=== PATIENT | female | born 1990 | race Caucasian/White ===

== ENCOUNTER → 2018-01-18 01:43 | Outpatient (CLI) | payer BC, SELFPAY ==
[2018-01-18 09:05] LABS: Glucose 1 Hour 201 mg/dL
[2018-01-18 11:15] LABS: Glucose 3 Hour 132 mg/dL
== END ==
PROVIDERS: PCP Nurse Practitioner Family; Visit Provider Obstetrics & Gynecology
DX: O24.429 Gestational diabetes mellitus in childbirth, unspecified control (principal)
CPT/HCPCS: 36410; 82951

== ENCOUNTER 2018-06-10 01:46 | Outpatient (CLI) | payer BC, SELFPAY ==
[2018-06-10 08:55] LABS: TSH (W/Ref FT4) 2.27 uIU/mL (0.358-3.74)
== END 2018-06-10 02:06 ==
PROVIDERS: PCP Nurse Practitioner Family; Referring Provider Advanced Practice Midwife; Visit Provider Nurse Practitioner Family
DX: Z86.32 Personal history of gestational diabetes (principal); Z39.2 Encounter for routine postpartum follow-up
CPT/HCPCS: 36410; 82951; 84443

== ENCOUNTER 2018-09-29 02:46 | Observation (INO) | payer BC, SELFPAY ==
[2018-09-29] VITALS (12 sets, daily range): BP systolic 97–126; BP diastolic 56–85; PULSE 58–119; RESP 11–20; TEMP 36.4–36.9; O2SAT 95–99
--- NOTE | 2018-09-29 02:58 | DI.CT_ITS ---
SYMPTOMS/DIAGNOSIS: RIGHT LOWER QUADRANT PAIN, ? APPENDICITIS CT OF THE ABDOMEN AND PELVIS: Images were performed from the lung bases through the ischial tuberosities after IV and without oral contrast. The appendix is dilated to 1.2 cm. The appendix projects inferiorly and posteriorly in the pelvis. There is no evidence of abscess. There is a small amount of fluid. There is no evidence of free air. The heart size is normal. The lung bases are clear. The liver, gallbladder, spleen, pancreas and adrenals are unremarkable. There is a small left renal cyst. No stones or hydronephrosis is seen. There is no small bowel dilatation. The uterus is retroverted. The ovaries are unremarkable. The aorta is normal in diameter. IMPRESSION: Findings consistent with acute appendicitis. No evidence of abscess or perforation.
--- NOTE | 2018-09-29 03:00 | W.ED.GENAD ---
Discharge Plan Disposition Patient Disposition[facility] Condition: Stable Discharge Details Chief Complaint: Abd Prob Clinical Impression: Acute appendicitis Primary Care Provider: Alexa Hairston ED Provider: Alberto Lerma Home Meds and New Rx's Prescriptions: No Action loratadine [Claritin] 10 MG tablet 10 mg PO DAILY PRNRF: 0 epinephrine [EpiPen 2-Martin] 0.3 MG/0.3 ML auto-injector 0.3 mg IM ONCE RF: 0 albuterol sulfate 8.5 GM HFA aerosol inhaler 2 puff Inhalation PRN PRNRF: 0 magnesium 250 MG tablet 250 mg PO DAILY RF: 0 Unisom (doxylamine) 25 MG tablet 12.5 mg PO DAILY RF: 0 Vitamin 1 EACH tablet 1 tbs PO DAILY RF: 0 sertraline 50 mg Tablet 50 mg PO DAILY RF: 0 Medical Decision Making This is a pleasant 27-year-old female who presents today for evaluation of right lower quadrant pain for the last 2-3 days. It is sharp in nature, it is in the right lower quadrant and radiates to the left. Last meal was at 8 PM. She denies any vomiting or diarrhea, vaginal complaints or urinary complaints. Signs and symptoms are notably concerning for appendicitis. We will treat with IV Tylenol, Toradol, rehydrate, evaluate for laboratory abnormality and get a CT scan to rule out appe. 4:[address] scan results show evidence of an acute appendicitis. Surgery will be contacted for surgical management. 4:26 AM I spoken with Dr. Dove, she agrees with the need for surgical management. She recommends Cipro and Flagyl due to the patient's amoxicillin allergy. We will start this. Patient will be admitted, bridging orders will be placed by myself at Dr. Dove's request. I have extensively reviewed the treatment plan with the patient. I have addressed all patient concerns at this time. I have also discussed the plan with the admitting physician and they agree with the current assessment and plan and have agreed to assume responsibility for the patient. All parties demonstrate verbal understanding and agreement with our assessment and plan at this time. FINDINGS: ABDOMEN: Liver: Normal. No mass. Gallbladder and bile ducts: Normal. No calcified stones. No ductal dilation. Pancreas: Normal. No ductal dilation. Spleen: Normal. No splenomegaly. Adrenals: Normal. No mass. Kidneys and ureters: Small probable cyst in the left kidney. No hydronephrosis. Stomach and bowel: Normal. No obstruction. No mucosal thickening. Appendix: Dilated, inflamed appendix measuring up to 1.2 cm in diameter. The appendix is retrocecal and extends into the lower right hemipelvis. No evidence of perforation. PELVIS: Bladder: Unremarkable as visualized. Reproductive: Unremarkable as visualized. ABDOMEN and PELVIS: Intraperitoneal space: Trace fluid in the pelvis. No abscess or free air. Bones/joints: No acute fracture. No dislocation. Soft tissues: Unremarkable. Vasculature: Normal. No abdominal aortic aneurysm. Lymph nodes: Normal. No enlarged lymph nodes. IMPRESSION: Acute appendicitis. Dictated and Authenticated by: Raymundo Jacobo MD. Ordering:CHELSY Dominguez MD [facility] General Date/Time Provider Initiated Documentation: 09/29/18 02:52. HPI Narrative: This is a 27-year-old female with a past medical history of asthma, duodenal ulcer, Chiari malformation, who presents today for evaluation of right lower quadrant pain. Patient states that for the last 2-3 days she has had the pain, it initially started as a sharp right lower quadrant pain with associated chills, is gradually worsened and continued. She denies any focal aggravating or relieving factors. Last time she ate was at 8 PM. She denies any vomiting or diarrhea. She denies any dysuria, hematuria, vaginal discharge or history of STD. She denies any significant previous abdominal surgeries. She has no other complaints at this time. Related Data Home Medications Medication Instructions Recorded Confirmed albuterol sulfate 2 puff INHALATION PRN PRN 05/07/13 09/29/18 loratadine [Claritin] 10 mg PO DAILY PRN 09/13/15 09/29/18 epinephrine [EpiPen 2-Martin] 0.3 mg IM ONCE 04/14/16 09/29/18 doxylamine succinate [Unisom] 12.5 mg PO DAILY 02/03/18 09/29/18 magnesium 250 mg PO DAILY 02/03/18 09/29/18 vit no.[id number] 1 tbs PO DAILY 02/03/18 09/29/18 [ Vitamin Tablet] sertraline 50 mg PO DAILY 09/29/18 09/29/18 Allergies Allergy/AdvReac Type Severity Reaction Status Date / Time amoxicillin trihydrate Allergy Mild Skin Rash Unverified 09/29/18 02:55 [From Augmentin] potassium clavulanate Allergy Mild Skin Rash Unverified 09/29/18 02:55 [From Augmentin] General Stated Complaint: Abd Prob RELL: 3 Review of Systems Review of Systems All systems reviewed & are unremarkable except as noted in HPI and below PFSH Medical History Acute duodenal ulcer with hemorrhage Asthma History of Chiari malformation Migraine Recurrent urinary tract infection Surgical History Excision, Pilonidal Cyst (04/25/16) Fracture, Closed Treatment neck surgery Family History Mother No problems noted. Father Hypertensive disorder, systemic arterial Hyperlipidemia Social History Smoking/Tobacco Use Status: Never Alcohol Intake: never Drug use: Never Do you feel safe in your relationship?: Yes Exam Narrative Exam Narrative: 1.Const: Well-nourished, Well-developed, appearing stated age 2.Eyes: PERRL, no conjunctival injection, and symmetrical lids. 3.ENT: Atraumatic external nose and ears. Moist MM. Neck: Symmetric, trachea midline, No thyromegaly. 4.CVS: +S1/S2, No murmurs or gallops. Peripheral pulses 2+ and equal in all extremities. Brisk capillary refill in all extremities. 5.RESP: Unlabored respiratory effort. Clear to auscultation bilaterally. No wheezes rales or rhonchi 6.GI: Soft, Nondistended, No hepatosplenomegaly. No guarding or rebound. Positive Rovsing sign, positive pain at McBurney's point, 7.MSK: Normocephalic/Atraumatic, Extremities w/o deformity or ttp No cyanosis or clubbing, Normal movement of all extremities 8.Skin: Warm, Dry. No rashes or lesions. 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 Sensation grossly intact, no focal neurologic deficits. 10.Psych: (AAO) x3. Appropriate mood and affect Course Vital Signs Temperature 36.8 C 09/29/18 02:51 Pulse 119 H 09/29/18 02:51 Respiratory Rate 20 09/29/18 02:51 Blood Pressure 123/85 09/29/18 02:51 Pulse Oximetry 95 09/29/18 02:51 Temperature 36.8 C 09/29/18 02:51 Temperature Source Temporal Artery Scan 09/29/18 02:51 Pulse 119 H 09/29/18 02:51 Respiratory Rate 20 09/29/18 02:51 Respiratory Effort Non-Labored 09/29/18 02:51 Blood Pressure 123/85 09/29/18 02:51 Blood Pressure Position Sitting 09/29/18 02:51 Pulse Oximetry 95 09/29/18 02:51 Oxygen Delivery Method Room Air 09/29/18 02:51 Oxygen Flow Rate 0 09/29/18 02:51
--- NOTE | 2018-09-29 03:04 | ED.GENADUL_ITS ---
Discharge Plan Disposition Patient Disposition: [facility] INPATIENT Condition: Stable Discharge Details Chief Complaint: Abd Prob Clinical Impression: Acute appendicitis Primary Care Provider: Alexa Hairston ED Provider: Alberto Lerma Home Meds and New Rx's Prescriptions: No Action loratadine [Claritin] 10 MG tablet 10 mg PO DAILY PRNRF: 0 epinephrine [EpiPen 2-Martin] 0.3 MG/0.3 ML auto-injector 0.3 mg IM ONCE RF: 0 albuterol sulfate 8.5 GM HFA aerosol inhaler 2 puff Inhalation PRN PRNRF: 0 magnesium 250 MG tablet 250 mg PO DAILY RF: 0 Unisom (doxylamine) 25 MG tablet 12.5 mg PO DAILY RF: 0 Vitamin 1 EACH tablet 1 tbs PO DAILY RF: 0 sertraline 50 mg Tablet 50 mg PO DAILY RF: 0 Medical Decision Making This is a pleasant 27-year-old female who presents today for evaluation of right lower quadrant pain for the last 2-3 days. It is sharp in nature, it is in the right lower quadrant and radiates to the left. Last meal was at 8 PM. She denies any vomiting or diarrhea, vaginal complaints or urinary complaints. Signs and symptoms are notably concerning for appendicitis. We will treat with IV Tylenol, Toradol, rehydrate, evaluate for laboratory abnormality and get a CT scan to rule out appe. 4:[address] scan results show evidence of an acute appendicitis. Surgery will be contacted for surgical management. 4:26 AM I spoken with Dr. Dove, she agrees with the need for surgical management. She recommends Cipro and Flagyl due to the patient's amoxicillin allergy. We will start this. Patient will be admitted, bridging orders will be placed by myself at Dr. Dove's request. I have extensively reviewed the treatment plan with the patient. I have addressed all patient concerns at this time. I have also discussed the plan with the admitting physician and they agree with the current assessment and plan and have agreed to assume responsibility for the patient. All parties demonstrate verbal understanding and agreement with our assessment and plan at this time. FINDINGS: ABDOMEN: Liver: Normal. No mass. Gallbladder and bile ducts: Normal. No calcified stones. No ductal dilation. Pancreas: Normal. No ductal dilation. Spleen: Normal. No splenomegaly. Adrenals: Normal. No mass. Kidneys and ureters: Small probable cyst in the left kidney. No hydronephrosis. Stomach and bowel: Normal. No obstruction. No mucosal thickening. Appendix: Dilated, inflamed appendix measuring up to 1.2 cm in diameter. The appendix is retrocecal and extends into the lower right hemipelvis. No evidence of perforation. PELVIS: Bladder: Unremarkable as visualized. Reproductive: Unremarkable as visualized. ABDOMEN and PELVIS: Intraperitoneal space: Trace fluid in the pelvis. No abscess or free air. Bones/joints: No acute fracture. No dislocation. Soft tissues: Unremarkable. Vasculature: Normal. No abdominal aortic aneurysm. Lymph nodes: Normal. No enlarged lymph nodes. IMPRESSION: Acute appendicitis. Dictated and Authenticated by: Raymundo Jacobo MD. Ordering:CHELSY Dominguez MD [facility] General Date/Time Provider Initiated Documentation: 09/29/18 02:52 . HPI Narrative: This is a 27-year-old female with a past medical history of asthma, duodenal ulcer, Chiari malformation, who presents today for evaluation of right lower quadrant pain. Patient states that for the last 2-3 days she has had the pain, it initially started as a sharp right lower quadrant pain with associated chills, is gradually worsened and continued. She denies any focal aggravating or relieving factors. Last time she ate was at 8 PM. She denies any vomiting or diarrhea. She denies any dysuria, hematuria, vaginal discharge or history of STD. She denies any significant previous abdominal surgeries. She has no other complaints at this time. Related Data Home Medications Medication Instructions Recorded Confirmed albuterol sulfate 2 puff INHALATION PRN PRN 05/07/13 09/29/18 loratadine [Claritin] 10 mg PO DAILY PRN 09/13/15 09/29/18 epinephrine [EpiPen 2-Martin] 0.3 mg IM ONCE 04/14/16 09/29/18 doxylamine succinate [Unisom] 12.5 mg PO DAILY 02/03/18 09/29/18 magnesium 250 mg PO DAILY 02/03/18 09/29/18 vit no.[id number] 1 tbs PO DAILY 02/03/18 09/29/18 [ Vitamin Tablet] sertraline 50 mg PO DAILY 09/29/18 09/29/18 Allergies Allergy/AdvReac Type Severity Reaction Status Date / Time amoxicillin trihydrate Allergy Mild Skin Rash Unverified 09/29/18 02:55 [From Augmentin] potassium clavulanate Allergy Mild Skin Rash Unverified 09/29/18 02:55 [From Augmentin] General Stated Complaint: Abd Prob RELL: 3 Review of Systems Review of Systems All systems reviewed & are unremarkable except as noted in HPI and below PFSH Medical History Acute duodenal ulcer with hemorrhage Asthma History of Chiari malformation Migraine Recurrent urinary tract infection Surgical History Excision, Pilonidal Cyst (04/25/16) Fracture, Closed Treatment neck surgery Family History Mother No problems noted. Father Hypertensive disorder, systemic arterial Hyperlipidemia Social History Smoking/Tobacco Use Status: Never Alcohol Intake: never Drug use: Never Do you feel safe in your relationship?: Yes Exam Narrative Exam Narrative: 1.Const: Well-nourished, Well-developed, appearing stated age 2.Eyes: PERRL, no conjunctival injection, and symmetrical lids. 3.ENT: Atraumatic external nose and ears. Moist MM. Neck: Symmetric, trachea midline, No thyromegaly. 4.CVS: +S1/S2, No murmurs or gallops. Peripheral pulses 2+ and equal in all e xtremities. Brisk capillary refill in all extremities. 5.RESP: Unlabored respiratory effort. Clear to auscultation bilaterally. No wheezes rales or rhonchi 6.GI: Soft, Nondistended, No hepatosplenomegaly. No guarding or rebound. Positive Rovsing sign, positive pain at McBurney's point, 7.MSK: Normocephalic/Atraumatic, Extremities w/o deformity or ttp No cyanosis or clubbing, Normal movement of all extremities 8.Skin: Warm, Dry. No rashes or lesions. 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 Sensation grossly intact, no focal neurologic deficits. 10.Psych: (AAO) x3. Appropriate mood and affect Course Vital Signs Temperature 36.8 C 09/29/18 02:51 Pulse 119 H 09/29/18 02:51 Respiratory Rate 20 09/29/18 02:51 Blood Pressure 123/85 09/29/18 02:51 Pulse Oximetry 95 09/29/18 02:51 Temperature 36.8 C 09/29/18 02:51 Temperature Source Temporal Artery Scan 09/29/18 02:51 Pulse 119 H 09/29/18 02:51 Respiratory Rate 20 09/29/18 02:51 Respiratory Effort Non-Labored 09/29/18 02:51 Blood Pressure 123/85 09/29/18 02:51 Blood Pressure Position Sitting 09/29/18 02:51 Pulse Oximetry 95 09/29/18 02:51 Oxygen Delivery Method Room Air 09/29/18 02:51 Oxygen Flow Rate 0 09/29/18 02:51
[2018-09-29 03:08] LABS: Bilirubin Negative (Negative); Blood Negative (Negative); Clarity Clear; Glucose Negative (Negative); Ketones Negative (Negative); Leukocyte Esterase Negative (Negative); Nitrite Negative (Negative); Urobilinogen 0.2 EU/dL (Up TO 0.2)
[2018-09-29 03:24] LABS: Abs Immature Grans 0.03 k/cumm (0.0-0.09); Absolute Basophil Count 0.03 k/cumm (0.0-0.2); Absolute Neutrophil Count 10.58 k/cumm (1.2-6.7); Basophils % 0.2; Eosinophils % 2.7; HGB 13.3 g/dL (12.0-15.5); Immature Grans % 0.2; Lymphocytes % 11.6; Mean Corp. HGB Concentration 34.1 g/dL (32.0-36.0); Mean Corpuscular Hemoglobin 29.3 pg (27.0-33.0); Mean Corpuscular Volume 85.9 fL (80-95); Mean Platelet Volume 9.1 fL (8.0-11.0); Monocytes % 7.4; Neutrophils % 77.9; Platelet Count 334 x1000/uL (130-400); RBC 4.54 m/cumm (4.00-5.20); RBC Distribution Width 12.1 % (11.7-14.6); White Blood Cell Count 13.58 k/cumm (4.4-10.8)
[2018-09-29 03:25] LABS: Absolute Eosinophil Count 0.37 k/cumm (0.0-0.7); Absolute Lymphocyte Count 1.58 k/cumm (1.2-3.4)
[2018-09-29] MEDS: ACETAMINOPHEN 1,000 MG/100 ML BTL 400 MG IVPB (03:34)
[2018-09-29] MEDS: Ketorolac 15 MG/ML VIAL IVP (03:35)
[2018-09-29] MEDS: Normal Saline 1,000 ML 1000 ML IV (03:35)
[2018-09-29 03:40] LABS: ALT 26 U/L (12-78); AST 17 U/L (15-37); Alkaline Phosphatase 122 U/L (46-116); Anion Gap 11.7 mmol/L (3-11); BUN 15 mg/dL (7-18); Bilirubin, Total 0.2 mg/dL (0.2-1.0); CO2 26.3 mmol/L (21.0-32.0); Calcium 9.5 mg/dL (8.5-10.1); Chloride 101 mmol/L (98-107); Glucose 105 mg/dL (70-100); Sodium 139 mmol/L (136-145); Total Protein 8.3 g/dL (6.4-8.2)
[2018-09-29] MEDS: Omnipaque 350 MG/ML 100 ML BTL IJ (03:46)
--- NOTE | 2018-09-29 04:21 | DI.VRAD_ITS ---
Addendum created by Raymundo Jacobo MD on 09/29/2018 4:35:08 AM EDT This report contains findings that may be critical to patient care. Receipt of this report was confirmed by AAYUSH Gates at 4:34 AM EDT on 09/29/2018. Initial report created on 09/29/2018 4:21:22 AM EDT EXAM: CT Abdomen and Pelvis With Contrast EXAM DATE/TIME: 09/29/2018 3:02 AM CLINICAL HISTORY: 27 years old, female; Abdominal pain; Generalized TECHNIQUE: Imaging protocol: Axial computed tomography images of the abdomen and pelvis with intravenous contrast. Coronal and sagittal reformatted images were created and reviewed. Radiation optimization: All CT scans at this facility use at least one of these dose optimization techniques: automated exposure control; mA and/or kV adjustment per patient size (includes targeted exams where dose is matched to clinical indication); or iterative reconstruction. Contrast material: OMNIPAQUE 350; Contrast volume: 100 ml; Contrast route: IV; COMPARISON: No relevant prior studies available. FINDINGS: ABDOMEN: Liver: Normal. No mass. Gallbladder and bile ducts: Normal. No calcified stones. No ductal dilation. Pancreas: Normal. No ductal dilation. Spleen: Normal. No splenomegaly. Adrenals: Normal. No mass. Kidneys and ureters: Small probable cyst in the left kidney. No hydronephrosis. Stomach and bowel: Normal. No obstruction. No mucosal thickening. Appendix: Dilated, inflamed appendix measuring up to 1.2 cm in diameter. The appendix is retrocecal and extends into the lower right hemipelvis. No evidence of perforation. PELVIS: Bladder: Unremarkable as visualized. Reproductive: Unremarkable as visualized. ABDOMEN and PELVIS: Intraperitoneal space: Trace fluid in the pelvis. No abscess or free air. Bones/joints: No acute fracture. No dislocation. Soft tissues: Unremarkable. Vasculature: Normal. No abdominal aortic aneurysm. Lymph nodes: Normal. No enlarged lymph nodes. IMPRESSION: Acute appendicitis. Dictated and Authenticated by: Raymundo Jacobo MD. Ordering:CHELSY Dominguez MD
[2018-09-29] MEDS: CIPROFLOXACIN 400 MG/200 ML BAG 200 MG IVPB (04:37)
--- NOTE | 2018-09-29 05:36 | NUR.NOTE ---
Young female patient brought to the Med/Surg unit from the Emergency room with History of inflamed appendicitis, confirmed by CT abdomen. She AxOx3. Head to toe assessment was done. Pt NPO for surgery this day. Made comfortable in bed and oriented to the room.
[2018-09-29] MEDS: metroNIDAZOLE 500 MG/100 ML BAG 100 MG IVPB (05:47)
[2018-09-29] MEDS: Normal Saline Flush 10 ML SYR IVP ×2 (05:47→16:27)
--- NOTE | 2018-09-29 07:38 | W.PM.HP.N ---
Date of service: 09/29/18 Time of Service: 07:39 Assessment and Plan (1) Acute appendicitis: Current visit: Yes Status: Acute 27 y/o female who presents with findings consistent with acute appendicitis. Recommended proceeding with a laparoscopic appendectomy this am. Operative procedure including risks, benefits, and alternatives reviewed with patient and her mother. These include but are not limited to risks with general anesthesia, bleeding, infection, scarring, conversion to open, drain placement, injury to adjacent structures and organs, baeza placement, and possible additional procedures. Advised patient to discuss with technical solutions consultant re: breast feeding and anesthesia/pain meds. All questions answered. Patient wishes to proceed. See orders. History of Present Illness Chief Complaint: Abdominal pain Narrative: 27 y/o female seen with her mother at the bedside. 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 She was admitted through the ED this am with a 2-3 day history of RLQ pain which has waxed and waned but became more persistent last night. (+) nausea and chills, but no emesis or fevers. No dysuria, hematuria, diarrhea, or constipation noted. WBC ~13k. CT abd/pelvis films and VRADS report reviewed. (+) retrocecal appendicitis without evidence of abscess on CT. Last ate ~ 8 pm last night. Had a sip of water ~ 1 am this morning. She is 6 months and is . Review of Systems Review of Systems All systems reviewed & are unremarkable except as noted in HPI and below Constitutional Reports chills and Denies fever(s) Cardiovascular Denies chest pain, Denies rapid heart rate and Denies dyspnea Respiratory Denies cough and Denies dyspnea Gastrointestinal Reports abdominal pain, Denies constipation, Denies diarrhea, Reports nausea and Denies vomiting [facility] Medical History Acute duodenal ulcer with hemorrhage Asthma History of Chiari malformation Migraine Recurrent urinary tract infection Surgical History Excision, Pilonidal Cyst (04/25/16) Fracture, Closed Treatment neck surgery Family History Mother No problems noted. Father Hypertensive disorder, systemic arterial Hyperlipidemia Social History Smoking/Tobacco Use Status: Never Alcohol Intake: current Drug use: Never Do you feel safe in your relationship?: Yes Meds Home Medications Medication Instructions Recorded Confirmed Type albuterol sulfate 2 puff INHALATION PRN PRN 05/07/13 09/29/18 History loratadine [Claritin] 10 mg PO DAILY PRN 09/13/15 09/29/18 History epinephrine [EpiPen 2-Martin] 0.3 mg IM ONCE 04/14/16 09/29/18 History doxylamine succinate [Unisom] 12.5 mg PO DAILY 02/03/18 09/29/18 History magnesium 250 mg PO DAILY 02/03/18 09/29/18 History vit no.[id number] 1 tbs PO DAILY 02/03/18 09/29/18 History [ Vitamin Tablet] sertraline 50 mg PO DAILY 09/29/18 09/29/18 History Allergies Allergy/AdvReac Type Severity Reaction Status Date / Time amoxicillin trihydrate Allergy Mild Skin Rash Unverified 09/29/18 02:55 [From Augmentin] potassium clavulanate Allergy Mild Skin Rash Unverified 09/29/18 02:55 [From Augmentin] Exam Const General: comfortable, no acute distress and well developed Nutritional Appearance: well nourished Orientation: alert and oriented x3 HENMT Head: normocephalic and atraumatic Eyes Sclera: sclerae normal Neck Neck: no lymphadenopathy, trachea midline, supple and no JVD Resp Effort & Inspection: normal respiratory effort and able to speak in complete sentences Cardio Jugular venous pressure: no JVD Rate: regular rate Rhythm: regular rhythm GI Inspection: non-distended Palpation: soft, not firm, guarding in the RLQ, not rigid and tender in the RLQ Skin General skin exam: no rashes or lesions noted and no jaundice Neuro General: alert and oriented x3 Speech: speech normal Results Imaging Abdomen CT scan report/results: report reviewed and image reviewed CT scan - pelvis: report reviewed and image reviewed Imaging Studies: Patient Name: EBONI FLYNN #: [id number]: ER Ordering Provider: : REG ER Primary Care Provider: Aleax Hairston Date of Exam: 09/29/18Sex: F : 1990Age: 27 Exam(s) Addendum created by Raymundo Jacobo MD on 09/29/2018 4:35:08 AM EDT This report contains findings that may be critical to patient care. Receipt of this report was confirmed by AAYUSH Gates at 4:34 AM EDT on 09/29/2018. Initial report created on 09/29/2018 4:21:22 AM EDT EXAM: CT Abdomen and Pelvis With Contrast EXAM DATE/TIME: 09/29/2018 3:02 AM CLINICAL HISTORY: 27 years old, female; Abdominal pain; Generalized TECHNIQUE: Imaging protocol: Axial computed tomography images of the abdomen and pelvis with intravenous contrast. Coronal and sagittal reformatted images were created and reviewed. Radiation optimization: All CT scans at this facility use at least one of these dose optimization techniques: automated exposure control; mA and/or kV adjustment per patient size (includes targeted exams where dose is matched to clinical indication); or iterative reconstruction. Contrast material: OMNIPAQUE 350; Contrast volume: 100 ml; Contrast route: IV; COMPARISON: No relevant prior studies available. FINDINGS: ABDOMEN: Liver: Normal. No mass. Gallbladder and bile ducts: Normal. No calcified stones. No ductal dilation. Pancreas: Normal. No ductal dilation. Spleen: Normal. No splenomegaly. Adrenals: Normal. No mass. Kidneys and ureters: Small probable cyst in the left kidney. No hydronephrosis. Stomach and bowel: Normal. No obstruction. No mucosal thickening. Appendix: Dilated, inflamed appendix measuring up to 1.2 cm in diameter. The appendix is retrocecal and extends into the lower right hemipelvis. No evidence of perforation. PELVIS: Bladder: Unremarkable as visualized. Reproductive: Unremarkable as visualized. ABDOMEN and PELVIS: Intraperitoneal space: Trace fluid in the pelvis. No abscess or free air. Bones/joints: No acute fracture. No dislocation. Soft tissues: Unremarkable. Vasculature: Normal. No abdominal aortic aneurysm. Lymph nodes: Normal. No enlarged lymph nodes. IMPRESSION: Acute appendicitis. Dictated and Authenticated by: Raymundo Jacobo MD. Ordering:CHELSY Dominguez MD Ordered By: CC: Dictated By: Reports vrad 09/29/18 0302 09/29/18 0435 Transcribed By: Airam Perales This is privileged, confidential information intended only for the provider named. Any use or distribution by any person other than this provider is strictly prohibited. If you receive this report in error, please notify us immediately at [phone] and return the original report to us at the address above. Thank-you. Labs : 09/29/18 03:10 09/29/18 03:10 Laboratory Results - last 24 hr 09/29/18 09/29/18 09/29/18 03:02 03:10 03:10 WBC 13.58 H RBC 4.54 Hgb 13.3 Hct 39.0 MCV 85.9 MCH 29.3 MCHC 34.1 RDW 12.1 Plt Count 334 MPV 9.1 Immature Gran % 0.2 Neutrophils % 77.9 Lymphocytes % 11.6 Monocytes % 7.4 Eosinophils % 2.7 Basophils % 0.2 Absolute Neutrophils 10.58 H Absolute Lymphocytes 1.58 Absolute Monocytes 1.00 H Absolute Eosinophils 0.37 Absolute Basophils 0.03 Sodium 139 Potassium 4.0 Chloride 101 Carbon Dioxide 26.3 Anion Gap 11.7 H BUN 15 Creatinine 0.80 Estimated GFR/1.73 m2 >= 60.00 Glucose 105 H Calcium 9.5 Total Bilirubin 0.2 AST 17 ALT 26 Alkaline Phosphatase 122 H Total Protein 8.3 H Albumin 4.0 Urine Color Yellow Urine Clarity Clear Urine pH 7.0 Ur Specific [place] 1.020 Urine Protein Negative Urine Ketones Negative Urine Blood Negative Urine Nitrite Negative Urine Bilirubin Negative Urine Urobilinogen 0.2 Ur Leukocyte Esterase Negative Urine Glucose Negative Patient ABO/Rh Antibody Screen 09/29/18 03:10 WBC RBC Hgb Hct MCV MCH MCHC RDW Plt Count MPV Immature Gran % Neutrophils % Lymphocytes % Monocytes % Eosinophils % Basophils % Absolute Neutrophils Absolute Lymphocytes Absolute Monocytes Absolute Eosinophils Absolute Basophils Sodium Potassium Chloride Carbon Dioxide Anion Gap BUN Creatinine Estimated GFR/1.73 m2 Glucose Calcium Total Bilirubin AST ALT Alkaline Phosphatase Total Protein Albumin Urine Color Urine Clarity Urine pH Ur Specific [place] Urine Protein Urine Ketones Urine Blood Urine Nitrite Urine Bilirubin Urine Urobilinogen Ur Leukocyte Esterase Urine Glucose Patient ABO/Rh O Positive Antibody Screen Negative Last Vital Signs Temp 36.8 C 09/29/18 05:16 Pulse 119 H 09/29/18 05:16 Resp 20 09/29/18 05:16 BP 123/85 09/29/18 05:16 Pulse Ox 95 09/29/18 05:16
--- NOTE | 2018-09-29 07:46 | HPE_ITS ---
Date of service: 09/29/18 Time of Service: 07:39 Assessment and Plan (1) Acute appendicitis: Current visit: Yes Status: Acute 27 y/o female who presents with findings consistent with acute appendicitis. Recommended proceeding with a laparoscopic appendectomy this am. Operative procedure including risks, benefits, and alternatives reviewed with patient and her mother. These include but are not limited to risks with general anesthesia, bleeding, infection, scarring, conversion to open, drain placement, injury to adjacent structures and organs, baeza placement, and possible additional procedures. Advised patient to discuss with crop consultant re: breast feeding and anesthesia/pain meds. All questions answered. Patient wishes to proceed. See orders. History of Present Illness Chief Complaint: Abdominal pain Narrative: 27 y/o female seen with her mother at the bedside. 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 She was admitted through the ED this am with a 2-3 day history of RLQ pain which has waxed and waned but became more persistent last night. (+) nausea and chills, but no emesis or fevers. No dysuria, hematuria, diarrhea, or constipation noted. WBC ~13k. CT abd/pelvis films and VRADS report reviewed. (+) retrocecal appendicitis without evidence of abscess on CT. Last ate ~ 8 pm last night. Had a sip of water ~ 1 am this morning. She is 6 months and is . Review of Systems Review of Systems All systems reviewed & are unremarkable except as noted in HPI and below Constitutional Reports chills and Denies fever(s) Cardiovascular Denies chest pain, Denies rapid heart rate and Denies dyspnea Respiratory Denies cough and Denies dyspnea Gastrointestinal Reports abdominal pain, Denies constipation, Denies diarrhea, Reports nausea and Denies vomiting [facility] Medical History Acute duodenal ulcer with hemorrhage Asthma History of Chiari malformation Migraine Recurrent urinary tract infection Surgical History Excision, Pilonidal Cyst (04/25/16) Fracture, Closed Treatment neck surgery Family History Mother No problems noted. Father Hypertensive disorder, systemic arterial Hyperlipidemia Social History Smoking/Tobacco Use Status: Never Alcohol Intake: current Drug use: Never Do you feel safe in your relationship?: Yes Meds Home Medications Medication Instructions Recorded Confirmed Type albuterol sulfate 2 puff INHALATION PRN PRN 05/07/13 09/29/18 History loratadine [Claritin] 10 mg PO DAILY PRN 09/13/15 09/29/18 History epinephrine [EpiPen 2-Martin] 0.3 mg IM ONCE 04/14/16 09/29/18 History doxylamine succinate [Unisom] 12.5 mg PO DAILY 02/03/18 09/29/18 History magnesium 250 mg PO DAILY 02/03/18 09/29/18 History vit no.[id number] 1 tbs PO DAILY 02/03/18 09/29/18 History [ Vitamin Tablet] sertraline 50 mg PO DAILY 09/29/18 09/29/18 History Allergies Allergy/AdvReac Type Severity Reaction Status Date / Time amoxicillin trihydrate Allergy Mild Skin Rash Unverified 09/29/18 02:55 [From Augmentin] potassium clavulanate Allergy Mild Skin Rash Unverified 09/29/18 02:55 [From Augmentin] Exam Const General: comfortable, no acute distress and well developed Nutritional Appearance: well nourished Orientation: alert and oriented x3 HENMT Head: normocephalic and atraumatic Eyes Sclera: sclerae normal Neck Neck: no lymphadenopathy, trachea midline, supple and no JVD Resp Effort & Inspection: normal respiratory effort and able to speak in complete sentences Cardio Jugular venous pressure: no JVD Rate: regular rate Rhythm: regular rhythm GI Inspection: non-distended Palpation: soft, not firm, guarding in the RLQ, not rigid and tender in the RLQ Skin General skin exam: no rashes or lesions noted and no jaundice Neuro General: alert and oriented x3 Speech: speech normal Results Imaging Abdomen CT scan report/results: report reviewed and image reviewed CT scan - pelvis: report reviewed and image reviewed Imaging Studies: Patient Name: EBONI FLYNN #: [id number]: ER Ordering Provider: : REG ER Primary Care Provider: Alexa Hairston Date of Exam: 09/29/18Sex: F : 1990Age: 27 Exam(s) Addendum created by Raymundo Jacobo MD on 09/29/2018 4:35:08 AM EDT This report contains findings that may be critical to patient care. Receipt of this report was confirmed by AAYUSH Gates at 4:34 AM EDT on 09/29/2018. Initial report created on 09/29/2018 4:21:22 AM EDT EXAM: CT Abdomen and Pelvis With Contrast EXAM DATE/TIME: 09/29/2018 3:02 AM CLINICAL HISTORY: 27 years old, female; Abdominal pain; Generalized TECHNIQUE: Imaging protocol: Axial computed tomography images of the abdomen and pelvis with intravenous contrast. Coronal and sagittal reformatted images were created and reviewed. Radiation optimization: All CT scans at this facility use at least one of these dose optimization techniques: automated exposure control; mA and/or kV adjustment per patient size (includes targeted exams where dose is matched to clinical indication); or iterative reconstruction. Contrast material: OMNIPAQUE 350; Contrast volume: 100 ml; Contrast route: IV; COMPARISON: No relevant prior studies available. FINDINGS: ABDOMEN: Liver: Normal. No mass. Gallbladder and bile ducts: Normal. No calcified stones. No ductal dilation. Pancreas: Normal. No ductal dilation. Spleen: Normal. No splenomegaly. Adrenals: Normal. No mass. Kidneys and ureters: Small probable cyst in the left kidney. No hydronephrosis. Stomach and bowel: Normal. No obstruction. No mucosal thickening. Appendix: Dilated, inflamed appendix measuring up to 1.2 cm in diameter. The appendix is retrocecal and extends into the lower right hemipelvis. No evidence of perforation. PELVIS: Bladder: Unremarkable as visualized. Reproductive: Unremarkable as visualized. ABDOMEN and PELVIS: Intraperitoneal space: Trace fluid in the pelvis. No abscess or free air. Bones/joints: No acute fracture. No dislocation. Soft tissues: Unremarkable. Vasculature: Normal. No abdominal aortic aneurysm. Lymph nodes: Normal. No enlarged lymph nodes. IMPRESSION: Acute appendicitis. Dictated and Authenticated by: Raymundo Jacobo MD. Ordering:CHELSY Dominguez MD Ordered By: CC: Dictated By: Reports vrad 09/29/18 0302 09/29/18 0435 Transcribed By: Airam Perales This is privileged, confidential information intended only for the provider named. Any use or distribution by any person other than this provider is strictly prohibited. If you receive this report in error, please notify us immediately at [phone] and return the original report to us at the address above. Thank-you. Labs : 09/29/18 03:10 09/29/18 03:10 Laboratory Results - last 24 hr 09/29/18 09/29/18 09/29/18 03:02 03:10 03:10 WBC 13.58 H RBC 4.54 Hgb 13.3 Hct 39.0 MCV 85.9 MCH 29.3 MCHC 34.1 RDW 12.1 Plt Count 334 MPV 9.1 Immature Gran % 0.2 Neutrophils % 77.9 Lymphocytes % 11.6 Monocytes % 7.4 Eosinophils % 2.7 Basophils % 0.2 Absolute Neutrophils 10.58 H Absolute Lymphocytes 1.58 Absolute Monocytes 1.00 H Absolute Eosinophils 0.37 Absolute Basophils 0.03 Sodium 139 Potassium 4.0 Chloride 101 Carbon Dioxide 26.3 Anion Gap 11.7 H BUN 15 Creatinine 0.80 Estimated GFR/1.73 m2 >= 60.00 Glucose 105 H Calcium 9.5 Total Bilirubin 0.2 AST 17 ALT 26 Alkaline Phosphatase 122 H Total Protein 8.3 H Albumin 4.0 Urine Color Yellow Urine Clarity Clear Urine pH 7.0 Ur Specific [place] 1.020 Urine Protein Negative Urine Ketones Negative Urine Blood Negative Urine Nitrite Negative Urine Bilirubin Negative Urine Urobilinogen 0.2 Ur Leukocyte Esterase Negative Urine Glucose Negative Patient ABO/Rh Antibody Screen 09/29/18 03:10 WBC RBC Hgb Hct MCV MCH MCHC RDW Plt Count MPV Immature Gran % Neutrophils % Lymphocytes % Monocytes % Eosinophils % Basophils % Absolute Neutrophils Absolute Lymphocytes Absolute Monocytes Absolute Eosinophils Absolute Basophils Sodium Potassium Chloride Carbon Dioxide Anion Gap BUN Creatinine Estimated GFR/1.73 m2 Glucose Calcium Total Bilirubin AST ALT Alkaline Phosphatase Total Protein Albumin Urine Color Urine Clarity Urine pH Ur Specific [place] Urine Protein Urine Ketones Urine Blood Urine Nitrite Urine Bilirubin Urine Urobilinogen Ur Leukocyte Esterase Urine Glucose Patient ABO/Rh O Positive Antibody Screen Negative Last Vital Signs Temp 36.8 C 09/29/18 05:16 Pulse 119 H 09/29/18 05:16 Resp 20 09/29/18 05:16 BP 123/85 09/29/18 05:16 Pulse Ox 95 09/29/18 05:16
[2018-09-29] MEDS: Lactated Ringers 1,000 ML 100 ML IV ×2 (08:32→11:25)
--- NOTE | 2018-09-29 09:14 | APP_PTH ---
PATIENT: Rita Tavares LOC: U#:[id number] AGE/SX: 27/F ROOM: 216 RE09/29/[address]: Sharon Dove : 1990 BED: A DIS: 09/29/2018 SPEC #: [id number] RECD: 09/30/18 12:40 STATUS: AMANDA REQ #: [id number] HARSHIL: 09/29/18 09:[address]: Sharon Dove DEPT: Surgical Specimen RECD BY: Kajal Macias ENTERED: 09/30/18 12:42 SP TYPE: Appendix OTHR DR: Alexa Hairston Tissues: 1 - APPENDIX NOT INCIDENTAL Procedures: GROSS AND MICRO LEVEL 3 Comments: [id number]
[2018-09-29] MEDS: Bupivacaine 0.25% Pres-Free 30 ML VIAL (09:20)
[2018-09-29] MEDS: fentaNYL 100 MCG/2 ML VIAL IVP (09:52)
[2018-09-29] MEDS: HYDROmorphone 2 MG/ML VIAL IVP (10:02)
--- NOTE | 2018-09-29 10:06 | W.PM.OP ---
Date of service: 09/29/18 Time of Service: 10:06 Operative Note DATE OF PROCEDURE: 09/29/18 PRE-OP DIAGNOSIS: Acute appendicitis POST-OP DIAGNOSIS: same PROCEDURE: Laparoscopic appendectomy SURGEON: Sharon Dvoe MARKETING RESEARCHER: Walter Banerjee ANESTHESIA: GETA ESTIMATED BLOOD LOSS: 5 PATHOLOGY: other (Appendix) COMPLICATIONS: None Patient was transported to: PACU Patient's condition: stable Indications: 27 y/o female admitted through the ED this am with findings consistent with acute appendicitis on history/exam/imaging. Patient presents at this time for a laparoscopic appendectomy. Operative procedure including risks, benefits, and alternatives discussed with patient and informed consent obtained prior to surgery. Findings: Acutely inflamed and thickened appendix without gross perforation or abscess. Procedure Description: Patient was brought to the operating room and placed on the table in the supine position. Patient was intubated and placed under general anesthesia. SCDs in place on both lower extremities. Weathers catheter placed. Left arm tucked at the side. Patient had received a dose of Cipro and Flagyl in the ED for perioperative antibiotic coverage. Abdomen prepped and draped in the usual sterile fashion with chloraprep. Time out performed per protocol. Initial incision made just below the umbilicus with a 2-3 cm transverse incision which was carried down to the fascia. Fascia was elevated and incised. Peritoneal cavity was bluntly entered in the midline and swept with a finger. No adhesions noted. Stay sutures of 0-vicryl placed on either side of the fascial opening. Maryam port inserted and abdomen insufflated with CO2 to a pressure of 15 mm Hg. Patient placed in Trendelenberg with the right side elevated. Remaining ports placed under direct vision after injection with 0.25% Marcaine including a 5 mm port in the suprapubic midline and a second 5 mm port in the LLQ. There was good visualization in the pelvis. The appendix was readily identified. It was noted to be acutely inflamed and thickened but no gross perforation or abscess seen. Terminal ileum and cecum were unremarkable. The base of the appendix was isolated and divided with the 45 mm medium-thick stapler cartridge on the endo KAROLYN. A 45 mm vascular reload was utilized to divide the mesoappendix. The appendix was retrieved via the infraumbilical port site with the endocatch bag. Peritoneal cavity was irrigated with saline and suctioned until the effluent was clear. Cecum, terminal ileum, and visualized small bowel loops intact and viable with no signs of injury. Liver, gallbladder, right ovary/fallopian tube, and uterus were grossly unremarkable on inspection. Abdomen was decompressed. Fascia at the infraumbilical site closed by tying together the stay sutures in a pursestring fashion. Additional 0.25% Marcaine injected at this site for postop analgesia. Skin incisions closed with subcuticular 4-0 monocryl. Skin adhesive applied. Weathers catheter removed. Patient was extubated, awakened from anesthesia, and transferred to recovery in satisfactory condition. Patient tolerated surgery well.
[2018-09-29] MEDS: Acetaminophen 325 MG TAB 650 MG PO ×2 (11:01→16:54)
[2018-09-29] MEDS: Ibuprofen 600 MG TAB PO (11:48)
[2018-09-29] MEDS: HYDROmorphone 2 MG/ML VIAL 0.5 MG IVP (16:26)
--- NOTE | 2018-09-29 17:58 | DSE_ITS ---
Date of service: 09/29/18 Time of Service: 17:54 DS: Diagnosis Discharge Diagnosis (1) Acute appendicitis: Status: Acute Discharge Plan Disposition Patient Disposition: HOME Condition: Stable Discharge Details Chief Complaint: Abd Prob Reason For Visit: ACUTE APPENDICITIS Admit Date/Time: 09/29/18 04:29 Admit Provider: Sharon Dove Attending Provider: Sharon Dove Primary Care Provider: Alexa Hairston ED Provider: Alberto Lerma Hospital Course Hospital Course: 27 y/o female admitted through the ED this am with findings consistent with acute appendicitis. She underwent an uneventful laparoscopic appendectomy this am. Postoperatively she progressed well and is tolerating a regular diet without problems. She has minimal nausea. She notes that she has Zofran at home. Her pain is controlled with po acetaminophen/ibuprofen. Patient does have a history of ulcers. She was advised to take an OTC H2 roberto or PPI while on ibuprofen. She notes that she tolerated acetaminophen/ibuprophen post- without problems. Home Meds and New Rx's Prescriptions: New acetaminophen [Tylenol] 325 mg Tablet 650 mg PO Q6H PRN PRNQty: 0 RF: 0 ibuprofen [IBU] 600 mg Tablet 600 mg PO Q8H PRN PRNQty: 0 RF: 0 Continued loratadine [Claritin] 10 MG tablet 10 mg PO DAILY PRNRF: 0 epinephrine [EpiPen 2-Martin] 0.3 MG/0.3 ML auto-injector 0.3 mg IM ONCE RF: 0 albuterol sulfate 8.5 GM HFA aerosol inhaler 2 puff Inhalation PRN PRNRF: 0 magnesium 250 MG tablet 250 mg PO DAILY RF: 0 Unisom (doxylamine) 25 MG tablet 12.5 mg PO DAILY RF: 0 Vitamin 1 EACH tablet 1 tbs PO DAILY RF: 0 sertraline 50 mg Tablet 50 mg PO DAILY RF: 0 Discharge Instructions Instructions: Laparoscopic Appendectomy (DC) Additional Instructions: May shower 09/30/18. No lifting > 20# x 2 weeks. Referrals: Jade Poole MD [ [facility]] - (Laparoscopic appendectomy post- op follow-up in 2 weeks.) Activity:: No lifting > 20 # x 2 weeks Equipment/Supplies:: No Equipment Needed Diet:: As Tolerated Discharge Orders Discharge Orders: Discharge Order (Routine); Ordered 09/29/18 Ordered By: Sharon Dove Exam Const General: cooperative, no acute distress and well developed Nutritional Appearance: well nourished Orientation: alert and oriented x3 HENMT Head: normocephalic and atraumatic Eyes Sclera: sclerae normal Resp Effort & Inspection: normal respiratory effort and able to speak in complete sentences Cardio Jugular venous pressure: no JVD GI Inspection: non-distended and other (incisions - dry, skin adhesive intact) Palpation: soft, not firm, not rigid and nontender Skin General skin exam: no rashes or lesions noted and no jaundice DS: Data Vitals/I&O Vitals and I&O: Vital Signs Temperature 36.9 C 09/29/18 16:10 Temperature Source Tympanic 09/29/18 16:10 Pulse 72 09/29/18 16:10 Pulse Rhythm Regular 09/29/18 08:15 Respiratory Rate 16 09/29/18 16:10 Respiratory Effort 09/29/18 08:15 Respiratory Depth Normal 09/29/18 08:15 Respiratory Pattern Normal 09/29/18 08:15 Blood Pressure 105/68 09/29/18 16:10 Blood Pressure Position Sitting 09/29/18 02:51 Pulse Oximetry 97 09/29/18 16:10 Respiratory End-tidal CO2 37 09/29/18 10:02 Oxygen Delivery Method Room Air 09/29/18 16:10 Oxygen Flow Rate 0 09/29/18 16:10 Pain Level 2 09/29/18 16:54 Intake & Output 09/28/18 09/29/18 09/29/18 23:59 11:59 23:59 Intake Total 2690 / 3430 740 / 3430 Output Total 1095 / 2545 1450 / 2545 Balance 1595 / 885 -710 / 885 Weight 75.7 kg Intake: IV 2400 / 2420 20 / 2420 Oral 290 / 1010 720 / 1010 Output: Urine 1075 / 2525 1450 / 2525 Emesis Other: Urine Color Pale Yellow Yellow Urine Appearance Clear Clear Urine Odor Normal Normal Emesis Description None Voiding Methods Toilet Toilet Labs on day of discharge: Labs from last 24 hours 09/29/18 09/29/18 09/29/18 03:10 03:10 03:10 WBC 13.58 H RBC 4.54 Hgb 13.3 Hct 39.0 MCV 85.9 MCH 29.3 MCHC 34.1 RDW 12.1 Plt Count 334 MPV 9.1 Immature Gran % 0.2 Neutrophils % 77.9 Lymphocytes % 11.6 Monocytes % 7.4 Eosinophils % 2.7 Basophils % 0.2 Absolute Neutrophils 10.58 H Absolute Lymphocytes 1.58 Absolute Monocytes 1.00 H Absolute Eosinophils 0.37 Absolute Basophils 0.03 Sodium 139 Potassium 4.0 Chloride 101 Carbon Dioxide 26.3 Anion Gap 11.7 H BUN 15 Creatinine 0.80 Estimated GFR/1.73 m2 >= 60.00 Glucose 105 H Calcium 9.5 Total Bilirubin 0.2 AST 17 ALT 26 Alkaline Phosphatase 122 H Total Protein 8.3 H Albumin 4.0 Urine Color Urine Clarity Urine pH Ur Specific [place] Urine Protein Urine Ketones Urine Blood Urine Nitrite Urine Bilirubin Urine Urobilinogen Ur Leukocyte Esterase Urine Glucose Patient ABO/Rh O Positive Antibody Screen Negative 09/29/18 03:02 WBC RBC Hgb Hct MCV MCH MCHC RDW Plt Count MPV Immature Gran % Neutrophils % Lymphocytes % Monocytes % Eosinophils % Basophils % Absolute Neutrophils Absolute Lymphocytes Absolute Monocytes Absolute Eosinophils Absolute Basophils Sodium Potassium Chloride Carbon Dioxide Anion Gap BUN Creatinine Estimated GFR/1.73 m2 Glucose Calcium Total Bilirubin AST ALT Alkaline Phosphatase Total Protein Albumin Urine Color Yellow Urine Clarity Clear Urine pH 7.0 Ur Specific [place] 1.020 Urine Protein Negative Urine Ketones Negative Urine Blood Negative Urine Nitrite Negative Urine Bilirubin Negative Urine Urobilinogen 0.2 Ur Leukocyte Esterase Negative Urine Glucose Negative Patient ABO/Rh Antibody Screen [facility] Medical History Acute duodenal ulcer with hemorrhage Asthma History of Chiari malformation Migraine Recurrent urinary tract infection Surgical History Excision, Pilonidal Cyst (04/25/16) Fracture, Closed Treatment neck surgery Family History Mother No problems noted. Father Hypertensive disorder, systemic arterial Hyperlipidemia Social History Smoking/Tobacco Use Status: Never Alcohol Intake: current Drug use: Never Do you feel safe in your relationship?: Yes
== END 2018-09-29 18:30 | disposition home or self-care (01) ==
LOC: ER 04:34 → MS 05:06
PROVIDERS: Admitting Provider Surgery; Emergency Provider Student in an Organized Health Care Education/Training Program; PCP Nurse Practitioner Family; Visit Provider Surgery
PROC: 0DTJ4ZZ Resection of Appendix, Percutaneous Endoscopic Approach (ICD-10-PCS; CPT 44970; principal; 2018-09-29 08:30)
DX: K35.890 Other acute appendicitis without perforation or gangrene (principal)
CPT/HCPCS: 44970; 80053; 81025; 86850; 86900; 86901; 96361; 96365; 96375; 99222; 99285; NC; 74177; 81003; 85025; 88304; 99284; G0378; J0131; J0744; J1100; J1885; J2405; J3010; J3490

== ENCOUNTER 2019-01-24 10:16 | Outpatient (REF) | payer BC, SELFPAY ==
--- NOTE | 2019-01-24 09:35 | PAPFT_PTH ---
PATIENT: Rita Tavares LOC: [facility] U#:[id number] AGE/SX: 28/F ROOM: RE01/24/[address]: DIANA Fuller : 1990 BED: DIS: 01/24/2019 SPEC #: [id number] RECD: 01/24/19 12:59 STATUS: AMANDA RENicki #: [id number] HARSHIL: 01/24/19 09:[address]: Laura Null DEPT: [facility] Cytology RECD BY: Kajal Macias ENTERED: 01/24/19 12:59 SP TYPE: PAPFT OTHR DR: Alexa Hairston Tissues: 1 - CX/ENDOCX FOR PAP SMEARS Procedures: PAP THIN PREP/[facility] Screening HPV DNA PROBE Comments: [id number]
[2019-01-27 14:51] LABS: Chlamydia Result Negative; GC Result Negative
== END 2019-01-24 10:36 ==
LOC: LBN 10:16
PROVIDERS: PCP Nurse Practitioner Family; Visit Provider Nurse Practitioner Family
DX: Z11.3 Encounter for screening for infections with a predominantly sexual mode of transmission (principal); Z12.4 Encounter for screening for malignant neoplasm of cervix; Z11.51 Encounter for screening for human papillomavirus (HPV)
CPT/HCPCS: 87491; 87591; 88142; 87624

== ENCOUNTER 2019-11-17 07:44 | Outpatient (CLI) | payer BC, SELFPAY ==
[2019-11-17 10:04] LABS: Hemoglobin A1C 5.5 % (3.8-5.6)
[2019-11-17 11:09] LABS: Vitamin D 25 Total 38.2 ng/ml (30-100)
[2019-11-17 16:51] LABS: Progesterone 2.5 ng/mL (See Table)
[2019-11-18 11:08] LABS: Measles IgG Antibody Positive (See Note); Varicella IgG Antibody Positive (See Note)
== END 2019-11-17 08:04 ==
PROVIDERS: PCP Nurse Practitioner Family; Visit Provider Obstetrics & Gynecology Reproductive Endocrinology
DX: E28.2 Polycystic ovarian syndrome (principal); Z31.69 Encounter for other general counseling and advice on procreation
CPT/HCPCS: 36415; 82306; 86787; 83036; 84144; 86765

== ENCOUNTER 2019-11-21 04:08 | Outpatient (CLI) | payer BC, SELFPAY ==
[2019-11-21 13:35] LABS: HCG Quant, Pregnancy < 1 mIU/mL (1-3)
[2019-11-24 12:02] LABS: Rubella IgG Ab (UVM) Positive (See Note)
== END 2019-11-21 04:28 ==
PROVIDERS: PCP Nurse Practitioner Family; Visit Provider Obstetrics & Gynecology Reproductive Endocrinology
DX: Z32.00 Encounter for pregnancy test, result unknown (principal); Z31.69 Encounter for other general counseling and advice on procreation
CPT/HCPCS: 36415; 84702; 86762; 86765

== ENCOUNTER 2019-12-10 03:56 | Outpatient (CLI) | payer BC, SELFPAY ==
[2019-12-10 17:41] LABS: Progesterone 9.1 ng/mL (See Table)
== END 2019-12-10 04:16 ==
PROVIDERS: PCP Nurse Practitioner Family; Visit Provider Obstetrics & Gynecology Reproductive Endocrinology
DX: N97.9 Female infertility, unspecified (principal)
CPT/HCPCS: 36415; 84144

== ENCOUNTER 2019-12-25 02:42 | Outpatient (CLI) | payer BC, SELFPAY ==
[2019-12-25 07:50] LABS: HCG Quant, Pregnancy < 1 mIU/mL (1-3)
== END 2019-12-25 03:02 ==
PROVIDERS: PCP Nurse Practitioner Family; Visit Provider Obstetrics & Gynecology Reproductive Endocrinology
DX: Z32.00 Encounter for pregnancy test, result unknown (principal)
CPT/HCPCS: 36415; 84702

== ENCOUNTER 2020-01-30 01:34 | Outpatient (CLI) | payer BC, SELFPAY ==
[2020-01-30 17:05] LABS: HCG Quant, Pregnancy < 1 mIU/mL (1-3)
[2020-01-30 21:38] LABS: Estradiol 101 pg/mL (See Note); Progesterone 0.6 ng/mL (See Table)
== END 2020-01-30 01:54 ==
PROVIDERS: PCP Nurse Practitioner Family; Visit Provider Obstetrics & Gynecology Reproductive Endocrinology
DX: N91.2 Amenorrhea, unspecified (principal)
CPT/HCPCS: 36415; 82670; 84144; 84702

== ENCOUNTER 2020-02-19 02:58 | Outpatient (CLI) | payer BC, SELFPAY ==
[2020-02-19 18:07] LABS: Progesterone 0.6 ng/mL (See Table)
== END 2020-02-19 03:18 ==
PROVIDERS: PCP Nurse Practitioner Family; Visit Provider Obstetrics & Gynecology Reproductive Endocrinology
DX: Z31.41 Encounter for fertility testing (principal)
CPT/HCPCS: 36415; 84144

== ENCOUNTER 2020-03-10 05:26 | Outpatient (CLI) | payer BC, SELFPAY ==
[2020-03-10 17:31] LABS: Progesterone 17.6 ng/mL (See Table)
== END 2020-03-10 05:46 ==
PROVIDERS: PCP Nurse Practitioner Family; Visit Provider Obstetrics & Gynecology Reproductive Endocrinology
DX: Z31.41 Encounter for fertility testing (principal)
CPT/HCPCS: 36415; 84144

== ENCOUNTER 2020-03-22 02:08 | Outpatient (CLI) | payer BC, SELFPAY ==
[2020-03-22 17:19] LABS: HCG Quant, Pregnancy < 1 mIU/mL (1-3)
== END 2020-03-22 02:28 ==
PROVIDERS: PCP Nurse Practitioner Family; Visit Provider Obstetrics & Gynecology Reproductive Endocrinology
DX: Z32.00 Encounter for pregnancy test, result unknown (principal)
CPT/HCPCS: 36415; 84702

== ENCOUNTER 2020-04-22 02:20 | Outpatient (CLI) | payer BC, SELFPAY ==
[2020-04-22 12:55] LABS: HCG Quant, Pregnancy < 1 mIU/mL (1-3)
== END 2020-04-22 02:40 ==
PROVIDERS: PCP Nurse Practitioner Family; Visit Provider Obstetrics & Gynecology Reproductive Endocrinology
DX: N97.9 Female infertility, unspecified (principal)
CPT/HCPCS: 36415; 84702

== ENCOUNTER 2020-05-20 05:08 | Outpatient (CLI) | payer BC, SELFPAY ==
[2020-05-20 12:09] LABS: HCG Quant, Pregnancy < 1 mIU/mL (1-3)
== END 2020-05-20 05:28 ==
PROVIDERS: PCP Nurse Practitioner Family; Visit Provider Obstetrics & Gynecology Reproductive Endocrinology
DX: Z32.00 Encounter for pregnancy test, result unknown (principal)
CPT/HCPCS: 36415; 84702

== ENCOUNTER 2020-05-28 10:32 | Outpatient (REF) | payer BC, SELFPAY ==
[2020-05-31 17:21] LABS: COVID-19 RT-PCR Result NEGATIVE (Negative)
== END 2020-05-28 10:52 ==
LOC: LBO 10:32
PROVIDERS: PCP Nurse Practitioner Family; Visit Provider Nurse Practitioner Family
DX: Z11.59 Encounter for screening for other viral diseases (principal)
CPT/HCPCS: U0003

== ENCOUNTER 2020-06-03 08:39 | Outpatient (CLI) | payer BC, SELFPAY ==
[2020-06-04 12:23] LABS: COVID-19 RT-PCR UVMMC Result Negative (Negative)
== END 2020-06-03 08:59 ==
PROVIDERS: PCP Nurse Practitioner Family; Visit Provider Nurse Practitioner Family
DX: Z20.828 Contact with and (suspected) exposure to other viral communicable diseases (principal)
CPT/HCPCS: U0003

== ENCOUNTER 2020-06-24 03:05 | Outpatient (CLI) | payer BC, SELFPAY ==
[2020-06-24 12:27] LABS: HCG Quant, Pregnancy < 1 mIU/mL (1-3)
== END 2020-06-24 03:25 ==
PROVIDERS: PCP Nurse Practitioner Family; Visit Provider Obstetrics & Gynecology Reproductive Endocrinology
DX: Z32.00 Encounter for pregnancy test, result unknown (principal)
CPT/HCPCS: 36415; 84702

== ENCOUNTER 2020-07-20 02:41 | Outpatient (CLI) | payer BC, SELFPAY ==
[2020-07-20 10:10] LABS: HCG Quant, Pregnancy 165 mIU/mL (1-3)
== END 2020-07-20 02:42 | disposition home or self-care (01) ==
LOC: LBO 02:41
PROVIDERS: PCP Nurse Practitioner Family; Visit Provider Obstetrics & Gynecology Reproductive Endocrinology
DX: Z32.00 Encounter for pregnancy test, result unknown (principal)
CPT/HCPCS: 36415; 84702

== ENCOUNTER 2020-07-22 02:58 | Outpatient (CLI) | payer BC, SELFPAY ==
[2020-07-22 11:47] LABS: HCG Quant, Pregnancy 344 mIU/mL (1-3)
== END 2020-07-22 02:59 | disposition home or self-care (01) ==
LOC: LBO 02:58
PROVIDERS: PCP Nurse Practitioner Family; Visit Provider Obstetrics & Gynecology Reproductive Endocrinology
DX: Z32.01 Encounter for pregnancy test, result positive (principal)
CPT/HCPCS: 36415; 84702

== ENCOUNTER 2020-08-02 01:00 | Emergency (ER) | payer BC, SELFPAY ==
[2020-08-02 01:05] VITALS: BP 102/51; PULSE 81; RESP 18; TEMP 36; O2SAT 98
--- NOTE | 2020-08-02 01:13 | W.ED.GENAD ---
Discharge Plan Disposition Patient Disposition: [facility] Condition: Stable Discharge Details Clinical Impression: Abdominal pain Primary Care Provider: Renea Delcid ED Provider: Kyrie Kay Home Meds and New Rx's Prescriptions: No Action Mirena 20 mcg/24 hours (5 yrs) 52 mg intrauterine device 1 device IY ONCE RF: 0 Mirena 20 mcg/24 hours (5 yrs) 52 mg intrauterine device 1 device IY ONCE RF: 0 epinephrine [EpiPen 2-Martin] 0.3 MG/0.3 ML auto-injector 0.3 mg IM ONCE RF: 0 albuterol sulfate 8.5 GM HFA aerosol inhaler 2 puff Inhalation PRN PRNRF: 0 magnesium 250 MG tablet 250 mg PO DAILY RF: 0 Vitamin 1 EACH tablet 1 tbs PO DAILY RF: 0 acetaminophen [Tylenol] 325 mg Tablet 650 mg PO Q6H PRN PRNQty: 0 RF: 0 Medical Decision Making 29 yo female who states she is approximately 6 weeks after having iui assisted fertilization comes in after she went to bed feeling well and woke up with excruciating left lower abdomen pain that she has never experienced before. She arrives in visible pain and has pain with palpation in all abdominal lora but most in the left lower abdomen. She denies vaginal bleeding. Will consult with obgyn given we have no u/s available at this hour and concern for ectopic vs ovarian torsion. I did a bedside u/s which was limited but I did not see any free fluid in the abdomen at present time Spoke with Dr. rubi from obgyn who advised she needs an u/s and would not take her to the OR without an u/s especially without free fluid in the abdomen. Will try to transfer her to a facility that [place] [facility] [place] unless stemi/trauma, pt would like to try uv at this time so call placed. spoke with the ED at [facility] and they are willing to take her there for an ultrasound and patient is in agreement with this plan. Given degree of pain she is in will go by ambulance for pain medicine as needed Differential Diagnosis Differential Diagnosis: ectopic, ovarian cyst, torsion Lab Data Lab results reviewed: Yes I reviewed the patient's lab results. HPI General Mode of arrival: ambulatory. Date/Time Provider Initiated Documentation: 08/02/20 01:00. Limitations to Documentation: no limitations. Information obtained by: patient. History of Present Illness 29 year old F presents to the emergency department with the chief complaint of abdominal pain, described as moderate and severe, Patient started experiencing this minute(s) (45) and it has been constant. No relieving factors improve symptom(s), No exacerbating factors reported . Patient notes nausea/vomiting. Patient did receive the following treatments prior to arrival, other (tylenol) Related Data Home Medications Medication Instructions Recorded Confirmed albuterol sulfate 2 puff INHALATION PRN PRN 05/07/13 10/18/18 epinephrine [EpiPen 2-Martin] 0.3 mg IM ONCE 04/14/16 08/02/20 Vitamin 1 tbs PO DAILY 02/03/18 10/18/18 magnesium 250 mg PO DAILY 02/03/18 08/02/20 acetaminophen [Tylenol] 650 mg PO Q6H PRN PRN #0 tab 09/29/18 08/02/20 levonorgestrel 20 mcg/24 hours (6 1 device IY ONCE 01/24/19 01/24/19 yrs) 52 mg intrauterine device levonorgestrel 20 mcg/24 hours (6 1 device IY ONCE 01/24/19 08/02/20 yrs) 52 mg intrauterine device Previous Rx's Medication Instructions Recorded acetaminophen [Tylenol] 650 mg PO Q6H PRN PRN #0 tab 09/29/18 Allergies Allergy/AdvReac Type Severity Reaction Status Date / Time amoxicillin trihydrate Allergy Mild Skin Rash Unverified 08/02/20 01:22 [From Augmentin] potassium clavulanate Allergy Mild Skin Rash Unverified 08/02/20 01:22 [From Augmentin] General Stated Complaint: Abd Prob RELL: 3 Review of Systems All systems reviewed & are unremarkable except as noted in HPI and below Constitutional Constitutional: Denies chills and Denies fever(s) Cardiovascular Cardiovascular: Denies chest pain and Denies dyspnea Respiratory Respiratory: Denies dyspnea [facility] Medical History (Updated 08/02/20 @ 01:55 by Kyrie Kay MD) Acute duodenal ulcer with hemorrhage Asthma History of Chiari malformation Migraine Recurrent urinary tract infection Surgical History Excision, Pilonidal Cyst (04/25/16) Fracture, Closed Treatment neck surgery For [place] Chiari malformation as a child Family History Mother No problems noted. Father Hypertensive disorder, systemic arterial Hyperlipidemia Social History Smoking/Tobacco Use Status: Never Smoking risk assessment performed?: Yes Alcohol Intake: current Drug use: Never Do you feel safe in your relationship?: Yes Female Reproductive History Menstrual control method: progestin IUCD (Mirena inserted today by Bernice Null ) Exam Const General: other (in pain) Orientation: alert HENMT Head: normal to inspection Ears: external ears normal General nose exam: external nose normal Mouth: moist mucous membranes Eyes General: appearance normal, both eyes and all related structures Neck Neck: normal visual inspection Resp Effort & Inspection: normal respiratory effort and able to speak in complete sentences Cardio Rate: regular rate GI Palpation: tender Skin General skin exam: no rashes or lesions noted Neuro General: patient alert and patient oriented x3 Extrem General: normal to inspection Psych Mental Status: mental status grossly normal Course Vital Signs Vital signs: Vital Signs Temperature 36 C L 08/02/20 01:05 Pulse 81 08/02/20 01:05 Respiratory Rate 18 08/02/20 01:05 Blood Pressure 102/51 L 08/02/20 01:05 Pulse Oximetry 98 08/02/20 01:05 Temperature 36 C L 08/02/20 01:05 Temperature Source Tympanic 08/02/20 01:05 Pulse 81 08/02/20 01:05 Respiratory Rate 18 08/02/20 01:05 Respiratory Effort Non-Labored 08/02/20 01:05 Blood Pressure 102/51 L 08/02/20 01:05 Blood Pressure Position Sitting 08/02/20 01:05 Pulse Oximetry 98 08/02/20 01:05 Oxygen Delivery Method Room Air 08/02/20 01:05 Oxygen Flow Rate 0 08/02/20 01:05
[2020-08-02 01:23] LABS: Abs Immature Grans 0.06 10^3/uL (0.0-0.06); Absolute Eosinophil Count 0.46 10^3/uL (0.0-0.7); Absolute Neutrophil Count 8.37 10^3/uL (1.2-6.7); Basophils % 0.3; Eosinophils % 3.1; HCT 36.7 % (36.0-46.0); HGB 12.8 g/dL (11.2-15.7); Immature Grans % 0.4; Lymphocytes % 33.6; MCHC 34.9 % (32.0-36.0); MCV 85.9 fL (80-95); MPV 8.9 fL (8.0-11.0); Monocytes % 6.7; Neutrophils % 55.9; Nucleated RBC 0 %; Platelet Count 289 10^3/uL (130-400); RBC 4.27 10^6/uL (3.93-5.22); RDW 11.8 % (11.7-14.6); RDW-SD 36.8 fL; WBC 14.98 10^3/uL (4.4-10.8)
[2020-08-02] MEDS: Metoclopramide 10 MG/2 ML VIAL IVP (01:24)
[2020-08-02] MEDS: Normal Saline 1,000 ML 1000 ML IV (01:25)
--- NOTE | 2020-08-02 01:27 | NUR.NOTE ---
Addendum entered by Jenna Johansen 08/02/20 01:27: Pt reports sudden LLQ abd pain starting 45 mins [facility] [employer].Reports estimated 6 weeks ,I had an IUI at [facility]. Pt reports h 3 pregnancies, 1 miscarriage. Reports no vag discharge/bleed. States pain is sharp and constant. Pt appears uncomfortable, with audible groans with each exhale. Reports no hx of similar pain in past. Original Note: Nursing Note:
[2020-08-02 01:35] LABS: ALT 22 U/L (14-59); AST 16 U/L (15-37); Albumin 3.4 g/dL (3.4-5.0); Alkaline Phosphatase 50 U/L (46-116); Anion Gap 13.4 mmol/L (3-11); BUN 11 mg/dL (7-18); Bilirubin, Total 0.4 mg/dL (0.2-1.0); CO2 21.6 mmol/L (21.0-32.0); CREATININE 0.7 mg/dL (0.55-1.02); Calcium 8.3 mg/dL (8.5-10.1); Chloride 104 mmol/L (98-107); Glucose 168 mg/dL (74-106); Lipase 92 U/L (73-393); Sodium 139 mmol/L (136-145); Total Protein 7.2 g/dL (6.4-8.2)
[2020-08-02] MEDS: HYDROmorphone 2 MG/ML VIAL 1 MG IVP (01:54)
[2020-08-02 01:55] VITALS: BP 110/69; PULSE 91; RESP 15; O2SAT 98
[2020-08-02 01:59] LABS: Bilirubin, Total 0.3 mg/dL (0.2-1.0); Magnesium 2.1 mg/dL (1.8-2.4)
[2020-08-02 02:04] LABS: HCG Quant, Pregnancy 9433 mIU/mL (1-3)
[2020-08-02 02:08] LABS: Absolute Basophil Count 0.04 10^3/uL (0.0-0.2); Absolute Lymphocyte Count 5.03 10^3/uL (1.2-3.4)
[2020-08-02 02:09] LABS: Diff Comment Agrees w/ Instrument
[2020-08-02 02:11] LABS: Bilirubin Negative (Negative); Blood Trace-lysed (Negative); Clarity Clear (Clear); Glucose Negative (Negative); Ketones Negative (Negative); Leukocyte Esterase Negative (Negative); Nitrite Negative (Negative); Specific Gravity >= 1.030 (1.005-1.025); Urobilinogen 0.2 EU/dL (Up TO 0.2); pH 5.5 (5-8)
[2020-08-02 02:14] LABS: Bilirubin, Direct 0.05 mg/dL (0.00-0.20)
[2020-08-02 02:17] VITALS: BP 94/70; PULSE 85; RESP 15; O2SAT 98
[2020-08-02 02:21] LABS: Epithelial Cells Few HPF (Negative); WBC Negative HPF (0-5)
[2020-08-02 02:22] LABS: Bacteria Negative HPF (Negative); C & S Indicated? No; Casts Negative LPF (Negative); Crystals Negative HPF (Negative); Mucus Moderate (Negative)
== END 2020-08-02 02:35 ==
LOC: ER 02:02
PROVIDERS: Emergency Provider Emergency Medicine; PCP Nurse Practitioner Family
DX: O26.891 Other specified pregnancy related conditions, first trimester (principal); Z3A.01 Less than 8 weeks gestation of pregnancy; R10.32 Left lower quadrant pain
CPT/HCPCS: 80053; 83690; 86850; 86900; 86901; 96374; 96375; 99285; 81003; 81015; 82247; 82248; 83735; 84702; 85025; J2765

== ENCOUNTER 2020-09-24 02:40 | Outpatient (CLI) | payer BC, SELFPAY ==
[2020-09-24 12:42] LABS: Abs Immature Grans 0.04 10^3/uL (0.0-0.06); Absolute Basophil Count 0.03 10^3/uL (0.0-0.2); Absolute Eosinophil Count 0.21 10^3/uL (0.0-0.7); Absolute Monocyte Count 0.55 10^3/uL (0.1-0.8); Absolute Neutrophil Count 8.44 10^3/uL (1.2-6.7); Basophils % 0.3; Eosinophils % 1.8; HCT 36.1 % (36.0-46.0); HGB 12.8 g/dL (11.2-15.7); Immature Grans % 0.3; Lymphocytes % 19.2; MCH 30.6 pg (27.0-33.0); MCHC 35.5 % (32.0-36.0); MCV 86.4 fL (80-95); MPV 9.1 fL (8.0-11.0); Monocytes % 4.8; Neutrophils % 73.6; Nucleated RBC 0 %; Platelet Count 274 10^3/uL (130-400); RBC 4.18 10^6/uL (3.93-5.22); RDW 12.2 % (11.7-14.6); RDW-SD 38.5 fL; WBC 11.47 10^3/uL (4.4-10.8)
[2020-09-24 13:14] LABS: Glucose,1 Hr (Glucola) 171 mg/dL (80-140)
[2020-09-26 11:32] LABS: Syphilis Total Ab w/Reflex Nonreactive (Nonreactive)
[2020-09-27 10:02] LABS: Hepatitis B Surface Ag Negative (Negative)
[2020-09-27 10:41] LABS: Hepatitis C Ab w Rflx HCV PCR Negative (Negative)
[2020-09-27 11:05] LABS: HIV-1/2 Ag & Ab Screen Negative (Negative)
[2020-09-27 11:10] LABS: Varicella IgG Antibody Positive (See Note)
[2020-09-27 11:15] LABS: Rubella IgG Ab (UVM) Positive (See Note)
== END 2020-09-24 02:41 | disposition home or self-care (01) ==
LOC: LBO 02:40
PROVIDERS: Advanced Practice Midwife; PCP Nurse Practitioner Family; Visit Provider Nurse Practitioner Family
DX: Z34.91 Encounter for supervision of normal pregnancy, unspecified, first trimester (principal); Z11.59 Encounter for screening for other viral diseases; Z11.4 Encounter for screening for human immunodeficiency virus [HIV]; Z01.84 Encounter for antibody response examination
CPT/HCPCS: 82950; 86787; 86803; 86850; 86900; 86901; 87340; 87389; 84443; 85025; 86762; 86780

== ENCOUNTER 2020-09-24 12:18 | Outpatient (REF) | payer BC, SELFPAY ==
[2020-09-24 13:48] LABS: *AMPHETAMINES SCREEN URINE Negative (Negative); *BARBITURATES SCREEN URINE Negative (Negative); *BENZODIAZEPINES SCREEN URINE Negative (Negative); Cannabinoids THC Negative (Negative); Cocaine Screen,Urine Negative (Negative); METHADONE URINE SCREEN Negative (Negative); OPIATES URINE SCREEN Negative (Negative)
[2020-09-24 13:49] LABS: Tricyclic Antidepressants Negative (Negative)
[2020-09-27 15:19] LABS: Chlamydia Result Negative (Negative); GC Result Negative (Negative)
[2020-09-30 08:39] LABS: Buprenorphine Negative ng/mL (Cutoff: 5.0); Norbuprenorphine Negative ng/mL (Cutoff: 2.5)
== END 2020-09-24 12:19 | disposition home or self-care (01) ==
LOC: LBN 12:18
PROVIDERS: PCP Nurse Practitioner Family; Visit Provider Advanced Practice Midwife
DX: Z34.91 Encounter for supervision of normal pregnancy, unspecified, first trimester (principal); Z11.3 Encounter for screening for infections with a predominantly sexual mode of transmission
CPT/HCPCS: 80307; 87491; 87591; 87086; 87480; 87510; 87660

== ENCOUNTER 2020-10-01 01:47 | Outpatient (CLI) | payer BC, SELFPAY ==
[2020-10-01 09:22] LABS: Glucose 1 Hour 122 mg/dL
[2020-10-01 11:09] LABS: Glucose 3 Hour 92 mg/dL
== END 2020-10-01 01:48 | disposition home or self-care (01) ==
LOC: LBO 01:48
PROVIDERS: PCP Nurse Practitioner Family; Visit Provider Advanced Practice Midwife
DX: O09.291 Supervision of pregnancy with other poor reproductive or obstetric history, first trimester (principal); Z86.32 Personal history of gestational diabetes
CPT/HCPCS: 36415; 82951

== ENCOUNTER 2020-10-22 15:23 | Outpatient (REF) | payer BC, SELFPAY ==
[2020-10-22 12:45] LABS: Bilirubin Negative (Negative); Blood Trace-intact (Negative); Clarity Clear (Clear); Glucose Negative (Negative); Ketones Negative (Negative); Leukocyte Esterase Negative (Negative); Nitrite Negative (Negative); Specific Gravity 1.015 (1.005-1.025); Urobilinogen 0.2 EU/dL (Up TO 0.2)
[2020-10-22 13:05] LABS: Bacteria Few HPF (Negative); C & S Indicated? C&S Done As Ordered; Casts Negative LPF (Negative); Crystals Negative HPF (Negative); Epithelial Cells Few HPF (Negative); Mucus Negative (Negative); RBC 0-2 HPF (0-2)
== END 2020-10-22 15:24 | disposition home or self-care (01) ==
LOC: LBN 15:23
PROVIDERS: PCP Nurse Practitioner Family; Visit Provider Advanced Practice Midwife
DX: O26.899 Other specified pregnancy related conditions, unspecified trimester (principal); R10.2 Pelvic and perineal pain; Z3A.17 17 weeks gestation of pregnancy
CPT/HCPCS: 81003; 81015; 87086

== ENCOUNTER 2020-10-29 02:00 | Outpatient (CLI) | payer BC, SELFPAY ==
[2020-10-29 10:33] LABS: Kit/Specimen SENT
== END 2020-10-29 02:01 | disposition home or self-care (01) ==
LOC: LBO 02:01
PROVIDERS: PCP Nurse Practitioner Family; Visit Provider Advanced Practice Midwife
DX: Z34.92 Encounter for supervision of normal pregnancy, unspecified, second trimester (principal); Z36.89 Encounter for other specified antenatal screening; Z3A.18 18 weeks gestation of pregnancy
CPT/HCPCS: 36415

== ENCOUNTER 2020-12-31 04:10 | Outpatient (CLI) | payer BC, SELFPAY ==
[2020-12-31 07:17] LABS: HCT 33.8 % (36.0-46.0); HGB 11.2 g/dL (11.2-15.7); MCH 29.2 pg (27.0-33.0); MCHC 33.1 % (32.0-36.0); Platelet Count 256 10^3/uL (130-400); RBC 3.84 10^6/uL (3.93-5.22); RDW 11.9 % (11.7-14.6); RDW-SD 38.2 fL; WBC 10.69 10^3/uL (4.4-10.8)
[2020-12-31 08:46] LABS: Glucose 1 Hour 185 mg/dL
[2020-12-31 10:46] LABS: Glucose 3 Hour 91 mg/dL
== END 2020-12-31 04:11 | disposition home or self-care (01) ==
LOC: LBO 04:11
PROVIDERS: PCP Nurse Practitioner Family; Visit Provider Advanced Practice Midwife
DX: Z34.93 Encounter for supervision of normal pregnancy, unspecified, third trimester (principal); Z86.32 Personal history of gestational diabetes; Z3A.27 27 weeks gestation of pregnancy
CPT/HCPCS: 36415; 85027; 82951

== ENCOUNTER 2021-03-04 13:01 | Outpatient (REF) | payer BC, SELFPAY ==
[2021-03-04 12:50] LABS: *AMPHETAMINES SCREEN URINE Negative (Negative); *BARBITURATES SCREEN URINE Negative (Negative); *BENZODIAZEPINES SCREEN URINE Negative (Negative); Cannabinoids THC Negative (Negative); Cocaine Screen,Urine Negative (Negative); METHADONE URINE SCREEN Negative (Negative); OPIATES URINE SCREEN Negative (Negative); Tricyclic Antidepressants Negative (Negative)
[2021-03-09 11:46] LABS: Buprenorphine Negative ng/mL (Cutoff: 5.0)
== END 2021-03-04 13:02 | disposition home or self-care (01) ==
LOC: LBN 13:01
PROVIDERS: PCP Nurse Practitioner Family; Visit Provider Advanced Practice Midwife
DX: Z34.93 Encounter for supervision of normal pregnancy, unspecified, third trimester (principal); Z3A.36 36 weeks gestation of pregnancy
CPT/HCPCS: 80307; 87081

== ENCOUNTER 2021-03-16 07:25 | Inpatient (IN) | payer BC, SELFPAY ==
[2021-03-16] VITALS (13 sets, daily range): BP systolic 102–126; BP diastolic 56–75; PULSE 60–89; RESP 12–20; TEMP 36.5–37.2; O2SAT 99
[2021-03-16 09:15] LABS: Source Nasal/Nares
[2021-03-16 09:17] LABS: HCT 34.6 % (36.0-46.0); HGB 11.2 g/dL (11.2-15.7); MCH 26.1 pg (27.0-33.0); MCHC 32.4 % (32.0-36.0); MCV 80.7 fL (80-95); MPV 9.6 fL (8.0-11.0); Platelet Count 342 10^3/uL (130-400); RBC 4.29 10^6/uL (3.93-5.22); RDW 12.9 % (11.7-14.6); RDW-SD 37.2 fL; WBC 13.04 10^3/uL (4.4-10.8)
[2021-03-16 10:09] LABS: COVID-19 PCR Negative (Negative)
--- NOTE | 2021-03-16 11:14 | W.PM.OBHPL1 ---
Date of service: 03/16/21 Time of Service: 09:14 Assessment and Plan Assessment and plan (1) PROM with onset of labor within 24 hours of rupture: Status: Acute Assessment and plan: A: 30 yo @ 38+2 wks SROM clear confirmed Spont labor onset < 12 hrs after ROM Category 1 tracing Low risk for SD or PPH P: Admit to BC, T&S, CBC, COVID swab Expectant management, intermittent auscultation, PO fluids Anticipate Qualifiers: PROM gestational age: full term Qualified Code(s): O42.02 - Full-term premature rupture of membranes, onset of labor within 24 hours of rupture OB-HPI Labor/Delivery History of Present Illness Reason for Visit: Labor Chief Complaint: Uterine Contractions; Suspected Rupture of Membranes , Associated Signs and Symptoms of Suspected ROM: gush of pink tinged fluids at midnight, trickling ever since, contractions began shortly thereafter. JEFFREY Calculator Estimated Delivery Date Method Current WG Current Estimate 03/28/21 LMP (Certain) 38w 2d Other Estimates 03/28/21 Ultrasound #1 38w 2d History of Present Expected Delivery Route/Plan - CNM FOB/ - Jasson Garcia, 2nd child together BG GBS neg would like to avoid IV and would like ODT Zofran early labor as it worked well for her last delivery Specific Issues/Plan 1. 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 pushed for 3 hours and baby required resuscitation with delivery in 2018, records release signed 3. Hx gestational diabetes last 3a. early 3 hr GTT done 10/01, nml x4 levels 3b. 3 hr at 27w F91, 1hr 185, 2hr 154, 3 hr 91 4. declines harmony, CF or SMA 4A. [place] desired. Result=low prob x3, female fetus 5. exercise induced asthma rare use of inhaler 6. 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 has completed COVID vaccine series, FOB is getting his as well 8. Complex left ovarian cyst - pain recurring 10/14 - US scheduled for followup. Cyst smaller at 3.4 x 3.2, small amount of free fluid. 8a. Follow up US 10/29 smaller size no new mass 9. Hematuria 08/02 in ED and 10/22- kidney US ordered to rule out stone. 9a. 10/29/20 renal US normal bilaterally 9b. 11/12/20 - trace hematuria by U[facility] 10. Headaches - magnesium daily. 11. PCN allergy: screening questions 12/10, low risk for allergy, offered [facility] allergy testing, will consider doing 12. Significant hx PPD after first delivery, treated w/SSRI x1 yr. Consider starting sertraline after 36 wks or 12a. Start 25 mg sertraline @ 36 wks, Rx sent Assessment: History Reviewed & Current Review of Systems All systems reviewed & are unremarkable except as noted in HPI and below Constitutional Constitutional: Reports as per HPI Cardiovascular Cardiovascular: Reports system reviewed and no additional complaints, except as documented Respiratory Respiratory: Reports system reviewed and no additional complaints, except as documented Gastrointestinal Gastrointestinal: Reports as per HPI and Reports nausea Genitourinary Genitourinary: Reports system reviewed and no additional complaints, except as documented and Reports as per HPI Musculoskeletal Musculoskeletal: Reports system reviewed and no additional complaints, except as documented Integumentary/Breasts Skin/Breast: Reports system reviewed and no additional complaints, except as documented Psychiatric Psychiatric: Reports system reviewed and no additional complaints, except as documented [facility] Medical History (Updated 03/16/21 @ 11:20 by Tete Chen) 27 weeks gestation of Acute duodenal ulcer with hemorrhage Asthma History of Chiari malformation Migraine Recurrent urinary tract infection Surgical History (Updated 09/24/20 @ 11:31 by Jenna Pena CNM) Excision, Pilonidal Cyst (04/25/16) Fracture, Closed Treatment neck surgery 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 Father Hypertensive disorder, systemic arterial Hyperlipidemia Social History Smoking/Tobacco Use Status: Never Smoking risk assessment performed?: Yes Alcohol Intake: current Drug use: Never Do you feel safe in your relationship?: Yes Female Reproductive History Menstrual control method: progestin IUCD History History 3 Para 1 Hx # Term Pregnancies 1 Multiple births 0 Hx # Pregnancies 0 Ectopic pregnancies 0 AB induced 0 Hx Number of Living Children 1 AB spontaneous 1 Past Pregnancies Del. Date GA/Weeks # Outcome Route Wgt Sex Labor Lgth Anesthesia Location Prov Complic 03/25/17 7 No Unsuccessful 04/08/18 40 No Successful vaginal 7 lb 2 oz Male 18 hour [facility] other Delivery Date: 03/25/17 SAB no interventions Jenna Pena Delivery Date: 04/08/18 pushed X 3 hours, baby required resuscitation but did well Jenna Pena Meds Allergies and Home Medications Allergies Allergy/AdvReac Type Severity Reaction Status Date / Time amoxicillin trihydrate Allergy Mild Skin Rash Verified 03/11/21 14:48 [From Augmentin] potassium clavulanate Allergy Mild Skin Rash Verified 03/11/21 14:48 [From Augmentin] Home Medications Medication Instructions Recorded Confirmed Type albuterol sulfate 2 puff INHALATION PRN PRN 05/07/13 03/16/21 History epinephrine [EpiPen 2-Martin] 0.3 mg IM ONCE 04/14/16 03/16/21 History Vitamin 1 tbs PO DAILY 02/03/18 03/16/21 History acetaminophen [Tylenol] 650 mg PO Q6H PRN PRN #0 tab 09/29/18 03/16/21 Rx calcium carbonate 200 mg calcium 1,000 mg PO BID tab 12/10/20 03/16/21 History (500 mg) chewable tablet magnesium oxide 500 mg PO DAILY tab 01/21/21 03/16/21 History sertraline 25 mg tablet 25 mg PO DAILY #30 tab 03/04/21 03/16/21 Rx Exam Physical Exam Vital signs: Temp Pulse Resp BP Pulse Ox 98.6 F 82 12 114/72 99 03/16/21 09:51 03/16/21 11:08 03/16/21 08:41 03/16/21 11:08 03/16/21 08:41 Vital Signs Reviewed: Yes Constitutional Constitutional: mild distress Detailed Labor and Delivery Exam Dilation: 5 Effacement (%): 100 station: -2 Position: LOP Cervix position: mid Consistency: soft Amniotic Membrane Status: Ruptured Rupture Method: Spontaneous Amniotic Fluid: Clear Pooling: Positive Nitrazine: Positive Ferning: Present Monitor Mode: External Contraction Frequency(min): every 3-5 minutes Contraction Intensity: Mild/Moderate Fetus A Heart Rate Baseline: 135 Monitor Accelerations: 15 X 15 Monitor Decelerations: None Variability: Moderate (6-25 BPM) Categories: Category I Est. Weight: 7 lb 0.877 oz Est. Weight: 3200 gms Date of Membrane Rupture: 03/16/21 Time of Membrane Rupture: 00:10 HEENT Exam HEENT Exam: Normal Neck Exam Neck Exam: Normal Chest/Brest/Axilla Exam Chest Exam: Normal Breast Exam Breast Exam: Not Done Respiratory Exam Respiratory Exam: Normal Cardiovascular Exam Cardiovascular Exam: Normal Abdominal Exam Abdominal Exam: Normal (Gravid, nontender) Rectal Exam Rectal Exam: Not Done Exam Exam: Normal Extremities Exam Extremities Exam: Normal Back/Spine/Pelvis Exam Back Exam: Normal Pelvis Adequate: Yes (proven to 7'2) Skin Exam Skin Exam: Normal Neurological Exam Neurological Exam: Normal Psychiatric Exam Psychiatric Exam: Normal Results Results Group Beta Strep: Negative Blood Type: O+ Rubella Status: Immune Varicella Immunity: Immune Abnormal Lab Findings: Abnormal Labs 03/16/21 09:04 WBC 13.04 H Hct 34.6 L MCH 26.1 L Risk Assessment Risk for Shoulder Dystocia Historical/Initial OB: NEGATIVE FOR: Pelvic Abnormality, Pre- BMI>30, Previous Shoulder Dystocia or Previous Macrosomia Increased Risk?: No Date/Initial: 09/24/20 Risk for Pre-Eclampsia Daily Dose ASA Indicated: No Date Initiated/Initials: not indicated Yes, if one or more: NEGATIVE FOR: Hx Pre-E/Gest HTN, Chronic HTN, Multiple Gestation, Pre-gestational DM, Renal Disease, Systemic Lupus or APA Syndrome Yes, if 2 or more: NEGATIVE FOR: Nulliparity, Age>= 35 yrs, >10yr btwn pregnancies, BMI>30, ethinicty, Mother/Sister w/ Pre-E or Previous IUGR Risk for Post- Hemorrhage Initial: NEGATIVE FOR: Multiple Gestation, Previous PPH, Known Clotting Deficiency, Grand Multiparity or Anticoagulation At Risk?: No Counseled re: Active Management: Yes Date/Initials: 09/24/20 Risks Reviewed Risks Reviewed Upon Admission: Yes
[2021-03-16] MEDS: Ondansetron O.D.T. 4 MG TABEF SL (15:16)
[2021-03-16] MEDS: Oxytocin 10 UNITS/ML VIAL IM (15:58)
--- NOTE | 2021-03-16 16:23 | W.OBDELIVERY ---
Date of service: 03/16/21 Time of Service: 16:23 OB Labor/ Delivery Information Baby A Delivery Delivery Method: Spontaneaous Presentation: Vertex Vertex Position: Left Occipital Anterior Breech Position: N/A Cord Description-Baby A: 3 Vessels Cord Description Comment: short cord approx 6 inches in length, ecentric insertion Amniotic Fluid: Clear Estimated Blood Loss: 200 ml Delivery Outcome: Liveborn Infant Transferred: Remains with Mother Note: Pt rested in the tub for 3 hours, dozing between q5 minute contractions, then left the tub and rinsed off in the shower, returned to bed and began using nitrous inhalant. Intermittent auscultation FHT's remained reassuring at every check per protocol. While on her right side she felt urges to push, assisted with removal of clothing and turned to left side where head was visible on the perineum, abbreviated 2nd stage huddle completed. of vigorous female infant over intact perineum, right nuchal hand noted, cord was short allowing placement of infant on mother's abdomen only. Cord was clamped and cut by FOB at 2 minutes of age, cord blood collected, Pitocin 10 units given IM. [place] placenta intact with 3VC, vagina vulva and perineum inspected and found to be intact with small superficial left labial lac noted at the location of a buttonhole laceration from previous delivery, not bleeding, not repaired. Apgars 8/9, weight 3145 gms. Providers Nurse Store Associate: Tete Chen Nurse: Rita Kendrick Nurse: Mercedes Dorsey Other: Kassidy Bryant Labor/Delivery Information Number of Babies in Womb: 1 Steroids Given: None Reason Steroids Not Administered: N/A Group Beta Strep: Negative Antibiotics Administered: No Rubella Status: Immune Blood Type: O+ Varicella Immunity: Immune Maternal Complications: None Shoulder Dystocia: No Stages of Labor Onset of Labor Date: 03/16/21 Onset of Labor Time: 04:50 Complete Dilatation Date: 03/16/21 Complete Dilatation Time: 15:50 Labor - Stage 1 Duration: 0 minutes ROM Baby A: 03/16/21 ROM Baby A: 00:10 ROM Total Time- Baby A: [id number] Infant Delivery Date-Baby A: 03/16/21 Delivery Time-Baby A: 15:55 Labor Stage 2 Duration: 5 minutes Placenta Delivery Date-Baby A: 03/16/21 Placenta Delivery Time-Baby A: 16:02 Labor-Stage 3 Duration: 7 minutes Total Length of Labor-Baby A: 11 hours and 5 minutes Placenta Status: Delivered Baby A Gender: Female Gestational Status: Term (39-41.6 wks) Gestational Age in Weeks/Days: 38 Weeks and 2 Days weight: 6 lb 14.937 oz Weight Comment: 3145 gms Score-1 Minute Interval(Baby A) Heart Rate-1 minute: 100 BPM or Greater Respiratory Effort- 1 minute: Spontaneous/Strong Cry Muscle Tone-1 minute: Active Movement Reflex Response-1 minute: Prompt Response Color-1 minute: Pallor or Cyanosis Total Score-1 minute: 8 Score-5 Minute Interval(Baby A) Heart Rate- 5 minute: 100 BPM or Greater Respiratory Effort-5 minute: Spontaneous/Strong Cry Muscle Tone-5 minute: Active Movement Reflex Response-5 minute: Prompt Response Color-5 minute: Bluish Hands or Feet Total Score- 5 minute: 9
[2021-03-16] MEDS: Acetaminophen 325 MG TAB 650 MG PO ×2 (16:48→21:51)
[2021-03-16] MEDS: Ibuprofen 600 MG TAB PO ×2 (16:48→21:51)
[2021-03-16] MEDS: Hamamelis Leaf/Glycerin 100 EACH BOX PR (16:49)
[2021-03-16] MEDS: Sertraline 25 MG TAB PO (21:02)
[2021-03-17 04:00] VITALS: BP 103/60; PULSE 60; RESP 18
[2021-03-17] MEDS: Acetaminophen 325 MG TAB 650 MG PO ×4 (04:25→19:03)
[2021-03-17] MEDS: Ibuprofen 600 MG TAB PO ×4 (04:29→19:04)
[2021-03-17 07:20] VITALS: BP 102/66; PULSE 66; RESP 16; TEMP 36.6; O2SAT 98
[2021-03-17] MEDS: Docusate Sodium 100 MG CAP PO ×2 (09:00→19:03)
[2021-03-17 15:30] VITALS: BP 107/66; PULSE 70; RESP 18; TEMP 36.7; O2SAT 98
--- NOTE | 2021-03-17 16:06 | OBPPV_ITS ---
Date of service: 03/17/21 Time of Service: 10:07 Assessment and Plan Assessment and plan (1) Term delivered: Status: Acute Assessment and plan: A: Nml PPD#1 Feeling well, satisfied with experience P: Pt plans discharge to home possibly this afternoon Declined blood draw for routine CBC this morning Desires Mirena insertion at 6 wks PP support as needed F/up at 2 & 6 wks scheduled Subjective Subjective Patient comments: No complaints, Pain well controlled, Tolerating diet and Flatus present baby status: Doing well, Nursing well, Rooming in and Strong Bonding Observed [place] feeding status: Exclusively breast feeding Exam Physical Exam Vital signs: Temp Pulse Resp BP Pulse Ox 97.9 F 66 16 102/66 98 03/17/21 07:20 03/17/21 07:20 03/17/21 07:20 03/17/21 07:20 03/17/21 07:20 Vital Signs Reviewed: Yes Constitutional Constitutional: no acute distress HEENT Exam HEENT Exam: Normal Neck Exam Neck Exam: Normal Breast Exam Bilateral: Breast Exam: Normal and Soft Nipple Exam: Normal and Uninjured Respiratory Exam Respiratory Exam: Normal Cardiovascular Exam Cardiovascular Exam: Normal Abdominal Exam Abdomen: Other (soft, nontender) Fundal Exam Fundus: Below Umbilicus and Firm Rectal Exam Rectal Exam: Not Done Exam Perineum: Intact Extremities Exam Extremity Exam: Normal Skin Exam Skin Exam: Normal Neurological Exam Neurological Exam: Normal Psychiatric Exam Psychiatric Exam: Normal Results Hemoglobin/Hematocrit: Hgb Cancelled 03/17/21 06:35 Hct Cancelled 03/17/21 06:35 Abnormal Lab Findings: Abnormal Labs 03/16/21 09:04 WBC 13.04 H Hct 34.6 L MCH 26.1 L
[2021-03-17] MEDS: Sertraline 25 MG TAB PO (20:56)
[2021-03-17 21:00] VITALS: BP 120/75; PULSE 75; RESP 16; TEMP 36.8
[2021-03-18] MEDS: Acetaminophen 325 MG TAB 650 MG PO ×2 (01:10→07:28)
[2021-03-18] MEDS: Ibuprofen 600 MG TAB PO ×2 (01:11→07:27)
[2021-03-18] MEDS: Docusate Sodium 100 MG CAP PO (07:27)
[2021-03-18 08:37] VITALS: BP 117/75; TEMP 36.6
--- NOTE | 2021-03-18 08:40 | OBPPV_ITS ---
Date of service: 03/18/21 Time of Service: 08:40 Assessment and Plan Assessment and plan (1) Term delivered: Status: Acute Assessment and plan: A: Nml PPD#2 Baby has been released for discharge Pt reports strong support at home from family and friends P: Planning Mirena insertion at 6 wks PP going well, using nipple vazquez F/up at 2 & 6 wks have been scheduled Written instructions reviewed and given to pt Discharge to home Subjective Subjective Patient comments: No complaints, Pain well controlled, Tolerating diet and Flatus present [place] baby status: Doing well, Nursing well, Rooming in and Strong Bonding Observed feeding status: Exclusively breast feeding Exam Physical Exam Vital signs: Temp Pulse Resp BP Pulse Ox 98.2 F 75 16 120/75 98 03/17/21 21:00 03/17/21 21:00 03/17/21 21:00 03/17/21 21:00 03/17/21 15:30 Vital Signs Reviewed: Yes Constitutional Constitutional: no acute distress HEENT Exam HEENT Exam: Normal Neck Exam Neck Exam: Normal Breast Exam Bilateral: Breast Exam: Normal and Soft Respiratory Exam Respiratory Exam: Normal Cardiovascular Exam Cardiovascular Exam: Normal Abdominal Exam Abdomen: Other (soft, nontender) Fundal Exam Fundus: Below Umbilicus and Firm Rectal Exam Rectal Exam: Not Done Exam Perineum: Intact Extremities Exam Extremity Exam: Normal Back/Spine/Pelvis Exam Back Exam: Normal Skin Exam Skin Exam: Normal Neurological Exam Neurological Exam: Normal Psychiatric Exam Psychiatric Exam: Normal Results Abnormal Lab Findings:
--- NOTE | 2021-03-18 08:46 | DSE_ITS ---
Date of service: 03/18/21 Time of Service: 08:46 DS: Diagnosis Discharge Diagnosis (1) Term delivered: Status: Acute Discharge Plan Disposition Patient Disposition: HOME Condition: Good Discharge Details Reason For Visit: Labor Admit Date/Time: 03/16/21 07:25 Admit Provider: Jenna Granda Attending Provider: Jenna Granda Primary Care Provider: Renea Delcid Hospital Course Hospital Course: and normal course Home Meds and New Rx's Prescriptions: No Action magnesium oxide 250 mg magnesium tablet 500 mg PO DAILY RF: 0 calcium carbonate [Tums] 200 mg calcium (500 mg) tablet,chewable 1,000 mg PO BID RF: 0 sertraline 25 mg tablet 25 mg PO DAILY Qty: 30 RF: 2 epinephrine [EpiPen 2-Martin] 0.3 MG/0.3 ML auto-injector 0.3 mg IM ONCE RF: 0 albuterol sulfate 8.5 GM HFA aerosol inhaler 2 puff Inhalation PRN PRNRF: 0 Vitamin 1 EACH tablet 1 tbs PO DAILY RF: 0 acetaminophen [Tylenol] 325 mg Tablet 650 mg PO Q6H PRN PRNQty: 0 RF: 0 Discharge Instructions Additional Instructions: Please keep your 2 & 6 wk appointments with your resource management specialist, plan for an hour long appointment at the 6 week check to allow for an IUD Insertion. Call any time for any questions or concerns. Stand Alone Forms: BC Instructions, NB Blum Instructions, BC Post Vaginal Deliver Activity:: Activity as Tolerated Equipment/Supplies:: No Equipment Needed Diet:: Normal Diet Discharge Orders Discharge Orders: Discharge Order (Routine); Ordered 03/18/21 Ordered By: Tete Chen OB:DS Summary Summary Vaginal Delivery Method: Spontaneaous Episiotomy Description: None Laceration Description: None Laceration Extension: N/A Contraception Discussed Contraception Discussed: Yes Contraceptive Plan: IUD, Infant Gender-Baby A: Female weight: 6 lb 14.937 oz Status at Discharge Functional status at discharge: independent ambulation Overall status at discharge: patient is progressing back to baseline Mental Status: mental status grossly normal Speech and Movement: speech and movement normal and speech clear Mood: congruent mood Affect: normal affect Exam Physical Exam Vital signs: Temp Pulse Resp BP Pulse Ox 98.2 F 75 16 120/75 98 03/17/21 21:00 10/07/21 21:00 03/17/21 21:00 03/17/21 21:00 03/17/21 15:30 Vital Signs Reviewed: Yes Constitutional Constitutional: no acute distress HEENT Exam HEENT Exam: Normal Neck Exam Neck Exam: Normal Breast Exam Bilateral: Breast Exam: Normal and Soft Respiratory Exam Respiratory Exam: Normal Cardiovascular Exam Cardiovascular Exam: Normal Abdominal Exam Abdomen: Other (soft, nontender) Fundal Exam Fundus: Below Umbilicus and Firm Rectal Exam Rectal Exam: Not Done Exam Perineum: Intact Extremities Exam Extremity Exam: Normal Back/Spine/Pelvis Exam Back Exam: Normal Skin Exam Skin Exam: Normal Neurological Exam Neurological Exam: Normal Psychiatric Exam Psychiatric Exam: Normal [facility] Medical History (Updated 03/17/21 @ 16:09 by Tete Chen) 27 weeks gestation of Acute duodenal ulcer with hemorrhage Asthma Contraception Edema during Encounter for screening for other viral diseases Hematuria History of Chiari malformation History of gestational diabetes in prior , currently History of depression, currently in third trimester Left lower quadrant abdominal pain US ordered Migraine Ovarian cyst Pelvic pain affecting PROM with onset of labor within 24 hours of rupture Recurrent urinary tract infection Surgical History (Updated 09/24/20 @ 11:31 by Jenna Pena CNM) Excision, Pilonidal Cyst (04/25/16) Fracture, Closed Treatment neck surgery 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 Father Hypertensive disorder, systemic arterial Hyperlipidemia Social History Smoking/Tobacco Use Status: Never Smoking risk assessment performed?: Yes Alcohol Intake: current Drug use: Never Do you feel safe in your relationship?: Yes Female Reproductive History Menstrual control method: progestin IUCD History History 3 Para 1 Hx # Term Pregnancies 1 Multiple births 0 Hx # Pregnancies 0 Ectopic pregnancies 0 AB induced 0 Hx Number of Living Children 1 AB spontaneous 1 Past Pregnancies Del. Date GA/Weeks # Outcome Route Wgt Sex Labor Lgth Anesthes ia Location Prov Complic 03/25/17 7 No Unsuccessful 04/08/18 40 No Successful vaginal 7 lb 2 oz Male 18 hour [facility] other Delivery Date: 03/25/17 SAB no interventions Jenna Pena Delivery Date: 04/08/18 pushed X 3 hours, baby required resuscitation but did well Jenna Pena DS: Data Vitals/I&O Vitals and I&O: Vital Signs Temperature 98.2 F 03/17/21 21:00 Pulse 75 03/17/21 21:00 Pulse Rhythm Regular 03/17/21 07:20 Respiratory Rate 16 03/17/21 21:00 Blood Pressure 120/75 03/17/21 21:00 Blood Pressure Mean 90 03/17/21 21:00 Pulse Oximetry 98 03/17/21 15:30 Pain Level 3 03/18/21 07:28 Comment 03/16/21 18:35 Intake & Output 03/17/21 03/17/21 03/18/21 11:59 23:59 11:59 Intake Total 1030 / 1030 Output Total 2460 / 2460 Balance -1430 / -1430 Intake: Oral 1030 / 1030 Output: Urine 2460 / 2460 Data Completed and Pending Labs on day of discharge: Labs from last 24 hours 03/17/21 06:35 WBC Cancelled RBC Cancelled Hgb Cancelled Hct Cancelled MCV Cancelled MCH Cancelled MCHC Cancelled RDW Cancelled Plt Count Cancelled MPV Cancelled
== END 2021-03-18 09:30 | disposition short-term general hospital (02) | DRG 806 ==
PROVIDERS: Advanced Practice Midwife; Admitting Provider Advanced Practice Midwife; PCP Nurse Practitioner Family; Visit Provider Advanced Practice Midwife
DX: O42.02 Full-term premature rupture of membranes, onset of labor within 24 hours of rupture (principal); O99.354 Diseases of the nervous system complicating childbirth; Z37.0 Single live birth; Z3A.38 38 weeks gestation of pregnancy; J45.909 Unspecified asthma, uncomplicated; O99.52 Diseases of the respiratory system complicating childbirth; O34.83 Maternal care for other abnormalities of pelvic organs, third trimester; N83.292 Other ovarian cyst, left side; G43.909 Migraine, unspecified, not intractable, without status migrainosus
CPT/HCPCS: 36415; 85027; 86850; 86900; 86901; 87635; J2590

== ENCOUNTER 2021-10-31 09:30 | Outpatient (REF) | payer BC, SELFPAY ==
[2021-11-01 01:02] LABS: COVID-19 RT-PCR UVMMC Result Negative (Negative)
== END 2021-10-31 09:31 | disposition home or self-care (01) ==
LOC: LBO 09:30
PROVIDERS: PCP Nurse Practitioner Family; Visit Provider Obstetrics & Gynecology
DX: Z20.822 Contact with and (suspected) exposure to COVID-19 (principal)
CPT/HCPCS: U0003

== ENCOUNTER 2022-01-20 01:42 | Outpatient (CLI) | payer BC, SELFPAY ==
[2022-01-20] MEDS: Albuterol HFA 18 GM 200 PUFF INH IH (09:24)
[2022-01-20] MEDS: Inhaler, Assist Device 1 EACH MC (09:24)
--- NOTE | 2022-01-20 16:13 | W.PFT ---
Date of service: 01/20/22 Time of Service: 07:59 Pulmonary Function Test Result Requesting Provider Ismael Cummings Indications: Asthma Interpretation Spirometry: There is no airflow limitaiton. There is no significant bronchodilator response. Impression Normal spirometry Clinical Correlation therefore is recommended.
== END 2022-01-20 01:43 | disposition home or self-care (01) ==
LOC: RT 01:42
PROVIDERS: PCP Nurse Practitioner Family; Visit Provider Physician Assistant
DX: J45.20 Mild intermittent asthma, uncomplicated (principal); R06.09 Other forms of dyspnea; R05.8 Other specified cough
CPT/HCPCS: 94060

== ENCOUNTER 2022-02-14 09:02 | Outpatient (REF) | payer BC, SELFPAY ==
[2022-02-14 09:19] LABS: Source Nasal/Nares
[2022-02-14 11:31] LABS: COVID-19 PCR Negative (Negative)
== END 2022-02-14 09:03 | disposition home or self-care (01) ==
LOC: LBO 09:02
PROVIDERS: PCP Nurse Practitioner Family; Visit Provider Nurse Practitioner Family
DX: Z20.822 Contact with and (suspected) exposure to COVID-19 (principal)
CPT/HCPCS: 87635

== ENCOUNTER 2022-03-15 16:48 | Outpatient (REF) | payer BC, SELFPAY ==
[2022-03-15 15:37] LABS: Source Nasal/Nares
[2022-03-15 16:31] LABS: COVID-19 PCR POSITIVE (Negative)
== END 2022-03-15 16:49 | disposition home or self-care (01) ==
LOC: LBN 16:48
PROVIDERS: PCP Nurse Practitioner Family; Visit Provider Obstetrics & Gynecology
DX: Z20.822 Contact with and (suspected) exposure to COVID-19 (principal)
CPT/HCPCS: 87635

== ENCOUNTER 2022-05-02 02:53 | Outpatient (CLI) | payer BC, SELFPAY ==
[2022-05-02 07:55] LABS: TSH (W/Ref FT4) 1.66 uIU/mL (0.36-3.74)
[2022-05-02 08:09] LABS: Hemoglobin A1C 5.6 % (<5.7)
[2022-05-02 09:21] LABS: Vitamin D 25 Total 30.4 ng/mL (30-100)
== END 2022-05-02 02:54 | disposition home or self-care (01) ==
LOC: LBO 02:53
PROVIDERS: PCP Nurse Practitioner Family; Visit Provider Obstetrics & Gynecology Reproductive Endocrinology
DX: Z13.21 Encounter for screening for nutritional disorder (principal); Z31.41 Encounter for fertility testing; Z13.1 Encounter for screening for diabetes mellitus
CPT/HCPCS: 36415; 82306; 83036; 84443

== ENCOUNTER 2022-05-04 09:44 | Emergency (ER) | payer BC, SELFPAY ==
[2022-05-04 09:49] VITALS: BP 124/75; PULSE 93; RESP 22; TEMP 36.7; O2SAT 99
--- NOTE | 2022-05-04 10:00 | DI.RAD_ITS ---
Exam(s) XR PORTABLE CHEST AP EXAM: XR PORTABLE CHEST AP CLINICAL HISTORY: SOB, PUI, Asthma. TECHNIQUE: 2D digital imaging was performed. COMPARISON: No exams were available for comparison FINDINGS: LUNGS: Clear. No pleural abnormality seen. HEART: Normal. MEDIASTINUM: Normal. OTHER FINDINGS: None. IMPRESSION: No acute pulmonary findings. DATA REPOSITORY: RADIATION DOSE DELIVERED: Total DLP
--- NOTE | 2022-05-04 10:08 | W.ED.GENAD ---
Discharge Plan Disposition Patient Disposition: Home Condition: Improving Discharge Details Clinical Impression: Asthma exacerbation Primary Care Provider: Renea Delcid ED Provider: Francisca Grant Home Meds and New Rx's Prescriptions: New (DME) nebulizer and compressor Device See Rx Instructions .Route Qty: 1 0RF Rx Instructions: As directed albuterol sulfate 2.5 mg /3 mL (0.083 %) solution for nebulization 2.5 mg inhalation Q4H PRN (Reason: shortness of breath or wheezing) Qty: 75 0RF Rx Instructions: Use nebulizer every 4-6 hours as needed prednisone 20 mg tablet 60 mg PO DAILY 3 Days Qty: 9 0RF No Action magnesium oxide 250 mg magnesium tablet 500 mg PO DAILY epinephrine [EpiPen 2-Martin] 0.3 MG/0.3 ML auto-injector 0.3 mg IM ONCE albuterol sulfate 8.5 GM HFA aerosol inhaler 2 puff Inhalation PRN PRN Label Comments: Pt states hasn't needed to use it for over a month Vitamin 1 EACH tablet 1 tbs PO DAILY acetaminophen [Tylenol] 325 mg Tablet 650 mg PO Q6H PRN PRNQty: 0 0RF Discharge Instructions Instructions: Asthma (ED) Additional Instructions: Use the nebulizer as directed once every 4-6 hours as needed for wheezing and shortness of breath. Please take prednisone for the next 3 days. Follow up with primary care provider in 3-5 days. Return to ED sooner if any worsening or concerns. Increase oral fluids. Referrals: Renea Delcid [Primary Care Provider] - 5 days Discharge Data Discharge Date/Time-TO BE ENTERED AT DEPARTURE: 05/04/22 11:16 Medical Decision Making 31-year-old female presents to the ER with chief complaint of shortness of breath. Patient does have a history of asthma and reports URI type symptoms for the last couple weeks. She states that she was seen in urgent care on Sunday and was given 3 days of 60 mg of prednisone a day. She reports she woke up this morning with more short of breath. Patient was given a DuoNeb here in the department which improved her symptoms. Lungs are much more clear and she is moving more air after treatment. No wheezing auscultated. Patient states she feels much better. COVID, flu, RSV all negative. Given 3 more days of prednisone for home. I did prescribe a nebulizer and nebulizer solution to see if patient was able to fill that at the pharmacy. If not I did encourage her to follow-up with her primary care regarding the nebulizer machine. This text was generated using [employer] system, please disregard any oddities of phrase or misspellings. Medical Records Medical records reviewed: Yes I reviewed the patient's medical records. Sign Out No HPI General Mode of arrival: ambulatory. Date/Time Provider Initiated Documentation: 05/04/22 09:47. Limitations to Documentation: no limitations. Information obtained by: patient, RN notes reviewed and old records reviewed. HPI Narrative: 31-year-old female presents to the ER with chief complaint of shortness of breath. Patient does have a history of asthma and reports URI type symptoms for the last couple weeks. She states that she was seen in urgent care on Sunday and was given 3 days of 60 mg of prednisone a day. She reports she woke up this morning with more short of breath. And cough. She does use albuterol inhaler at home which she reports is not helping. Past medical history includes asthma, migraine, [place] malformation, GERD Related Data Home Medications Medication Instructions Recorded Confirmed albuterol sulfate 90 mcg/actuation 2 puff inhalation PRN PRN 05/07/13 05/04/22 aerosol inhaler epinephrine 0.3 mg/0.3 mL 0.3 mg IM ONCE 04/14/16 05/04/22 injection, auto-injector (EpiPen 2-Martin) vits no.124-ferrous fum 1 tbs PO DAILY 02/03/18 05/04/22 27 mg iron-folic acid 800 mcg tablet ( Vitamin) acetaminophen 325 mg tablet 650 mg PO Q6H PRN PRN #0 tabs 09/29/18 05/04/22 (Tylenol) magnesium oxide 500 mg PO DAILY 01/21/21 05/04/22 albuterol sulfate 2.5 mg/3 mL 2.5 mg (3 mL) inhalation Q4H PRN 05/04/22 (0.083 %) solution for nebulization shortness of breath or wheezing #75 mL nebulizer and compressor #1 ea 05/04/22 prednisone 20 mg tablet 60 mg PO DAILY 3 days #9 tabs 05/04/22 Previous Rx's Medication Instructions Recorded acetaminophen 325 mg tablet 650 mg PO Q6H PRN PRN #0 tabs 09/29/18 (Tylenol) albuterol sulfate 2.5 mg/3 mL 2.5 mg (3 mL) inhalation Q4H PRN 05/04/22 (0.083 %) solution for nebulization shortness of breath or wheezing #75 mL nebulizer and compressor #1 ea 05/04/22 prednisone 20 mg tablet 60 mg PO DAILY 3 days #9 tabs 05/04/22 Allergies Allergy/AdvReac Type Severity Reaction Status Date / Time amoxicillin trihydrate Allergy Mild Skin Rash Verified 05/04/22 09:55 [From Augmentin] potassium clavulanate Allergy Mild Skin Rash Verified 05/04/22 09:55 [From Augmentin] General Stated Complaint: RespSymp RELL: 3 Review of Systems All systems reviewed & are unremarkable except as noted in HPI and below Cardiovascular Cardiovascular: Denies chest pain and Reports dyspnea Respiratory Respiratory: Reports as per HPI, Reports cough and Reports dyspnea Gastrointestinal Gastrointestinal: Denies abdominal pain, Denies diarrhea, Denies nausea and Denies vomiting PFSH All Active Problems (Updated 05/04/22 @ 11:11 by Francisca Grant NP) Asthma exacerbation (Acute) Hymenal remnant (Acute) Encounter for IUD removal (Acute) Pelvic prolapse (Acute) Grade 1 cystocele Lesion of right nipple (Acute) IUD (intrauterine device) in place (Acute) care and examination (Acute) Amoxicillin-induced allergic rash (Acute) History of angioedema (Acute) due to unknown agent, carries epi pen was seen by translation director that did not identify agent. 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 Father Hypertensive disorder, systemic arterial Hyperlipidemia Social History Smoking/Tobacco Use Status: Never Smoking risk assessment performed?: Yes Alcohol Intake: current Alcohol Intake frequency: a few times a month Alcohol type: beer Drug use: Never Substance use type: does not use Do you feel safe at home: Yes Do you feel safe in your relationship?: Yes Female Reproductive History Menstrual control method: progestin IUCD History History 3 Para 2 Hx # Term Pregnancies 2 Multiple births 0 Hx # Pregnancies 0 Ectopic pregnancies 0 AB induced 0 Hx Number of Living Children 2 AB spontaneous 1 Past Pregnancies Del. Date GA/Weeks # Preg Succ Route Wgt Sex Labor Lgth Anesthesia Location Prov Complic 03/25/17 7 No 04/08/18 40 No vaginal 3231.846 g Male 18 hour [facility] other 03/16/21 38 No vaginal 3143.962 g Female 11 hrs 5 min Va Chen CNM Delivery Date: 03/25/17 Last Updated by: Jenna Pena CNM SAB no interventions Delivery Date: 04/08/18 Last Updated by: Jenna Pena CNM pushed X 3 hours, baby required resuscitation but did well Delivery Date: 03/16/21 Last Updated by: Haven Munoz LPN Short umbilical cord ~6; Maribeth Peterson Exam Narrative Exam Narrative: Constitutional: Alert and oriented x3. Appears stated age. Normal body habitus. Head: Normocephalic, no trauma. Eyes: Pupils PERRL, Red reflex noted, EOM's intact. Eyelids symmetrical without lesions, discharge, or swelling. ENT: Bilateral TM's WNL, External ear normal to inspection, no mastoid TTP, swelling, or erythema, Nasal turbinates WNL, no nasal discharge. Normal dentition, Posterior pharynx WNL, no exudate. Chest: RRR, Normal S1, S2, distal pulses intact. Resp: Lungs clear to auscultation bilaterally, no wheezes, rales, or rhonchi. Musculoskeletal: Normal gait, 5/5 strength to all four extremities. Skin: No suspicious rashes or lesions. Capillary refill less than 2 sec. Course Vital Signs Vital signs: Vital Signs Temperature 36.7 C 05/04/22 09:49 Pulse 93 H 05/04/22 09:49 Respiratory Rate 22 05/04/22 09:49 Blood Pressure 124/75 05/04/22 09:49 Pulse Oximetry 99 05/04/22 09:49 Temperature 36.7 C 05/04/22 09:49 Temperature Source Oral 05/04/22 09:49 Pulse 93 H 05/04/22 09:49 Respiratory Rate 22 05/04/22 09:49 Respiratory Effort 05/04/22 09:56 Respiratory Depth Shallow 05/04/22 09:56 Blood Pressure 124/75 05/04/22 09:49 Blood Pressure Position Sitting 05/04/22 09:49 Pulse Oximetry 99 05/04/22 09:49 Oxygen Delivery Method Room Air 05/04/22 09:49 Oxygen Flow Rate 0 05/04/22 09:49 Pain Level 0 05/04/22 09:49 PAWSS Have you Been Recently Intoxicated or Drunk Within the Last 30 days?: No Have you Ever Experienced Previous Episodes of Alcohol Withdrawal?: No Have you ever Experienced Withdrawal Seizures?: No Have you ever Experienced Delirium Tremens(DT)s?: No Have you ever undergone Alcohol Rehabilitation Treatment (i.e, inpt ot outpatient treatment programs)?: No Have you ever Experienced Blackouts?: No Have you ever Combined Alcohol with other Downers within the last 90 days?: No Have you ever Combined Alcohol with any other Substance of Abuse during the last 90 days?: No Positive Blood Alcohol level on Presentation? [PCS.BAL]: No Evidence of Increased Autonomic Activity (i.e. HR>120, tremor, sweating, agitation, nausea)?: No Result: 0
[2022-05-04 10:23] VITALS: PULSE 86; RESP 1; RESP 22; O2SAT 98
[2022-05-04] MEDS: Albuterol/Ipratropium 3 ML UPD VIAL UPD (10:23)
--- NOTE | 2022-05-04 10:49 | DI.VRAD_ITS ---
PROCEDURE INFORMATION: Exam: XR Chest Exam date and time: 05/04/2022 10:02 AM Age: 31 years old Clinical indication: Cough TECHNIQUE: Imaging protocol: Radiologic exam of the chest. Views: 1 view. COMPARISON: CT ABDOMEN PELVIS W 09/29/2018 3:36 AM FINDINGS: Lungs: Unremarkable. No consolidation. Pleural spaces: Unremarkable. No pleural effusion. No pneumothorax. Heart/Mediastinum: Unremarkable. No cardiomegaly. Bones/joints: Unremarkable. IMPRESSION: No acute findings. Dictated and Authenticated by: Walter Zuleta MD. Ordering:ADILENE Espinosa MD
[2022-05-04 11:01] LABS: COVID-19 PCR Negative (Negative); Influenza A PCR Negative (Negative); Influenza B PCR Negative (Negative); RSV PCR Negative (Negative)
== END 2022-05-04 11:16 | disposition home or self-care (01) ==
PROVIDERS: Emergency Provider Registered Nurse Emergency; PCP Nurse Practitioner Family
DX: R06.02 Shortness of breath (principal); J45.901 Unspecified asthma with (acute) exacerbation
CPT/HCPCS: 81025; 87637; 94640; 99283; 71045; J7620

== ENCOUNTER 2022-08-16 12:57 | Outpatient (CLI) | payer BC, SELFPAY ==
[2022-08-16 13:15] LABS: HCG Quant, Pregnancy 11736 mIU/mL (1-3)
== END 2022-08-16 12:58 | disposition home or self-care (01) ==
LOC: LBO 12:59
PROVIDERS: PCP Nurse Practitioner Family; Visit Provider Obstetrics & Gynecology
DX: N91.0 Primary amenorrhea (principal)
CPT/HCPCS: 36415; 84702

== ENCOUNTER 2022-09-22 01:33 | Outpatient (CLI) | payer BC, SELFPAY ==
[2022-09-22 10:08] LABS: Panorama Kit Sent via Fed Ex
[2022-09-22 10:21] LABS: Abs Immature Grans 0.03 10^3/uL (0.0-0.06); Absolute Basophil Count 0.02 10^3/uL (0.0-0.2); Absolute Eosinophil Count 0.14 10^3/uL (0.0-0.7); Absolute Lymphocyte Count 1.83 10^3/uL (1.2-3.4); Absolute Monocyte Count 0.49 10^3/uL (0.1-0.8); Absolute Neutrophil Count 6.18 10^3/uL (1.2-6.7); Basophils % 0.2; Eosinophils % 1.6; HCT 36.7 % (36.0-46.0); HGB 12.8 g/dL (11.2-15.7); Immature Grans % 0.3; Lymphocytes % 21.1; MCH 29.3 pg (27.0-33.0); MCHC 34.9 % (32.0-36.0); MCV 84 fL (80-95); MPV 9.1 fL (8.0-11.0); Monocytes % 5.6; Neutrophils % 71.2; Platelet Count 268 10^3/uL (130-400); RBC 4.37 10^6/uL (3.93-5.22); RDW-SD 39.8 fL; WBC 8.69 10^3/uL (4.4-10.8)
[2022-09-22 10:48] LABS: TSH (W/Ref FT4) 1.54 uIU/mL (0.36-3.74)
[2022-09-25 11:15] LABS: Hepatitis B Surface Ag Negative (Negative)
[2022-09-25 11:22] LABS: Varicella IgG Antibody Positive (See Note)
[2022-09-25 11:26] LABS: Rubella IgG Ab (UVM) Positive (See Note)
[2022-09-25 11:53] LABS: Hepatitis C Ab w Rflx HCV PCR Negative (Negative)
[2022-09-25 12:07] LABS: HIV-1/2 Ag & Ab Screen Negative (Negative)
[2022-09-26 14:52] LABS: Syphilis IgG w/Reflex Nonreactive (Nonreactive)
== END 2022-09-22 01:34 | disposition home or self-care (01) ==
LOC: LBO 01:33
PROVIDERS: Advanced Practice Midwife; PCP Nurse Practitioner Family; Visit Provider Advanced Practice Midwife
DX: Z34.91 Encounter for supervision of normal pregnancy, unspecified, first trimester (principal); Z3A.11 11 weeks gestation of pregnancy
CPT/HCPCS: 36415; 86787; 86803; 86850; 86900; 86901; 87340; 87389; 84443; 85025; 86762; 86780

== ENCOUNTER 2022-09-22 10:59 | Outpatient (REF) | payer BC, SELFPAY ==
[2022-09-22 12:46] LABS: *AMPHETAMINES SCREEN URINE Negative (Negative); *BARBITURATES SCREEN URINE Negative (Negative); *BENZODIAZEPINES SCREEN URINE Negative (Negative); Cannabinoids THC Negative (Negative); Cocaine Screen,Urine Negative (Negative); METHADONE URINE SCREEN Negative (Negative); OPIATES URINE SCREEN Negative (Negative)
[2022-09-22 12:51] LABS: Tricyclic Antidepressants Negative (Negative)
[2022-09-23 13:53] LABS: Chlamydia Result Negative (Negative); GC Result Negative (Negative)
[2022-09-30 00:54] LABS: Buprenorphine Negative ng/mL (Cutoff: 5.0); Norbuprenorphine Negative ng/mL (Cutoff: 2.5)
== END 2022-09-22 11:00 | disposition home or self-care (01) ==
LOC: LBN 10:59
PROVIDERS: PCP Nurse Practitioner Family; Visit Provider Advanced Practice Midwife
DX: Z34.91 Encounter for supervision of normal pregnancy, unspecified, first trimester (principal); Z11.3 Encounter for screening for infections with a predominantly sexual mode of transmission; Z3A.11 11 weeks gestation of pregnancy
CPT/HCPCS: 80307; 80348; 87491; 87591; 87086

== ENCOUNTER 2023-01-05 01:36 | Outpatient (CLI) | payer BC, SELFPAY ==
[2023-01-05 07:17] LABS: HCT 36.1 % (36.0-46.0); HGB 12.1 g/dL (11.2-15.7); MCH 28.3 pg (27.0-33.0); MCHC 33.5 % (32.0-36.0); MCV 85 fL (80-95); MPV 9.2 fL (8.0-11.0); Platelet Count 303 10^3/uL (130-400); RBC 4.27 10^6/uL (3.93-5.22); RDW 12.3 % (11.7-14.6); RDW-SD 37.5 fL; WBC 10.33 10^3/uL (4.4-10.8)
[2023-01-05 09:02] LABS: Glucose 1 Hour 151 mg/dL
[2023-01-05 10:49] LABS: Glucose 3 Hour 115 mg/dL
== END 2023-01-05 01:37 | disposition home or self-care (01) ==
LOC: LBO 01:37
PROVIDERS: PCP Nurse Practitioner Family; Visit Provider Advanced Practice Midwife
DX: Z34.92 Encounter for supervision of normal pregnancy, unspecified, second trimester (principal); Z3A.25 25 weeks gestation of pregnancy
CPT/HCPCS: 36415; 85027; 82951

== ENCOUNTER 2023-01-23 12:04 | Outpatient (CLI) | payer BC, SELFPAY ==
[2023-01-23 12:17] VITALS: BP 109/62; PULSE 90; TEMP 36.8
[2023-01-23 13:49] LABS: Fetal Fibronectin Negative (Negative)
--- NOTE | 2023-01-23 14:35 | W.OBNST ---
Date of service: 01/23/23 Time of Service: 14:00 NST Evaluation Reason for NST Reasons for Nonstress Test: OTHER, SEE COMMENT Reason for NST Other: R/O labor Gestational Age Gestational Age in Weeks and Days: 28 Weeks and 5Days Test and Monitor Explained Test/Monitor Explained: Test Explained, Monitor Explained and Patient Verbalized Understanding Vital Signs Blood Pressure: 109/62 Pulse: 90 Temperature: 98.2 F Urine Results Urine Protein: Negative Urine Ketones: Negative Urine Glucose: Negative Urine Blood: Negative NST Information Date on Monitor: 01/23/23 Time on Monitor: 12:21 Date off Monitor: 01/23/23 Time off Monitor: 14:00 Total Time on Monitor: 99 NST Interventions: PO Hydration NST Evaluation Patient States Movement: Present FHR Baseline: 130 Variability: Moderate 6-25 bpm Accelerations: 15x15 Decelerations: None NST Results: Reactive Note Ultrasound Done: N/A. NST Note Note: fFN collected and negative Cvx FT/thick, firm, posterior, no presenting part in pelvis Pt discharged with instructions to rest, hydrate, PTL sx reviewed. Keep next scheduled appt, call if PTL sx increase or if she feels concerned NST Reviewed and Verified by: Eliza Chen
[2023-01-23 14:37] VITALS: BP 109/62; PULSE 90; TEMP 36.8
== END 2023-01-23 14:10 | disposition home or self-care (01) ==
LOC: BCD 12:05 → OBS 12:15
PROVIDERS: PCP Nurse Practitioner Family; Visit Provider Advanced Practice Midwife
DX: O60.03 Preterm labor without delivery, third trimester (principal); Z3A.28 28 weeks gestation of pregnancy
CPT/HCPCS: 59025; 82731

== ENCOUNTER 2023-01-29 20:25 | Outpatient (CLI) | payer BC, SELFPAY ==
[2023-01-29 20:42] VITALS: BP 107/55; PULSE 80; RESP 18; TEMP 36.1
[2023-01-29 20:56] LABS: Bilirubin Negative (Negative); Blood Trace-intact (Negative); Clarity Clear (Clear); Glucose Negative (Negative); Ketones 80 mg/dL (Negative); Leukocyte Esterase Trace (Negative); Nitrite Negative (Negative); Specific Gravity 1.025 (1.005-1.025); Urobilinogen 0.2 mg/dL (Up to 0.2)
[2023-01-29 21:12] LABS: Bacteria Moderate HPF (Negative); C & S Indicated? No/Sq. Contamination; Casts Negative LPF (Negative); Crystals Negative HPF (Negative); Epithelial Cells Moderate HPF (Negative); Mucus Negative (Negative); RBC 0-2 HPF (0-2); WBC 0-2 HPF (0-5)
--- NOTE | 2023-01-30 12:40 | W.OBNST ---
Date of service: 01/29/23 Time of Service: 22:00 NST Evaluation Reason for NST Reasons for Nonstress Test: FALSE LABOR Gestational Age Gestational Age in Weeks and Days: 29 Weeks and 5Days Test and Monitor Explained Test/Monitor Explained: Test Explained, Monitor Explained and Patient Verbalized Understanding Vital Signs Blood Pressure: 107/55 Pulse: 80 Temperature: 97.0 F NST Information Date on Monitor: 01/29/23 Date off Monitor: 01/29/23 Contraction Frequency: 10 NST Evaluation Patient States Movement: Present FHR Baseline: 140 Variability: Moderate 6-25 bpm Accelerations: 15x15 Decelerations: None NST Results: Reactive Note Ultrasound Done: N/A. NST Note Note: Rita reports cramping today. She experienced this 01/23 and was evaluated and fibronectin was neg at that time. Cervix was checked 01/23 and was closed. Upon arrival, Rita reports that her cramping was milder. Reactive NST and mild uterine irritability noted. vaginal pathogen screen and GBS taken. Urine dip pos. for ketones. No evidence of labor. Precautions reviewed and increasing her fluid intake was recommended. NST Reviewed and Verified by: Jenna Granda
[2023-01-30 12:42] VITALS: BP 107/55; PULSE 80; TEMP 36.1
== END 2023-01-29 22:00 | disposition home or self-care (01) ==
LOC: BCD 20:30 → OBS 20:39
PROVIDERS: PCP Nurse Practitioner Family; Visit Provider Advanced Practice Midwife
DX: O47.02 False labor before 37 completed weeks of gestation, second trimester (principal); Z3A.29 29 weeks gestation of pregnancy
CPT/HCPCS: 59025; 81003; 81015; 87081; 87480; 87510; 87660

== ENCOUNTER 2023-03-19 13:15 | Outpatient (REF) | payer BC, SELFPAY ==
[2023-03-19 14:07] LABS: *AMPHETAMINES SCREEN URINE Negative (Negative); *BARBITURATES SCREEN URINE Negative (Negative); *BENZODIAZEPINES SCREEN URINE Negative (Negative); Cannabinoids THC Negative (Negative); Cocaine Screen,Urine Negative (Negative); METHADONE URINE SCREEN Negative (Negative); OPIATES URINE SCREEN Negative (Negative); Tricyclic Antidepressants Negative (Negative)
== END 2023-03-19 13:16 | disposition home or self-care (01) ==
LOC: LBN 13:15
PROVIDERS: PCP Nurse Practitioner Family; Visit Provider Advanced Practice Midwife
DX: Z34.90 Encounter for supervision of normal pregnancy, unspecified, unspecified trimester (principal)
CPT/HCPCS: 80307; 87081

== ENCOUNTER 2023-03-22 19:31 | Outpatient (CLI) | payer BC, SELFPAY ==
[2023-03-22 19:58] VITALS: BP 120/68; PULSE 93; TEMP 36.8
[2023-03-22] MEDS: Ondansetron O.D.T. 4 MG TABEF PO (20:19)
--- NOTE | 2023-03-23 08:04 | W.OBNST ---
Date of service: 03/22/23 Time of Service: 21:00 NST Evaluation Reason for NST Reasons for Nonstress Test: OTHER, SEE COMMENT Gestational Age Gestational Age in Weeks and Days: 37 Weeks and 0Days Test and Monitor Explained Test/Monitor Explained: Test Explained, Monitor Explained and Patient Verbalized Understanding Vital Signs Blood Pressure: 120/68 Pulse: 93 Temperature: 98.2 F Urine Results Urine Protein: Negative Urine Ketones: Negative Urine Glucose: Negative Urine Blood: Negative NST Information Date on Monitor: 03/22/23 Time on Monitor: 19:50 Date off Monitor: 03/22/23 Time off Monitor: 20:37 Total Time on Monitor: 47 NST Interventions: PO Hydration Contraction Frequency: occasional NST Evaluation Patient States Movement: Present FHR Baseline: 135 Variability: Moderate 6-25 bpm Accelerations: 15x15 Decelerations: None NST Results: Reactive Note Ultrasound Done: N/A. NST Note Note: cvx 1/60% posterior, vtx -2, intact membranes, no labor dehydration per UA, pt counseled to increase fluid intake Given 4 mg Zofran ODT, offered IVF to assist with rehydration and pt declines NST Reviewed and Verified by: Eliza Chen
[2023-03-23 08:06] VITALS: BP 120/68; PULSE 93; TEMP 36.8
== END 2023-03-22 20:40 | disposition home or self-care (01) ==
LOC: LBN 19:33 → OBS 20:09
PROVIDERS: PCP Nurse Practitioner Family; Visit Provider Nurse Practitioner Family
DX: O47.1 False labor at or after 37 completed weeks of gestation (principal)
CPT/HCPCS: 59025; G0378

== ENCOUNTER 2023-04-06 05:29 | Outpatient (CLI) | payer BC, SELFPAY ==
[2023-04-06 08:30] VITALS: BP 120/71; PULSE 91
[2023-04-06 08:38] VITALS: BP 120/71; PULSE 91
--- NOTE | 2023-04-06 09:56 | W.OBNST ---
Date of service: 04/06/23 Time of Service: 09:30 NST Evaluation Reason for NST Reasons for Nonstress Test: OTHER, SEE COMMENT Reason for NST Other: edema and hx proteinuria Gestational Age Gestational Age in Weeks and Days: 39 Weeks and 1Days Test and Monitor Explained Test/Monitor Explained: Test Explained, Monitor Explained and Patient Verbalized Understanding Vital Signs Blood Pressure: 120/71 Pulse: 91 Urine Results Urine Protein: Negative Urine Ketones: Negative Urine Glucose: Negative Urine Blood: Negative NST Information Date on Monitor: 04/06/23 Time on Monitor: 08:33 Date off Monitor: 04/06/23 Time off Monitor: 08:56 Total Time on Monitor: 23 NST Interventions: PO Hydration Contraction Frequency: x1 NST Evaluation Patient States Movement: Present FHR Baseline: 140 Variability: Moderate 6-25 bpm Accelerations: 15x15 Decelerations: None NST Results: Reactive Note Ultrasound Done: N/A. NST Note Note: patellar and pedal reflexes nml; pedal edema +1 BP nml, urine negative for protein Next OB appt on Sunday (3 days from today) Pt has stopped working, is resting more NST Reviewed and Verified by: Eliza hCen
[2023-04-06 09:58] VITALS: BP 120/71; PULSE 91
== END 2023-04-06 09:01 ==
LOC: BCD 05:31 → OBS 07:44
PROVIDERS: PCP Nurse Practitioner Family; Visit Provider Advanced Practice Midwife
DX: Z3A.39 39 weeks gestation of pregnancy; O12.03 Gestational edema, third trimester
CPT/HCPCS: 59025

== ENCOUNTER 2023-04-15 05:36 | Inpatient (IN) | payer BC, SELFPAY ==
[2023-04-15] VITALS (13 sets, daily range): BP systolic 105–119; BP diastolic 54–61; PULSE 72–82; RESP 16–18; TEMP 36.7–37
--- NOTE | 2023-04-15 06:03 | W.PM.OBHPL1 ---
Date of service: 04/15/23 Time of Service: 06:03 Assessment and Plan Assessment and plan (1) Uterine contractions: Status: Acute Assessment and plan: A: 32 yo @ 40+3 wks Spontaneous onset active labor GBS negative, nml glucose screen @ 28 wks Category 1 tracing on admission Low risk for SD and PPH P: Admit to BC, CBC, T&S, COVID swab Comfort measures as desired by pt She is attended by her and sister Expectant management, anticipate OB-HPI Labor/Delivery History of Present Illness Reason for Visit: Rule out labor Chief Complaint: Uterine Contractions (woke up to contractions at 0315 which became closer and stronger over 90 minutes. No bleeding, no ROM, no nausea or vomiting.). JEFFREY Calculator Estimated Delivery Date Method Current WG Current Estimate 04/12/23 Ultrasound #1 40w 3d Other Estimates 03/11/23 LMP (Uncertain) 45w 0d History of Present Expected Delivery Route/Plan - CNM FOB/ - Luke BB no circ support: FOB and storage battery tester (John, pt's sister) considering epidural/intrathecal GBS neg 01/30, repeat at 36 weeks Requests zofran in labor for nausea. Specific Issues/Plan 1. TSH due to increased nausea, is working w/PCP re: possible thyroid nodule/ US, TSH nml 2. Early glucose deferred due to no GDM with last and nausea 3. cfDNA LR male; CF/SMA and AFP declined 4. Asthma and allergies, followed by pulmonology, has inhaler- hopes to get RSV, flu and vaccine 5. Low lying placenta - Repeat US at 28 weeks-resolved 6. Elevated 1-hr GTT previously with first two pregnancies, 3-hr GTT at 28 wks; 76, 151, 114, 115 7. Tdap given 01/22/23 8. History of Post anxiety treated with sertralin 25 mg, started 03/26/23 Assessment: History Reviewed & Current Review of Systems Narrative: Noncontributory other then HPI PFSH All Active Problems (Updated 04/15/23 @ 06:35 by Eliza Chen) Uterine contractions (Acute) History of depression, currently in third trimester (Acute) Environmental allergies (Acute) (Acute) Asthma (Chronic) Chiari I malformation (Acute) Anxiety (Chronic) Hearing impaired person (Acute) Exercise-induced asthma (Acute) rare use of inhaler Medical History (Updated 04/15/23 @ 06:35 by Eliza Chen) Delayed menses Hx gestational diabetes Pelvic prolapse Grade 1 cystocele Lesion of right nipple Amoxicillin-induced allergic rash Ovarian cyst History of angioedema due to unknown agent, carries epi pen was seen by kiln firer helper that did not identify agent. Asthma Recurrent urinary tract infection History of Chiari malformation Acute duodenal ulcer with hemorrhage Migraine Surgical History History of appendectomy neck surgery For Chiari type 1 malformation as a child Fracture, Closed Treatment Excision, Pilonidal Cyst (04/25/16) Family History (Updated 12/25/22 @ 08:53 by Jenna Granda CNM) Father Hypertensive disorder, systemic arterial Hyperlipidemia Asthma Allergies Mother Heart disease Pacemaker Paternal Grandfather Allergies Asthma Cancer bladder Diabetes Maternal Grandmother Cancer Bladder Heart disease Myocardial infarct Maternal Grandfather Atrial fibrillation CAD (coronary artery disease) Pacemaker Paternal Grandmother Heart disease Myocardial infarct Social History Smoking/Tobacco Use Status: Never Smoking risk assessment performed?: Yes Alcohol Intake: current Alcohol Intake frequency: a few times a month Alcohol type: beer Drug use: Never Substance use type: does not use Current gender identity: female Do you feel safe at home: Yes Do you feel safe in your relationship?: Yes Female Reproductive History Menstrual control method: progestin IUCD History History 4 Para 2 Hx # Term Pregnancies 2 Multiple births 0 Hx # Pregnancies 0 Ectopic pregnancies 0 AB induced 0 Hx Number of Living Children 2 AB spontaneous 1 Past Pregnancies Del. Date GA/Weeks # Preg Succ Route Wgt Sex Labor Lgth Anesthesia Location Prov Complic 03/25/17 7 No 04/08/18 40 No vaginal 7 lb 2 oz Male 18 hour [facility] other 03/16/21 38 No vaginal 6 lb 14.9 oz Female 11 hrs 5 min Va Chen CNM Delivery Date: 03/25/17 Last Updated by: Jenna Pena CNM SAB no interventions Delivery Date: 04/08/18 Last Updated by: Jenna Granda CNM pushed X 3 hours, baby required resuscitation but did well, gestational diabetes Delivery Date: 03/16/21 Last Updated by: Haven Munoz LPN Short umbilical cord ~6; Maribeth Peterson [facility] Allergies and Home Medications Allergies Allergy/AdvReac Type Severity Reaction Status Date / Time amoxicillin trihydrate Allergy Mild Skin Rash Verified 04/09/23 13:30 [From Augmentin] potassium clavulanate Allergy Mild Skin Rash Verified 04/09/23 13:30 [From Augmentin] Home Medications Medication Instructions Recorded Confirmed Type albuterol sulfate 90 mcg/actuation 2 puff inhalation PRN PRN 05/07/13 04/09/23 History aerosol inhaler epinephrine 0.3 mg/0.3 mL 0.3 mg IM ONCE 04/14/16 04/09/23 History injection, auto-injector (EpiPen 2-Martin) vits no.124-ferrous fum 1 tbs PO DAILY 02/03/18 04/09/23 History 27 mg iron-folic acid 800 mcg tablet ( Vitamin) acetaminophen 325 mg tablet 650 mg (2 x 325 mg) PO Q6H PRN PRN 09/29/18 04/09/23 Rx (Tylenol) #0 tabs magnesium oxide 500 mg PO DAILY 01/21/21 04/09/23 History albuterol sulfate 2.5 mg/3 mL 2.5 mg (3 mL) inhalation Q4H PRN 05/04/22 04/09/23 Rx (0.083 %) solution for nebulization shortness of breath or wheezing #75 mL nebulizer and compressor #1 ea 05/04/22 04/09/23 Rx fluticasone propionate 115 2 puff inhalation BID #12 grams 05/17/22 04/09/23 Rx mcg-salmeterol 21 mcg/actuation HFA inhaler (Advair HFA) ondansetron 4 mg disintegrating 4 mg PO Q8H PRN nausea and 09/22/22 04/09/23 Rx tablet vomiting #30 tabs esomeprazole magnesium 20 mg 20 mg PO DAILY 01/22/23 04/09/23 History capsule,delayed release (Nexium) blood builder 1 tab PO DAILY 03/26/23 04/09/23 History sertraline 50 mg tablet 25 mg (1/2 x 50 mg) PO DAILY #45 03/26/23 04/09/23 Rx tabs Exam Physical Exam Vital signs: Temp Pulse Resp BP 98.1 F 73 16 108/55 L 04/15/23 05:23 04/15/23 05:23 04/15/23 05:23 04/15/23 05:23 Vital Signs Reviewed: Yes Constitutional Constitutional: moderate distress, average body habitus and cooperative Detailed Labor and Delivery Exam Dilation: 4 Effacement (%): 90 station: -2 Cervix position: posterior Consistency: soft PEPE Score(Cervical Ripeness Score): 8 Amniotic Membrane Status: Intact Contraction Frequency(min): 3-4 minutes Contraction Duration(sec): 60-70 Fetus A Heart Rate Baseline: 130 Monitor Accelerations: Present Monitor Decelerations: None Variability: Moderate (6-25 BPM) Categories: Category I Est. Weight: 7 lb 11.459 oz Est. Weight: 3500 gms Assessment Note: question of periodic variable x2, nonrecurrent, 10-15 seconds each HEENT Exam HEENT Exam: Normal Neck Exam Neck Exam: Normal Chest/Brest/Axilla Exam Chest Exam: Normal Breast Exam Breast Exam: Not Done Respiratory Exam Respiratory Exam: Normal Cardiovascular Exam Cardiovascular Exam: Normal Abdominal Exam Abdominal Exam: Normal (Gravid, S=D, nontender) Rectal Exam Rectal Exam: Normal Exam Exam: Normal Extremities Exam Extremities Exam: Normal Back/Spine/Pelvis Exam Back Exam: Normal Pelvis Adequate: Yes (proven to 7'2) Skin Exam Skin Exam: Normal Neurological Exam Neurological Exam: Normal Psychiatric Exam Psychiatric Exam: Normal Results Results Group Beta Strep: Negative Blood Type: O+ Rubella Status: Immune Varicella Immunity: Immune Risk Assessment Risk for Shoulder Dystocia Historical/Initial OB: NEGATIVE FOR: Pelvic Abnormality, Pre- BMI>30, Previous Shoulder Dystocia or Previous Macrosomia 40 Weeks: POSTIVE FOR: Maternal Weight Gain >40lb (Nml 3 hr GTT at 28 wks ); NEGATIVE FOR: EFW> 4500 gms or Post Dates Increased Risk?: No Date/Initial: 09/22/22 [facility] Delivery Plan @ 40 wks: , pelvis proven to 7'2 Risk for Pre-Eclampsia Date Initiated/Initials: not indicated Yes, if one or more: NEGATIVE FOR: Hx Pre-E/Gest HTN, Chronic HTN, Multiple Gestation, Pre-gestational DM, Renal Disease, Systemic Lupus or APA Syndrome Yes, if 2 or more: NEGATIVE FOR: Nulliparity, Age>= 35 yrs, >10yr btwn pregnancies, BMI>30, ethinicty, Mother/Sister w/ Pre-E or Previous IUGR Risk for Post- Hemorrhage Initial: NEGATIVE FOR: Multiple Gestation, Previous PPH, Known Clotting Deficiency, Grand Multiparity or Anticoagulation 40 Weeks: NEGATIVE FOR: Anemia, hgb<10, Low platelets (thrombocytopenia), Gestation HTN or Pre-E, Polyhydraminios or EFW>4500gms At Risk?: No Counseled re: Active Management: Yes Date/Initials: 09/22/22KH Risks Reviewed Risks Reviewed Upon Admission: Yes
--- NOTE | 2023-04-15 06:37 | NUR.NOTE ---
Pt Arrived ambulatory from home w/ FOB Jasson and Lu Lopez. Pt reporting contractions since 299 that have gotten stronger. Denies complications. Reports a history of asthma. Reports an EDC of 04/12/23 and expecting a boy. Denies Leaking fluid or vaginal bleeding. Monitors placed, Tete notified.
[2023-04-15 06:40] LABS: Source Nasal/Nares
[2023-04-15 06:41] LABS: HCT 33.5 % (36.0-46.0); HGB 10.7 g/dL (11.2-15.7); MCH 23.9 pg (27.0-33.0); MCHC 31.9 % (32.0-36.0); MPV 8.9 fL (8.0-11.0); Platelet Count 312 10^3/uL (130-400); RBC 4.47 10^6/uL (3.93-5.22); RDW 13.9 % (11.7-14.6); RDW-SD 37.2 fL; WBC 11.53 10^3/uL (4.4-10.8)
[2023-04-15 06:50] LABS: MCV 75 fL (80-95)
[2023-04-15 07:20] LABS: COVID-19 PCR Negative (Negative)
[2023-04-15] MEDS: Ondansetron O.D.T. 4 MG TABEF PO (09:34)
--- NOTE | 2023-04-15 11:13 | W.PM.OBNL1 ---
Date of service: 04/15/23 Time of Service: 11:13 Informed Consent Informed Consent: Regional Anesthesia and Risk,Benefits,Alternatives Discussed Pelvic Exam Dilation: 6 Effacement (%): 100 station: -1 Cervix Position: mid Consistency: soft Assessment and Plan Assessment and plan (1) Uterine contractions: Status: Acute Assessment and plan: A: Active labor in multipara Requesting epidural anesthesia Mild anemia of noted per CBC (hgb 10.7) P: Start IVF, BASIC ACOUSTIC ANALYST paged Begin continuous EFM Anticipate Objective Abnormal lab results 04/15/23 Range/Units 06:32 WBC 11.53 H (4.4-10.8) 10^3/uL Hgb 10.7 L (11.2-15.7) g/dL Hct 33.5 L (36.0-46.0) % MCV 75 L (80-95) fL MCH 23.9 L (27.0-33.0) pg MCHC 31.9 L (32.0-36.0) % Temp Pulse Resp BP 98.1 F 76 16 112/58 L 04/15/23 07:29 04/15/23 08:52 04/15/23 07:29 04/15/23 08:52 Laboratory Results WBC 11.53 10^3/uL (4.4-10.8) H 04/15/23 06:32 RBC 4.47 10^6/uL (3.93-5.22) 04/15/23 06:32 Hgb 10.7 g/dL (11.2-15.7) L 04/15/23 06:32 Hct 33.5 % (36.0-46.0) L 04/15/23 06:32 MCV 75 fL (80-95) L 04/15/23 06:32 MCH 23.9 pg (27.0-33.0) L 04/15/23 06:32 MCHC 31.9 % (32.0-36.0) L 04/15/23 06:32 RDW 13.9 % (11.7-14.6) 04/15/23 06:32 Plt Count 312 10^3/uL (130-400) 04/15/23 06:32 MPV 8.9 fL (8.0-11.0) 04/15/23 06:32 COVID-19 Source Nasal/Nares 04/15/23 06:17 SARS-CoV-2 (PCR) Negative (Negative) 04/15/23 06:17 Patient ABO/Rh O Positive 04/15/23 06:32 Antibody Screen NEGATIVE 04/15/23 06:32 Vital Signs Reviewed: Yes Objective Narrative Objective Narrative: Mild anemia noted per CBC Pt has been coping well, supported by FOB & sister Vital signs stable, FHT per intermittent auscultation reassuring Subjective Interval history since last seen: Increasing strength and frequency of contractions, pt has been in shower, then tub and using nitrous to good effect, now requesting epidural anesthesia.
[2023-04-15] MEDS: Lactated Ringers 500 ML IV (11:49)
--- NOTE | 2023-04-15 12:00 | W.PM.OBNL1 ---
Date of service: 04/15/23 Time of Service: 12:00 Informed Consent Informed Consent: Regional Anesthesia and Risk,Benefits,Alternatives Discussed Assessment and Plan Assessment and plan (1) Uterine contractions: Status: Acute Assessment and plan: While awaiting PORTABLE ROUTER OPERATOR arrival, will order narcotic analgesia at pt request P: Fentanyl 25 mcg IVP q 1 hr prn Continue nitrous use prn Anticipate this afternoon Objective Abnormal lab results 04/15/23 Range/Units 06:32 WBC 11.53 H (4.4-10.8) 10^3/uL Hgb 10.7 L (11.2-15.7) g/dL Hct 33.5 L (36.0-46.0) % MCV 75 L (80-95) fL MCH 23.9 L (27.0-33.0) pg MCHC 31.9 L (32.0-36.0) % Temp Pulse Resp BP 98.1 F 76 16 112/58 L 04/15/23 07:29 04/15/23 08:52 04/15/23 07:29 04/15/23 08:52 Laboratory Results WBC 11.53 10^3/uL (4.4-10.8) H 04/15/23 06:32 RBC 4.47 10^6/uL (3.93-5.22) 04/15/23 06:32 Hgb 10.7 g/dL (11.2-15.7) L 04/15/23 06:32 Hct 33.5 % (36.0-46.0) L 04/15/23 06:32 MCV 75 fL (80-95) L 04/15/23 06:32 MCH 23.9 pg (27.0-33.0) L 04/15/23 06:32 MCHC 31.9 % (32.0-36.0) L 04/15/23 06:32 RDW 13.9 % (11.7-14.6) 04/15/23 06:32 Plt Count 312 10^3/uL (130-400) 04/15/23 06:32 MPV 8.9 fL (8.0-11.0) 04/15/23 06:32 COVID-19 Source Nasal/Nares 04/15/23 06:17 SARS-CoV-2 (PCR) Negative (Negative) 04/15/23 06:17 Patient ABO/Rh O Positive 04/15/23 06:32 Antibody Screen NEGATIVE 04/15/23 06:32 Subjective Interval history since last seen: requesting pain medication while awaiting regional anesthesia Results Hemoglobin/Hematocrit: Hgb 10.7 g/dL (11.2-15.7) L 04/15/23 06:32 Hct 33.5 % (36.0-46.0) L 04/15/23 06:32 Abnormal Lab Findings: Abnormal Labs 04/15/23 06:32 WBC 11.53 H Hgb 10.7 L Hct 33.5 L MCV 75 L MCH 23.9 L MCHC 31.9 L
[2023-04-15] MEDS: fentaNYL 100 MCG/2 ML VIAL 25 MCG IVP (12:05)
[2023-04-15] MEDS: Oxytocin/Normal Saline 30 UNIT/500 ML BAG 95 UNITS IV (12:13)
--- NOTE | 2023-04-15 12:38 | W.OBDELIVERY ---
Date of service: 04/15/23 Time of Service: 12:38 OB Labor/ Delivery Information Baby A Delivery Delivery Method: Spontaneaous Presentation: Cephalic Cephalic Position: Vertex Vertex Position: Left Occipital Anterior Breech Position: N/A Cord Description-Baby A: 3 Vessels and Other (nuchal hand (right)) Amniotic Fluid: Meconium Estimated Blood Loss: 200 QBL Delivery Outcome: Liveborn Transferred: Remains with Mother Note: Pt exited tub to prepare for epidural, requested IV narcotic analgesia while awaiting anesthesia's arrival. Cvx rechecked and was 8/100% vtx 0 station with slightly bulging forebag, Fentanyl 25 mcg was given slow IVP and upon completion of med administration pt spontaneously began pushing strongly, SROM for meconium fluid noted and immediately afterward. Unable to complete 2nd stage huddle due to imminent delivery, pt in left lateral position, over intact perineum, shoulders delivered with ease and nuchal hand was noted. Vigorous male handed to mother, IV pitocin bolus begun, cord ceased pulsating and was clamped then cut by FOB, cord blood collected, [place] placenta delivered intact with 3 VC and trailing membranes which were gently teased out by twisting and slight traction. Perineum and vagina inspected and are without laceration. Strong family bonding observed, Apgars 8/9, weight 3505 gms. Providers Nurse Typewriter Mechanic: Eliza Chen Nurse: Kelly Tilley Nurse: Kassidy Mcelroy Labor/Delivery Information Number of Babies in Womb: 1 Steroids Given: None Reason Steroids Not Administered: N/A Group Beta Strep: Negative Antibiotics Administered: No Rubella Status: Immune Blood Type: O+ Varicella Immunity: Immune Shoulder Dystocia: No Stages of Labor Onset of Labor Date: 04/15/23 Onset of Labor Time: 03:00 Complete Dilatation Date: 04/15/23 Complete Dilatation Time: 12:10 Labor - Stage 1 Duration: 9 hours and 10 minutes Delivery Date-Baby A: 04/15/23 Infant Delivery Time-Baby A: 12:11 Labor Stage 2 Duration: 1 minutes Placenta Delivery Date-Baby A: 04/15/23 Placenta Delivery Time-Baby A: 12:21 Labor-Stage 3 Duration: 10 minutes Total Length of Labor-Baby A: 9 hours and 11 minutes Placenta Status: Delivered Baby A Infant Gender: Male Gestational Status: Term (39-41.6 wks) Gestational Age in Weeks/Days: 40 Weeks and 3 Days weight: 7 lb 11.635 oz Weight Comment: 3505 gms Score-1 Minute Interval(Baby A) Heart Rate-1 minute: 100 BPM or Greater Respiratory Effort- 1 minute: Spontaneous/Strong Cry Muscle Tone-1 minute: Active Movement Reflex Response-1 minute: Prompt Response Color-1 minute: Pallor or Cyanosis Total Score-1 minute: 8 Score-5 Minute Interval(Baby A) Heart Rate- 5 minute: 100 BPM or Greater Respiratory Effort-5 minute: Spontaneous/Strong Cry Muscle Tone-5 minute: Active Movement Reflex Response-5 minute: Prompt Response Color-5 minute: Bluish Hands or Feet Total Score- 5 minute: 9
[2023-04-15] MEDS: Dibucaine 1% 28 GM TUBE TP (12:47)
[2023-04-15] MEDS: Hamamelis Leaf/Glycerin 100 EACH BOX PR (12:47)
[2023-04-15] MEDS: Acetaminophen 325 MG TAB 650 MG PO ×3 (12:47→22:01)
[2023-04-15] MEDS: Ibuprofen 600 MG TAB PO ×2 (12:48→20:14)
[2023-04-16 02:00] VITALS: BP 106/68; PULSE 75; RESP 18; TEMP 36.6
[2023-04-16] MEDS: Acetaminophen 325 MG TAB 650 MG PO ×3 (02:08→11:13)
[2023-04-16] MEDS: Ibuprofen 600 MG TAB PO ×2 (02:09→08:26)
--- NOTE | 2023-04-16 07:47 | W.PM.OBPNV1 ---
Date of service: 04/16/23 Time of Service: 07:47 Assessment and Plan Assessment and plan (1) Term delivered: Status: Acute Assessment and plan: A: PPD#1, nml recovery going well P: Plan for discharge today, Continue PNV's and iron supplement scheduled for vasectomy Written instructions reviewed and given to pt F/up at 2 & 6 wks Subjective Subjective Patient comments: No complaints, Pain well controlled, Tolerating diet and Flatus present Patient's Mood: happy baby status: Doing well, Nursing well, Rooming in and Strong Bonding Observed feeding status: Exclusively breast feeding Exam Physical Exam Vital signs: Temp Pulse Resp BP 97.8 F 75 18 106/68 04/16/23 02:00 04/16/23 02:00 04/16/23 02:00 04/16/23 02:00 Vital Signs Reviewed: Yes Constitutional Constitutional: no acute distress and cooperative HEENT Exam HEENT Exam: Normal Neck Exam Neck Exam: Normal Breast Exam Bilateral: Breast Exam: Normal and Soft Nipple Exam: Normal and Uninjured Respiratory Exam Respiratory Exam: Normal Cardiovascular Exam Cardiovascular Exam: Normal Abdominal Exam Abdomen: Other (soft, nontender) Fundal Exam Fundus: Below Umbilicus and Firm Rectal Exam Rectal Exam: Normal Exam Perineum: Intact and Normal Extremities Exam Extremity Exam: Normal, Full ROM and Warm to Touch Back/Spine/Pelvis Exam Back Exam: Normal Skin Exam Skin Exam: Normal Neurological Exam Neurological Exam: Normal Psychiatric Exam Psychiatric Exam: Normal
--- NOTE | 2023-04-16 07:50 | W.PM.OBDISCH ---
Date of service: 04/16/23 Time of Service: 07:50 DS: Diagnosis Discharge Diagnosis (1) Term delivered: Status: Acute Discharge Plan Disposition Patient Disposition: Home Condition: Good Discharge Details Reason For Visit: Term Labor Admit Date/Time: 04/15/23 05:36 Admit Provider: Eliza Chen Attending Provider: Eliza Chen Primary Care Provider: Renea Delcid Hospital Course Hospital Course: , discharge on PPD#1 Home Meds and New Rx's Prescriptions: No Action magnesium oxide 250 mg magnesium tablet 500 mg PO DAILY fluticasone propion-salmeterol [Advair HFA] 115-21 mcg/actuation HFA aerosol inhaler 2 puff inhalation BID Qty: 12 12RF ondansetron 4 mg tablet,disintegrating 4 mg PO Q8H PRN (Reason: nausea and vomiting) Qty: 30 2RF esomeprazole magnesium [Nexium] 20 mg capsule,delayed release(DR/EC) 20 mg PO DAILY blood builder 1 tab PO DAILY sertraline 50 mg tablet 25 mg PO DAILY Qty: 45 4RF epinephrine [EpiPen 2-Martin] 0.3 MG/0.3 ML auto-injector 0.3 mg IM ONCE albuterol sulfate 8.5 GM HFA aerosol inhaler 2 puff Inhalation PRN PRN Patient Comments: Pt states hasn't needed to use it for over a month Vitamin 1 EACH tablet 1 tbs PO DAILY acetaminophen [Tylenol] 325 mg Tablet 650 mg PO Q6H PRN PRNQty: 0 0RF (DME) nebulizer and compressor Device See Rx Instructions .Route Qty: 1 0RF Rx Instructions: As directed albuterol sulfate 2.5 mg /3 mL (0.083 %) solution for nebulization 2.5 mg inhalation Q4H PRN (Reason: shortness of breath or wheezing) Qty: 75 0RF Rx Instructions: Use nebulizer every 4-6 hours as needed Discharge Instructions Additional Instructions: Please keep 2 & 6 wk appointments with the midwives, and call for any and all concerns. Stand Alone Forms: BC Instructions, BC Post Vaginal Deliver Activity:: Activity as Tolerated Equipment/Supplies:: No Equipment Needed Diet:: Normal Diet OB:DS Summary Summary Vaginal Delivery Method: Spontaneaous Episiotomy Description: None Contraception Discussed Contraception Discussed: Yes Contraceptive Plan: Vasectomy, [place] Gender-Baby A: Male weight: 7 lb 11.635 oz Status at Discharge Functional status at discharge: independent ambulation Overall status at discharge: patient is progressing back to baseline Mental Status: mental status grossly normal Speech and Movement: speech and movement normal and speech clear Mood: congruent mood Affect: normal affect Exam Physical Exam Vital signs: Temp Pulse Resp BP 97.8 F 75 18 106/68 04/16/23 02:00 04/16/23 02:00 04/16/23 02:00 04/16/23 02:00 Constitutional Constitutional: no acute distress and cooperative HEENT Exam HEENT Exam: Normal Neck Exam Neck Exam: Normal Breast Exam Bilateral: Breast Exam: Normal and Soft Respiratory Exam Respiratory Exam: Normal Cardiovascular Exam Cardiovascular Exam: Normal Abdominal Exam Abdomen: Other (soft, nontender) Fundal Exam Fundus: Below Umbilicus and Firm Rectal Exam Rectal Exam: Normal Exam Perineum: Intact and Normal Extremities Exam Extremity Exam: Normal, Full ROM and Warm to Touch Back/Spine/Pelvis Exam Back Exam: Normal Skin Exam Skin Exam: Normal Neurological Exam Neurological Exam: Normal Psychiatric Exam Psychiatric Exam: Normal PFSH All Active Problems (Updated 04/16/23 @ 07:46 by Eliza Chen) Term delivered (Acute) Anemia affecting in third trimester (Acute) Environmental allergies (Acute) Asthma (Chronic) Chiari I malformation (Acute) Anxiety (Chronic) Hearing impaired person (Acute) Exercise-induced asthma (Acute) rare use of inhaler Medical History (Updated 04/16/23 @ 07:46 by Eliza Chen) Uterine contractions History of depression, currently in third trimester Delayed menses Hx gestational diabetes Pelvic prolapse Grade 1 cystocele Lesion of right nipple Amoxicillin-induced allergic rash Ovarian cyst History of angioedema due to unknown agent, carries epi pen was seen by aircraft general repair mechanic that did not identify agent. Asthma Recurrent urinary tract infection History of Chiari malformation Acute duodenal ulcer with hemorrhage Migraine Surgical History History of appendectomy neck surgery For Chiari type 1 malformation as a child Fracture, Closed Treatment Excision, Pilonidal Cyst (04/25/16) Family History (Updated 12/25/22 @ 08:53 by Jenna Mulkern, CNM) Father Hypertensive disorder, systemic arterial Hyperlipidemia Asthma Allergies Mother Heart disease Pacemaker Paternal Grandfather Allergies Asthma Cancer bladder Diabetes Maternal Grandmother Cancer Bladder Heart disease Myocardial infarct Maternal Grandfather Atrial fibrillation CAD (coronary artery disease) Pacemaker Paternal Grandmother Heart disease Myocardial infarct Social History Smoking/Tobacco Use Status: Never Smoking risk assessment performed?: Yes Alcohol Intake: former Drug use: Never Substance use type: does not use Housing: house Current gender identity: female Do you feel safe at home: Yes Do you feel safe in your relationship?: Yes Female Reproductive History Menstrual control method: progestin IUCD History History 4 Para 2 Hx # Term Pregnancies 2 Multiple births 0 Hx # Pregnancies 0 Ectopic pregnancies 0 AB induced 0 Hx Number of Living Children 2 AB spontaneous 1 Past Pregnancies Del. Date GA/Weeks # Preg Succ Route Wgt Sex Labor Lgth Anesthesia Location Prov Complic 03/25/17 7 No 04/08/18 40 No vaginal 7 lb 2 oz Male 18 hour [facility] other 03/16/21 38 No vaginal 6 lb 14.9 oz Female 11 hrs 5 min Va Chen CNM Delivery Date: 03/25/17 Last Updated by: Jenna Pena CNM SAB no interventions Delivery Date: 04/08/18 Last Updated by: Jenna Granda CNM pushed X 3 hours, baby required resuscitation but did well, gestational diabetes Delivery Date: 03/16/21 Last Updated by: Haven Munoz LPN Short umbilical cord ~6; Maribeth Peterson DS: Data Vitals/I&O Vitals and I&O: Vital Signs Temperature 97.8 F 04/16/23 02:00 Temperature Source Oral 04/16/23 02:00 Pulse 75 04/16/23 02:00 Pulse Rhythm Regular 04/15/23 20:30 Respiratory Rate 18 04/16/23 02:00 Blood Pressure 106/68 04/16/23 02:00 Blood Pressure Mean 80 04/16/23 02:00 Pain Level 4 04/16/23 02:08 Intake & Output 04/15/23 04/15/23 04/16/23 11:59 23:59 11:59 Intake Total 550 / 550 500 / 500 Output Total 1605 / 1655 800 / 800 Balance -1055 / -1105 -300 / -300 Weight Intake: IV 500 / 500 Oral 550 / 550 Output: Urine 1605 / 1655 800 / 800 Other: Urine Color [place]
[2023-04-16 07:58] VITALS: BP 114/73; PULSE 76; RESP 18; TEMP 36.5; O2SAT 97
[2023-04-16] MEDS: Sertraline 25 MG TAB PO (08:26)
== END 2023-04-16 13:35 | disposition home or self-care (01) | DRG 807 ==
PROVIDERS: Admitting Provider Advanced Practice Midwife; PCP Nurse Practitioner Family; Visit Provider Advanced Practice Midwife
DX: O99.52 Diseases of the respiratory system complicating childbirth (principal); Z37.0 Single live birth; O99.344 Other mental disorders complicating childbirth; F41.9 Anxiety disorder, unspecified; O34.83 Maternal care for other abnormalities of pelvic organs, third trimester; N83.209 Unspecified ovarian cyst, unspecified side; O99.354 Diseases of the nervous system complicating childbirth; Z3A.40 40 weeks gestation of pregnancy; J45.990 Exercise induced bronchospasm; G43.909 Migraine, unspecified, not intractable, without status migrainosus; Z87.440 Personal history of urinary (tract) infections; N81.10 Cystocele, unspecified; O77.0 Labor and delivery complicated by meconium in amniotic fluid
CPT/HCPCS: 36415; 85027; 86850; 86900; 86901; 87635; J3010

== ENCOUNTER 2023-09-07 14:59 | Outpatient (REF) | payer BC, SELFPAY ==
--- NOTE | 2023-09-07 09:05 | PAPFT_PTH ---
PATIENT: Rita Tavares LOC: [facility]#:[id number] AGE/SX: 32/F ROOM: RE09/07/[address]: Renea Delcid : 1990 BED: DIS: 09/07/2023 SPEC #: [id number] RECD: 09/07/23 17:59 STATUS: AMANDA RENicki #: [id number] HARSHIL: 09/07/23 09:[address]: Renea Delcid DEPT: [facility] Cytology RECD BY: Kajal Macias Tissues: 1 - CX/ENDOCX FOR PAP SMEARS Procedures: PAP THIN PREP/[facility] Screening HPV DNA PROBE Comments: [id number]
[2023-09-07 14:32] LABS: HCT 41.8 % (36.0-46.0); MCHC 33.5 % (32.0-36.0); MCV 87 fL (80-95); MPV 9.2 fL (8.0-11.0); Platelet Count 318 10^3/uL (130-400); RBC 4.83 10^6/uL (3.93-5.22); RDW 12.3 % (11.7-14.6); RDW-SD 38.6 fL; WBC 7.62 10^3/uL (4.4-10.8)
[2023-09-07 15:27] LABS: Anion Gap 11.3 mmol/L (3-11); BUN 24 mg/dL (7-18); CO2 22.7 mmol/L (21.0-32.0); CREATININE 0.9 mg/dL (0.55-1.02); Chloride 106 mmol/L (98-107); Estimated GFR 86.03 (mL/min/1.73m2); Glucose 90 mg/dL (74-106); Potassium 4.7 mmol/L (3.5-5.1); Sodium 140 mmol/L (136-145); TSH (W/Ref FT4) 1.31 uIU/mL (0.36-3.74)
== END 2023-09-07 15:00 | disposition home or self-care (01) ==
LOC: NCHCN 14:59
PROVIDERS: PCP Nurse Practitioner Family; Visit Provider Nurse Practitioner Family
DX: Z00.00 Encounter for general adult medical examination without abnormal findings (principal); F41.8 Other specified anxiety disorders; Z12.4 Encounter for screening for malignant neoplasm of cervix; Z11.51 Encounter for screening for human papillomavirus (HPV)
CPT/HCPCS: 80048; 85027; 88142; 84443; 87624

== ENCOUNTER 2024-05-12 13:35 | Outpatient (REF) | payer BC, SELFPAY | END 2024-05-12 13:36 | disposition home or self-care (01) | LOC: LBN 13:35 | PROVIDERS: PCP Nurse Practitioner Family; Visit Provider Nurse Practitioner Women's Health | DX: R30.0 Dysuria (principal); R39.15 Urgency of urination | CPT/HCPCS: 87086 ==

== ENCOUNTER 2024-06-16 16:33 | Outpatient (CLI) | payer BC, SELFPAY ==
--- NOTE | 2024-06-16 16:30 | DI.RAD_ITS ---
Exam(s) XR CHEST 2V PA LATERAL EXAM: XR CHEST 2V PA LATERAL CLINICAL HISTORY: R05.9 Cough, eval pna. TECHNIQUE: 2D digital imaging was performed. COMPARISON: CR,XR XR PORTABLE CHEST AP from 05/04/2022 FINDINGS: 2 views: Heart size is normal. The mediastinum is not widened. Lungs are clear. No infiltrates nor pleural effusions. IMPRESSION: No acute pulmonary findings. DATA REPOSITORY: RADIATION DOSE DELIVERED:
--- OUTSIDE RECORDS SUMMARY | 2024-06-16 16:40 | XMS_ITS | Encounter Summary ---
Author Organization [facility] Address [address] [place] [address] Care Team Providers Care Returned Goods Inspector Name Role Phone Alexa Hairston PARTS SALES MANAGER Primary Care Provider [phone] Encounter Details Date Type Department Care Team (Late st Contact Info) Description 07/03/2020 Orders Only [facility] - [address] [address] Serge Bradley MD [address] [address] Encounter for fertility testing (Primary Dx); Encounter for artificial insemination Social History Tobacco Use Types Packs/Day Years Used Date Smoking Tobacco: Never Smokeless Tobacco: Never Alcohol Use Standard Drinks/Week Comments Yes 0 (1 standard drink = 0.6 oz pur e alcohol) . not while Interpersonal Safety Answer Date Record ed Physically Hurt Never 01/11/2020 Verbally Threaten Not on file 01/11/2020 Comments No Sex and Gender Information Value Date Recorded Sex Assigned at Not on file Legal Sex Female 18:27 EST Gender Identity Female 11/12/2019 18:49 EDT Sexual Orientation Not on file COVID-19 Exposure Response Date Recorded In the last month, have you been in contact with someone who was confirmed or suspected to have Coronavirus / COVID-19? No / Unsure 07/03/2020 8:58 EST documented as of this encounter Progress Notes * Serge Bradley MD - 07/03/2020 0851 EST Patient seen for USF today. LMP 06/21/20, CD 13 LTZ 5mg x 6 days / USF / HCG / IUI HCG trigger shot arriving today in mail (this afternoon per carrier) Patient may have just ovulated or be in the process of ovulating at the time of her scan. Plan to order P4, LH. Plan pending results but probable IUI tomorrow with trigger this afternoon when the shot arrives. Electronically signed by: Serge Bradley MD, PGY7 Fellow Reproductive Endocrinology & Infertility [facility] 07/03/2020 / 8:52 ----- ADDENDUM: Patient's P4 resulted negative Results for orders placed or performed in visit on 07/03/20 (from the past 24 hour(s)) PROGESTERONE Collection Time: 07/03/20 9:03 Result Value Ref Range Progesterone 0.5 See Table ng/mL OPK at home is negative right now. Patient instructed to have intercourse tonight, use trigger shot as instructed tonight for IUI Sunday AM at 10 AM. Lab notified. Will update team in weekend sign out. Electronically signed by: Serge Bradley MD, PGY7 Fellow Reproductive Endocrinology & Infertility [facility] 07/03/2020 / 12:07 documented in this encounter Miscellaneous Notes * Addendum Note - Serge Bradley MD - 07/03/2020 0851 ESTAddended by: SERGE BRADLEY on: 07/03/2020 12:08 Modules accepted: Orders documented in this encounter Plan of Treatment Not on file documented as of this encounter Results * POCT SPERM WASHING ARTIFICIAL INSEMINATION (07/05/2020 10:30 EST) [facility] Media Lot #, POC [id number]; [id number]; [id number] [facility] POINT OF CARE Expiration, POC 05/31; 08/01; 8/21 [facility] POINT OF CARE Pre-Wash Volume, POC 2.7 >= 2 ml [facility] POINT OF CARE Pre-Wash Count, POC 32 >=20 million/ml [facility] POINT OF CARE Pre-Wash Motility, POC 81 >= 50% [facility] POINT OF CARE Post-Wash, POC 0.5 ml [facility] POINT OF CARE Post-Wash Count, POC 62 million/ml [facility] POINT OF CARE Post-Wash Motility, POC 95 % [facility] POINT OF CARE Total Motile, POC 29.5 >= 6 million [facility] POINT OF CARE Timing Method, POC [facility] POINT OF CARE Semen ENTIRE PENIS / Unknown 07/05/2020 10:30 EST Serge Bradley MD POINT OF CARE TEST ORDERAB LES Final Result Performing Organization Address [facility] Co de Phone Number [facility] POINT OF CARE * LH (07/03/2020 9:03 EST) Luteinizing Hormone 8.4 See Note mIU/mL 07/05/2020 11:04 EST [facility] Comment: NOTE: Female Reference Ranges: Pre-Pubertal: ?<6.0 mIU/mL Menstruating: Follicular Phase(-12 to -4 days: ??1.9 - 12.5 mIU/mL Midcycle(-3 to +2 days): ?8.7 - 76.3 mIU/mL Luteal Phase(+4 to +12 days): ? 0.5 - 16.9 mIU/mL Post Menopausal: 15.9 - 54.0 mIU/mL Blood VENOUS BLOOD / Unknown Venipuncture / Unknown 07/03/2020 9:03 EST 07/03/2020 9:50 EST Serge Bradley MD CHEMISTRY & BLOOD GAS ORDE RABLES Final Result [facility] [address] [place] [address] * PROGESTERONE (07/03/2020 9:03 EST) Progesterone 0.5 See Table ng/mL 07/03/2020 10:57 EST [facility] Comment: Female Reference Ranges: PHYSIOLOGICAL STATUS ?EXPECTED RANGE ? >= 18 Yrs Menstruating: (Non-) Follicular Phase: ? <= 1.4 ng/mL Luteal Phase: ? 3.3 - 25.6 ng/mL Mid-luteal Phase: ? 4.4 - 28.0 ng/mL Postmenopausal: ? <= 0.7 ng/mL : -------- First Trimester: ?11.2 - 90.0 ng/mL Second Trimester: ? 25.6 - 89.4 ng/mL Third Trimester: ?48.4 - 422.5ng/mL For ectopic , consult a pathologist Reference Ranges for female patients <18 years old have not been established. Blood VENOUS BLOOD / Unknown Venipuncture / Unknown 07/03/2020 9:03 EST 07/03/2020 9:50 EST Serge Bradley MD CHEMISTRY & BLOOD GAS ALDO DO Final Result [facility] [address] [place] [address] documented in this encounter Visit Diagnoses Diagnosis Encounter for fertility testing- Primary Fertility testing Encounter for artificial insemination Artificial insemination documented in this encounter Care Teams Returned Goods Inspector Relationship Specialty Start Date End Date Alexa Hairston APRN [address] [place] [address] PCP - General 10/26/16 07/11/20 documented as of this encounter
--- OUTSIDE RECORDS SUMMARY | 2024-06-16 16:40 | XMS_ITS | Encounter Summary ---
Author Organization [facility] Address [address] [place] [address] Care Team Providers Care Telecommunications Sales Representative Name Role Phone Renea Delcid DIANA Primary Care Provider [phone] Encounter Details Date Type Department Care Team (Late st Contact Info) Description 09/22/2022 Lab Requisition [facility] Pathology & Laboratory Medicine - [address] [address] Outr Resulting Lab, Provider Social History Tobacco Use Types Packs/Day Years Used Date Smoking Tobacco: Never Smokeless Tobacco: Never Alcohol Use Standard Drinks/Week Comments Yes 0 (1 standard drink = 0.6 oz pur e alcohol) . not while PHQ-2 Answer Date Recorded PHQ-2 SUBTOTAL 0 08/02/2020 Interpersonal Safety Answer Date Record ed Physically Hurt Never 01/11/2020 Verbally Threaten Not on file 01/11/2020 Comments No Sex and Gender Information Value Date Recorded Sex Assigned at Not on file Legal Sex Female 18:27 EST Gender Identity Female 11/12/2019 18:49 EDT Sexual Orientation Not on file documented as of this encounter Plan of Treatment Not on file documented as of this encounter Procedures Procedure Name Priority Date/Time Associated Diagnosis Comments HEPATITIS C AB W REFLEX TO HCV RNA BY PCR Routine 09/22/2022 10:05 EDT HEPATITIS B SURFACE ANTIGEN Routine 09/22/2022 10:05 EDT documented in this encounter Results * HEPATITIS B SURFACE ANTIGEN (09/22/2022 10:05 EDT) Hep B Surface Ag Negative Negative 09/25/2022 11:11 EDT [facility] Blood VENOUS BLOOD / Unknown 09/22/2022 10:05 EDT 09/22/2022 17:41 EDT us Provider Outr Resulting Lab CHEMISTRY & BLOOD GA S ORDERABLES Final Result [facility] [address] [place] [address] * HEPATITIS C AB W REFLEX TO HCV RNA BY PCR (09/22/2022 10:05 EDT) Hep C Antibody Negative Negative 09/25/2022 11:48 EDT [facility] Blood VENOUS BLOOD / Unknown 09/22/2022 10:05 EDT 09/22/2022 17:41 EDT us Provider Outr Resulting Lab CHEMISTRY & BLOOD GA S ORDERABLES Final Result Performing Organization Address City/[facility]/ZIP Co de Phone Number [facility] [address] [place] [address] documented in this encounter Visit Diagnoses Not on filedocumented in this encounter Care Teams Telecommunications Sales Representative Relationship Specialty Start Date End Date Renea Delcid FNP [address] [id number] PCP - General 07/12/20 documented as of this encounter
--- OUTSIDE RECORDS SUMMARY | 2024-06-16 16:40 | XMS_ITS | Encounter Summary ---
Author Organization [facility] Address [address] [place] [address] Care Team Providers Care Classifier Name Role Phone Alexa Hairston APRN Primary Care Provider [phone] Reason for Referral * FOXER (Routine) - Specialty Report Received Specialty Diagnoses / Procedures [facility] Referred To Contact Diagnoses Infertility, anovulation Procedures US FOLLICULAR (DINESH ONLY) Sofia Kaufman MD Phone: tel: fax: Referral ID Status Reason Start Date Expiration Date V isits Requested Visits Authorized [id number] Specialty Report Received 05/29/2020 1 1 Encounter Details Date Type Department Care Team (Late st Contact Info) Description 05/29/2020 Orders Only [facility] Center Reproductive Medicine [place] [address] Bee Camara MD Infertility, anovulation (Primary Dx) Social History Tobacco Use Types Packs/Day Years [...] on file documented as of this encounter Progress Notes * Bee Camara MD - 05/29/2020 0855 EST Repeat USF CD#14 in 2 days due to thin endometrium. documented in this encounter Plan of Treatment Not on file documented as of this encounter Results * US FOLLICULAR (DINESH ONLY) (05/31/2020 8:37 EST) Anatomical Region Laterality Modality Pelvis Ultrasound 05/31/2020 8:38 EST Narrative 05/31/2020 9:10 EST Indication Cycle day 14 Cycle #2 Ltx 5/USF/hCG/IUI for PCOS multiple prior OPK/TI cycles with Ltz. Uterus ======= Uterus: ?Retroverted Endometrium: ?? Trilaminar endometrium Endometrial thickness, total ?? 4.9 mm Fibroids: ??No fibroids identified Polyps: ?No polyps identified Right Ovary Rt ovary: ??Normal with maturing follicle Rt ovarian cyst(s): ?No cysts identified Rt ovarian follicle(s): ?Follicles identified D1 14.6 mm D2 7.7 mm D3 14.3 mm Mean ?? 12.2 mm Vol ?0.836 cm cubed D1 7.3 mm D2 20.2 mm D3 15.0 mm Mean ?? 14.2 mm Vol ?1.167 cm cubed D1 9.8 mm D2 15.8 mm D3 15.1 mm Mean ?? 13.5 mm Vol ?1.218 cm cubed D1 13.6 mm D2 12.6 mm D3 15.5 mm Mean ?? 13.9 mm Vol ?1.385 cm cubed D1 14.0 mm D2 7.0 mm D3 12.4 mm Mean ?? 11.1 mm Vol ?0.638 cm cubed Left Ovary Lt ovary: ??Early follicular development Lt ovarian cyst(s): ?No cysts identified Lt ovarian follicle(s): ?Follicles identified D1 10.2 mm D2 11.2 mm D3 10.9 mm Mean ?? 10.8 mm Vol ?0.655 cm cubed Cul de Sac Free fluid visualized (mild). Impression USF (Follicular) - 61689 1. Mild free fluid in pelvis. 2. Maturing folliculogenesis on right ovary. 3. Thin, trilaminar endometrium. Follow-up No follicle growth since 2 days ago. Repeat scan in 2 days. Comment ========= N97.0 female infertility, anovulation. Ultrasound findings discussed w/patient. DATE OF SERVICE: 05/31/2020 Procedure Note Sofia Kaufamn MD - 11/18/2020 Indication Cycle day 14 Cycle #2 Ltx 5/USF/hCG/IUI for PCOS multiple prior OPK/TI cycles with Ltz. Uterus ======= Uterus: Retroverted Endometrium: Trilaminar endometrium Endometrial thickness, total 4.9 mm Fibroids: No fibroids identified Polyps: No polyps identified Right Ovary Rt ovary: Normal with maturing follicle Rt ovarian cyst(s): No cysts identified Rt ovarian follicle(s): Follicles identified D1 14.6 mm D2 7.7 mm D3 14.3 mm Mean 12.2 mm Vol 0.836 cm cubed D1 7.3 mm D2 20.2 mm D3 15.0 mm Mean 14.2 mm Vol 1.167 cm cubed D1 9.8 mm D2 15.8 mm D3 15.1 mm Mean 13.5 mm Vol 1.218 cm cubed D1 13.6 mm D2 12.6 mm D3 15.5 mm Mean 13.9 mm Vol 1.385 cm cubed D1 14.0 mm D2 7.0 mm D3 12.4 mm Mean 11.1 mm Vol 0.638 cm cubed Left Ovary Lt ovary: Early follicular development Lt ovarian cyst(s): No cysts identified Lt ovarian follicle(s): Follicles identified D1 10.2 mm D2 11.2 mm D3 10.9 mm Mean 10.8 mm Vol 0.655 cm cubed Cul de Sac Free fluid visualized (mild). Impression USF (Follicular) - [id number] 1. Mild free fluid in pelvis. 2. Maturing folliculogenesis on right ovary. 3. Thin, trilaminar endometrium. Follow-up No follicle growth since 2 days ago. Repeat scan in 2 days. Comment ========= N97.0 female infertility, anovulation. Ultrasound findings discussedw/patient. DATE OF SERVICE: 05/31/2020 us Sofia Kaufman MD IMG US OB ORDERABLES Fatimah l Result documented in this encounter Visit Diagnoses Diagnosis Infertility, anovulation- Primary Female infertility associated with anovulation Infertility, anovulation Female infertility associated with anovulation documented in this encounter Care Teams Classifier Relationship Specialty Start Date End Date Alexa Hairston APRN [address] [place] [address] PCP - General 10/26/16 07/11/20 documented as of this encounter
--- OUTSIDE RECORDS SUMMARY | 2024-06-16 16:40 | XMS_ITS | Encounter Summary ---
Author Organization [facility] Address [address] [place] [address] Care Team Providers Care Melon Packer Name Role Phone Alexa Hairston APRN Primary Care Provider [phone] Encounter Details Date Type Department Care Team (Late st Contact Info) Description 07/03/2020 9:00 EST Phlebotomy Only [facility] ED Center 2 Phlebotomy [address] [place] [address] Hebrew Cantor, Acc Phlebotomy Encounter for fertility testing Social History Tobacco Use Types Packs/Day Years [...] 8:58 EST documented as of this encounter Plan of Treatment Not on file documented as of this encounter Procedures Procedure Name Priority Date/Time Associated Diagnosis Comments PROGESTERONE Routine 07/03/2020 9:03 EST Encounter for fertility testing LH Routine 07/03/2020 9:03 EST Encounter for fertility testing documented in this encounter Results * LH (07/03/2020 9:03 EST) Luteinizing Hormone 8.4 See Note mIU/mL 07/05/2020 11:04 EST [facility] Comment: NOTE: Female Reference [...] & BLOOD GAS ALDO DO Final Result [facility] [address] [place] [address] * PROGESTERONE (07/03/2020 9:03 EST) Progesterone 0.5 See Table ng/mL 07/03/2020 10:57 EST [facility] Comment: Female Reference Ranges: [...] Unknown 07/03/2020 9:03 EST 07/03/2020 9:50 EST us Serge Bradley MD CHEMISTRY & BLOOD GAS ALDO OD Final Result Performing Organization Address City/State/[facility] Co de Phone Number [facility] [address] [place] [address] documented in this encounter Visit Diagnoses Diagnosis Encounter for fertility testing Fertility testing documented in this encounter Care Teams Melon Packer Relationship Specialty Start Date End Date Alexa Hairston APRN [address] [place], [place] [address] PCP - General 10/26/16 07/11/20 documented as of this encounter
--- OUTSIDE RECORDS SUMMARY | 2024-06-16 16:40 | XMS_ITS | Encounter Summary ---
Author Organization [facility] Address [address] [place] [address] Care Team Providers Care Extractor Operator Name Role Phone Alexa Hairston APRN Primary Care Provider [phone] Reason for Referral * CORRESPONDENCE REVIEW CLERK (Routine) - Specialty Report Received Specialty Diagnoses / Procedures Referred By [facility] t Referred To Contact Diagnoses Female infertility associated with anovulation Procedures US FOLLICULAR (DINESH ONLY) Sofia Kaufman MD Phone: tel: fax: Referral ID Status Reason Start Date Expiration Date V isits Requested Visits Authorized [id number] Specialty Report Received 05/31/2020 1 1 Encounter Details Date Type Department Care Team (Late st Contact Info) Description 05/31/2020 Orders Only [facility] Center Reproductive Medicine [place] [address] Bee Camara MD Female infertility associated with anovulation (Primary Dx) Social History Tobacco Use [...] encounter Results * US FOLLICULAR (DINESH ONLY) (06/02/2020 8:37 EST) Anatomical Region Laterality Modality Pelvis Ultrasound 06/02/2020 8:37 EST Narrative 06/02/2020 10:46 EST Indication Cycle day 16 Cycle #2 Ltx 5/USF/hCG/IUI for PCOS multiple prior OPK/TI cycles with Ltz. Uterus ======= Uterus: ?Appears normal Uterus position: ?? Retroverted Endometrium: ?? Trilaminar endometrium Endometrial thickness, total ?? 5.9 mm Right Ovary Rt ovary: ??Normal with maturing follicle Outline: ?? Smooth Rt ovarian cyst(s): ?No cysts identified Rt ovarian follicle(s): ?Follicles identified D1 17.3 mm D2 11.4 mm D3 16.1 mm Mean ?? 14.9 mm Vol ?1.662 cm cubed D1 14.4 mm D2 11.5 mm D3 14.2 mm Mean ?? 13.4 mm Vol ?1.234 cm cubed D1 17.1 mm D2 8.2 mm D3 13.3 mm Mean ?? 12.9 mm Vol ?0.975 cm cubed D1 9.3 mm D2 13.5 mm D3 12.8 mm Mean ?? 11.9 mm Vol ?0.840 cm cubed Left Ovary Lt ovary: ??Early follicular development Outline: ?? Smooth Lt ovarian cyst(s): ?No cysts identified Lt ovarian follicle(s): ?Follicles identified D1 10.8 mm D2 13.8 mm D3 12.7 mm Mean ?? 12.4 mm Vol ?0.992 cm cubed Cul de Sac Appears normal. Free fluid visualized (mild). Impression USF (Follicular) - 45507 1. Mild free fluid in pelvis. 2. Maturing follicule on right ovary; none of the other small follicles have grown since 4 days ago. 3. Trilaminar endometrium, slightly thin but improved over prior. Follow-up Trigger in 3 days on 06/05 with plan for timed intercourse. Comment ========= Z31.83 encounter for assisted reproductive fertility procedure cycle, N97.0 female infertility, anovulation. DATE OF SERVICE: 06/02/2020 Procedure Note Sofia Kaufman MD - 06/02/2020 Indication Cycle day 16 Cycle #2 Ltx 5/USF/hCG/IUI for PCOS multiple prior OPK/TI cycles with Ltz. Uterus ======= Uterus: Appears normal Uterus position: Retroverted Endometrium: Trilaminar endometrium Endometrial thickness, total 5.9 mm Right Ovary Rt ovary: Normal with maturing follicle Outline: Smooth Rt ovarian cyst(s): No cysts identified Rt ovarian follicle(s): Follicles identified D1 17.3 mm D2 11.4 mm D3 16.1 mm Mean 14.9 mm Vol 1.662 cm cubed D1 14.4 mm D2 11.5 mm D3 14.2 mm Mean 13.4 mm Vol 1.234 cm cubed D1 17.1 mm D2 8.2 mm D3 13.3 mm Mean 12.9 mm Vol 0.975 cm cubed D1 9.3 mm D2 13.5 mm D3 12.8 mm Mean 11.9 mm Vol 0.840 cm cubed Left Ovary Lt ovary: Early follicular development Outline: Smooth Lt ovarian cyst(s): No cysts identified Lt ovarian follicle(s): Follicles identified D1 10.8 mm D2 13.8 mm D3 12.7 mm Mean 12.4 mm Vol 0.992 cm cubed Cul de Sac Appears normal. Free fluid visualized (mild). Impression USF (Follicular) - 99703 1. Mild free fluid in pelvis. 2. Maturing follicule on right ovary; none of the other small follicleshave grown since 4 days ago. 3. Trilaminar endometrium, slightly thin but improved over prior. Follow-up Trigger in 3 days on 06/05 with plan for timed intercourse. Comment ========= Z31.83 encounter for assisted reproductive fertility procedure cycle,N97.0 female infertility, anovulation. DATE OF SERVICE: 06/02/2020 Sofia Kaufman MD [facility] OB ORDERABLES Fatimah l Result documented in this encounter Visit Diagnoses Diagnosis Female infertility associated with anovulation- Primary Female infertility associated with anovulation documented in this encounter Care Teams Extractor Operator Relationship Specialty Start Date End Date Alexa Hairston APRN [address] [place] [address] PCP - General 10/26/16 07/11/20 documented as of this encounter
--- OUTSIDE RECORDS SUMMARY | 2024-06-16 16:40 | XMS_ITS | Encounter Summary ---
Author Organization [facility] Address [address] [place] [address] Care Team Providers Care Block Sealer Name Role Phone Renea Delcid DIANA Primary Care Provider [phone] Reason for Visit * Reason Comments Abdominal Pain Pt to ED via [facility] c/ o LLQ abdominal pain, onset at 0000. Pt is approximately 6 weeks gestation. Pt also endorses nausea, no emesis. Pt denies CP, SOB, changes in bladder or bowel habits, vaginal bleeding or discharge. Encounter Details Date Type Department Care Team (Late st Contact Info) Description 08/02/2020 4:02 EST - 08/02/2020 9:51 EST Emergency [facility] Emergency Department - [address] [id number] Brunilda Walton PA-C [address] [facility], [address] 1 [place] [address] Quincy Conrad PA-C [address] [place] [phone] Cyst of ovary, unspecified laterality (Primary Dx); Less than 8 weeks gestation of Discharge Disposition: Home or Self Care Social History Tobacco Use Types Packs/Day Years [...] have Coronavirus / COVID-19? No / Unsure 08/02/2020 4:08 EST documented as of this encounter Last Filed Vital Signs Vital Sign Reading Time Taken Comments Blood Pressure 108/64 08/02/2020 0943 EST Pulse 76 08/02/2020 0943 EST Temperature 36.5 ??C (97.7 ??F) 08/02/2020 0943 EST Respiratory Rate 14 08/02/2020 0943 EST Oxygen Saturation 100% 08/02/2020 0943 EST Inhaled Oxygen Concentration - - Weight 69.4 kg (153 lb) 08/02/2020 0405 EST Height 170.2 cm (5' 7) 08/02/2020 0405 EST Body Mass Index 23.96 08/02/2020 0405 EST documented in this encounter Discharge Instructions * Discharge Instructions* Quincy Conrad PA-C - 08/02/2020 9:15 EST Follow-up with gynecology for your ultrasound on Sunday as planned. We will send you home with a Dilaudid starter pack and Zofran starter pack. You may take 1 to 2 tablets of Dilaudid as needed for severe pain every 6 hours. Zofran is 1 tablet every 4 hours for nausea if needed. Please return for bleeding, increased pain, vomiting. * Attachments The following attachments cannot be sent through Care Everywhere. * Ovarian Cyst: Hemorrhagic (Luxem[place]ish) documented in this encounter Medications at Time of Discharge albuterol 90 mcg/actuation inhaler Inhale 180 mcg as directed every 4 hours. Magnesium 250 mg tablet Take by mouth daily. VIT CALC,IRON,FOLIC ( #2 ORAL) Take by mouth. choriogonadotrop in yuki (OVIDREL) 250 mcg/0.5 mL injection solution Inject 250 mcg into the skin once. Use when directed. 1 Syringe 3 06/24/2020 04/18/2022 diphenhydrAMINE (BENADRYL) 50 mg capsule Take 50 mg by mouth every 4 hours. 04/18/2022 documented as of this encounter Discharge Disposition Disposition Code Departure Means Destination Home or Self Retirement documented in this encounter Consult Notes * Sofia Kaufman MD - 08/02/2020 0600 EST Obstetrics & Gynecology Consult Note Date of Service: 08/02/2020 Chief Complaint: LLQ pain HPI: Rita Tavares is a 29yo female @ 6wga by LMP of 06/21 and IUI on 07/05 who presents withacute onset LLQ at midnight. Reports waking from sleep with significant pain, which has decreased but is still present. Slight waxing and waning of pain but mostly persistent. Had +UPT on 07/19, followed by appropriately rising HCG of 165 on 07/20 to 344 on 07/22. Mild nausea with that did worsen with the increased pain overnight but denies any emesis. Last ate at ~2200 last night. Denies any VB or abnormal vaginal discharge. PMH PSH Past Medical History: Diagnosis Date ??? Asthma ??? Diabetes mellitus ([facility]) gestational Past Surgical History: Procedure Laterality Date ??? APPENDECTOMY 09/2018 laparoscopy, not ruptured ??? NECK SURGERY Social History Family History Social History Tobacco Use ??? Smoking status: Never Smoker ??? Smokeless tobacco: Never Used Substance Use Topics ??? Alcohol use: Yes Comment: . not while No family history on file. 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 Current Outpatient Medications Medication ??? albuterol 90 mcg/actuation inhaler ??? choriogonadotropin yuki (OVIDREL) 250 mcg/0.5 mL injection solution ??? diphenhydrAMINE (BENADRYL) 50 mg capsule ??? Magnesium 250 mg tablet ??? VIT CALC,IRON,FOLIC ( #2 ORAL) Allergies Allergies Allergen Reactions ??? Augmentin [Amoxicillin-Pot Clavulanate] Rash Review of Systems: A ten point review of systems was performed and was negative except for pertinent positives noted in the HPI Objective/Physical Exam: BP 98/63 Temp 36.2 ??C (97.1 ??F) (Oral) Resp 11 Ht 170.2 cm (67) Wt 69.4 kg (153 lb) SpO2 98% BMI 23.96 kg/m?? GEN: NAD, alert, well appearing CV: RRR, normal S1/S2, no murmurs/rubs/gallops PULM: CTAB, no crackles or wheezes, normal efforts ABD: soft, moderately TTP in LLQ, no rebound or guarding PELVIC: normal external female genitalia, normal vaginal mucosa and cervix, no bleeding, physiologic discharge; right adnexa non-TTP, left adnexa mildly TTP with palpable fullness EXT: WWP, no tenderness or edema Labs: HCG 165 on 07/20 --> 344 on 07/2208/02/2020 04:45 Quant Beta HCG, Preg 9,526 (H) Imaging: Early OB US (transabdominal/transvaginal) today 1. Intrauterine gestational sac with yolk sac and possible pole which is too small to measure. Mean sac diameter of 12.6 mm corresponds to 5 weeks, 6 days. Menstrual dating is 6 weeks, 0 days. Follow-up ultrasound and [employer] [employer] consultation is suggested.?? 2. Left ovarian hemorrhagic cyst measuring 4.7 cm. Interval increase in anechoic free fluid adjacent to the left and right adnexa may be related to rupturing of this cyst. 3. Possible corpus luteum on the right. Assessment/Plan: Rita Tavares is a 29yo female @ 6wga by LMP, conceived with IUI, who presents with acute onset LLQ pain in the setting of newly diagnosed IUP and hemorrhagic left ovarian cyst. Suspect acute onset of pain is likely due to rupture of left ovarian cyst leading to peritoneal irritation and significant pain that is gradually dissipating. Patient is hemodynamically stable andis most likely past the worst of the discomfort. - recommend rest, hydration and short course of PO dilaudid for analgesia while natural resolution of the hemorrhagic cyst occurs - PO Zofran for nausea - recommend maintaining US in clinic on 08/[address] Kaufman to assess interval development and progression of pain - discharge home with instructions to call with worsening pain, LH/dizziness, nausea/vomiting or vaginal bleeding Discussed with Dr. Kaufman. Chantal Baires MD 08/02/2020 6:00 PGY-3 Obstetrics and Gynecology Pager# [phone] Attestation: I performed or was present during the adorno or critical portions of the visit and participated in the management of the patient on 08/02/20. I agree with the findings and plan of care as documented in the resident's/fellow's note. I personally reviewed the ultrasound images and discussed expectations for pain control with the patient. Sofia Kaufman MD 08/02/2020 10:40 Sofia Kaufman MD 08/02/2020 10:40 documented in this encounter ED Notes * Renae Hurt RN - 08/02/2020 0930 EST PT given mka leonardo and buck crackers, PO Dilaudid and Zofran and Dilaudid starter packs to take home. IVs removed (including left arm from previous ED). at bedside. * Renae Hurt RN - 08/02/2020 0841 EST Pt ambulatory to bathroom with steady gait; urine sample obtained and dipped. Awaiting OBGYN, at bedside * Renae Hurt RN - 08/02/2020 0815 EST Blood drawn via PIV in right forearm per protocol, lavender tube sent to lab per order. Repeat CBC * Quincy Conrad PA-C - 08/02/2020 0814 EST Called and spoke with [facility] at 8 AM, this patient is likely going to be discharged. She is checking to confirm and will get back to me. Spoke with [employer]. The patient can be discharged. She has ultrasound planned on Sunday. They would like me to send her out with a starter pack of Dilaudid and Zofran. * Renae Hurt RN - 08/02/2020 0734 EST Report received, pt resting quietly, at bedside; states left sided pain is returning. Will repeat labs at 0800; pt aware of plan of care * Joyce Viera RN - 08/02/2020 0701 EST Gave report to ED MIKEY Macdonald. 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 * Joyce Viera RN - 08/02/2020 0627 EST OBGYN Resident at bedside. * Joyce Viera RN - 08/02/2020 0605 EST Pt c/o continued pain; LARA Walton informed. Will provide patient with heating pad and administer 1,000 mg PO Tylenol, per provider. * Joyce Viera RN - 08/02/2020 0555 EST Pt transferred onto gynecology bed, per provider. * Joyce Viera RN - 08/02/2020 0500 EST This RN at bedside to garment worker transvaginal US. * Joyce Viera RN - 08/02/2020 0450 EST US Tech at [facility] for imaging. * Brunilda Walton PA-C - 08/02/2020 0418 EST This patient received an evaluation and medical screening exam for emergent medical conditions at the [facility] on 08/02/2020 This documentation is recorded by Reena Robles acting as Scribe under the direction and presence ofBrunilda Walton PA. Brunilda Walton PA: I personally performed the services recorded by the scribe in my presence. I confirm the scribe's documentation has been reviewed by me to accurately and completely record my work, treatment, procedures, and medical decision making. Dr. Doyle Leach was available for supervision. Chief Complaint Abdominal Pain HPI Rita Tavares is a 29 y.o. female with PMH including polycystic ovarian syndrome, appendicitis s/p appendectomy who presents to the ED via EMS transfer from [facility] for pelvic ultrasound with severe LLQ abdominal pain. The patient reports she was asleep and this pain woke her up out of sleep at midnight. She notes her pain has been constant since the onset of her pain. She endorses some radiation of pain into her left flank and some associated nausea. She states she has been lightheaded with standing up. Of note, the patient is currently 6 weeks via intrauterine insemination. The patient denies vomiting, dysuria, urgency, frequency, hematuria, vaginal bleeding, chest pain, shortnessof breath, or changes in bowel habits. History was provided by: patient and medical records Patient's pertinent PMH, FH, SH were reviewed and updated PRN. ROS A 10 point review of systems has been performed and is otherwise negative except as noted in the HPI. Physical Exam Vital Signs Vitals Reassessment?: Yes Temp: 36.5 ??C (97.7 ??F) Temp src: Oral Pulse: 76 Heart Rate: 74 BPM Resp: 14 SpO2: 100 % BP: 108/64 BP MAP: 74 mm Hg O2 Device: None (Room air) Nursing notes and vital signs were reviewed. Constitutional: Well appearing in no acute distress Eyes: Pupils equal and reactive to light, no scleral icterus Mouth: Moist oral mucosa without apparent lesions Neck: Full ROM, no cervical LAD Heart: RRR. Strong peripheral pulses Lungs: No Respiratory distress Abdomen: Soft, normal bowel sounds, significant LLQ tenderness, no rebound or guarding, no CVA tenderness. Skin: No overt rashes on exposed skin Extremities: Moving spontaneously, warm and well perfused. No unilateral leg swelling. No LE Edema. Neuro: Grossly neurologically intact with normal speech and alertness Psych: No agitation or overt thought disorder Laboratory Results Labs Reviewed COMPLETE BLOOD COUNT AND DIFFERENTIAL - Abnormal Result Value Status WBC 20.63 (*) Final RBC 4.00 Final Hemoglobin 11.8 Final HCT 33.7 (*) Final MCV 84 Final MCH 29.5 Final MCHC 35.0 Final RDW-CV 11.8 Final RDW-SD 36.0 Final PLT 223 Final MPV 9.4 (*) Final Neutrophils 87.0 Final Lymphocytes 8.8 Final Monocytes 3.2 Final Eosinophils 0.1 Final Basophils 0.2 Final Immature Grans 0.7 Final Absolute Neutrophils 17.96 (*) Final Absolute Lymphocytes 1.81 Final Absolute Monocytes 0.65 Final Absolute Eosinophils 0.03 Final Absolute Basophils 0.04 Final Absolute Immature Grans 0.14 (*) Final Type of Differential: Auto Final QUANT BETA HCG, - Abnormal Beta HCG Quant, 9,526 (*) Final HOLD LAVENDER TOP Hold Hold Final HOLD GREEN TOP Hold Hold Final POCT URINE CLINITEK (DIPSTICK) - DOES NOT REFLEX Narrative: The following orders were created for panel order POCT URINE CLINITEK (DIPSTICK) - DOES NOT REFLEX. Procedure Abnormality Status --------- ------ POCT URINE DIPSTICK, CLI...[[id number]] POCT CSN BARCODE URINE D...[[id number]] Please view results for these tests on the individual orders. POCT CSN BARCODE URINE DIPSTICK POCT URINE DIPSTICK, CLINITEK BLOOD BANK HOLD Hold BB Spec will exp at 23:59, 3 days from collect date Final ABO/RH ABO O Final Rh Factor Positive Final Data Interpretation Imaging obtained was reviewed and independently interpreted: OB First Trimester transvaginal ultrasound shows intrauterine gestational sac with yolk sac and possible pole which is too small to measure. Mean sac diameter of 12.6 mm corresponds to 5 weeks,6 days. Menstrual dating is 6 weeks, 0 days. Follow-up ultrasound and [employer] [employer] consultation is suggested. Left ovarian hemorrhagic cyst measuring 4.7 cm. Interval increase in anechoic free fluid adjacent to the left and right adnexa may be related to rupturing of this cyst. Possible corpus luteum on the right. Laboratory results independently reviewed, significant for: WBC 20, H&H normal, Quat Beta HCG 9,526. Procedures Procedures None ED Course/Medical Decision Making A medical screening was performed. The patient is a 29 y.o. female with a history of polycystic ovarian syndrome, appendicitis s/p appendectomy who presents to the ED via EMS transfer from [facility] with acute onset of LLQ abdominal pain at 00:00 this morning. The patient is 6 weeks via intrauterine insemination. Physical exam significant for no CVA tenderness, BS normal, significant LLQ tenderness, no rebound or guarding. Differential diagnosis includes but is not limited to ectopic , torsion, ureteral stone, diverticulitis. (04:28) 0.5mg IV Dilaudid and 4mg IV Zofran were given. (04:40) Spoke with OBGYN about the patient. (05:37) 0.5mg IV Dilaudid was given for further pain management. OB First Trimester ultrasound shows hemorrhagic left ovarian cyst. The patient was signed out to LARA Rodas pending OBGYN recommendations and repeat cbc. While under my care in the Emergency Department, the patient's pain was managed to an adequate level weighing risk vs. benefit of medication. Clinical Impression Final diagnoses: Cyst of ovary, unspecified laterality Less than 8 weeks gestation of Disposition Signed out (see progress Notes) The patient's pain was managed to an adequate level weighing risk vs. benefit of further medications. Any further pain treatment will be at the discretion of the provider following up with the patient based on their clinical assessment. documented in this encounter Plan of Treatment Not on file documented as of this encounter Procedures Procedure Name Priority Date/Time Associated Diagnosis Comments POCT CSN BARCODE URINE DIPSTICK STAT 08/02/2020 8:29 EST POCT URINE CLINITEK (DIPSTICK) - DOES NOT REFLEX STAT 08/02/2020 8:27 EST POCT URINE DIPSTICK, CLINITEK STAT 08/02/2020 8:27 EST COMPLETE BLOOD COUNT AND DIFFERENTIAL STAT 08/02/2020 8:10 EST US OB FIRST TRIMESTER (LESS THAN 14 WEEKS) TA AND TV AND LTD DUPLEX STAT 08/02/2020 5:27 EST QUANT BETA HCG, STAT 08/02/2020 4:45 EST HOLD LAVENDER TOP Routine 08/02/2020 4:1 1 EST HOLD GREEN TOP Routine 08/02/2020 4:11 EST ABO/RH Today 08/02/2020 4:11 EST COMPLETE BLOOD COUNT AND DIFFERENTIAL STAT Add-on 08/02/2020 4:11 EST BLOOD BANK HOLD Routine 08/02/2020 4:11 EST documented in this encounter Results * POCT CSN BARCODE URINE DIPSTICK (08/02/2020 8:29 EST) Hold Hold 08/02/2020 9:32 EST [facility] Urine URINE SPECIMEN COLLECTION, CLEAN CATCH / Unknown Urine Collect / Unknown 08/02/2020 8:29 EST 08/02/2020 8:29 EST us Brunilda Walton PA-C LAB INFO SERVICE AND ORTIZ PPORT & PHONE RESULT Final Result [facility] [address] [place] [address] * (ABNORMAL) POCT URINE DIPSTICK, CLINITEK (08/02/2020 8:27 EST) Color, UA Yellow Yellow 08/02/2020 8:32 [facility] Clarity, UA Clear Clear 08/02/2020 8:32 [facility] Glucose, UA Negative Negative mg/dL 08/02/2020 8:32 [facility] Bilirubin, UA Negative Negative 08/02/2020 8:32 [facility] Ketones, UA 2+(A) Negative mg/dL 08/02/2020 8:32 [facility] Specific [place], Urine 1.025 1.001 - 1.035 08/02/2020 8:32 [facility] Blood, UA Negative Negative 08/02/2020 8:32 [facility] pH, UA 7.0 <=8 08/02/2020 8:32 [facility] Protein, UA Trace(A) Negative mg/dL 08/02/2020 8:32 [facility] Urobilinogen, UA 0.2 0.2 - 1.0 EU/dL 08/02/2020 8:32 [facility] Nitrite, UA Negative Negative 08/02/2020 8:32 [facility] Leuk Esterase Negative Negative 08/02/2020 8:32 [facility] clinical application specialist ID [id number] 08/02/2020 8:32 [facility] HN LAB COMMENT (CLINITEK, UR) Test performed at Emergency Department 08/02/2020 8:32 [facility] Urine URINE SPECIMEN COLLECTION, CLEAN CATCH / Unknown 08/02/2020 8:27 EST 08/02/2020 8:32 EST us Brunilda Walton PA-C POINT OF CARE TEST ORDJulia DO Final Result [facility] [address] [place] [address] * (ABNORMAL) COMPLETE BLOOD COUNT AND DIFFERENTIAL (08/02/2020 8:10 EST) WBC 16.92(H) 4.00 - 12.40 K/cmm 08/02/2020 8:32 [facility] RBC 3.81(L) 3.86 - 5.04 M/cmm 08/02/2020 8:32 [facility] Hemoglobin 11.4(L) 11.6 - 15.2 gm/dL 08/02/2020 8:32 [facility] HCT 32.2(L) 34.9 - 44.4 % 08/02/2020 8:32 [facility] MCV 85 81 - 98 fl 08/02/2020 8:32 [facility] MCH 29.9 26.7 - 33.3 pg 08/02/2020 8:32 [facility] MCHC 35.4 32.1 - 35.9 gm/dL 08/02/2020 8:32 [facility] RDW-CV 11.9 <14.7 % 08/02/2020 8:32 [facility] RDW-SD 36.1 <50.4 fl 08/02/2020 8:32 [facility] PLT 222 141 - 377 K/cmm 08/02/2020 8:32 [facility] MPV 9.4(L) 9.5 - 12.7 fl 08/02/2020 8:32 [facility] % Neutrophils 90.0 % 08/02/2020 8:32 [facility] % Lymphocytes 6.8 % 08/02/2020 8:32 [facility] % Monocytes 2.4 % 08/02/2020 8:32 [facility] % Eosinophils 0.1 % 08/02/2020 8:32 [facility] % Basophils 0.2 % 08/02/2020 8:32 [facility] % Immature Grans 0.5 % 08/02/19 8:32 [facility] Absolute Neutrophils 15.25(H) 2.20 - 8.85 K/cmm 08/02/2020 8:32 [facility] Absolute Lymphocytes 1.15 1.09 - 3.30 K/cmm 08/02/2020 8:32 [facility] Absolute Monocytes 0.40 0.10 - 0.80 K/cmm 08/02/2020 8:32 [facility] Absolute Eosinophils 0.01(L) 0.03 - 0.61 K/cmm 08/02/2020 8:32 [facility] ABS Basophils 0.03 0.01 - 0.11 K/cmm 08/02/2020 8:32 [facility] Absolute Immature Grans 0.08(H) 0.00 - 0.06 K/cmm 08/02/2020 8:32 [facility] Type of Differential: Auto 08/02/2020 8:32 [facility] Blood VENOUS BLOOD / Unknown Venipuncture / Unknown 08/02/2020 8:10 EST 08/02/2020 8:17 EST us Quincy Conrad PA-C PACKAGES & DNA PROBE ORDERABL ES Final Result [facility] [address] [place] [id number] * US OB FIRST TRIMESTER (LESS THAN 14 WEEKS) TV AND LTD DOPPLER (08/02/2020 5:27 EST) Anatomical Region Laterality Modality Pelvis Ultrasound 08/02/2020 8:13 EST Addenda Addendum by Rock Patterson MD on 08/12/2020 9:56 EST Addendum: The use of spectral and color Doppler was performed. Arterial and venous Doppler waveforms and color flow are present in the right ovary. Arterial and venous Doppler waveforms and color flow are present in the ?? left ovary. Impressions 08/02/2020 8:13 EST 1. Intrauterine gestational sac with yolk sac and possible pole. Freedom- rump length measures 2.6 mm, which corresponds to gestational age of 5 weeks, 6 days. Mean sac diameter of 12.6 mm corresponds to gestational age of 5 weeks, 3 days. Menstrual dating is 6 weeks, 0 days. Follow-up ultrasound and [employer] [employer] consultation is suggested. 2. Left ovarian hemorrhagic cyst measuring 4.7 cm (O-RADS 2). No follow-up is warranted. Interval increase of free fluid along both adnexa may be related to hemorrhagic cyst. These findings were discussed with BRUNILDA BERMUDEZ ??by Dr. Johan oMre on 08/02/2020 6:04 AM. Reference: Selvin Albright, et al. Diagnostic criteria for nonviable early in the first trimester. [place] Journal of Medicine 369.15 (2013): 4100-5646. I have personally reviewed the images and the above interpretation and agree with the findings. Narrative 08/02/2020 8:13 EST US OB FIRST TRIMESTER (LESS THAN 14 WEEKS) TV AND LTD DOPPLER ??08/02/2020 4:35 AM SIGNS AND SYMPTOMS/COMMENTS: ??severe llq pain r/o ectopic COMPARISON: Pelvic ultrasound 07/03/2020. TECHNIQUE: Grayscale and color/spectral Doppler ultrasound of the pelvis was performed, first transabdominally, and then transvaginally.. MATERNAL STRUCTURES: Uterus: The anteverted uterus measures 9.5 x 5.2 x 5.4 cm in size. The uterine echotexture is homogeneous. Fluid collections within uterus: A gestational sac is present. Right ovary: The right ovary measures 3.9 x 2.1 x 2.2 cm in size, for an estimated right ovarian volume of 9.4 mL. Arterial and venous Doppler waveforms and color flow are present in the right ovary. Anechoic follicles are present in the right ovary. Left ovary: The left ovary measures 7.0 x 3.8 x 4.7 cm in size, for an estimated left ovarian volume of 66 mL. Arterial and venous Doppler waveforms and color flow are present in the left ovary. There is a cystic lesion within the left ovary measuring 4.7 x 2.7 x 2.9 cm with retractile echogenic material, consistent with hemorrhagic cyst. Other adnexal masses: None Free fluid: There is a small to moderate amount of anechoic free fluid adjacent to the left and right adnexa, ??increased in volume compared to 5 weeks prior. BIOMETRY/MEASUREMENTS: Last menstrual period: 06/21/2020 = 6 weeks, 0 days Prior ultrasound dating: Not available. Freedom-rump length: 2.6 mm = 5 weeks, 6 days Mean sac diameter: 1.26 cm = 5 weeks, 3 days Yolk sac: The yolk sac measures 3 mm in diameter. Fetus: Echogenic focus along the gestational sac may correspond to a pole.. cardiac activity: No definite cardiac activity is identified, however the pole is small in size measuring 2.6 mm crown-rump length. Procedure Note Rock Patterson MD - 08/02/2020 US OB FIRST TRIMESTER (LESS THAN 14 WEEKS) TV AND LTD DOPPLER :35 AM SIGNS AND SYMPTOMS/COMMENTS: severe llq pain r/o ectopic COMPARISON: Pelvic ultrasound 07/03/2020. TECHNIQUE: Grayscale and color/spectral Doppler ultrasound of the pelviswas performed, first transabdominally, and then transvaginally.. MATERNAL STRUCTURES: Uterus: The anteverted uterus measures 9.5 x 5.2 x 5.4 cm in size. Theuterine echotexture is homogeneous. Fluid collections within uterus: A gestational sac is present. Right ovary: The right ovary measures 3.9 x 2.1 x 2.2 cm in size, for anestimated right ovarian volume of 9.4 mL. Arterial and venous Dopplerwaveforms and color flow are present in the right ovary. Anechoicfollicles are present in the right ovary. Left ovary: The left ovary measures 7.0 x 3.8 x 4.7 cm in size, for anestimated left ovarian volume of 66 mL. Arterial and venous Dopplerwaveforms and color flow are present in the left ovary. There is a cysticlesion within the left ovary measuring 4.7 x 2.7 x 2.9 cm with retractileechogenic material, consistent with hemorrhagic cyst. Other adnexal masses: None Free fluid: There is a small to moderate amount of anechoic free fluidadjacent to the left and right adnexa, increased in volume compared to 5weeks prior. BIOMETRY/MEASUREMENTS: Last menstrual period: 06/21/2020 = 6 weeks, 0 days Prior ultrasound dating: Not available. Freedom-rump length: 2.6 mm = 5 weeks, 6 days Mean sac diameter: 1.26 cm = 5 weeks, 3 days Yolk sac: The yolk sac measures 3 mm in diameter. Fetus: Echogenic focus along the gestational sac may correspond to a fetalpole.. cardiac activity: No definite cardiac activity is identified,however the pole is small in size measuring 2.6 mm crown-rumplength. IMPRESSION 1. Intrauterine gestational sac with yolk sac and possible pole.Freedom-rump length measures 2.6 mm, which corresponds to gestational age of5 weeks, 6 days. Mean sac diameter of 12.6 mm corresponds to gestationalage of 5 weeks, 3 days. Menstrual dating is 6 weeks, 0 days. Follow-upultrasound and CONE CLEANER consultation is suggested. 2. Left ovarian hemorrhagic cyst measuring 4.7 cm (O-RADS 2). No follow-upis warranted. Interval increase of free fluid along both adnexa may berelated to hemorrhagic cyst. These findings were discussed with BRUNILDA BERMUDEZ by Dr. Diop on 08/02/2020 6:04 AM. Reference: Selvin Albright, et al. Diagnostic criteria for nonviablepregnancy early in the first trimester. [place] Journal of Rreoigyt325.15 (2013): 7476-3617. I have personally reviewed the images and the above interpretation andagree with the findings. Brunilda Walton PA-C IMG US OB ORDERABLES Ed ited Result - Final * (ABNORMAL) QUANT BETA HCG, (08/02/2020 4:45 EST) Pathologist [facility] Beta HCG Quant, 9,526(H) <5 mIU/ml 08/02/2020 5:25 EST [facility] Comment: NOTE: : Negative: Less than 5mIU/mL Indeterminant: Between 5 and 25 mIU/mL, recommend repeat testing in 48 hours Positive: Greater than 25 mIU/mL The results of this assay can be falsely lowered due to the consumption of Biotin. Blood VENOUS BLOOD / Unknown Venipuncture / Unknown 08/02/2020 4:45 EST 08/02/2020 4:49 EST Brunilda Walton PA-C CHEMISTRY & BLOOD GAS O RDERABLES Final Result Performing Organization Address City/[facility]/ZIP Co de Phone Number [facility] [address] [place] [address] * ABO/RH (08/02/2020 4:11 EST) Pathologist [facility] ABO O 08/02/2020 4:38 EST [facility] Rh Factor Positive 08/02/2020 4:38 EST [facility] Blood VENOUS BLOOD / Unknown Venipuncture / Unknown 08/02/2020 4:11 EST 08/02/2020 4:17 EST Brunilda Ramila Walton PA-C BLOOD BANK TESTS Final Result Performing Organization Address City/[facility]/ZIP Co de Phone Number [facility] [address] [place] [address] * (ABNORMAL) COMPLETE BLOOD COUNT AND DIFFERENTIAL (08/02/2020 4:11 EST) Pathologist [facility] WBC 20.63(H) 4.00 - 12.40 K/cmm 08/02/2020 4:42 [facility] RBC 4.00 3.86 - 5.04 M/cmm 08/02/2020 4:42 [facility] Hemoglobin 11.8 11.6 - 15.2 gm/dL 08/02/2020 4:42 [facility] HCT 33.7(L) 34.9 - 44.4 % 08/02/2020 4:42 [facility] MCV 84 81 - 98 fl 08/02/2020 4:42 [facility] MCH 29.5 26.7 - 33.3 pg 08/02/2020 4:42 [facility] MCHC 35.0 32.1 - 35.9 gm/dL 08/02/2020 4:42 [facility] RDW-CV 11.8 <14.7 % 08/02/2020 4:42 [facility] RDW-SD 36.0 <50.4 fl 08/02/2020 4:42 [facility] PLT 223 141 - 377 K/cmm 08/02/2020 4:42 [facility] MPV 9.4(L) 9.5 - 12.7 fl 08/02/2020 4:42 [facility] % Neutrophils 87.0 % 08/02/2020 4:42 [facility] % Lymphocytes 8.8 % 08/02/2020 4:42 [facility] % Monocytes 3.2 % 08/02/2020 4:42 [facility] % Eosinophils 0.1 % 08/02/2020 4:42 [facility] % Basophils 0.2 % 08/02/2020 4:42 [facility] % Immature Grans 0.7 % 08/02/19 4:42 [facility] Absolute Neutrophils 17.96(H) 2.20 - 8.85 K/cmm 08/02/2020 4:42 [facility] Absolute Lymphocytes 1.81 1.09 - 3.30 K/cmm 08/02/2020 4:42 [facility] Absolute Monocytes 0.65 0.10 - 0.80 K/cmm 08/02/2020 4:42 EST [facility] Absolute Eosinophils 0.03 0.03 - 0.61 K/cmm 08/02/2020 4:42 EST [facility] ABS Basophils 0.04 0.01 - 0.11 K/cmm 08/02/2020 4:42 [facility] Absolute Immature Grans 0.14(H) 0.00 - 0.06 K/cmm 08/02/2020 4:42 EST [facility] Type of Differential: Auto 08/02/2020 4:42 EST [facility] Blood VENOUS BLOOD / Unknown Venipuncture / Unknown 08/02/2020 4:11 EST 08/02/2020 4:15 EST Brunilda BERMUDEZ-C PACKAGES & DNA PROBE OR DERABLES Final Result Performing Organization Address City/[facility]/ZIP Co de Phone Number [facility] [address] [place] [address] * HOLD GREEN TOP (08/02/2020 4:11 EST) Hold Hold 08/02/2020 5:31 EST [facility] Blood VENOUS BLOOD / Unknown Venipuncture / Unknown 08/02/2020 4:11 EST 08/02/2020 4:15 EST Brunilda DRIVERC LAB INFO SERVICE AND ORTIZ PPORT & PHONE RESULT Final Result [facility] [address] [place] [address] * HOLD LAVENDER TOP (08/02/2020 4:11 EST) Hold Hold 08/02/2020 5:31 EST [facility] Blood VENOUS BLOOD / Unknown Venipuncture / Unknown 08/02/2020 4:11 EST 08/02/2020 4:15 EST Brunilda Walton PA-C LAB INFO SERVICE AND ORTIZ PPORT & PHONE RESULT Final Result [facility] [address] [place] [address] * BLOOD BANK HOLD (08/02/2020 4:11 EST) Hold BB Spec will exp at 23:59, 3 days from collect date 08/02/2020 4:26 EST [facility] Blood VENOUS BLOOD / Unknown Venipuncture / Unknown 08/02/2020 4:11 EST 08/02/2020 4:17 EST Brunilda Walton PA-C BLOOD BANK TESTS Final Result [facility] [address] [place] [address] documented in this encounter Visit Diagnoses Diagnosis Cyst of ovary, unspecified laterality- Primary Less than 8 weeks gestation of state, incidental documented in this encounter Administered Medications Inactive Administered Medications - up to 3 most recent administrations Medication Order MAR Action Action Date Dose Rate Site acetaminophen (TYLENOL) tablet 1,000 mg 1,000 mg, oral, NOW X1, 1 dose, On Sun08/02/20 at 0615, STAT Given 08/02/2020 6:10 EST 1,000 mg HYDROmorphone (DILAUDID) tablet 4 mg 4 mg, oral, NOW X1, 1 dose, On Sun08/02/20 at 0915, STAT Given 08/02/2020 9:24 EST 4 mg HYDROmorphone (PF) (DILAUDID) 0.5 mg/0.5 mL syringe 0.5 mg 0.5 mg, intravenous, NOW X1, 1 dose, On Sun08/02/20 at 0430, STAT Given 08/02/2020 4:28 EST 0.5 mg HYDROmorphone (PF) (DILAUDID) 0.5 mg/0.5 mL syringe 0.5 mg 0.5 mg, intravenous, NOW X1, 1 dose, On Sun08/02/20 at 0445, STAT Given 08/02/2020 5:37 EST 0.5 mg Hydromorphone 2 mg Tab STARTER PACK 1 Package, oral, NOW X1, 1 dose, On Sun08/02/20 at 0915, STAT Given 08/02/2020 9:25 EST 1 Package ondansetron (PF) (ZOFRAN) injection 4 mg 4 mg, intravenous, NOW X1, 1 dose, On Sun08/02/20 at 0430, STAT Given 08/02/2020 4:28 EST 4 mg ondansetron 4 mg ODT tab STARTER PACK 1 Package, oral, NOW X1, 1 dose, On Sun08/02/20 at 0915, STAT Given 08/02/2020 9:25 EST 1 Package documented in this encounter Historical Medications * This list may reflect changes made after this encounter. diphenhydrAMINE (BENADRYL) 50 mg capsule Take 50 mg by mouth every 4 hours. 04/18/2022 added in this encounter Active and Recently Administered Medications Times are shown in EST. Scheduled Medication Order 07/31/2020 08/01/2020 08/02/2020 acetaminophen (TYLENOL) tablet 1,000 mg (COMPLETED) 1,000 mg, oral, NOW X1, 1 dose, On Sun08/02/20 at 0615, STAT 0610 (Given - Provid er: Joyce Viera RN) HYDROmorphone (DILAUDID) tablet 4 mg (COMPLETED) 4 mg, oral, NOW X1, 1 dose, On Sun08/02/20 at 0915, STAT 0924 (Given - Provid er: Renae Hurt RN) HYDROmorphone (PF) (DILAUDID) 0.5 mg/0.5 mL syringe 0.5 mg (COMPLETED) 0.5 mg, intravenous, NOW X1, 1 dose, On Sun08/02/20 at 0430, STAT 0428 (Given - Provid er: Joyce Viera RN) HYDROmorphone (PF) (DILAUDID) 0.5 mg/0.5 mL syringe 0.5 mg (COMPLETED) 0.5 mg, intravenous, NOW X1, 1 dose, On Sun08/02/20 at 0445, STAT 0537 (Given - Provid er: Joyce Viera RN) Hydromorphone 2 mg Tab STARTER PACK (COMPLETED) 1 Package, oral, NOW X1, 1 dose, On Sun08/02/20 at 0915, STAT 0925 (Given - Provid er: Renae Hurt RN) ondansetron (PF) (ZOFRAN) injection 4 mg (COMPLETED) 4 mg, intravenous, NOW X1, 1 dose, On Sun08/02/20 at 0430, STAT 0428 (Given - Provid er: Joyce Viera RN) ondansetron 4 mg ODT tab STARTER PACK (COMPLETED) 1 Package, oral, NOW X1, 1 dose, On Sun08/02/20 at 0915, STAT 0925 (Given - Provid er: Renae Hurt RN) documented in this encounter Care Teams Block Sealer Relationship Specialty Start Date End Date Renea Delcid FNP [address] [place] [phone] PCP - General 07/12/20 documented as of this encounter
--- OUTSIDE RECORDS SUMMARY | 2024-06-16 16:40 | XMS_ITS | Encounter Summary ---
Author Organization [facility] Address [address] [place] [address] Care Team Providers Care Hand Presser Name Role Phone Renea Delcid Primary Care Provider [phone] Encounter Details Date Type Department Care Team (Latest Contact Info) Description 09/11/2023 Lab Requisition [facility] Pathology & Laboratory Medicine - [facility] [address] [place] [address] Renea Delcid FNP [address] [place] [address] [address] [place] [phone] Encounter for gynecological examination (general) (routine) without abnormal findings; Encounter for screening for malignant neoplasm of cervix; Encounter for general adult medical examination without abnormal findings Social History Tobacco Use Types Packs/Day Years [...] Procedure Name Priority Date/Time Associated Diagnosis Comments PAP TEST Today 09/07/2023 9:05 EDT Encounter for gynecological examination (general) (routine) without abnormal findings Encounter for screening for malignant neoplasm of cervix Encounter for general adult medical examination without abnormal findings HPV DNA DETECTION WITH GENOTYPING, PCR Today 09/07/2023 9:05 EDT Encounter for gynecological examination (general) (routine) without abnormal findings Encounter for screening for malignant neoplasm of cervix Encounter for general adult medical examination without abnormal findings documented in this encounter Results * HUMAN PAPILLOMAVIRUS (HPV) DETECTION-HIGH RISK TYPES (09/07/2023 9:05 EDT) HPV other High Risk types, PCR Negative Negative 09/13/2023 19:00 EDT [facility] Comment:No E6 or E7 mRNA is detected from HPV types 16,18,31,33,35,39,45,51,52,56,58,59,66, and 68 by practice managers mediated amplification. Pap Test CERVIX UTERI STRUCTURE / Unknown 09/07/2023 9:05 EDT 09/12/2023 14:04 EDT Renea Delcid PERFECT BIND MACHINE OPERATOR MICROBIOLOGY - GENERAL ORDERABLE S Final Result [facility] [address] [place] [address] * PAP TEST (09/07/2023 9:05 EDT) Specimens A. Cervix and/or Endocervix , ThinPrep Imaging System with Manual Evaluation 09/13/2023 19:00 EDT [facility] Specimen Adequacy Satisfactory for Evaluation - transformation zone component present 09/13/2023 19:00 EDT [facility] General Categorization Negative for intraepithelial lesion or malignancy 09/13/2023 19:00 EDT [facility] Descriptive Diagnosis Reactive cellular changes associated with inflammation present (includes repair). 09/13/2023 19:00 EDT [facility] Attestation By the signature below, the attending physician certifies that they have personally conducted a gross and/or microscopic examination of the described specimens and rendered or confirmed the above diagnosis. 09/13/2023 19:00 EDT [facility] at 1900 Clinical History See below 09/13/19 19:00 EDT [facility] HPV The result for the Human Papillomavirus (HPV) Detection-High Risk Types is Negative. No E6 or E7 mRNA is detected from HPV types 16,18,31,33,35,39 ,45,51,52,56,58,5 9,66, and 68 by practice managers mediated amplification.Sofia ting was performed on specimen [id number] and was resulted on 09/13/2023 1900 EDT by DAVID, LAB INSTRUMENT RESULTS IN 09/13/2023 19:00 EDT [facility] Performing Lab [facility] 09/13/2023 19:00 EDT [facility] Scanned Images 09/13/2023 19:00 EDT [facility] Pap Test CERVIX UTERI STRUCTURE / Unknown 09/07/2023 9:05 EDT 09/11/2023 11:18 EDT us Renea ORTIZ PATHOLOGY ORDERABLES Final Resul t [facility] [address] [place], [place] [address] documented in this encounter Visit Diagnoses Diagnosis Encounter for gynecological examination (general) (routine) without abnormal findings Encounter for screening for malignant neoplasm of cervix Screening for malignant neoplasm of the cervix Encounter for general adult medical examination without abnormal findings Unspecified general medical examination documented in this encounter Care Teams Hand Presser Relationship Specialty Start Date End Date Renea Delcid FNP [address] [place] [address] [address] [place] [phone] PCP - General 07/12/20 documented as of this encounter
--- OUTSIDE RECORDS SUMMARY | 2024-06-16 16:40 | XMS_ITS | Encounter Summary ---
Author Organization [facility] Address [address] [place] [address] Care Team Providers Care Bean Sprout Grower Name Role Phone Renea Delcid DIANA Primary Care Provider [phone] Encounter Details Date Type Department Care Team (Late st Contact Info) Description 09/24/2020 Lab Requisition [facility] Pathology & Laboratory Medicine - [address] [address] Outr Resulting Lab, Provider Social History Tobacco [...] REFLEX TO HCV RNA BY PCR Routine 09/24/2020 12:30 EDT HEPATITIS B SURFACE ANTIGEN Routine 09/24/2020 12:30 EDT documented in this encounter Results * HEPATITIS B SURFACE ANTIGEN (09/24/2020 12:30 EDT) Hep B Surface Ag Negative Negative 09/27/2020 9:58 EDT [facility] Blood VENOUS BLOOD / Unknown 09/24/2020 12:30 EDT 09/24/2020 21:06 EDT us Provider Outr Resulting Lab CHEMISTRY & BLOOD GA S ORDERABLES Final Result [facility] [address] [place] [address] * HEPATITIS C AB W REFLEX TO HCV RNA BY PCR (09/24/2020 12:30 EDT) Hep C Antibody Negative Negative 09/27/2020 10:37 EDT [facility] Blood VENOUS BLOOD / Unknown 09/24/2020 12:30 EDT 09/24/2020 21:06 EDT us Provider Outr Resulting Lab CHEMISTRY & BLOOD GA S ORDERABLES Final Result Performing Organization Address City/[facility]/ZIP Co de Phone Number [facility] [address] [place] [address] documented in this encounter Visit Diagnoses Not on filedocumented in this encounter Care Teams Bean Sprout Grower Relationship Specialty Start Date End Date Renea Delcid FNP [address] [phone] PCP - General 07/12/20 documented as of this encounter
--- OUTSIDE RECORDS SUMMARY | 2024-06-16 16:40 | XMS_ITS | Encounter Summary ---
Author Organization [facility] Address [address] [place] [address] Care Team Providers Care Oil Burner Journeyman Name Role Phone Renea Delcid Primary Care Provider [phone] Reason for Referral * HADOOP ADMINISTRATOR (Routine) - Specialty Report Received Specialty Diagnoses / Procedures Referred By Contac t Referred To Contact Diagnoses Early stage of Procedures OB FIRST TRIMESTER (LESS THAN 14 WEEKS) TRANSVAGINAL Sofia Kaufman MD Phone: tel: fax: Referral ID Status Reason Start Date Expiration Date V isits Requested Visits Authorized [id number] Specialty Report Received 07/22/2020 1 1 Reason for Visit * HADOOP ADMINISTRATOR (Routine) - Specialty Report Received Specialty Diagnoses / Procedures Referred By Contac t Referred To Contact Diagnoses Early stage of Procedures US OB FIRST TRIMESTER (LESS THAN 14 WEEKS) TRANSVAGINAL Sofia Kaufman MD Phone: tel: fax: Referral ID Status Reason Start Date Expiration Date V isits Requested Visits Authorized [id number] Specialty Report Received 07/22/2020 1 1 Encounter Details Date Type Department Care Team (Latest Contact Info) Description 08/06/2020 7:57 EST - 08/06/2020 23:59 EST Hospital Encounter [facility] OBGYN Services - [facility] [address] [place] [address] Early stage of Discharge Disposition: Home or Self Care [...] 4:08 EST documented as of this encounter Medications at Time of Discharge albuterol 90 mcg/actuation inhaler Inhale 180 mcg as directed every 4 hours. Magnesium 250 mg tablet Take by mouth daily. VIT CALC,IRON,FOLIC ( #2 ORAL) Take by mouth. choriogonadotropin yuki (OVIDREL) 250 mcg/0.5 mL injection solution Inject 250 mcg into the skin once. Use when directed. 1 Syringe 3 06/24/2020 2 diphenhydrAMINE (BENADRYL) 50 mg capsule Take 50 mg by mouth every 4 hours. 2 ondansetron (ZOFRAN-ODT) 4 mg disintegrating tabletIndications:Na usea/vomiting in Take 1 Tab by mouth daily as needed for Nausea. 30 Tab 1 08/06/2020 2 oxyCODONE (ROXICODONE) 5 mg immediate release tabletIndications:Pe lvic pain affecting in first trimester, antepartum Take 1 Tab by mouth every 4 hours as needed for Pain. Daily Max: 30 mg 10 Tab 08/06/2020 2 documented as of this encounter Discharge Disposition Disposition Code Departure Means Destination Home or Self Care documented in this encounter Plan of Treatment Not on file documented as of this encounter Procedures Procedure Name Priority Date/Time Associated Diagnosis Comments US OB FIRST TRIMESTER (LESS THAN 14 WEEKS) TRANSVAGINAL Routine 08/06/2020 8:16 EST Early stage of documented in this encounter Results * US OB FIRST TRIMESTER (LESS THAN 14 WEEKS) TRANSVAGINAL (08/06/2020 8:16 EST) Anatomical Region Laterality Modality Pelvis Ultrasound 08/06/2020 7:27 EST Narrative 08/06/2020 9:06 EST Indication Early Assessment, severe LLQ pain, seen in ED 4 days ago. History ======= General History Height 170 cm Height (ft) ?5 ft Height (in) ?7 in Previous Outcomes ?2 Para ?? 0 Abortions (A) ??1 Maternal Assessment Height 170 cm Height (ft) ?5 ft Height (in) ?7 in Number of gestational sacs: 1. Dating ======= Method of dating: ??based on the LMP LMP on: ?06/21/2020 GA by LMP ??6 w + 4 d JEFFREY by LMP : ? 03/28/2021 Ultrasound examination on: 08/06/2020 GA by U/S based upon: ??CRL GA by U/S ??6 w + 2 d JEFFREY by U/S: ?03/30/2021 Assigned: ??Dating performed on 08/06/2020 Based on the LMP Assigned GA ?6 w + 4 d Assigned JEFFREY: ??03/28/2021 Assessment Gestational sac: ?? Visualized Location: ??Intrauterine Yolk sac: ??Visualized Amniotic sac: ??Not visualized Embryo: ?Visualized CRL ?5.7 mm ??9% 6w 2d Hadlock Cardiac activity: ??Present FHR ?113 bpm Maternal Structures Uterus / Cervix Uterus: ?Anteverted Uterus details: ?No abnormalities detected. Appears normal Cervix: ?Appears normal Ovaries / Tubes / Adnexa Rt ovary: ??Visualized, normal appearance Rt ovary D1 ?3.8 cm Rt ovary D2 ?1.9 cm Rt ovary D3 ?2.2 cm Rt ovary mean ??2.6 cm Rt ovary vol ?? 7.9 cm cubed Lt ovary: ??Normal with Corpus luteum Lt ovarian corpus luteum: ??hemorrhagic Lt ovary D1 ?8.1 cm Lt ovary D2 ?6.7 cm Lt ovary D3 ?4.7 cm Lt ovary mean ??6.5 cm Lt ovary vol ?? 130.8 cm cubed Lt ovarian corpus luteum D1 ?35.9 mm Lt ovarian corpus luteum D2 ?28.2 mm Lt ovarian corpus luteum D3 ?30.0 mm Pouch of Doyle / Other Structures Cul de Sac: ?Normal Free fluid: ?Free fluid visualized Amount of free fluid: ??moderate Method ======== Transvaginal ultrasound examination. View: Sufficient. Impression 1st Trimester OB scan ,transvaginal +[id number] Single viable intrauterine (IUP) , size equals menstrual dates. The left ovary is enlarged, but there is venous and arterial blood flow demonstrated within it. Left hemorrhagic CL was 4.7 x 2.7 x 2.9 cm 4 days ago; has slightly decreased to 3.6 x 2.8 x 3 cm There is a moderate amount of fluid in the pelvis. Follow-up Gave Rx for oxycodone for pain management with hemorrhagic cyst, also for zofran. Offered follow up scan in 2 weeks, she will schedule if decides wants this. Comment ========= Results discussed w/patient. Prior ultrasounds reviewed and compared to today's ultrasound. Z34.8 encounter for supervision of other normal . DATE OF SERVICE: 08/06/2020 Procedure Note Sofai Kaufman MD - 08/06/2020 Indication Early Assessment, severe LLQ pain, seen in ED 4 days ago. History ======= General History Height 170 cm Height (ft) 5 ft Height (in) 7 in Previous Outcomes 2 Para 0 Abortions (A) 1 Maternal Assessment Height 170 cm Height (ft) 5 ft Height (in) 7 in Number of gestational sacs: 1. Dating ======= Method of dating: based on the LMP LMP on: 06/21/2020 GA by LMP 6 w + 4 d JEFFREY by LMP : 03/28/2021 Ultrasound examination on: 08/06/2020 GA by U/S based upon: CRL GA by U/S 6 w + 2 d JEFFREY by U/S: 03/30/2021 Assigned: Dating performed on 08/06/2020 Based on the LMP Assigned GA 6 w + 4 d Assigned JEFFREY: 03/28/2021 Assessment Gestational sac: Visualized Location: Intrauterine Yolk sac: Visualized Amniotic sac: Not visualized Embryo: Visualized CRL 5.7 mm 9% 6w 2d Hadlock Cardiac activity: Present FHR 113 bpm Maternal Structures Uterus / Cervix Uterus: Anteverted Uterus details: No abnormalities detected. Appears normal Cervix: Appears normal Ovaries / Tubes / Adnexa Rt ovary: Visualized, normal appearance Rt ovary D1 3.8 cm Rt ovary D2 1.9 cm Rt ovary D3 2.2 cm Rt ovary mean 2.6 cm Rt ovary vol 7.9 cm cubed Lt ovary: Normal with Corpus luteum Lt ovarian corpus luteum: hemorrhagic Lt ovary D1 8.1 cm Lt ovary D2 6.7 cm Lt ovary D3 4.7 cm Lt ovary mean 6.5 cm Lt ovary vol 130.8 cm cubed Lt ovarian corpus luteum D1 35.9 mm Lt ovarian corpus luteum D2 28.2 mm Lt ovarian corpus luteum D3 30.0 mm Pouch of Doyle / Other Structures Cul de Sac: Normal Free fluid: Free fluid visualized Amount of free fluid: moderate Method ======== Transvaginal ultrasound examination. View: Sufficient. Impression 1st Trimester OB scan ,transvaginal +[id number] Single viable intrauterine (IUP) , size equals menstrualdates. The left ovary is enlarged, but there is venous and arterial blood flowdemonstrated within it. Left hemorrhagic CL was 4.7 x 2.7 x 2.9 cm 4 days ago; has slightlydecreased to 3.6 x 2.8 x 3 cm There is a moderate amount of fluid in the pelvis. Follow-up Gave Rx for oxycodone for pain management with hemorrhagic cyst, also forzofran. Offered follow up scan in 2 weeks, she will schedule if decides wantsthis. Comment ========= Results discussed w/patient. Prior ultrasounds reviewed and compared jonathon's ultrasound. Z34.8 encounter for supervision of other normal . DATE OF SERVICE: 08/06/2020 us Sofia Kaufman MD IMG US OB ORDERABLES Fatimah l Result documented in this encounter Visit Diagnoses Diagnosis Early stage of state, incidental documented in this encounter Care Teams Oil Burner Journeyman Relationship Specialty Start Date End Date Renea Delcid FNP [address] [place] [phone] PCP - General 07/12/20 documented as of this encounter
--- OUTSIDE RECORDS SUMMARY | 2024-06-16 16:40 | XMS_ITS | Encounter Summary ---
Author Organization [facility] Address [address] [place] [address] Care Team Providers Care Complaint Adjuster Name Role Phone Renea Delcid DIANA Primary Care Provider [phone] Encounter Details Date Type Department Care Team (Late st Contact Info) Description 09/24/2020 Lab Requisition [facility] Pathology & Laboratory Medicine - [address] [address] Outr Resulting Lab, Provider Social History Tobacco [...] Procedure Name Priority Date/Time Associated Diagnosis Comments HIV 1/2 ANTIGEN AND ANTIBODY, 4TH GENERATION Routine 09/24/2020 12:30 EDT documented in this encounter Results * HIV 1/2 ANTIGEN AND ANTIBODY, 4TH GENERATION (09/24/2020 12:30 EDT) HIV 1 and 2 Antibody/p24 Antigen, 4th Generation Negative Negative 09/27/2020 10:59 EDT [facility] Comment: If acute HIV-1 infection is suspected in a high risk ??patient, submit plasma specimen for HIV-1 RNA quantitation test. Fourth Generation assay performed on the Siemens Centaur. Blood VENOUS BLOOD / Unknown 09/24/2020 12:30 EDT 09/24/2020 21:06 EDT us Provider Outr Resulting Lab IMMUNOLOGY AND SEROL OGY ORDERABLES Final Result [facility] [address] [place] [address] documented in this encounter Visit Diagnoses Not on filedocumented in this encounter Care Teams Complaint Adjuster Relationship Specialty Start Date End Date Renea Delcid FNP [address] [facility] [address] [place] [phone] PCP - General 07/12/20 documented as of this encounter
--- OUTSIDE RECORDS SUMMARY | 2024-06-16 16:40 | XMS_ITS | Encounter Summary ---
Author Organization [facility] Address [address] [place] [address] Care Team Providers Care Javascript Engineer Name Role Phone Renea Delcid DIANA Primary Care Provider [phone] Encounter Details Date Type Department Care Team (Late st Contact Info) Description 09/22/2022 Lab Requisition [facility] Pathology & Laboratory Medicine - [address] [address] Outr Resulting Lab, Provider Social History Tobacco [...] Procedure Name Priority Date/Time Associated Diagnosis Comments HOLD SST Today 09/22/2022 10:05 EDT HOLD SST Today 09/22/2022 10:05 EDT RUBELLA IGG ANTIBODY Today 09/22/2022 10:05 EDT VARICELLA IGG ANTIBODY Today 09/22/2022 10:05 EDT documented in this encounter Results * HOLD SST (09/22/2022 10:05 EDT) Hold Hold 09/22/2022 19:01 EDT [facility] Blood VENOUS BLOOD / Unknown 09/22/2022 10:05 EDT 09/22/2022 17:50 EDT us Provider Outr Resulting Lab LAB INFO SERVICE AND SUPPORT & PHONE RESULT Final Result [facility] [address] [place] [address] * HOLD SST (09/22/2022 10:05 EDT) Hold Hold 09/22/2022 19:01 EDT [facility] Blood VENOUS BLOOD / Unknown 09/22/2022 10:05 EDT 09/22/2022 17:50 EDT us Provider Outr Resulting Lab LAB INFO SERVICE AND SUPPORT & PHONE RESULT Final Result [facility] [address] [place] [address] * VARICELLA IGG ANTIBODY (09/22/2022 10:05 EDT) Varicella IgG Ab Positive See Note 09/25/2022 11:18 EDT [facility] Comment:Presence of detectab le Varicella Zoster virus IgG antibodies. Blood VENOUS BLOOD / Unknown 09/22/2022 10:05 EDT 09/22/2022 17:41 EDT us Provider Outr Resulting Lab IMMUNOLOGY AND SEROL OGY ORDERABLES Final Result Performing Organization Address City/[facility]/ZIP Co de Phone Number [facility] [address] [place] [address] * RUBELLA IGG ANTIBODY (09/22/2022 10:05 EDT) Rubella IgG Ab Positive See Note 09/25/2022 11:22 EDT [facility] Comment:Positive for IgG ant ibodies to Rubella virus. Blood VENOUS BLOOD / Unknown 09/22/2022 10:05 EDT 09/22/2022 17:41 EDT us Provider Outr Resulting Lab CHEMISTRY & BLOOD GA S ORDERABLES Final Result Performing Organization Address City/State/[facility] Co de Phone Number [facility] [address] [place] [address] documented in this encounter Visit Diagnoses Not on filedocumented in this encounter Care Teams Javascript Engineer Relationship Specialty Start Date End Date Renea Delcid FNP [address] [place] [address] [address] [place] [address] PCP - General 07/12/20 documented as of this encounter
--- OUTSIDE RECORDS SUMMARY | 2024-06-16 16:40 | XMS_ITS | Encounter Summary ---
Author Organization [facility] Address [address] [place] [address] Care Team Providers Care Materials Branch Chief Name Role Phone Alexa Hairston APRN Primary Care Provider [phone] Reason for Referral * THREAD MACHINE OPERATOR (Routine) - Specialty Report Received Specialty Diagnoses / Procedures Referred By Contmissy t Referred To Contact Diagnoses Female infertility associated with anovulation Procedures US FOLLICULAR (DINESH ONLY) Sofia Kaufman MD Phone: tel: fax: Referral ID Status Reason Start Date Expiration Date V isits Requested Visits Authorized [id number] Specialty Report Received 05/31/2020 1 1 Reason for Visit * THREAD MACHINE OPERATOR (Routine) - Specialty Report Received Specialty Diagnoses / Procedures Referred By Contmissy t Referred To Contact Diagnoses Female infertility associated with anovulation Procedures US FOLLICULAR (DINESH ONLY) Sofia Kaufman MD Phone: tel: fax: Referral ID Status Reason Start Date Expiration Date V isits Requested Visits Authorized [id number] Specialty Report Received 05/31/2020 1 1 Encounter Details Date Type Department Care Team (Latest Contact Info) Description 06/02/2020 8:17 EST - 06/02/2020 23:59 EST Hospital Encounter [facility] OBGYN Services - [address] [place] [address] [place] [address] Female infertility associated with anovulation Discharge Disposition: Home or Self Care Social [...] on file documented as of this encounter Medications at Time of Discharge albuterol 90 mcg/actuation inhaler Inhale 180 mcg as directed every 4 hours. Magnesium 250 mg tablet Take by mouth daily. VIT CALC,IRON,FOLIC ( #2 ORAL) Take by mouth. choriogonadotrop in yuki (OVIDREL) 250 mcg/0.5 mL injection solution Inject 1 syringe into the skin one time when directed 1 Syringe 05/20/2020 06/24/2020 letrozole (FEMARA) 2.5 mg tablet Take 2 Tabs by mouth daily. Take cycle days 5-9 10 Tab 05/20/2020 06/24/2020 documented as of this encounter Discharge Disposition Disposition Code Departure Means Destination Home or Self Care documented in this encounter Plan of Treatment Not on file documented as of this encounter Procedures Procedure Name Priority Date/Time Associated Diagnosis Comments US FOLLICULAR (DINESH ONLY) Routine 06/02/2020 8:37 EST Female infertility associated with anovulation documented in this encounter Results * US FOLLICULAR (DINESH [...] fluid visualized (mild). Impression USF (Follicular) - [id number] 1. Mild free fluid in pelvis. 2. [...] fluid visualized (mild). Impression USF (Follicular) - [id number] 1. Mild free fluid in pelvis. 2. [...] DATE OF SERVICE: 06/02/[address] [facility] US OB ORDERABLES Fatimah l Result documented in this encounter Visit Diagnoses Diagnosis Female infertility associated with anovulation documented in this encounter Care Teams Materials Branch Chief Relationship Specialty Start Date End Date Alexa Hairston APRN [address] [place] [address] PCP - General 10/26/16 07/11/20 documented as of this encounter
--- OUTSIDE RECORDS SUMMARY | 2024-06-16 16:40 | XMS_ITS | Encounter Summary ---
Author Organization [facility] Address [address] [place] [address] Care Team Providers Care Experimental Rocketsled Mechanic Name Role Phone Renea Delcid DIANA Primary Care Provider [phone] Encounter Details Date Type Department Care Team (Late st Contact Info) Description 09/09/2021 Lab Requisition [facility] Pathology & Laboratory Medicine - [address] [address] Outr Resulting Lab, Provider Social History Tobacco [...] Procedure Name Priority Date/Time Associated Diagnosis Comments ZZCOVID-19 TEST [facility] PCR Today 09/09/2021 10:00 EDT COVID-19 TESTING Routine 09/09/2021 10:0 0 EDT documented in this encounter Results * COVID-19 TEST [facility] PCR (09/09/2021 10:00 EDT) Swab 09/09/2021 10:0 0 EDT 09/09/2021 21:17 EDT us Provider Outr Resulting Lab MICROBIOLOGY - GENER AL ORDERABLES Final Result Performing Organization Address [facility] de Phone Number [facility] [address] [place] [address] * COVID-19 TESTING (09/09/2021 10:00 EDT) COVID-19 rt-PCR Result Negative Negative 09/10/2021 3:40 EDT [facility] Comment: This test has not been FDA cleared or approved. This test has been authorized by FDA under an EUA for use by authorized laboratories. This test has been authorized only for detection of nucleic acid from 2019-nCoV, not for any other viruses or pathogens. This test is only authorized for the duration of the declaration that circumstances exist justifying the authorization of emergency use of in vitro diagnostic tests for detection and/or diagnosis of 2019-nCoV under section 564(b)(1) of Act, 21 U.S.C ?? 360bbb-3(b) (1), unless the authorization is terminated or revoked sooner. Negative results do not preclude 2019-nCoV infection and should not be used as the sole basis for treatment or other patient management decisions. Negative results must be combined with clinical observations, patient history, and epidemiological information. Performed on the [employer]her Fusion instrument Performing Lab [place] [facility] 09/10/2021 3:40 EDT [facility] Swab 09/09/2021 10:0 0 EDT 09/09/2021 21:17 EDT us Provider Outr Resulting Lab MICROBIOLOGY - GENER AL ORDERABLES Final Result Performing Organization Address [facility] Co de Phone Number [facility] [address] [place] [address] documented in this encounter Visit Diagnoses Not on filedocumented in this encounter Care Teams Experimental Rocketsled Mechanic Relationship Specialty Start Date End Date Renea Delcid FNP [address] [address] PCP - General 07/12/20 documented as of this encounter
--- OUTSIDE RECORDS SUMMARY | 2024-06-16 16:40 | XMS_ITS | Encounter Summary ---
Author Organization [facility] Address [address] [place] [address] Care Team Providers Care Mail Manager Name Role Phone Alexa Hairston APRN Primary Care Provider [phone] Reason for Referral * SUBEDITOR (Routine) - Specialty Report Received Specialty Diagnoses / Procedures Referred By [facility] t Referred To Contact Diagnoses Infertility, female Procedures US BASKETBALLS AND FOOTBALLS REVERSER EXAM (DINESH ONLY) Sofia Kaufman MD Phone: tel: fax: Referral ID Status Reason Start Date Expiration Date V isits Requested Visits Authorized [id number] Specialty Report Received 06/24/2020 1 1 Reason for Visit * Reason Onset Date Comments Coordination Of Care 06/24/2020 Encounter Details Date Type Department Care Team (Late st Contact Info) Description 06/24/2020 Telephone [facility] Reproductive Medicine [facility] Inf[facility] - [facility] [address] [place] [address] Brandi Gloria, MIKEY [address] [place] [address] Coordination Of Care Social History Tobacco Use Types Packs/Day [...] on file documented as of this encounter Ordered Prescriptions Prescription Sig Dispense Quantity Refills Last Filled Start Date End Date choriogonadotropin yuki (OVIDREL) 250 mcg/0.5 mL injection solution Inject 250 mcg into the skin once. Use when directed. 1 Syringe 3 06/24/2020 04/18/2022 letrozole (FEMARA) 2.5 mg tablet Take 2 Tabs by mouth daily for 6 days. 12 Tab 06/24/2020 06/30/2020 documented in this encounter Miscellaneous Notes * Telephone Encounter - Brandi Gloria RN - 06/24/2020 1411 EST Intrauterine Insemination Cycle number: 3 Plan: letrozole 5mg x6 days/USF 5 days after last dose/hCG/IUI 1.) Call from patient- Date: 06/24/2020 Time: 14:15 Previous IUI: yes A.) Attended injection site technique class: yes B.) Pre-certfied: yes C.) Consent signed by patient & partner to use specimen: yes D.) Aware of current costs: yes E.) GC/ Chlamydia lab done: yes RXD: no 2.) Last Menstrual Period: 06/21 WNL?: yes 3.) OK to proceed? yes A.) Ovulation Induction Medication: letrozle Dose: 5mg Cycle days: 4-9 [address]acy: [facility] Refills: 0 B.) Trigger injection: hCG 10,000 units or Ovidrel 250 mcg Pharmacy: [facility] Refills: 3 D.) USF scheduled- Cycle Day: 14 Date: 07/04 Time: 0830 4.) Routed to pre-cert specialist. BRANDI GLORIA RN 06/24/2020 14:15 documented in this encounter Plan of Treatment Not on file documented as of this encounter Results * US BASKETBALLS AND FOOTBALLS REVERSER EXAM (DINESH ONLY) (07/03/2020 8:51 EST) Anatomical Region Laterality Modality Ultrasound 07/03/2020 8:40 EST Narrative 07/03/2020 9:55 EST Indication IUI cycle #3 CD13, Ltz 5 mg x6 days (since prolonged follicular phase w 5 day course prior). Uterus ======= Uterus: ?Appears normal Uterus position: ?? Retroverted Endometrium: ?? Trilaminar endometrium Endometrial thickness, total ?? 6.9 mm Right Ovary Rt ovary: ??Normal with maturing follicle Rt ovarian follicle(s): ?Follicles identified Findings: ??irregular shape D1 20.8 mm D2 6.5 mm D3 11.7 mm Mean ?? 13.0 mm Vol ?0.828 cm cubed D1 11.2 mm D2 10.6 mm D3 11.3 mm Mean ?? 11.0 mm Vol ?0.700 cm cubed D1 13.3 mm D2 10.6 mm D3 11.4 mm Mean ?? 11.8 mm Vol ?0.841 cm cubed Left Ovary Lt ovary: ??Normal with maturing follicle Lt ovarian follicle(s): ?Follicles identified D1 4.8 mm D2 9.2 mm D3 9.8 mm Mean ?? 7.9 mm Vol ?0.225 cm cubed D1 23.8 mm D2 22.7 mm D3 26.1 mm Mean ?? 24.2 mm Vol ?7.404 cm cubed [place] Appears normal. Free fluid visualized (mild). Method ======== Transvaginal ultrasound examination, probe #7. View: Good view. Impression USF (Follicular) - [id number] Normal retroverted uterus, trilaminar endometrium. Left ovary has a mature follicle, right ovary has a 13 mm irregularly shaped follicle and mild pelvic free fluid suggestive of possibly being in process of ovulating. Follow-up Will have her check OPK today and prog level in lab; if OPK+ will do IUI tomorrow. If prog elevated will recommend TI. If neither test is positive, will trigger tonight for IUI wednesday 07/05. Comment ========= Z31.83 encounter for assisted reproductive fertility procedure cycle. DATE OF SERVICE: 07/03/2020 Procedure Note Sofia Kaufman MD - 07/03/2020 Indication IUI cycle #3 CD13, Ltz 5 mg x6 days (since prolonged follicular phase w 5day course prior). Uterus ======= Uterus: Appears normal Uterus position: Retroverted Endometrium: Trilaminar endometrium Endometrial thickness, total 6.9 mm Right Ovary Rt ovary: Normal with maturing follicle Rt ovarian follicle(s): Follicles identified Findings: irregular shape D1 20.8 mm D2 6.5 mm D3 11.7 mm Mean 13.0 mm Vol 0.828 cm cubed D1 11.2 mm D2 10.6 mm D3 11.3 mm Mean 11.0 mm Vol 0.700 cm cubed D1 13.3 mm D2 10.6 mm D3 11.4 mm Mean 11.8 mm Vol 0.841 cm cubed Left Ovary Lt ovary: Normal with maturing follicle Lt ovarian follicle(s): Follicles identified D1 4.8 mm D2 9.2 mm D3 9.8 mm Mean 7.9 mm Vol 0.225 cm cubed D1 23.8 mm D2 22.7 mm D3 26.1 mm Mean 24.2 mm Vol 7.404 cm cubed [place] Appears normal. Free fluid visualized (mild). Method ======== Transvaginal ultrasound examination, probe #7. View: Good view. Impression USF (Follicular) - [id number] Normal retroverted uterus, trilaminar endometrium. Left ovary has a mature follicle, right ovary has a 13 mm irregularlyshaped follicle and mild pelvic free fluid suggestive of possibly being inprocess of ovulating. Follow-up Will have her check OPK today and prog level in lab; if OPK+ will do IUItomorrow. If prog elevated will recommend TI. If neither test is positive,will trigger tonight for IUI wednesday 07/05. Comment ========= Z31.83 encounter for assisted reproductive fertility procedure cycle. DATE OF SERVICE: 07/03/[address] [facility] OB ORDERABLES Fatimah l Result documented in this encounter Visit Diagnoses Diagnosis Infertility, female- Primary Female infertility of unspecified origin Infertility, female Female infertility of unspecified origin documented in this encounter Discontinued Medications Medication Sig Discontinue Reason Start Date End Da te letrozole (FEMARA) 2.5 mg tablet Take 2 Tabs by mouth daily. Take cycle days 5-9 05/20/2020 06/24/2020 choriogonadotropin yuki (OVIDREL) 250 mcg/0.5 mL injection solution Inject 1 syringe into the skin one time when directed 05/20/2020 06/24/2020 documented as of this encounter Care Teams Mail Manager Relationship Specialty Start Date End Date Alexa Hairston APRN [address] [place] [address] PCP - General 10/26/16 07/11/20 documented as of this encounter
--- OUTSIDE RECORDS SUMMARY | 2024-06-16 16:40 | XMS_ITS | Encounter Summary ---
Author Organization [facility] Address [address] [place] [address] Care Team Providers Care Building Mover Name Role Phone Alexa Hairston APRN Primary Care Provider [phone] Renea Delcid Primary Care Provider [phone] Encounter Details Date Type Department Care Team (Late st Contact Info) Description 06/03/2020 Lab Requisition [facility] Pathology & Laboratory Medicine - [facility] [address] [place] [address] Outr Resulting Lab, Provider Social History Tobacco [...] Comments ZZCOVID-19 TEST [facility] PCR Today 06/03/2020 9:28 EST COVID-19 TESTING Routine 06/03/2020 9:28 EST documented in this encounter Results * COVID-19 TEST [facility] PCR (06/03/2020 9:28 EST) Swab ENTIRE NASOPHARYNX / Unknown 06/03/2020 9:28 EST 06/03/2020 20:33 EST us Provider Outr Resulting Lab MICROBIOLOGY - GENER AL ORDERABLES Final Result Performing Organization Address City/[facility] Co de Phone Number [facility] [address] [place] [address] * COVID-19 TESTING (06/03/2020 9:28 EST) COVID-19 rt-PCR Result Negative Negative 06/04/2020 12:18 EST [facility] Comment: This test has [...] history, and epidemiological information. Performed on the [email or web address] Fusion instrument Performing Lab [place] [facility] 06/04/2020 12:18 EST [facility] Swab 06/03/2020 9:28 EST 06/03/2020 20:33 EST us Provider Outr Resulting Lab MICROBIOLOGY - GENER AL ORDERABLES Final Result Performing Organization Address City/[facility]/ZIP Co de Phone Number [facility] [address] [place] [address] documented in this encounter Visit Diagnoses Not on filedocumented in this encounter Care Teams Building Mover Relationship Specialty Start Date End Date Alexa Hairston APRN [address] [place] [address] PCP - General 10/26/16 07/11/20 Renea Delcid FNP [address] [address] PCP - General 07/12/20 documented as of this encounter
--- OUTSIDE RECORDS SUMMARY | 2024-06-16 16:40 | XMS_ITS | Encounter Summary ---
Author Organization [facility] Address [address] [place] [address] Care Team Providers Care Inside Channel Account Manager Name Role Phone Renea Delcid DIANA Primary Care Provider [phone] Reason for Visit * Reason Comments Infertility Encounter Details Date Type Department Care Team (Late st Contact Info) Description 04/18/2022 8:00 EST Telemedicine [facility] Reproductive Medicine & Infertility Center - [address] [address] Sofia Kaufman MD [address] [place] [address], [address] [place] [address] Encounter for vitamin deficiency screening (Primary Dx); Fertility testing; PCOS (polycystic ovarian syndrome); Diabetes mellitus screening Social History Tobacco Use Types Packs/Day Years [...] on file documented as of this encounter Last Filed Vital Signs Vital Sign Reading Time Taken Comments Blood Pressure - - Pulse - - Temperature - - Respiratory Rate - - Oxygen Saturation - - Inhaled Oxygen Concentration - - Weight 75.8 kg (167 lb) 04/18/2022 0803 EST Height 170.2 cm (5' 7) 04/18/2022 0803 EST Body Mass Index 26.16 04/18/2022 08 EST documented in this encounter Progress Notes * Sofia Kaufman MD - 04/18/2022 0800 EST Images from the original note were not included. [facility] Telehealth visit Chief Complaint Patient presents with ??? Infertility Rita, 31 y.o. is contacted for an (audio-visual) Telehealth visit. Today's visit was provided through telemedicine conferencing: Using [employer] platform. Consent: The concept of telemedicine?? has been described to the patient. Patient has been informed of theanticipated benefits and possible risks. Patient understands the information provided regarding telemedicine, has had the opportunity to ask questions about this information, and all questions have been answered to patient's satisfaction. Patient consents for the use of telemedicine in his/her medical care and authorizes the transmission of any relevant medical information to providers and their staff involved in patient's medical or mental health care. The location of the patient : Home The location of the provider: Office The following staff and their role did participate in today's encounter visit: Sofia Kaufman MD HPI Rita is a 1 yo with lean PCOS, here to discuss starting ovulation induction for third child. Hopes to have one more child. Prior treatment history: In 2016, conceived with letrozole 2.5 mg CD 5-9 and OPK/ TI on third cycle, ended as early SAB. Then conceived again on 2nd or 3rd cycle of letrozole, resulted in at 40w5d 04/08/2018, son Colin. In 2020, tried ~4 cycles ltz/TI conceived with letrozole 5mg x6 days/IUI. Did not have GDM this time. Delivered daughter Giovanna Mar 2021, , still a small amount. Just had IUD removed Apr 14, then had bleeding. She thinks wants to focus on weight loss- this is the heaviest she has been when not . (pre- weight previously was 150 lbs). Component Latest Ref Rng & Units 05/04/2020 Media Lot #, POC [id number] Expiration, POC 05/2021/05/2020 Pre-Wash Volume, POC >= 2 ml 4.5 Pre-Wash Count, POC >=20 million/ml 55 Pre-Wash Motility, POC >= 50% 87 Post-Wash, POC ml 0.5 Post-Wash Count, POC million/ml 193 Post-Wash Motility, POC % 95 Total Motile, POC >= 6 million 91.7 Component Latest Ref Rng & Units 07/05/2020 Media Lot #, POC [id number] Expiration, POC 05/31; 08/01; 01/29 Pre-Wash Volume, POC >= 2 ml 2.7 Pre-Wash Count, POC >=20 million/ml 32 Pre-Wash Motility, POC >= 50% 81 Post-Wash, POC ml 0.5 Post-Wash Count, POC million/ml 62 Post-Wash Motility, POC % 95 Total Motile, POC >= 6 million 29.5 PAST MEDICAL HX: Past Medical History: Diagnosis Date ??? Asthma ??? Diabetes mellitus ([facility]) gestational PAST SURGICAL HX: Past Surgical History: Procedure Laterality Date ??? APPENDECTOMY 09/2018 laparoscopy, not ruptured ??? NECK SURGERY OBSTETRICS HX: OB History Para Term AB Living 2 1 1 1 1 SAB IAB Ectopic Multiple Live Births 0 1 # Outcome Date GA Lbr Brock/2nd Weight Sex Delivery Anes PTL Lv 2 Term 04/08/18 40w5d 3246 g (7 lb 2.5 oz) M LORIN 1 AB 03/14/17 6w5d Comments: SAB FAMILY HX: family history is not on file. SOCIAL HX: reports that she has never smoked. She has never used smokeless tobacco. She reports current alcohol use. She reports that she does not use drugs. MEDICATIONS: Current Outpatient Medications Medication Sig Dispense Refill ??? albuterol 90 mcg/actuation inhaler Inhale 180 mcg as directed every 4 hours. ??? Magnesium 250 mg tablet Take by mouth daily. ??? VIT CALC,IRON,FOLIC ( #2 ORAL) Take by mouth. No current facility-administered medications for this visit. ALLERGIES: Allergies Allergen Reactions ??? Augmentin [Amoxicillin-Pot Clavulanate] Rash 10 Point ROS :Systems reviewed found to be negative except as above. OBJECTIVE: Vitals: 04/18/22 0803 Weight: 75.8 kg (167 lb) Height: 170.2 cm (67) Body mass index is 26.16 kg/m??. General: NAD alert and oriented ??3, answers questions appropriately Assessment/Plan: 31 yo with PCOS, ready to start ovulation induction for third child. - We reviewed her prior fertility treatment as detailed above, and discussed options for assisted reproduction. Plan for letrozole 5 mg CD 5-9, with follicular ultrasound on CD 12 then hCG/IUI or timed intercourse. This would provide up to 18% chance of per cycle at her age, with 5% risk of twins. She has tolerated ltz well in the past. She htinks may try several cycles with TI then addIUI if not successful. - Discussed strategies for weight loss prior to next , to minimize risks of complications such as GDM or blood pressure issues. Can try Noom or other apps that help balance caloricintake with expenditure. - Rec to wean from prior to starting letrozole to optimize response. Will contact her with lab results via [employer] and discuss management as indicated. If A1C borderline elevated, consider metformin to assist her efforts at weight loss. iRta was seen today for infertility. Diagnoses and all orders for this visit: Encounter for vitamin deficiency screening - VITAMIN D (25,OH); Future Fertility testing - THYROID CASCADE; Future PCOS (polycystic ovarian syndrome) - HEMOGLOBIN A1C; Future Diabetes mellitus screening - HEMOGLOBIN A1C; Future I spent a total of 25 minutes on the date of this encounter meeting with the patient and reviewing documentation/coordinating care as described in the above note. No procedures were performed at the time of the visit. Sofia Kaufman MD documented in this encounter Plan of Treatment Not on file documented as of this encounter Visit Diagnoses Diagnosis Encounter for vitamin deficiency screening- Primary Screening for other and unspecified endocrine, nutritional, metabolic, and immunity disorders Fertility testing PCOS (polycystic ovarian syndrome) Polycystic ovaries Diabetes mellitus screening Screening for diabetes mellitus documented in this encounter Discontinued Medications Medication Sig Discontinue Reason Start Date End Da te choriogonadotropin yuki (OVIDREL) 250 mcg/0.5 mL injection solution Inject 250 mcg into the skin once. Use when directed. Therapy completed 06/24/2020 04/18/2022 diphenhydrAMINE (BENADRYL) 50 mg capsule Take 50 mg by mouth every 4 hours. Therapy completed 04/18/2022 oxyCODONE (ROXICODONE) 5 mg immediate release tabletIndications:Pelvic pain affecting in first trimester, antepartum Take 1 Tab by mouth every 4 hours as needed for Pain. Daily Max: 30 mg Therapy completed 08/06/2020 04/18/2022 ondansetron (ZOFRAN-ODT) 4 mg disintegrating tabletIndications:Nausea/ vomiting in Take 1 Tab by mouth daily as needed for Nausea. Patient Stopped Taking 08/06/2020 04/18/2022 documented as of this encounter Care Teams Inside Channel Account Manager Relationship Specialty Start Date End Date Renea Delcid FNP [address] [place] [phone] PCP - General 07/12/20 documented as of this encounter
--- OUTSIDE RECORDS SUMMARY | 2024-06-16 16:40 | XMS_ITS | Encounter Summary ---
Author Organization [facility] Address [address] [place] [address] Care Team Providers Care Orthopaedic Doctor Name Role Phone Renea Delcid Primary Care Provider [phone] Encounter Details Date Type Department Care Team (Latest Contact Info) Description 08/02/2020 Travel Social History Tobacco Use Types Packs/Day Years [...] 4:08 EST documented as of this encounter Plan of Treatment Not on file documented as of this encounter Visit Diagnoses Not on filedocumented in this encounter Care Teams Orthopaedic Doctor Relationship Specialty Start Date End Date Renea Delcid FNP [address] [facility] [address] [place] [address] PCP - General 07/12/20 documented as of this encounter
--- OUTSIDE RECORDS SUMMARY | 2024-06-16 16:40 | XMS_ITS | Encounter Summary ---
Author Organization [facility] Address [address] [place] [address] Care Team Providers Care Patient Centered Care Specialist Name Role Phone Renea Delcid DIANA Primary Care Provider [phone] Encounter Details Date Type Department Care Team (Late st Contact Info) Description 09/22/2022 Lab Requisition [facility] Pathology & Laboratory Medicine - [address] [address] Outr Resulting Lab, Provider Social History Tobacco [...] Procedure Name Priority Date/Time Associated Diagnosis Comments CHLAMYDIA/N. GONORRHOEAE AMPLIFIED NUCLEIC ACID Routine 09/22/2022 9:35 EDT documented in this encounter Results * CHLAMYDIA/N. GONORRHOEAE AMPLIFIED RNA (09/22/2022 9:35 EDT) Neisseria gonorrhoeae Result Negative Negative 09/23/2022 13:47 EDT [facility] Chlamydia trachomatis Result Negative Negative 09/23/2022 13:47 EDT [facility] Swab ENTIRE VAGINA / Unknown 09/22/2022 9:35 EDT 09/22/2022 22:05 EDT us Provider Outr Resulting Lab MICROBIOLOGY - GENER AL ORDERABLES Final Result Performing Organization Address City/State/[facility] Co de Phone Number [facility] [address] [place] [address] documented in this encounter Visit Diagnoses Not on filedocumented in this encounter Care Teams Patient Centered Care Specialist Relationship Specialty Start Date End Date Renea Delcid FNP [address] [phone] PCP - General 07/12/20 documented as of this encounter
--- OUTSIDE RECORDS SUMMARY | 2024-06-16 16:40 | XMS_ITS | Encounter Summary ---
Author Organization [facility] Address [address] [place] [address] Care Team Providers Care Machine Binding Folder Name Role Phone Renea Delcid DIANA Primary Care Provider [phone] Encounter Details Date Type Department Care Team (Late st Contact Info) Description 08/06/2020 Orders Only [facility] Reproductive Medicine & Infertility Center - [address] [address] Bee Camara MD Pelvic pain affecting in first trimester, antepartum (Primary Dx); Nausea/vomiting in Social History Tobacco Use Types Packs/Day Years [...] 4:08 EST documented as of this encounter Ordered Prescriptions Prescription Sig Dispense Quantity Refills Last Filled Start Date End Date ondansetron (ZOFRAN-ODT) 4 mg disintegrating tabletIndications:Na usea/vomiting in Take 1 Tab by mouth daily as needed for Nausea. 30 Tab 1 08/06/2020 2 oxyCODONE (ROXICODONE) 5 mg immediate release tabletIndications:Pe lvic pain affecting in first trimester, antepartum Take 1 Tab by mouth every 4 hours as needed for Pain. Daily Max: 30 mg 10 Tab 08/06/2020 2 documented in this encounter Plan of Treatment Not on file documented as of this encounter Visit Diagnoses Diagnosis Pelvic pain affecting in first trimester, antepartum- Primary Nausea/vomiting in Unspecified vomiting of , unspecified as to episode of care documented in this encounter Care Teams Machine Binding Folder Relationship Specialty Start Date End Date Renea Delcid FNP [address] [place] [address] [address] [place] [phone] PCP - General 07/12/20 documented as of this encounter
--- OUTSIDE RECORDS SUMMARY | 2024-06-16 16:40 | XMS_ITS | Encounter Summary ---
Author Organization [facility] Address [address] [place] [address] Care Team Providers Care Hatchery Worker Name Role Phone Renea Delcid DIANA Primary Care Provider [phone] Encounter Details Date Type Department Care Team (Late st Contact Info) Description 09/22/2022 Lab Requisition [facility] Pathology & Laboratory Medicine - [facility] [address] [place] [address] Outr Resulting Lab, Provider Social History Tobacco [...] 1/2 ANTIGEN AND ANTIBODY, 4TH GENERATION Routine 09/22/2022 10:05 EDT documented in this encounter Results * HIV 1/2 ANTIGEN AND ANTIBODY, 4TH GENERATION (09/22/2022 10:05 EDT) HIV 1 and 2 Antibody/p24 Antigen, 4th Generation Negative Negative 09/25/2022 12:03 EDT [facility] Comment:If acute HIV-1 infec tion is suspected in a high risk patient, submit plasma specimen for HIV-1 RNA quantitation test. Blood VENOUS BLOOD / Unknown 09/22/2022 10:05 EDT 09/22/2022 17:41 EDT Narrative [facility] - 09/25/2022 12:03 EDT Fourth Generation assay performed on the Siemens Decisyonaur XPT. us Provider Outr Resulting Lab IMMUNOLOGY AND SEROL OGY ORDERABLES Final Result [facility] [address] [place] [address] documented in this encounter Visit Diagnoses Not on filedocumented in this encounter Care Teams Hatchery Worker Relationship Specialty Start Date End Date Renea Delcid FNP [address] [facility] [address] [place] [phone] PCP - General 07/12/20 documented as of this encounter
--- OUTSIDE RECORDS SUMMARY | 2024-06-16 16:40 | XMS_ITS | Encounter Summary ---
Author Organization [facility] Address [address] [place] [address] Care Team Providers Care Staff Mine Warfare Officer Name Role Phone Renea Delcid DIANA Primary Care Provider [phone] Encounter Details Date Type Department Care Team (Late st Contact Info) Description 09/24/2020 Lab Requisition [facility] Pathology & Laboratory Medicine - [address] [address] Outr Resulting Lab, Provider Social History Tobacco [...] Comments CHLAMYDIA/N. GONORRHOEAE AMPLIFIED NUCLEIC ACID Routine 09/24/2020 11:35 EDT documented in this encounter Results * CHLAMYDIA/N. GONORRHOEAE AMPLIFIED RNA (09/24/2020 11:35 EDT) Neisseria gonorrhoeae Result Negative Negative 09/27/2020 15:14 EDT [facility] Chlamydia trachomatis Result Negative Negative 09/27/2020 15:14 EDT [facility] Swab ENTIRE ENDOCERVIX / Unknown 09/24/2020 11:35 EDT 09/24/2020 21:55 EDT us Provider Outr Resulting Lab MICROBIOLOGY - GENER AL ORDERABLES Final Result [facility] [address] [place] [address] documented in this encounter Visit Diagnoses Not on filedocumented in this encounter Care Teams Staff Mine Warfare Officer Relationship Specialty Start Date End Date Renea Delcid FNP [address] [phone] PCP - General 07/12/20 documented as of this encounter
--- OUTSIDE RECORDS SUMMARY | 2024-06-16 16:40 | XMS_ITS | Encounter Summary ---
Author Organization [facility] Address [address] [place] [address] Care Team Providers Care Cook Supervisor Name Role Phone Alexa Hairston APRN Primary Care Provider [phone] Reason for Referral * CARBON ACCOUNTANT (Routine) - Specialty Report Received Specialty Diagnoses / Procedures Referred By Contac t Referred To Contact Diagnoses Infertility, female Procedures US ELEVATOR CONSTRUCTOR HYDRAULIC EXAM ([facility] ONLY) Sofia Kaufman MD Phone: tel: fax: Referral ID Status Reason Start Date Expiration Date V isits Requested Visits Authorized [id number] Specialty Report Received 06/24/2020 1 1 Reason for Visit * CARBON ACCOUNTANT (Routine) - Specialty Report Received Specialty Diagnoses / Procedures [facility] Referred To Contact Diagnoses Infertility, female Procedures US ELEVATOR CONSTRUCTOR HYDRAULIC EXAM ([facility] ONLY) Sofia Kaufman MD Phone: tel: fax: Referral ID Status Reason Start Date Expiration Date V isits Requested Visits Authorized [id number] Specialty Report Received 06/24/2020 1 1 Encounter Details Date Type Department Care Team (Latest Contact Info) Description 07/03/2020 8:29 EST - 07/03/2020 23:59 EST Hospital Encounter [facility] OBGYN Services - Main [place] [address] [place] [address] Infertility, female Discharge Disposition: Home or Self Care Social [...] 8:58 EST documented as of this encounter Medications at Time of Discharge albuterol 90 mcg/actuation inhaler Inhale 180 mcg as directed every 4 hours. Magnesium 250 mg tablet Take by mouth daily. VIT CALC,IRON,FOLIC ( #2 ORAL) Take by mouth. choriogonadotrop in yuki (OVIDREL) 250 mcg/0.5 mL injection solution Inject 250 mcg into the skin once. Use when directed. 1 Syringe 3 06/24/2020 04/18/2022 documented as of this encounter Discharge Disposition Disposition Code Departure Means Destination Home or Self Care documented in this encounter Plan of Treatment Not on file documented as of this encounter Procedures Procedure Name Priority Date/Time Associated Diagnosis Comments US ELEVATOR CONSTRUCTOR HYDRAULIC EXAM ([facility] ONLY) Routine 07/03/2020 8:51 EST Infertility, female documented in this encounter Results * US ELEVATOR CONSTRUCTOR HYDRAULIC EXAM ([facility] ONLY) (07/03/2020 8:51 EST) Anatomical [...] View: Good view. Impression USF (Follicular) - [id number] Normal retroverted uterus, trilaminar endometrium. Left ovary [...] View: Good view. Impression USF (Follicular) - [id number] Normal retroverted uterus, trilaminar endometrium. Left ovary [...] DATE OF SERVICE: 07/03/2020 Sofia Kaufman MD IMG OB ORDERABLES Fatimah l Result documented in this encounter Visit Diagnoses Diagnosis Infertility, female Female infertility of unspecified origin documented in this encounter Care Teams Cook Supervisor Relationship Specialty Start Date End Date Alexa Hairston APRN [address] [place] [address] PCP - General 10/26/16 07/11/20 documented as of this encounter
--- OUTSIDE RECORDS SUMMARY | 2024-06-16 16:40 | XMS_ITS | Encounter Summary ---
Author Organization [facility] Address [address] [place] [address] Care Team Providers Care Lock Technician Name Role Phone Renea Delcid DIANA Primary Care Provider [phone] Encounter Details Date Type Department Care Team (Late st Contact Info) Description 10/31/2021 Lab Requisition [facility] Pathology & Laboratory Medicine - [address] [address] Outr Resulting Lab, Provider Social History Tobacco [...] Comments ZZCOVID-19 TEST [facility] PCR Today 10/31/2021 9:20 EDT COVID-19 TESTING Routine 10/31/2021 9:20 EDT documented in this encounter Results * COVID-19 TEST [facility] PCR (10/31/2021 9:20 EDT) Swab 10/31/2021 9:20 EDT 10/31/2021 21:37 EDT us Provider Outr Resulting Lab MICROBIOLOGY - GENER AL ORDERABLES Final Result Performing Organization Address [facility] Co de Phone Number [facility] [address] [place] [address] * COVID-19 TESTING (10/31/2021 9:20 EDT) COVID-19 rt-PCR Result Negative Negative 11/01/2021 0:56 EDT [facility] Comment: This test has not [...] history, and epidemiological information. Performed on the [employer] Fusion instrument Performing Lab [place] [facility] 11/01/2021 0:56 EDT [facility] Swab 10/31/2021 9:20 EDT 10/31/2021 21:37 EDT us Provider Outr Resulting Lab MICROBIOLOGY - GENER AL ORDERABLES Final Result Performing Organization Address City/[facility] Co de Phone Number [facility] [address] [place] [address] documented in this encounter Visit Diagnoses Not on filedocumented in this encounter Care Teams Lock Technician Relationship Specialty Start Date End Date Renea Delcid FNP [address] [place] [address] [place] [phone] PCP - General 07/12/20 documented as of this encounter
--- OUTSIDE RECORDS SUMMARY | 2024-06-16 16:40 | XMS_ITS | Referral Summary ---
Author Organization [facility] Address [address] [place] [address] Care Team Providers Care Registered Nurse Cardiac Name Role Phone Renea Delcid DIANA Primary Care Provider [phone] Allergies Active Allergy Reactions Criticality Noted Date Comments Amoxicillin-Pot Clavulanate Rash 09/11/19 11 Medications albuterol 90 mcg/actuation inhaler Inhale 180 mcg as directed every 4 hours. Active VIT CALC,IRON,FOLIC ( #2 ORAL) Take by mouth. Active Magnesium 250 mg tablet Take by mouth daily. Active Active Problems Patient Care Coordination No te Formatting of this note migh t be different from the original. Referred by Karey Problem Noted Date Diagnosed Date PCOS (polycystic ovarian syndrome) 10/27/2016 Resolved Problems Problem Noted Date Diagnosed Date Resolved Date Supervision of normal 04/07/2018 11/13/2019 Gestational diabetes mellitu s (GDM) in third trimester 01/28/2018 04/18/2022 Overview (01/28/2018): Elevated 1 hr GTT 168 3 hr GTT of 86/201/162/132 Seen at 30w5d, FH of 30cm Miscarriage 05/11/2017 04/18/2022 Early stage of 02/28/201706/2016 Overview (02/28/2017): Clinical Group: [facility] (eg. COGS, ED patient, UOM, MFM, [facility]) HPI: Eboni Flynn is an 26 y.o. No obstetric history on file., G1 LMP: 01/31/17 Rh status: Rhogam? Desired ? Y/N Ectopic risk factors: infertility HCGs No results found for requested labs within last 1440 hours. Plan: BHCG x 2 02/28/17- pending (eg. Repeat HCG in 48hrs, if >1500, obtain pelvic US.) Social History Tobacco Use Types Packs/Day Years Used Date Smoking Tobacco: Never Smokeless Tobacco: Never Tobacco Cessation:Counseling Given: No Alcohol Use Standard Drinks/Week Comments Yes 0 [...] 18:49 EDT Sexual Orientation Not on file Last Filed Vital Signs Vital Sign Reading Time Taken Comments Blood Pressure 108/64 08/02/2020 0943 EST Pulse 76 08/02/2020 0943 EST Temperature 36.5 ??C (97.7 ??F) 08/02/2020 0943 EST Respiratory Rate 14 08/02/2020 0943 EST Oxygen Saturation 100% 08/02/2020 0943 EST Inhaled Oxygen Concentration - - Weight 75.8 kg (167 lb) 04/18/2022 0803 EST Height 170.2 cm (5' 7) 04/18/2022 0803 EST Body Mass Index 26.16 04/18/2022 0803 EST Plan of Treatment Not on file Procedures Procedure Name Priority Date/Time Associated Diagnosis Comments HEPATITIS C AB W REFLEX TO HCV RNA BY PCR Routine 09/22/2022 10:05 EDT from Last 3 Months or Most Recently Relevant to Health Maintenance Results * HEPATITIS C AB W REFLEX TO HCV RNA BY PCR (09/22/2022 10:05 EDT) Hep C Antibody Negative Negative 09/25/2022 11:48 EDT [facility] Blood VENOUS BLOOD / Unknown 09/22/2022 10:05 EDT 09/22/2022 17:41 EDT us Provider Outr Resulting Lab CHEMISTRY & BLOOD GA S ORDERABLES Final Result [facility] [address] [place] [address] from Last 3 Months or Most Recently Relevant to Health Maintenance Insurance Advance Directives For more information, please contact: [phone] * Full Code (Latest Code Status on File) Date Activated Date Inactivated Comments 04/08/2018 4:28 04/10/2018 18:35 Question Answer Comments Reason for decision includes: Full code consistent with overall plan of care Who participated in the discussion? Not Discusse d * Full Code Date Activated Date Inactivated Comments 04/07/2018 12:33 04/08/2018 4:28 Question Answer Comments Reason for decision includes: Full code consistent with overall plan of care Who participated in the discussion? Not Discusse d * Full Code Date Activated Date Inactivated Comments 04/07/2018 11:45 04/07/2018 12:33 Question Answer Comments Reason for decision includes: Full code consistent with overall plan of care Who participated in the discussion? Not Discusse d Care Teams Registered Nurse Cardiac Relationship Specialty Start Date End Date Renea Delcid FNP [address] [place] [address] [address] [place] [address] PCP - General 07/12/20
--- OUTSIDE RECORDS SUMMARY | 2024-06-16 16:40 | XMS_ITS | Encounter Summary ---
Author Organization [facility] Address [address] [place] [address] Care Team Providers Care Camp Tender Name Role Phone Alexa Hairston APRN Primary Care Provider [phone] Encounter Details Date Type Department Care Team (Latest Contact Info) Description 07/05/2020 10:00 EST - 07/05/2020 23:59 EST Hospital Encounter [facility] - [address] [address] Lab, E&I Infertility, female; Encounter for artificial insemination Discharge Disposition: Home or Self Care Social [...] or Self Care documented in this encounter Progress Notes * Dinora Whitaker RN - 07/05/2020 1000 EST Patient and partner here today for insemination #2. Consent signed by patient, IUI sample identified by patient, and Final Verification performed with patient prior to insemination. All patient's questions were discussed and answered. Patient was placed in dorsal lithotomy position and speculum was inserted into vagina. Cervical os was visualized and prepared sample was inserted into uterus. Insemination was performed without difficulty. Patient tolerated procedure well. One attempt(s) was made to pass catheter and a small amount of bleeding occurred during insemination. Anticipated date of test is 07/19/20. Patient was educated prior to leaving office today on the following points: 1. Patient counseled to use tylenol (not ibuprofen) for pain if needed until results of test are known. 2. Patient was advised to call office if she develops fever, chills, pelvic pain, or heavy bleeding. 3. Patient will call office if she does not start her menses in two weeks from today for test. If menses begins, patient was advised to call office to report and to proceed with another cycle if appropriate. Patient verbalized understanding of plan. I was supervised by Dr Sofia Kaufman who was present and immediately available in the office suite. DINORA WHITAKER RN 07/05/2020 11:55 documented in this encounter Miscellaneous Notes * Addendum Note - Tash Ardon - 07/05/2020 1000 Anyounter addended by: Tash Ardon on: 07/06/2020 10:14 Actions taken: Charge Capture section accepted documented in this encounter Plan of Treatment Not on file documented as of this encounter Procedures Procedure Name Priority Date/Time Associated Diagnosis Comments POCT SPERM WASHING ARTIFICIAL INSEMINATION Routine 07/05/2020 10:30 EST Encounter for artificial insemination documented in this encounter Results * POCT SPERM WASHING ARTIFICIAL INSEMINATION (07/05/2020 10:30 EST) Media Lot #, POC [id number]; [id number]; [id number] [facility] POINT OF CARE Expiration, POC 05/31; 08/01; 01/29 [facility] POINT OF CARE Pre-Wash Volume, POC [...] OF CARE TEST ORDERAB LES Final Result [facility] POINT OF CARE documented in this encounter Visit Diagnoses Diagnosis Infertility, female Female infertility of unspecified origin Encounter for artificial insemination Artificial insemination documented in this encounter Care Teams Camp Tender Relationship Specialty Start Date End Date Alexa Hairston APRN [address] [place] [address] PCP - General 10/26/16 07/11/20 documented as of this encounter
--- OUTSIDE RECORDS SUMMARY | 2024-06-16 16:40 | XMS_ITS | Encounter Summary ---
Author Organization [facility] Address [address] [place] [address] Care Team Providers Care Enroute Controller Name Role Phone Renea Delcid DIANA Primary Care Provider [phone] Encounter Details Date Type Department Care Team (Late st Contact Info) Description 09/24/2020 Lab Requisition [facility] Pathology & Laboratory Medicine - [address] [address] Outr Resulting Lab, Provider Social History Tobacco [...] Procedure Name Priority Date/Time Associated Diagnosis Comments RUBELLA IGG ANTIBODY Routine 09/24/2020 12:30 EDT VARICELLA IGG ANTIBODY Routine 09/24/2020 12:30 EDT documented in this encounter Results * VARICELLA IGG ANTIBODY (09/24/2020 12:30 EDT) Varicella IgG Ab Positive See Note 09/27/2020 11:05 EDT [facility] Comment:Presence of detectab le Varicella Zoster virus IgG antibodies. Blood VENOUS BLOOD / Unknown 09/24/2020 12:30 EDT 09/24/2020 21:06 EDT us Provider Outr Resulting Lab IMMUNOLOGY AND SEROL OGY ORDERABLES Final Result Performing Organization Address City/[facility] Co de Phone Number [facility] [address] [place] [address] * RUBELLA IGG ANTIBODY (09/24/2020 12:30 EDT) Rubella IgG Ab Positive See Note 09/27/2020 11:10 EDT [facility] Comment:Positive for IgG ant ibodies to Rubella virus. Blood VENOUS BLOOD / Unknown 09/24/2020 12:30 EDT 09/24/2020 21:06 EDT us Provider Outr Resulting Lab CHEMISTRY & BLOOD GA S ORDERABLES Final Result Performing Organization Address [facility] de Phone Number [facility] [address] [place] [address] documented in this encounter Visit Diagnoses Not on filedocumented in this encounter Care Teams Enroute Controller Relationship Specialty Start Date End Date Renea Delcid FNP [address] [place] [address] [address] [place] [id number] PCP - General 07/12/20 documented as of this encounter
--- OUTSIDE RECORDS SUMMARY | 2024-06-16 16:40 | XMS_ITS | Encounter Summary ---
Author Organization [facility] Address [address] [place] [address] Care Team Providers Care Gelatin Maker Utility Name Role Phone Alexa Hairston APRN Primary Care Provider [phone] Encounter Details Date Type Department Care Team (Latest Contact Info) Description 07/03/2020 Travel Social History Tobacco Use Types Packs/Day [...] on filedocumented in this encounter Care Teams Gelatin Maker Utility Relationship Specialty Start Date End Date Alexa Hairston APRN [address] [place] [address] PCP - General 10/26/16 07/11/20 documented as of this encounter
--- OUTSIDE RECORDS SUMMARY | 2024-06-16 16:40 | XMS_ITS | Clinical Summary ---
Author Organization [facility] Address [address] [place] [address] Care Team Providers Care Director Consumer Name Role Phone Renea Delcid DIANA Primary Care Provider Allergies Active Allergy Reactions Criticality Noted Date [...] in 48hrs, if >1500, obtain pelvic US.) Surgical History Surgery Date Site/Laterality Comments NECK SURGERY APPENDECTOMY 09/09/2018 - 10/08/2018 laparoscopy, not ruptured Medical History Medical History Date Comments Asthma Diabetes mellitus ([facility]) gest ational Social History Tobacco Use Types Packs/Day Years [...] 18:49 EDT Sexual Orientation Not on file Obstetrics History Para Term AB IAB SAB Ectopic Multiple Livin g Live Births 3 2 2 1 0 2 2 Date Outcome GA Total Labor Labor/2nd/3rd Weight Sex Type Anes PTL Kalie A1 A5 Name Clin 017 AB 6w5 d Comments:SAB 018 Term 40w 5d 0h 04m 0h 04m 3246 g (7 lb 2.5 oz) M Living 5 7 NATHAN LUKE,N Joie Ludwig S, HOTEL [employer] SUPER[employer]OR Delivery Location:[facility] 021 Term 38w 0d 2948 g (6 lb 8 oz) F Vag-S pont N Living Last Filed Vital Signs Vital Sign Reading [...] 26.16 04/18/2022 0803 EST Plan of Treatment Health Maintenance Due Date Last Done Comments Hepatitis B Vaccine (1 of 3 - 19+ 3-dose series) 12/17/2007 COVID-19 Vaccine ( season) 2024 Hepatitis C Screen Completed 09/22/2022, 09/24/2020 Procedures Procedure Name Priority Date/Time Associated Diagnosis Comments HEPATITIS C AB W REFLEX TO HCV RNA BY PCR Routine 09/22/2022 10:05 EDT from Last 3 Months or Most Recently Relevant to Health Maintenance Results * HEPATITIS C AB W REFLEX TO HCV RNA BY PCR (09/22/2022 10:05 EDT) Hep C Antibody Negative Negative 09/25/2022 11:48 EDT [facility] Blood VENOUS BLOOD / Unknown 09/22/2022 10:05 EDT 09/22/2022 17:41 EDT us Provider Outr Resulting Lab CHEMISTRY & BLOOD GA S ORDERABLES Final Result [facility] [address] [place] [address] from Last 3 Months or Most Recently Relevant to Health Maintenance Insurance Advance Directives For more information, please contact: [phone] * Full Code (Latest Code Status on [...] the discussion? Not Discusse d Care Teams Director Consumer Relationship Specialty Start Date End Date Renea Delcid FNP [address] [place] [phone] PCP - General 07/12/20
--- OUTSIDE RECORDS SUMMARY | 2024-06-16 16:40 | XMS_ITS | Encounter Summary ---
Author Organization [facility] Address [address] [place] [address] Care Team Providers Care Memorandum Statement Clerk Name Role Phone Renea Delcid DIANA Primary Care Provider [phone] Encounter Details Date Type Department Care Team (Late st Contact Info) Description 10/14/2021 Lab Requisition [facility] Pathology & Laboratory Medicine - [address] [address] Outr Resulting Lab, Provider Social History Tobacco [...] Comments ZZCOVID-19 TEST [facility] PCR Today 10/14/2021 9:00 EDT COVID-19 TESTING Routine 10/14/2021 9:00 EDT documented in this encounter Results * COVID-19 TEST [facility] PCR (10/14/2021 9:00 EDT) Swab 10/14/2021 9:00 EDT 10/14/2021 16:33 EDT us Provider Outr Resulting Lab MICROBIOLOGY - GENER AL ORDERABLES Final Result Performing Organization Address [facility] Co de Phone Number [facility] [address] [place] [address] * COVID-19 TESTING (10/14/2021 9:00 EDT) COVID-19 rt-PCR Result Negative Negative 10/15/2021 0:01 EDT [facility] Comment: This test has [...] history, and epidemiological information. Performed on the CellEraher Fusion instrument Performing Lab [place] [facility] 10/15/2021 0:01 EDT [facility] Swab 10/14/2021 9:00 EDT 10/14/2021 16:33 EDT us Provider Outr Resulting Lab MICROBIOLOGY - GENER AL ORDERABLES Final Result Performing Organization Address City/[facility] Co de Phone Number [facility] [address] [place] [address] documented in this encounter Visit Diagnoses Not on filedocumented in this encounter Care Teams Memorandum Statement Clerk Relationship Specialty Start Date End Date Renea Delcid FNP [address] [place] [address] [place] [phone] PCP - General 07/12/20 documented as of this encounter
--- OUTSIDE RECORDS SUMMARY | 2024-06-16 16:40 | XMS_ITS | Encounter Summary ---
Author Organization [facility] Address [address] [place] [address] Care Team Providers Care Clinical Associate Name Role Phone Alexa Hairston APRN Primary Care Provider [phone] Reason for Referral * [employer] (Routine) - Specialty Report Received Specialty Diagnoses / Procedures [facility] To Contact Diagnoses Infertility, anovulation Procedures US FOLLICULAR ([facility] ONLY) Sofia Kaufman MD Phone: tel: fax: Referral ID Status Reason Start Date Expiration Date V isits Requested Visits Authorized [id number] Specialty Report Received 05/29/2020 1 1 Reason for Visit * [employer] (Routine) - Specialty Report Received Specialty Diagnoses / Procedures [facility] Referred To Contact Diagnoses Infertility, anovulation Procedures US FOLLICULAR ([facility] ONLY) Sofia Kaufman MD Phone: tel: fax: Referral ID Status Reason Start Date Expiration Date V isits Requested Visits Authorized [id number] Specialty Report Received 05/29/2020 1 1 Encounter Details Date Type Department Care Team (Latest Contact Info) Description 05/31/2020 8:28 EST - 05/31/2020 23:59 EST Hospital Encounter [facility] OBGYN Services - Main [place] [address] [place], [place] [id number] Infertility, anovulation Discharge Disposition: Home or Self Care [...] Diagnosis Comments US FOLLICULAR ([facility] ONLY) Routine 05/31/2020 8:37 EST Infertility, anovulation documented in this encounter Results * [...] fluid visualized (mild). Impression USF (Follicular) - 49421 1. Mild free fluid in pelvis. 2. Maturing folliculogenesis on right ovary. 3. Thin, trilaminar endometrium. Follow-up No follicle growth since 2 days ago. Repeat scan in 2 days. Comment ========= N97.0 female infertility, anovulation. Ultrasound findings discussed w/patient. DATE OF SERVICE: 05/31/2020 Procedure Note Sofia Kaufman MD - 11/18/2020 Indication Cycle day 14 [...] fluid visualized (mild). Impression USF (Follicular) - 15865 1. Mild free fluid in pelvis. 2. Maturing folliculogenesis on right ovary. 3. Thin, trilaminar endometrium. Follow-up No follicle growth since 2 days ago. Repeat scan in 2 days. Comment ========= N97.0 female infertility, anovulation. Ultrasound findings discussedw/patient. DATE OF SERVICE: 05/31/2020 us Sofia Kaufman MD [facility] US OB ORDERABLES Fatimah domenico Result documented in this encounter Visit Diagnoses Diagnosis Infertility, anovulation Female infertility associated with anovulation documented in this encounter Care Teams Clinical Associate Relationship Specialty Start Date End Date Alexa Hairston APRN [address] [place] [address] PCP - General 10/26/16 07/11/20 documented as of this encounter
--- OUTSIDE RECORDS SUMMARY | 2024-06-16 16:41 | XMS_ITS | Encounter Summary ---
Author Organization [facility] Address [address] [place] [address] Care Team Providers Care Chief Program Officer Name Role Phone Alexa Hairston APRN Primary Care Provider [phone] Reason for Visit * Reason Onset Date Comments Coordination Of Care 11/20/2019 Encounter Details Date Type Department Care Team (Late st Contact Info) Description 11/20/2019 Telephone [facility] - [address] [address] Dinora Whitaker, RN Coordination Of Care Social History Tobacco Use Types Packs/Day Years Used Date Smoking Tobacco: Never Smokeless Tobacco: Never Alcohol Use Standard Drinks/Week Comments Yes 0 (1 standard drink = 0.6 oz pur e alcohol) . not while Comments No Sex and Gender Information Value Date Recorded Sex Assigned at Not on file Legal Sex Female 18:27 EST Gender Identity Female 11/12/2019 18:49 EDT Sexual Orientation Not on file COVID-19 Exposure Response Date Recorded In the last month, have you been in contact with someone who was confirmed or suspected to have Coronavirus / COVID-19? Unable to assess 11/13/2019 7:40 EDT documented as of this encounter Ordered Prescriptions Prescription Sig Dispense Quantity Refills Last Filled Start Date End Date letrozole (FEMARA) 2.5 mg tablet Take 1 Tab by mouth daily. 5 Tab 11/21/2019 12/25/2019 documented in this encounter Miscellaneous Notes * Telephone Encounter - Dinora Whitaker RN - 11/25/2019 1246 EDT Call to pt to advise her of immune status to Rubella. Component Latest Ref Rng & Units 11/21/2019 Rubells IgG Ab See Note Positive No further questions at this time. * Addendum Note - Dinora Whitaker RN - 11/21/2019 1439 EDTAddended by: DINORA WHITAKER on: 11/21/2019 14:39 Modules accepted: Orders * Telephone Encounter - Dinora Whitaker RN - 11/21/2019 1431 EDT .OPK and Timed Rotan Cycle Cycle number: 1 Plan: ltz2.5mg CD#5-9/TI 1.) Call from patient- Date: 11/21/2019 Time: 14:31 2.) Last Menstrual Period: 11/20/19 WNL?: yes Does pt need HCG/P4 drawn prior to starting medication: yes UPT prior to medication: no If pt is using home UPT to r/o : Pt will call to notify us of +UPT; ok to start medicationif -UPT. Pt verbalized understanding. Labs ordered: yes Faxed to outside lab: yes Faxed to: [facility], hCG <1 Mid-Luteal Progesterone needed this cycle: yes Date needed: 12/09 3.) OK to proceed? yes Is pt using Ovulation Induction medication: yes A.) Ovulation Induction Medication: letrozole Dose: 2.5mg Cycle days: 5-9 Pharmacy: [facility] Refills:0 Advised pt that Rubella lab is not done yet, per Dr. Kaufman is ok to start LTZ if she is ok with chance that she is not immune to Rubella. Pt verbalized understanding. She will call back on CD#9 to see if Rubella lab is back yet. Pt verbalized understanding of when to start timed intercourse (every other day starting CD#10- CD#21). Will call pt with CD#21 P4 results. DINORA WHITAKER RN 11/21/2019 14:31 * Telephone Encounter - Dinora Whitaker RN - 11/20/2019 1012 EDT Call from Rita to report CD#2 today. Calling to request hCG for LTZ/TI start. Rubella was not run at [facility] so Rubella and hCG ordered and faxed. Pt will go to lab today or tomorrow. documented in this encounter Plan of Treatment Not on file documented as of this encounter Visit Diagnoses Diagnosis examination or test, unconfirmed- Primary Infertility, female Female infertility of unspecified origin documented in this encounter Care Teams Chief Program Officer Relationship Specialty Start Date End Date Alexa Hairston APRN [address] [place] [address] PCP - General 10/26/16 07/11/20 documented as of this encounter
--- OUTSIDE RECORDS SUMMARY | 2024-06-16 16:41 | XMS_ITS | Encounter Summary ---
Author Organization [facility] Address [address] [place] [address] Care Team Providers Care Needle Punch Operator Name Role Phone Alexa Hairston APRN Primary Care Provider [phone] Renea Delcid Primary Care Provider [phone] Encounter Details Date Type Department Care Team (Late st Contact Info) Description 01/30/2020 Lab Requisition [facility] Pathology & Laboratory Medicine - [facility] [address] [place], [place] [address] Outr Resulting Lab, Provider Social History Tobacco [...] Date/Time Associated Diagnosis Comments HOLD SST Today 01/30/2020 15:15 EDT PROGESTERONE Today 01/30/2020 15:15 EDT ESTRADIOL, ADULTS Today 01/30/2020 15: 15 EDT documented in this encounter Results * HOLD SST (01/30/2020 15:15 EDT) Hold Hold 01/30/2020 22:01 EDT [facility] Blood VENOUS BLOOD / Unknown 01/30/2020 15:15 EDT 01/30/2020 20:51 EDT us Provider Outr Resulting Lab LAB INFO SERVICE AND SUPPORT & PHONE RESULT Final Result [facility] [address] [place] [address] * PROGESTERONE (01/30/2020 15:15 EDT) Progesterone 0.6 See Table ng/mL 01/30/2020 21:33 EDT [facility] Comment: Female Reference Ranges: [...] been established. Blood VENOUS BLOOD / Unknown 01/30/2020 15:15 EDT 01/30/2020 20:51 EDT Provider Outr Resulting Lab CHEMISTRY & BLOOD GA S ORDERABLES Final Result Performing Organization Address [facility] de Phone Number [facility] [address] [place] [address] * ESTRADIOL, ADULTS (01/30/2020 15:15 EDT) Estradiol 101 See Note pg/mL 01/30/2020 21:33 EDT [facility] Comment: NOTE: FEMALE REFERENCE RANGES: MENSTRUATING ? By cycle day relative to LH peak Follicular ?(-12 to -4 days) ??20-144 pg/mL Midcycle ?(-3 to +2 days) ?? 64-357 pg/mL Luteal ?(+4 t0 +12 days) ??56-214 pg/mL POSTMENOPAUSAL ?<33 pg/mL *Cross reactivity with Fulvestrant could lead to a falsely elevated estradiol result in patients treated with this drug. Blood VENOUS BLOOD / Unknown 01/30/2020 15:15 EDT 01/30/2020 20:51 EDT Provider Outr Resulting Lab CHEMISTRY & BLOOD GA S ORDERABLES Final Result Performing Organization Address [facility] de Phone Number [facility] [address] [place] [address] documented in this encounter Visit Diagnoses Not on filedocumented in this encounter Care Teams Needle Punch Operator Relationship Specialty Start Date End Date Alexa Hairston APRN [address] [place] [address] PCP - General 10/26/16 07/11/20 Renea Delcid FNP [address] [facility] [address] [place] [address] PCP - General 07/12/20 documented as of this encounter
--- OUTSIDE RECORDS SUMMARY | 2024-06-16 16:41 | XMS_ITS | Encounter Summary ---
Author Organization [facility] Address [address] [place] [address] Care Team Providers Care Window Glazier Name Role Phone Alexa Hairston APRN Primary Care Provider [phone] Renea Delcid Primary Care Provider [phone] Encounter Details Date Type Department Care Team (Late st Contact Info) Description 02/19/2020 Lab Requisition [facility] Pathology & Laboratory Medicine - [facility] [address] [place], [place] [address] Outr Resulting Lab, Provider Social History Tobacco [...] Priority Date/Time Associated Diagnosis Comments PROGESTERONE Routine 02/19/2020 7:15 EDT documented in this encounter Results * PROGESTERONE (02/19/2020 7:15 EDT) Progesterone 0.6 See Table ng/mL 02/19/2020 18:02 EDT [facility] Comment: Female Reference Ranges: [...] been established. Blood VENOUS BLOOD / Unknown 02/19/2020 7:15 EDT 02/19/2020 17:02 EDT us Provider Outr Resulting Lab CHEMISTRY & BLOOD GA S ORDERABLES Final Result [facility] [address] [place] [address] documented in this encounter Visit Diagnoses Not on filedocumented in this encounter Care Teams Window Glazier Relationship Specialty Start Date End Date Alexa Hairston APRN [address] [place], [place] [id number] PCP - General 10/26/16 07/11/20 Renea Delcid FNP [address] [phone] PCP - General 07/12/20 documented as of this encounter
--- OUTSIDE RECORDS SUMMARY | 2024-06-16 16:41 | XMS_ITS | Encounter Summary ---
Author Organization [facility] Address [address] [place] [address] Care Team Providers Care Body Builder Name Role Phone Alexa Hairston APRN Primary Care Provider [phone] Renea Delcid Primary Care Provider [phone] Encounter Details Date Type Department Care Team (Late st Contact Info) Description 03/10/2020 Lab Requisition [facility] Pathology & Laboratory Medicine - [facility] [address] [place], [place] [address] Outr Resulting Lab, Provider Social History Tobacco [...] Priority Date/Time Associated Diagnosis Comments PROGESTERONE Routine 03/10/2020 7:45 EDT documented in this encounter Results * PROGESTERONE (03/10/2020 7:45 EDT) Progesterone 17.6 See Table ng/mL 03/10/2020 17:27 EDT [facility] Comment: Female Reference Ranges: [...] been established. Blood VENOUS BLOOD / Unknown 03/10/2020 7:45 EDT 03/10/2020 16:48 EDT us Provider Outr Resulting Lab CHEMISTRY & BLOOD GA S ORDERABLES Final Result [facility] [address] [place] [address] documented in this encounter Visit Diagnoses Not on filedocumented in this encounter Care Teams Body Builder Relationship Specialty Start Date End Date Alexa Hairston APRN [address] [place], [place] [id number] PCP - General 10/26/16 07/11/20 Renea Delcid FNP [address] [phone] PCP - General 07/12/20 documented as of this encounter
--- OUTSIDE RECORDS SUMMARY | 2024-06-16 16:41 | XMS_ITS | Encounter Summary ---
Author Organization [facility] Address [address] [place] [address] Care Team Providers Care Project Program Manager Name Role Phone Alexa Hairston APRN Primary Care Provider [phone] Encounter Details Date Type Department Care Team (Latest Contact Info) Description 11/13/2019 Travel Social History Tobacco Use Types Packs/Day [...] 7:40 EDT documented as of this encounter Plan of Treatment Not on file documented as of this encounter Visit Diagnoses Not on filedocumented in this encounter Care Teams Project Program Manager Relationship Specialty Start Date End Date Alexa Hairston APRN [address] [place] [address] PCP - General 10/26/16 07/11/20 documented as of this encounter
--- OUTSIDE RECORDS SUMMARY | 2024-06-16 16:41 | XMS_ITS | Encounter Summary ---
Author Organization [facility] Address [address] [place] [address] Care Team Providers Care Chiller Tender Name Role Phone Alexa Hairston APRN Primary Care Provider [phone] Renea Delcid Primary Care Provider [phone] Encounter Details Date Type Department Care Team (Late st Contact Info) Description 11/17/2019 Lab Requisition [facility] Pathology & Laboratory Medicine - [place] [address] [place] [address] Outr Resulting Lab, Provider Social History Tobacco [...] Date/Time Associated Diagnosis Comments HOLD SST Today 11/17/2019 9:40 EDT HOLD SST Today 11/17/2019 9:40 EDT MEASLES IGG AB Today 11/17/2019 9:40 EDT PROGESTERONE Today 11/17/2019 9:40 EDT VARICELLA IGG ANTIBODY Today 11/17/2019 9:40 EDT documented in this encounter Results * HOLD SST (11/17/2019 9:40 EDT) Hold Hold 11/17/2019 17:01 EDT [facility] Blood VENOUS BLOOD / Unknown 11/17/2019 9:40 EDT 11/17/2019 15:47 EDT us Provider Outr Resulting Lab LAB INFO SERVICE AND SUPPORT & PHONE RESULT Final Result Performing Organization Address [facility]/ZIP Co de Phone Number [facility] [address] [place] [address] * HOLD SST (11/17/2019 9:40 EDT) Hold Hold 11/17/2019 17:01 EDT [facility] Blood VENOUS BLOOD / Unknown 11/17/2019 9:40 EDT 11/17/2019 15:47 EDT us Provider Outr Resulting Lab LAB INFO SERVICE AND SUPPORT & PHONE RESULT Final Result Performing Organization Address [facility]/ZIP Co de Phone Number [facility] [address] [place] [address] * MEASLES IGG AB (11/17/2019 9:40 EDT) Measles IgG Ab Positive See Note 11/18/2019 10:56 EDT [facility] Comment:Presence of detectab le measles virus IgG antibodies. Blood VENOUS BLOOD / Unknown 11/17/2019 9:40 EDT 11/17/2019 15:47 EDT us Provider Outr Resulting Lab IMMUNOLOGY AND SEROL OGY ORDERABLES Final Result [facility] [address] [place] [address] * VARICELLA IGG ANTIBODY (11/17/2019 9:40 EDT) [facility] Varicella IgG Ab Positive See Note 11/18/2019 10:56 EDT [facility] Comment:Presence of detectab le Varicella Zoster virus IgG antibodies. Blood VENOUS BLOOD / Unknown 11/17/2019 9:40 EDT 11/17/2019 15:47 EDT us Provider Outr Resulting Lab IMMUNOLOGY AND SEROL OGY ORDERABLES Final Result [facility] [address] [place] [address] * PROGESTERONE (11/17/2019 9:40 EDT) [facility] Progesterone 2.5 See Table ng/mL 11/17/2019 16:45 EDT [facility] Comment: Female Reference Ranges: [...] been established. Blood VENOUS BLOOD / Unknown 11/17/2019 9:40 EDT 11/17/2019 15:47 EDT us Provider Outr Resulting Lab CHEMISTRY & BLOOD GA S ORDERABLES Final Result [facility] [address] [place] [address] documented in this encounter Visit Diagnoses Not on filedocumented in this encounter Care Teams Chiller Tender Relationship Specialty Start Date End Date Alexa Hairston APRN [address] [place] [address] PCP - General 10/26/16 07/11/20 Renea Delcid FNP [address] [place] [address] [address] [place] [address] PCP - General 07/12/20 documented as of this encounter
--- OUTSIDE RECORDS SUMMARY | 2024-06-16 16:41 | XMS_ITS | Encounter Summary ---
Author Organization [facility] Address [address] [place] [address] Care Team Providers Care Conference Producer Name Role Phone YovannyRakanmargo Grullon YU Primary Care Provider [phone] Encounter Details Date Type Department Care Team (Late st Contact Info) Description 05/10/2020 Orders Only [facility] Reproductive Medicine & Infertility Center - [address] [address] Dinora Whitaker RN Encounter for artificial insemination (Primary Dx) Social History Tobacco Use Types [...] as of this encounter Progress Notes * Dinora Whitaker RN - 05/10/2020 0906 EST Sperm wash order entered. documented in this encounter Plan of Treatment Not on file documented as of this encounter Procedures Procedure Name Priority Date/Time Associated Diagnosis Comments POCT SPERM WASHING ARTIFICIAL INSEMINATION Routine 05/04/2020 8:30 EST Encounter for artificial insemination documented in this encounter Results * POCT SPERM WASHING ARTIFICIAL INSEMINATION (05/04/2020 8:30 EST) Media Lot #, POC [id number] [facility] POINT OF CARE Expiration, POC [facility] POINT [facility] CARE Pre-Wash Volume, POC 4.5 >= 2 ml [facility] POINT OF CARE Pre-Wash Count, POC 55 >=20 million/ml [facility] POINT OF CARE Pre-Wash Motility, POC 87 >= 50% [facility] POINT OF CARE Post-Wash, POC 0.5 ml [facility] POINT OF CARE Post-Wash Count, POC 193 million/ml [facility] POINT OF CARE Post-Wash Motility, POC 95 % [facility] POINT OF CARE Total Motile, POC 91.7 >= 6 million [facility] POINT OF CARE Timing Method, POC [facility] POINT OF CARE Semen ENTIRE PENIS / Unknown 05/04/2020 8:30 EST us Sofia Kaufman MD POINT OF CARE TEST ORDERA BLES Final Result [facility]INT [facility] C[facility] documented in this encounter Visit Diagnoses Diagnosis Encounter for artificial insemination- Primary Artificial insemination documented in this encounter Care Teams Conference Producer Relationship Specialty Start Date End Date Alexa Hairston APRN [address] [place] [address] PCP - General 10/26/16 07/11/20 documented as of this encounter
--- OUTSIDE RECORDS SUMMARY | 2024-06-16 16:41 | XMS_ITS | Encounter Summary ---
Author Organization [facility] Address [address] [place] [address] Care Team Providers Care Probe Operator Name Role Phone Rakan Hairstonmargo Grullon YU Primary Care Provider [phone] Reason for Visit * Reason Onset Date Comments Labs Only 12/11/2019 Encounter Details Date Type Department Care Team (Late st Contact Info) Description 12/11/2019 Telephone [facility] OBGYN Services - [address] [address] Sofia Kaufman MD [address] [facility], [address] [place] [address] Labs Only Social History Tobacco Use Types Packs/Day Years [...] 7:40 EDT documented as of this encounter Miscellaneous Notes * Telephone Encounter - Luzmaria Gloria RN - 12/11/2019 6542 EDT Call to Rita to discuss lab results. Left detailed message. Progesterone is positive and indicativeof recent ovulation. If no menses in 1-2 weeks, check UPT. Component Latest Ref Rng & Units 12/10/2019 Progesterone See Table ng/mL 9.1 * Telephone Encounter - Luli Blank - 12/11/2019 1309 EDT Patient calling in to discuss results from labs drawn yesterday. Please call her back at [phone]. documented in this encounter Plan of Treatment Not on file documented as of this encounter Visit Diagnoses Not on filedocumented in this encounter Care Teams Probe Operator Relationship Specialty Start Date End Date Alexa Hairston APRN [address] [place] [address] PCP - General 10/26/16 07/11/20 documented as of this encounter
--- OUTSIDE RECORDS SUMMARY | 2024-06-16 16:41 | XMS_ITS | Encounter Summary ---
Author Organization [facility] Address [address] [place] [address] Care Team Providers Care Soaker Helper Name Role Phone Alexa Hairston APRN Primary Care Provider [phone] Reason for Referral * TRANSCRIBING MACHINE MECHANIC (Routine) - Specialty Report Received Specialty Diagnoses / Procedures Referred By Greg t Referred To Contact Diagnoses Procreative management Procedures US FOLLICULAR (DINESH ONLY) Sofia Kaufman MD Phone: tel: fax: Referral ID Status Reason Start Date Expiration Date V isits Requested Visits Authorized [id number] Specialty Report Received 05/19/2020 1 1 Reason for Visit * TRANSCRIBING MACHINE MECHANIC (Routine) - Specialty Report Received Specialty Diagnoses / Procedures Referred By Contmissy t Referred To Contact Diagnoses Procreative management Procedures US FOLLICULAR (DINESH ONLY) Sofia Kaufman MD Phone: tel: fax: Referral ID Status Reason Start Date Expiration Date V isits Requested Visits Authorized [id number] Specialty Report Received 05/19/2020 1 1 Encounter Details Date Type Department Care Team (Latest Contact Info) Description 05/29/2020 8:25 EST - 05/29/2020 23:59 EST Hospital Encounter [facility] OBGYN Services - [facility] [place] [address] [place], [place] [id number] Procreative management Discharge Disposition: Home or Self Care Social [...] Diagnosis Comments US FOLLICULAR (DINESH ONLY) Routine 05/29/2020 8:36 EST Procreative management documented in this encounter Results * US FOLLICULAR (DINESH ONLY) (05/29/2020 8:36 EST) Anatomical Region Laterality Modality Pelvis Ultrasound 05/29/2020 8:38 EST Narrative 05/29/2020 9:17 EST Indication Cycle #2 Ltx 5/USF/hCG/IUI for PCOS multiple prior OPK/TI cycles with Ltz. Uterus ======= Uterus: ?Appears normal Endometrium: ?? Thin endometrium Endometrial thickness, total ?? 3.5 mm Right Ovary Rt ovary: ??Early follicular development Outline: ?? Smooth Rt ovary morphology: ?? Multifollicular Rt ovarian follicle(s): ?Follicles identified D1 11.3 mm D2 15.1 mm D3 14.9 mm Mean ?? 13.8 mm Vol ?1.330 cm cubed D1 9.8 mm D2 18.1 mm D3 15.3 mm Mean ?? 14.4 mm Vol ?1.417 cm cubed D1 16.9 mm D2 9.4 mm D3 15.2 mm Mean ?? 13.8 mm Vol ?1.257 cm cubed D1 9.6 mm D2 11.2 mm D3 8.6 mm Mean ?? 9.8 mm Vol ?0.485 cm cubed D1 9.8 mm D2 10.3 mm D3 11.3 mm Mean ?? 10.5 mm Vol ?0.596 cm cubed D1 9.1 mm D2 13.3 mm D3 11.0 mm Mean ?? 11.1 mm Vol ?0.695 cm cubed D1 8.2 mm D2 12.4 mm D3 11.3 mm Mean ?? 10.6 mm Vol ?0.600 cm cubed Left Ovary Lt ovary: ??Normal with maturing follicle Outline: ?? Smooth Lt ovary morphology: ?? multifollicular Lt ovarian follicle(s): ?Follicles identified D1 9.0 mm D2 7.6 mm D3 8.2 mm Mean ?? 8.3 mm Vol ?0.294 cm cubed D1 8.5 mm D2 8.8 mm D3 8.2 mm Mean ?? 8.5 mm Vol ?0.321 cm cubed D1 9.5 mm D2 7.2 mm D3 9.0 mm Mean ?? 8.6 mm Vol ?0.323 cm cubed D1 7.5 mm D2 8.1 mm D3 9.7 mm Mean ?? 8.4 mm Vol ?0.305 cm cubed Cul de Sac No free fluid visualized. Impression USF (Follicular) - 37124 1. Thin endometrium. If endometrial development does not develop, consider biopsy of endometrium to rule out chronic endometritis. 2. Maturing folliculogenesis on right, early follicular development on left ovary. 3. No free fluid in the pelvis. Follow-up Repeat follicle scan in 2 days. Comment ========= Thin endometrium but multiple dominant follicles. further studies based on Mondays scan. DATE OF SERVICE: 05/29/2020 Procedure Note Dinora Aguilar MD - 05/29/2020 Indication Cycle #2 Ltx 5/USF/hCG/IUI for PCOS multiple prior OPK/TI cycles with Ltz. Uterus ======= Uterus: Appears normal Endometrium: Thin endometrium Endometrial thickness, total 3.5 mm Right Ovary Rt ovary: Early follicular development Outline: Smooth Rt ovary morphology: Multifollicular Rt ovarian follicle(s): Follicles identified D1 11.3 mm D2 15.1 mm D3 14.9 mm Mean 13.8 mm Vol 1.330 cm cubed D1 9.8 mm D2 18.1 mm D3 15.3 mm Mean 14.4 mm Vol 1.417 cm cubed D1 16.9 mm D2 9.4 mm D3 15.2 mm Mean 13.8 mm Vol 1.257 cm cubed D1 9.6 mm D2 11.2 mm D3 8.6 mm Mean 9.8 mm Vol 0.485 cm cubed D1 9.8 mm D2 10.3 mm D3 11.3 mm Mean 10.5 mm Vol 0.596 cm cubed D1 9.1 mm D2 13.3 mm D3 11.0 mm Mean 11.1 mm Vol 0.695 cm cubed D1 8.2 mm D2 12.4 mm D3 11.3 mm Mean 10.6 mm Vol 0.600 cm cubed Left Ovary Lt ovary: Normal with maturing follicle Outline: Smooth Lt ovary morphology: multifollicular Lt ovarian follicle(s): Follicles identified D1 9.0 mm D2 7.6 mm D3 8.2 mm Mean 8.3 mm Vol 0.294 cm cubed D1 8.5 mm D2 8.8 mm D3 8.2 mm Mean 8.5 mm Vol 0.321 cm cubed D1 9.5 mm D2 7.2 mm D3 9.0 mm Mean 8.6 mm Vol 0.323 cm cubed D1 7.5 mm D2 8.1 mm D3 9.7 mm Mean 8.4 mm Vol 0.305 cm cubed Cul [place] Sac No free fluid visualized. Impression USF (Follicular) - [id number] 1. Thin endometrium. If endometrial development does not develop, considerbiopsy of endometrium to rule out chronic endometritis. 2. Maturing folliculogenesis on right, early follicular development onleft ovary. 3. No free fluid in the pelvis. Follow-up Repeat follicle scan in 2 days. Comment ========= Thin endometrium but multiple dominant follicles. further studies based onMondays scan. DATE OF SERVICE: 05/29/2020 Sofia Kaufman MD [facility] OB ORDERABLES Fatimah l Result documented in this encounter Visit Diagnoses Diagnosis Procreative management Unspecified procreative management documented in this encounter Care Teams Soaker Helper Relationship Specialty Start Date End Date Alexa Hairston APRN [address] [place] [address] PCP - General 10/26/16 07/11/20 documented as of this encounter
--- OUTSIDE RECORDS SUMMARY | 2024-06-16 16:41 | XMS_ITS | Encounter Summary ---
Author Organization [facility] Address [address] [place] [address] Care Team Providers Care Area Operations Manager Name Role Phone Alexa Hairston APRN Primary Care Provider [phone] Renea Delcid Primary Care Provider [phone] Encounter Details Date Type Department Care Team (Late st Contact Info) Description 01/24/2018 Documentation Visit [facility] Obstetrics & Midwifery - [facility] [address] [place], [place] [id number] Gloria Scruggs MD [address] [facility], [address] [place] [address] Social History Tobacco Use Types Packs/Day Years Used Date Smoking Tobacco: Never Smokeless Tobacco: Never Alcohol Use Standard Drinks/Week Comments Yes 0 (1 standard drink = 0.6 oz pur e alcohol) occ Comments Yes Sex and Gender Information Value Date Recorded Sex Assigned at Not on file Legal Sex Female 18:27 EST Gender Identity Female 11/12/2019 18:49 EDT Sexual Orientation Not on file documented as of this encounter Plan of Treatment Not on file documented as of this encounter Visit Diagnoses Not on filedocumented in this encounter Care Teams Area Operations Manager Relationship Specialty Start Date End Date Alexa Hairston APRN [address] [place], [place] [address] PCP - General 10/26/16 07/11/20 Renea Delcid FNP [address] [phone] PCP - General 07/12/20 documented as of this encounter
--- OUTSIDE RECORDS SUMMARY | 2024-06-16 16:41 | XMS_ITS | Encounter Summary ---
Author Organization [facility] Address [address] [place] [address] Care Team Providers Care Marketing Operations Manager Name Role Phone Rakan Hairstonmargo Grullon YU Primary Care Provider [phone] [phone] Reason for Visit * Reason Comments Diabetes Encounter Details Date Type Department Care Team (Latest Contact Info) Description 01/28/2018 13:00 EDT Office Visit [facility] Endocrinology - [address] [address] Unknown, Provider, Erlinda Carr Diet controlled gestational diabetes mellitus (GDM) in third trimester (Primary Dx) Social History Tobacco Use Types [...] on file documented as of this encounter Patient Instructions * Patient Instructions* Tamika Suarez - 01/28/2018 13:00 EDT Consistent Carbohydrate Meal Plan Meals: 3 at 45 grams carb each Snacks: 3 at 15 grams carb each Protein at each meal and snack documented in this encounter Progress Notes * Tamika Suarez - 01/28/2018 1300 EDT [facility] DIABETES NUTRITION VISIT NOTE Name:Rita Tavares Date of visit: 01/28/2018 PATIENT ID: Rita Tavares is a 27 y.o. female referred for medical nutrition therapy by Karey for Gestational Diabetes. SUBJECTIVE: Rita Tavares was seen for a(n) initial medical nutrition therapy visit on 01/28/2018 accompanied by: Her mother, Jessica. She is 30 weeks 5 days. 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 OBJECTIVE: Diabetes type: gestational Vitals: LMP 06/27/2017 178.2Lb Current Outpatient Prescriptions Medication Sig Dispense Refill ??? albuterol 90 mcg/actuation inhaler Inhale 180 mcg as directed every 4 hours. ??? clomiPHENE (CLOMID) 50 mg tablet Take 1 Tab by mouth daily. Take 1 tablet once a day for cycle days 5-9. (Patient not taking: Reported on 05/11/2017) 5 Tab 0 ??? letrozole (FEMARA) 2.5 mg tablet Take 2 Tabs by mouth daily. Take cycle days 5-9 10 Tab 0 ??? Magnesium 250 mg tablet Take by mouth daily. ??? omeprazole (PRILOSEC) 20 mg capsule Take 1 Cap by mouth. Take the medication twice a day for the first week and then continue taking it once a day. If stomach pain comes back go back to taking ittwice a day. (Patient not taking: Reported on 10/27/2016) 60 Cap 2 ??? VIT CALC,IRON,FOLIC ( #2 ORAL) Take by mouth. ??? UNKNOWN TO PATIENT Reported on 10/27/2016 No current facility-administered medications for this visit. No results found for: HGBA1C No components found for: OGTT PRESENT MEAL PATTERN: Current eating habits:eats 3 meals plus snacks. Comments: She has made some dietary changes since finding out about the gestational diabetes. Breakfast: Eggs and whole wheat Sinhala muffin or whole oats with peanut butter, blueberries and Lactaid Morning snack: Whole-wheat crackers with cheese or peanut butter with apple or Portuguese yogurt with berries Lunch: Meat, cooked vegetable/salad Afternoon snack: Similar to a.m. snack Dinner: Meat, vegetables, whole wheat pasta Evening snack: Apple with peanut butter or peanut butter on toast Beverages: Coffee, water, seltzer vitamins: Yes PHYSICAL ACTIVITY: Type of exercise: walking BLOOD GLUCOSE MONITORING: Glucose monitoring: Instructed on Verio Flex. Barriers to monitoring: None Hypoglycemic episode: None Carbohydrate source on person? No ASSESSMENT: Rita is a 27-year-old with gestational diabetes and is currently 30 weeks 5 days. Reviewed consistent carbohydrate meal plan and SM BG today. Her current food choices are healthy and meals appear well balanced with protein and healthy carbohydrates. Learning readiness: Verbalizes interest, Family willing to learn and Active attentive participant Psychosocial, cultural, or economic barriers to care:none. Verbalized understanding of meal planning guidelines PLAN: Nutrition: Type of meal planning: Consistent Carbohydrate Consistent Carbohydrate Meal Plan Meals: 3 at 45 grams carb each Snacks: 3 at 15 grams carb each Protein at each meal and snack Food logs to reinforce meal plan if suggested. Glucose Monitoring: QID. The following patient education materials were provided at today's visit. Carb Counting and Meal Planning- Novonordisk Follow-up as needed with CDE Thank you for your kind referral of Rita Schultz Anusha for nutrition counseling. Time Spent With Patient: 30 minutes [address]24.[address] 01/28/2018 14:05 documented in this encounter Plan of Treatment Not on file documented as of this encounter Visit Diagnoses Diagnosis Diet controlled gestational diabetes mellitus (GDM) in third trimester- Primary documented in this encounter Care Teams Marketing Operations Manager Relationship Specialty Start Date End Date Alexa Hairston APRN [address] [place] [address] PCP - General 10/26/16 07/11/20 documented as of this encounter
--- OUTSIDE RECORDS SUMMARY | 2024-06-16 16:41 | XMS_ITS | Encounter Summary ---
Author Organization [facility] Address [address] [place] [address] Care Team Providers Care Mold Forms Builder Name Role Phone Alexa Hairston APRN Primary Care Provider [phone] [phone] Encounter Details Date Type Department Care Team (Latest Contact Info) Description 01/11/2018 17:43 EDT - 01/11/2018 23:59 EDT Hospital Encounter [address] [address] Matilda Quintanilla MD [address] [place] [id number] Discharge Disposition: Home or Self Care Social History Tobacco Use Types Packs/Day Years Used Date Smoking Tobacco: Never Smokeless Tobacco: Never Alcohol Use Standard Drinks/Week Comments Yes 0 (1 standard drink = 0.6 oz pur e alcohol) occ Comments No Sex and Gender Information Value Date Recorded Sex Assigned at Not on file Legal Sex Female 18:27 EST Gender Identity Female 11/12/2019 18:49 EDT Sexual Orientation Not on file documented as of this encounter Discharge Diagnoses Diagnosis Z34.90 Encounter for supervision of normal , unspecified, unspecified trimester-Z34.90[ICD-10-CM] documented in this encounter Medications at Time of Discharge albuterol 90 mcg/actuation inhaler Inhale 180 mcg as directed every 4 hours. Magnesium 250 mg tablet Take by mouth daily. VIT CALC,IRON,FOLIC ( #2 ORAL) Take by mouth. clomiPHENE (CLOMID) 50 mg tablet Take 1 Tab by mouth daily. Take 1 tablet once a day for cycle days 5-9. 5 Tab 12/01/2016 8 letrozole (FEMARA) 2.5 mg tablet Take 2 Tabs by mouth daily. Take cycle days 5-9 10 Tab 07/01/2017 8 omeprazole (PRILOSEC) 20 mg capsule Take 1 Cap by mouth. Take the medication twice a day for the first week and then continue taking it once a day. If stomach pain comes back go back to taking it twice a day. 60 Cap 2 09/10/2010 0 UNKNOWN TO PATIENT Reported on 10/27/2016 8 documented as of this encounter Discharge Disposition Disposition Code Departure Means Destination Home or Self Care documented in this encounter Plan of Treatment Not on file documented as of this encounter Visit Diagnoses Not on filedocumented in this encounter Care Teams Mold Forms Builder Relationship Specialty Start Date End Date Alexa Hairston APRN [address] [place] [address] PCP - General 10/26/16 07/11/20 documented as of this encounter
--- OUTSIDE RECORDS SUMMARY | 2024-06-16 16:41 | XMS_ITS | Encounter Summary ---
Author Organization [facility] Address [address] [place] [address] Care Team Providers Care Hospice Community Liaison Name Role Phone Alexa Hairston APRN Primary Care Provider [phone] Reason for Referral * COMPLIANCE TECHNICIAN (Routine) - Specialty Report Received Specialty Diagnoses / Procedures Referred By [facility] Referred To Contact Diagnoses Infertility, female Procedures US FOLLICULAR (DINESH ONLY) Sofia Kaufman MD Phone: tel: fax: Referral ID Status Reason Start Date Expiration Date V isits Requested Visits Authorized [id number] Specialty Report Received 05/05/2020 1 1 Reason for Visit * COMPLIANCE TECHNICIAN (Routine) - Specialty Report Received Specialty Diagnoses / Procedures Referred By [facility] Referred To Contact Diagnoses Infertility, female Procedures US FOLLICULAR (DINESH ONLY) Sofia Kaufman MD Phone: tel: fax: Referral ID Status Reason Start Date Expiration Date V isits Requested Visits Authorized [id number] Specialty Report Received 05/05/2020 1 1 Encounter Details Date Type Department Care Team (Latest Contact Info) Description 04/30/2020 8:00 EST - 04/30/2020 23:59 EST Hospital Encounter [facility] - [place] [address] [place], [place] [id number] Infertility, female Discharge Disposition: Home or Self [...] CALC,IRON,FOLIC ( #2 ORAL) Take by mouth. letrozole (FEMARA) 2.5 mg tablet Take 2 Tabs by mouth daily. Take cycle days 5-9 10 Tab 03/22/2020 05/20/2020 documented as of this encounter Discharge Disposition Disposition Code Departure Means Destination Home or Self Care documented in this encounter Plan of Treatment Not on file documented as of this encounter Procedures Procedure Name Priority Date/Time Associated Diagnosis Comments US FOLLICULAR (DINESH ONLY) Routine 04/30/2020 8:20 EST Infertility, female documented in this encounter Results * US FOLLICULAR (DINESH ONLY) (04/30/2020 8:20 EST) Anatomical Region Laterality Modality Pelvis Ultrasound 04/30/2020 10:4 1 EST Narrative 06/20/2020 19:55 EST Indication 29 yo with PCOS, letrozole 5mg for IUI cycle #1 after 3 cycles OI/TI, now cycle day 12. Uterus ======= Uterus: ?Appears normal Uterus position: ?? Retroverted Endometrium: ?? Trilaminar endometrium Endometrial thickness, total ?? 4.2 mm Right Ovary Rt ovary: ??Early follicular development Rt ovary D1 ?4.0 cm Rt ovary D2 ?2.3 cm Rt ovary D3 ?2.9 cm Rt ovary mean ??3.0 cm Rt ovary vol ?? 13.6 cm cubed Rt ovarian follicle(s): ?Follicles identified D1 13.6 mm D2 12.6 mm D3 14.1 mm Mean ?? 13.4 mm Vol ?1.260 cm cubed D1 11.4 mm D2 8.5 mm D3 13.0 mm Mean ?? 11.0 mm Vol ?0.660 cm cubed D1 13.2 mm D2 8.8 mm D3 12.2 mm Mean ?? 11.4 mm Vol ?0.741 cm cubed Left Ovary Lt ovary: ??Normal with maturing follicle Lt ovary D1 ?4.3 cm Lt ovary D2 ?2.8 cm Lt ovary D3 ?2.6 cm Lt ovary mean ??3.2 cm Lt ovary vol ?? 16.0 cm cubed Lt ovarian follicle(s): ?Follicles identified D1 17.8 mm D2 12.9 mm D3 19.1 mm Mean ?? 16.6 mm Vol ?2.293 cm cubed D1 13.2 mm D2 12.1 mm D3 9.1 mm Mean ?? 11.5 mm Vol ?0.762 cm cubed [place] Appears normal. Free fluid visualized (mild). Method ======== Transvaginal ultrasound examination, probe #3. View: Good view. Impression USF (Follicular) - [id number] Normal retroverted uterus, trilaminar endometrium. Normal ovaries with maturing follicle on the left and early follicle growth on the right. Mild pelvic free fluid. Follow-up hCG in 2 days for IUI on 05/04. Comment ========= Z31.83 encounter for assisted reproductive fertility procedure cycle N97.0 female infertility, anovulation. DATE OF SERVICE: 04/30/2020 Procedure Note Sofia Kaufman MD - 06/20/2020 Indication 29 yo with PCOS, letrozole 5mg for IUI cycle #1 after 3 cyclesOI/TI, now cycle day 12. Uterus ======= Uterus: Appears normal Uterus position: Retroverted Endometrium: Trilaminar endometrium Endometrial thickness, total 4.2 mm Right Ovary Rt ovary: Early follicular development Rt ovary D1 4.0 cm Rt ovary D2 2.3 cm Rt ovary D3 2.9 cm Rt ovary mean 3.0 cm Rt ovary vol 13.6 cm cubed Rt ovarian follicle(s): Follicles identified D1 13.6 mm D2 12.6 mm D3 14.1 mm Mean 13.4 mm Vol 1.260 cm cubed D1 11.4 mm D2 8.5 mm D3 13.0 mm Mean 11.0 mm Vol 0.660 cm cubed D1 13.2 mm D2 8.8 mm D3 12.2 mm Mean 11.4 mm Vol 0.741 cm cubed Left Ovary Lt ovary: Normal with maturing follicle Lt ovary D1 4.3 cm Lt ovary D2 2.8 cm Lt ovary D3 2.6 cm Lt ovary mean 3.2 cm Lt ovary vol 16.0 cm cubed Lt ovarian follicle(s): Follicles identified D1 17.8 mm D2 12.9 mm D3 19.1 mm Mean 16.6 mm Vol 2.293 cm cubed D1 13.2 mm D2 12.1 mm D3 9.1 mm Mean 11.5 mm Vol 0.762 cm cubed [place] Appears normal. Free fluid visualized (mild). Method ======== Transvaginal ultrasound examination, probe #3. View: Good view. Impression USF (Follicular) - [id number] Normal retroverted uterus, trilaminar endometrium. Normal ovaries with maturing follicle on the left and early folliclegrowth on the right. Mild pelvic free fluid. Follow-up hCG in 2 days for IUI on 05/04. Comment ========= Z31.83 encounter for assisted reproductive fertility procedure cycle N97.0 female infertility, anovulation. DATE OF SERVICE: 04/30/2020 us Sofia Kaufman MD [facility] [place] OB ORDERABLES Fatimah l Result documented in this encounter Visit Diagnoses Diagnosis Infertility, female Female infertility of unspecified origin documented in this encounter Care Teams Hospice Community Liaison Relationship Specialty Start Date End Date Alexa Hairston APRN [address] [place] [address] PCP - General 10/26/16 07/11/20 documented as of this encounter
--- OUTSIDE RECORDS SUMMARY | 2024-06-16 16:41 | XMS_ITS | Encounter Summary ---
Author Organization [facility] Address [address] [place] [address] Care Team Providers Care Soil Scientist Name Role Phone Alexa Hairston APRN Primary Care Provider [phone] Reason for Visit * Reason Onset Date Comments Billing Question 05/18/2020 Encounter Details Date Type Department Care Team (Late st Contact Info) Description 05/18/2020 Telephone [facility] OBGYN Services - [address] [address] Dinora Aguilar MD [address] [facility], [address] [place] [address] Billing Question Social History Tobacco Use Types Packs/Day Years [...] on file documented as of this encounter Miscellaneous Notes * Telephone Encounter - Melany Redd - 05/18/2020 1429 EST LVM for patient to collect their charge of $227.70 from their IUI they had on 11/24/20. Left my name and number for patient to call me back. documented in this encounter Plan of Treatment Not on file documented as of this encounter Visit Diagnoses Not on filedocumented in this encounter Care Teams Soil Scientist Relationship Specialty Start Date End Date Alexa Hairston APRN [address] [place] [address] PCP - General 10/26/16 07/11/20 documented as of this encounter
--- OUTSIDE RECORDS SUMMARY | 2024-06-16 16:41 | XMS_ITS | Encounter Summary ---
Author Organization [facility] Address [address] [place] [address] Care Team Providers Care Tail Dogger Name Role Phone Alexa Hairston NURSE EDUCATOR Primary Care Provider [phone] Encounter Details Date Type Department Care Team (Late st Contact Info) Description 03/08/2018 Results Only [facility] [phone] Tamika Knight, [address] [address] Social History Tobacco Use Types Packs/Day Years [...] Procedure Name Priority Date/Time Associated Diagnosis Comments GROUP B STREP PCR Routine 03/08/2018 14: 52 EDT documented in this encounter Results * GROUP B STREP PCR (03/08/2018 14:52 EDT) GROUP B STREP PCR Negative 03/10/2018 15:34 EDT [facility] TOPOGRAPHY UNKNOWN / Unknown 03/08/2018 14:52 EDT 03/08/2018 20:16 EDT us Tamika Knight CN MICROBIOLOGY - GENER AL ORDERABLES Final Result [facility] [address] [place] [address] documented in this encounter Visit Diagnoses Not on filedocumented in this encounter Care Teams Tail Dogger Relationship Specialty Start Date End Date Alexa Hairston APRN [address] [place], [place] [address] PCP - General 10/26/16 07/11/20 documented as of this encounter
--- OUTSIDE RECORDS SUMMARY | 2024-06-16 16:41 | XMS_ITS | Encounter Summary ---
Author Organization [facility] Address [address] [place] [address] Care Team Providers Care Livestock Farm Manager Name Role Phone Alexa Hairston APRN Primary Care Provider [phone] Renea Delcid Primary Care Provider [phone] Encounter Details Date Type Department Care Team (Late st Contact Info) Description 10/30/2019 Lab Requisition [facility] Pathology & Laboratory Medicine - [facility] [address] [place], [place] [address] Outr Resulting Lab, Provider Social History Tobacco [...] Procedure Name Priority Date/Time Associated Diagnosis Comments DO NOT ORDER STANDALONE - BROAD COVID TEST Today 10/30/2019 12:25 EDT COVID-19 TESTING Routine 10/30/2019 12:2 5 EDT documented in this encounter Results * DO NOT ORDER STANDALONE - BROAD COVID TEST (10/30/2019 12:25 EDT) COVID-19 rt-PCR Result NEGATIVE Negative 10/31/2019 13:10 EDT [facility] Comment: 2019-novel Coronavirus (2019-nCoV) not detected by the qRT-PCR assay. Consider testing for other respiratory viruses or re-collecting for 2019-nCoV testing. Note: Optimum timing for peak viral levels during infections caused by 2019-nCoV have not been determined. Collection of multiple specimens from the same patient may be necessary to detect the virus. Limitations Positive results are indicative of active infection with SARS-CoV-2 but do not rule out bacterial infection or co-infection with other viruses. The agent detected may not be the definite cause of disease. In addition, detection of viral RNA may not indicate the presence of infectious virus or that SARS-CoV-2 is the causative agent for clinical symptoms. Negative results do not preclude SARS-CoV-2 infection and should not be used as the sole basis for patient management decisions. Negative results must be combined with clinical observations, patient history, and epidemiological information. False negative results may also occur if amplification inhibitors are present in the specimen or if inadequate numbers of organisms are present in the specimen. Optimum specimen types and timing for peak viral levels during infections caused by SARS-CoV-2 have not been fully determined. Collection of multiple specimens (types and time points) from the same patient may be necessary to detect the virus. The test was validated for use with upper respiratory specimens obtained via nasopharyngeal or oropharyngeal swabs in VTM, UTM, M4, M5, M6, saline, and MTM media. The performance of this test has not been established for other specimens. Specimens collected using other FDA recommended Specimen Collection Materials listed in the FDA COVID-19 Diagnostic [employer] communication (September 04, 2019) are processed with the caveat that they were not all validated for use with this test and the result must be interpreted in this context. Furthermore, a false negative results may occur if a specimen is improperly collected, transported or handled. If the virus mutates in the RT-PCR target region, SARS-CoV-2 may not be detected or may be detected less predictably. Inhibitors or other types of interference may produce a false negative result. An interference study evaluating the effect of common cold medications was not performed. This test is not FDA-cleared but its performance characteristics were established by our CLIA-certified, CAP-accredited, high complexity laboratory in accordance with CLIA regulations, [employer] [place] [employer] (CAP) guidelines (Aug 28, 2019), and FDA guidance (Aug 09, 2019). This test is only for use under the Food and Drug Administration's Emergency Use Authorization. Swab ENTIRE NASOPHARYNX / Unknown 10/30/2019 12:25 EDT 10/30/2019 15:40 EDT us Provider Outr Resulting Lab MICROBIOLOGY - GENER AL ORDERABLES Final Result [place], [place] * COVID-19 TESTING (10/30/2019 12:25 EDT) COVID-19 rt-PCR Result NEGATIVE Negative 10/31/2019 14:37 EDT [facility] Comment: 2019-novel Coronavirus (2019-nCoV) not detected by the qRT-PCR assay. Consider testing for other respiratory viruses or re-collecting for 2019-nCoV testing. Note: Optimum timing for peak viral levels during infections caused by 2019-nCoV have not been determined. Collection of multiple specimens from the same patient may be necessary to detect the virus. Limitations Positive results are indicative of active infection with SARS-CoV-2 but do not rule out bacterial infection or co-infection with other viruses. The agent detected may not be the definite cause of disease. In addition, detection of viral RNA may not indicate the presence of infectious virus or that SARS-CoV-2 is the causative agent for clinical symptoms. Negative results do not preclude SARS-CoV-2 infection and should not be used as the sole basis for patient management decisions. Negative results must be combined with clinical observations, patient history, and epidemiological information. False negative results may also occur if amplification inhibitors are present in the specimen or if inadequate numbers of organisms are present in the specimen. Optimum specimen types and timing for peak viral levels during infections caused by SARS-CoV-2 have not been fully determined. Collection of multiple specimens (types and time points) from the same patient may be necessary to detect the virus. The test was validated for use with upper respiratory specimens obtained via nasopharyngeal or oropharyngeal swabs in VTM, UTM, M4, M5, M6, saline, and MTM media. The performance of this test has not been established for other specimens. Specimens collected using other FDA recommended Specimen Collection Materials listed in the FDA COVID-19 [employer] communication (September 04, 2019) are processed with the caveat that they were not all validated for use with this test and the result must be interpreted in this context. Furthermore, a false negative results may occur if a specimen is improperly collected, transported or handled. If the virus mutates in the RT-PCR target region, SARS-CoV-2 may not be detected or may be detected less predictably. Inhibitors or other types of interference may produce a false negative result. An interference study evaluating the effect of common cold medications was not performed. This test is not FDA-cleared but its performance characteristics were established by our CLIA-certified, CAP-accredited, high complexity laboratory in accordance with CLIA regulations, [employer] [place] [employer] (CAP) guidelines (Aug 28, 2019), and FDA guidance (Aug 09, 2019). This test is only for use under the Food and Drug Administration's Emergency Use Authorization. Performing Lab [facility] 10/31/2019 14:37 EDT [facility] Swab ENTIRE NASOPHARYNX / Unknown 10/30/2019 12:25 EDT 10/30/2019 15:40 EDT us Provider Outr Resulting Lab MICROBIOLOGY - GENER AL ORDERABLES Final Result [facility] [address] [place] [address] [facility] [place] documented in this encounter Visit Diagnoses Not on filedocumented in this encounter Care Teams Livestock Farm Manager Relationship Specialty Start Date End Date Alexa Hairston APRN [address] [place] [address] PCP - General 10/26/16 07/11/20 Renea Delcid FNP [address] [place] [address] [address] [place] [address] PCP - General 07/12/20 documented as of this encounter
--- OUTSIDE RECORDS SUMMARY | 2024-06-16 16:41 | XMS_ITS | Encounter Summary ---
Author Organization [facility] Address [address] [place] [address] Care Team Providers Care Boiler Helper Name Role Phone Alexa Hairston APRN Primary Care Provider [phone] Reason for Referral * (Routine) - Receiving Office to Obtain Authorization Specialty Diagnoses / Procedures Referred By Greg t Referred To Contact Therese Bolton MD Phone: tel: fax: Referral ID Status Reason Start Date Expiration Date Visits Requested Visits Authorized [id number] Receiving Office to Obtain Authorization Specialty Services Required 04/10/20 18 1 1 Comments See your flatwork feeder in 2 and 6 weeks. Please call for an appointment. Reason for Visit * Reason Comments Laboring Encounter Details Date Type Department Care Team (Latest Contact Info) Description 04/07/2018 10:55 EDT - 04/10/2018 15:30 EDT Hospital Encounter [facility] [address] [place] [address] Sena Cummings MD [address] [place] [phone] Aubree Tapia MD [address] [place] [phone] Encounter for supervision of other normal in third trimester (Primary Dx) Discharge Disposition: Home or Self Care Social [...] Sign Reading Time Taken Comments Blood Pressure 105/69 04/10/2018721 EDT Pulse - - Temperature 36.3 ??C (97.3 ??F) 04/10/2018721 EDT Respiratory Rate 16 04/10/2018721 EDT Oxygen Saturation 99% 04/10/2018721 EDT Inhaled Oxygen Concentration - - Weight 86.2 kg (190 lb) 04/09/[address] faustino martinez Height 170.2 cm (5' 7) 04/09/2018 08 EDT Body Mass Index 29.76 04/09/2018 08 EDT documented in this encounter Discharge Diagnoses Diagnosis O70.0 First degree perineal laceration during delivery-O70.0[ICD-10-CM] Z37.0 Single live -Z37.0[ICD-10-CM] Z3A.40 40 weeks gestation of -Z3A.40[ICD-10-CM] O76 Abnlt in heart rate and rhythm comp labor and delivery-O76[ICD-10-CM] O24.420 Gestational diabetes mellitus in childbirth, diet controlled-O24.420[ICD-10-CM] O75.89 Other specified complications of labor and delivery-O75.89[ICD-10-CM] E28.2 Polycystic ovarian syndrome-E28.2[ICD-10-CM] documented in this encounter Discharge Summaries * Therese Bolton MD - 04/10/2018 0743 EDT Department of [facility] Maternal Discharge Summary Information for the patient's : Rafal Tavares [[id number]] Rafal Tavares Maternal Name: Rita Tavares : 1990 Attending: Aubree Tapia MD Admission: 04/07/2018 Discharge: 04/10/18 Reason for Admission: Admission indication: Term labor/ROM Delivery Indications: Maternal Indications for delivery: Labor Indication for delivery: Not applicable Principal Procedure: Spontaneous Vaginal Delivery Secondary Procedures: A small left labial button hole laceration between the labia minora and majora was repaired with 4-0 vicryl under local anesthesia. Hospital Course: Rita Tavares is an 27 y.o. now at 40w5 presented to L&D in spontaneous labor with SROM. She progressed to complete cervical dilation and pushed un-medicated for a little over 3 hours to deliver a live male infant in the OA position. Second stage was complicated by recurrent decelerations that became deeper with longer recovery to baseline near to delivery. was initially placed on maternal abdomen, but due to poor initial tone and delayed respiratory effort, cord was clamped and cut and handed to awaiting pediatric team. IM pitocin was administered. Placenta delivered intact with maternal effort and gentle cord traction. A small left labial button hole laceration between the labia minora and majora was repaired with 4-0 vicryl under local anesthesia. Perineum was intact. Infant weighed 3,246g with Apgars of 5 and 7. Maternal EBL was 300 cc. The patient's course was uncomplicated. She obtained good pain control, tolerated a regular diet, was ambulating and voiding independently. Her lochia was within normal limits and she initiated . The patient was subsequently discharged on PPD#2 with instructions to follow-upfor routine care at 2 and 6 weeks. Hospital Problems: Active Hospital Problems Diagnosis Date Noted ??? *Supervision of normal 04/07/2018 Allergies: Augmentin [amoxicillin-pot clavulanate] Medications during current : Prescriptions Prior to Admission Medication Sig Dispense Refill Last Dose ??? albuterol 90 mcg/actuation inhaler Inhale 180 mcg as directed every 4 hours. Past Month at Unknown time ??? [DISCONTINUED] blood glucose test strips One touch verio meter or any brand compatible with meter and covered by Pt's insurance. Tests QID. 100 Each 3 ??? calcium carbonate (TUMS ORAL) Take by mouth. 04/07/2018 at Unknown time ??? [DISCONTINUED] clomiPHENE (CLOMID) 50 mg tablet Take 1 Tab by mouth daily. Take 1 tablet once aday for cycle days 5-9. (Patient not taking: Reported on 05/11/2017) 5 Tab 0 Not Taking ??? doxylamine succinate (UNISOM, DOXYLAMINE, ORAL) Take by mouth. 04/06/2018 at Unknown time ??? lancets Delica lancing device or any brand compatible with lancing device and covered by Pt's insurance. Tests QID. 100 Each 3 ??? [DISCONTINUED] letrozole (FEMARA) 2.5 mg tablet Take 2 Tabs by mouth daily. Take cycle days 5-9(Patient not taking: Reported on 01/28/2018) 10 Tab 0 Not Taking ??? Magnesium 250 mg tablet Take by mouth daily. 04/06/2018 at Unknown time ??? omeprazole (PRILOSEC) 20 mg capsule Take 1 Cap by mouth. Take the medication twice a day for the first week and then continue taking it once a day. If stomach pain comes back go back to taking ittwice a day. (Patient not taking: Reported on 10/27/2016) 60 Cap 2 Unknown at Unknown time ??? VIT CALC,IRON,FOLIC ( #2 ORAL) Take by mouth. 04/07/2018 at Unknown time ??? [DISCONTINUED] UNKNOWN TO PATIENT Reported on 10/27/2016 Not Taking LABOR INFORMATION Labor Onset: Labor Analgesia: None Amniotic Fluid Color: Clear Duration Rupture of Membranes: 0.00 hours 4.00 minutes DELIVERY INFORMATION Spontaneous Vaginal Delivery ; Delivery / Repair Anesthesia: None EBL: 300.00 Placenta: Method: Spontaneous;Controlled Cord Traction Labor and Delivery Complications and/or Procedures: None INFORMATION Date: 04/08/2018 Time: 39 Weight: 3246 g (7 lb 2.5 oz) Sex: male Apgars: 5 7 Immunizations indicated : None Clinical Issues Needing Follow-up: Routine pp follow-up including support and monitoring for depression Contraception Plan: Patient unsure right now what she will use, should f/u at pp visit Results Pending at Discharge: Test results still pending from this admission None Condition at Discharge: good, stable Discharge Disposition: home, self care Therese Bolton MD Family Medicine, PGY1 Pager [phone] Cosigned by Tamika Knight CNM at 04/10/2018 11:58 EDT documented in this encounter Medications at Time of Discharge albuterol 90 mcg/actuation inhaler Inhale 180 mcg as directed every 4 hours. Magnesium 250 mg tablet Take by mouth daily. VIT CALC,IRON,FOLIC ( #2 ORAL) Take by mouth. acetaminophen (TYLENOL) 325 mg tablet Take 2 Tabs by mouth every 4 hours as needed for Pain. 04/10/2018 0 calcium carbonate (TUMS ORAL) Take by mouth. 0 docusate sodium (COLACE) 100 mg capsule Take 1 Cap by mouth 2 times daily as needed for Constipation. 04/10/2018 0 ibuprofen (MOTRIN) 400 mg tablet Take 1 Tab by mouth every 4 hours as needed for Pain. 04/10/2018 0 lancets Delica lancing device or any brand compatible with lancing device and covered by Pt's insurance. Tests QID. 100 Each 3 01/28/2018 0 omeprazole (PRILOSEC) 20 mg capsule Take 1 Cap by mouth. Take the medication twice a day for the first week and then continue taking it once a day. If stomach pain comes back go back to taking it twice a day. 60 Cap 2 09/10/2010 0 documented as of this encounter Ordered Prescriptions Prescription Sig Dispense Quantity Refills Last Filled Start Date End Date ibuprofen (MOTRIN) 400 mg tablet Take 1 Tab by mouth every 4 hours as needed for Pain. 04/10/2018 11/13/2019 docusate sodium (COLACE) 100 mg capsule Take 1 Cap by mouth 2 times daily as needed for Constipation . 04/10/2018 11/13/2019 acetaminophen (TYLENOL) 325 mg tablet Take 2 Tabs by mouth every 4 hours as needed for Pain. 04/10/2018 11/13/2019 documented in this encounter Discharge Disposition Disposition Code Departure Means Destination Home or Self Care documented in this encounter Progress Notes * Tamika Knight CNM - 04/10/2018 0730 EDT Progress Note CC: s/p Vaginal delivery S: Doing well, pain well controlled. Tolerating regular diet without nausea/vomiting, ambulating and voiding independently without difficulty. Lochia moderate. Breast feeding initiated, has been difficult, but baby is latching. The patient denies CP/SOB/N/V/MARK/Dizziness/F/C/LE pain. O: BP 105/69 (BP Cuff Location: Right arm, Patient Position: Sitting) Temp 36.3 ??C (97.3 ??F) (Temporal) Resp 16 Ht 170.2 cm (67) Wt 86.2 kg (190 lb) Comment: dr office LMP 06/27/2017 SpO2 99% ? Unknown BMI 29.76 kg/m2 No intake or output data in the 24 hours ending 04/10/18729 Gen: NAD Resp: CTAB CV: RRR Abd: +BS, soft, nondistended, nontender, fundus firm @ 2 cm below umbilicus Ext: WWP, 2+DPs, no edema bilaterally A/P: Rita Schultz [place] is a 27 y.o. PPD#2 s/p at 40w5d. Care - Continue routine post-op/post- care. - does NOT desire circ - Contraception: discussed with patient on PPD#1, is unsure about what she will use, will follow upat pp visit - depression: pt aware of si/sx of pp depression, not having any currently, will continue to closely monitor - Rh pos/GBS neg, no Rhogam indicated - no Varivax/MMR vaccine indicated - Continue current pain regimen. - Encourage ambulation, PO intake, support . - Likely d/c home PPD#2 History of A1GDM: -Well-controlled - follow-up ?? H/o Chiari Type I malformation: -s/p Chiari decompression and suboccipital craniectomy, C1 laminectomy at age 9 with significant improvement -s/p Anesthesia consult several weeks ago Mild intermittent asthma: -Uses albuterol PRN intermittently, no issues at present Therese Bolton MD 04/10/2018 7:30 Reviewed w/ pt and she is doing well overall. Pleased overall. Pt is w/ and he is offering top off w/ syringe while I am present. Nursing is going well overall. 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 Pt and I discussed that she could access LC help or questions through Karey cabrera/ Jennifer Porter . Pt will plan on 2 week ppartum visit too. She is feeling sore and we have discussed pericare and Sitz baths and use of tylenol/motrin. Advised about healing. Pt encouraged to take extra naps. Nutrition, mood, bleeding and self care advised. Attending BEATRIS RICE addendum: I saw and examined the patient. I discussed the plan with the resident and agree with resident's exam and assessment and plan as documented above. Tamika Knight CNM * Deepti Belcher - 04/09/2018 0835 EDT Progress Note CC: s/p vaginal delivery S: Doing well, no questions or concerns. Pain well-controlled. Voiding without difficulty. Notes lochia heavier than normal menstrual period. without issues. Pumping but no bottle feeding. Denies headache, dizziness, N/V, chest pain, SOB, LE swelling/pain. Does not desire contraception at the moment due to history of infertility. Ambulating without difficulty. O: BP 107/68 (BP Cuff Location: Right arm) Temp 36.5 ??C (97.7 ??F) (Temporal) Resp 16 LMP 06/27/2017 SpO2 98% Gen: pleasant, cooperative, no acute distress Resp: clear b/l CV: RRR, normal S1/S2 Abd: soft, non-distended. Firm fundus below umbilicus. Ext: warm, well-perfused, no edema A/P: patient is a 27 y.o. s/p at 40w5d. care: -f/u outpatient in 2 weeks -contraception: f/u outpatient -discussed depression -encourage PO intake, ambulation, -plan d/c tomorrow * Sena Cummings MD - 04/09/2018 0755 EDT Progress Note CC: s/p Vaginal delivery S: Doing well, pain well controlled. Tolerating regular diet without nausea/vomiting, ambulating and voiding independently without difficulty. Lochia moderate. Breast feeding initiated, has been difficult, but baby is latching. The patient denies CP/SOB/N/V/MARK/Dizziness/F/C/LE pain. O: BP 107/68 (BP Cuff Location: Right arm) Temp 36.5 ??C (97.7 ??F) (Temporal) Resp 16 LMP 06/27/2017 SpO2 98% ? Unknown No intake or output data in the 24 hours ending 04/09/18 0755 Gen: NAD Resp: CTAB CV: RRR Abd: +BS, soft, nondistended, nontender, fundus firm @ 2 cm below umbilicus Ext: WWP, 2+DPs, no edema bilaterally A/P: Rita Tavares is a 27 y.o. PPD#1 s/p at 40w5d. Care - Continue routine post-op/post- care. - Contraception: discussed with patient on PPD#1, does not desire contraception at this time will follow up at pp visit - depression: pt aware of si/sx of pp depression, not having any currently, will continue to closely monitor - Rh pos/GBS neg, no Rhogam indicated - no Varivax/MMR vaccine indicated - Continue current pain regimen. - Encourage ambulation, PO intake, support . - Likely d/c home PPD#2 History of A1GDM: -Well-controlled, FBG this am 65 - follow-up ?? H/o Chiari Type I malformation: -s/p Chiari decompression and suboccipital craniectomy, C1 laminectomy at age 9 with significant improvement -s/p Anesthesia consult several weeks ago Mild intermittent asthma: -Uses albuterol PRN intermittently, no issues at present Therese Bolton MD 04/09/2018 7:55 Attending MD addendum: I saw and examined the patient. I discussed the plan with the resident and agree with resident's exam and assessment and plan as documented above. Plan for d/c tomorrow. * Haydee Ferrer RN - 04/09/2018 0740 EDT Critical Value Data: FSBG 67 mg/dl @ 0638 /LINDA Garcia notified @ 0655 regarding glucose critical value. Action: Abnormal Glucose Treatment: 120 ml of Juice Given. Recheck FSBG in 15 and 60 min. Response: FSBG 74 mg/dl @ 0704. Patient feeling well, no complaints. [facility] nurse taking over care will follow up and do the final FSBG check at 60 min. Haydee Ferrer RN 04/09/2018 7:41 * Kaci Dixon - 04/08/2018 1058 EDT Women's Brief Assessment Case Management and Social Work reviewed the patient's chart, face sheet and nursing documentation and has discussed the patient's situation with the medical team. We have identified no case management needs at this time. Please page the case management rn if utilization review or discharge planning issues arise or if there are barriers to the patient's discharge. Casting Tester: Kaci Dixon [facility] Pager: [phone] * Luis Lieberman MD - 04/08/2018 0016 EDT L&D Progress Note CC: @ 40w4d, SROM and labor S: pushing O: BP 112/51 Temp (P) 36.8 ??C (98.2 ??F) (Axillary) Resp 16 LMP 06/27/2017 FSE: Baseline 120, mod variability, no accels, intermittent variable decels; Category II tracing [place]: ctx q2-3min SVE: 10 100 / +3 A/P: 27 y.o. @ 40w4d admitted for SROM and spontaneous labor,in second stage of labor. Category II tracing. Labor: - Pushing with progress. Anticipate . ?? A1GDM: -Well-controlled, glucose 68 on admission. ?? H/o Chiari Type I malformation: -s/p Chiari decompression and suboccipital craniectomy, C1 laminectomy at age 9 with significant improvement -s/p Anesthesia consult several weeks ago, will allow neuraxial anesthesia and should be safe if desired -Anesthesia aware ?? Mild intermittent asthma: -Uses albuterol PRN intermittently ?? FWB: -Cat I, intermittent EFM okay ?? PPH risk: -Low, no labs, no IV, no active T&S ?? Pain: -Plans NCB, hoping to avoid epidural. Seen with BEATRIS Maravilla MD 04/08/2018 0:16 PGY2, OBGYN Pager [phone] * Joie Brooks - 04/07/2018 2300 EDT L&D Progress Note CC: @ 40w4d, SROM and labor S: Pt pushing effectively, but her energy is declining. O: Blood pressure 98/67, temperature 36.8 ??C (98.2 ??F), temperature source Tympanic, resp. rate 16, last menstrual period 06/27/2017. FHT: Baseline 115, mod variability, + accels, no decels; Category I tracing [place]: ctx q2-3min SVE: complete and +2- +3 station with effective pushes A: 27 y.o. @ 40w4d admitted for SROM and spontaneous labor, in active labor will start second stage. Category I tracing. P: Pt needs encouragement for effective pushes, when she is able to push effectively she moves the baby well Continue to assist with frequent position changes Anticipate vaginal delivery Joie Brooks APRN * Joie Brooks - 04/07/20182129 EDT L&D Progress Note CC: @ 40w4d, SROM and labor S: feeling pushy O: BP 98/67 Temp 36.8 ??C (98.2 ??F) (Tympanic) Resp 16 LMP 06/27/2017 FHT: Baseline 120, mod variability, + accels, no decels; Category I tracing [place]: ctx q2-3min SVE: complete and 0 station A: 27 y.o. @ 40w4d admitted for SROM and spontaneous labor, in active labor will start second stage. Category I tracing. P: Will encourage pt to try frequent position changes CEFM Encouraged po fluids Anticipate vaginal delivery. Joie Brooks APRN * Luis Lieberman MD - 04/07/20181999 EDT L&D Progress Note CC: @ 40w4d, SROM and labor S: feeling pushy O: BP 98/67 Temp 36.8 ??C (98.2 ??F) (Tympanic) Resp 16 LMP 06/27/2017 FHT: Baseline 120, mod variability, + accels, no decels; Category I tracing [place]: ctx q2-3min SVE: 9 / 100 / +1 A/P: 27 y.o. @ 40w4d admitted for SROM and spontaneous labor,in active labor. Category I tracing. Labor: -s/p SROM at 0500 for clear fluid, progressing spontaneously. Next SVE in 1 hour or sooner. Anticipate . ?? A1GDM: -Well-controlled, glucose 68 on admission. ?? H/o Chiari Type I malformation: -s/p Chiari decompression and suboccipital craniectomy, C1 laminectomy at age 9 with significant improvement -s/p Anesthesia consult several weeks ago, will allow neuraxial anesthesia and should be safe if desired -Anesthesia aware ?? Mild intermittent asthma: -Uses albuterol PRN intermittently ?? FWB: -Cat I, intermittent EFM okay ?? PPH risk: -Low, no labs, no IV, no active T&S ?? Pain: -Plans NCB, hoping to avoid epidural. Seen with BEATRIS Maravilla MD 04/07/2018 20:32 PGY2, OBGYN Pager [phone] * Jodie Mcneill RN - 04/07/20181955 EDT 1915 Rec'd bedside report from Indira, Pt on toilet with large support team surrounding her. Pt ifeanyi well, difficult to monitor baby, monitor re- adjusted multiple times, Hugh Brooks CNM and Dr Lieberman at bedside 1939 pt out of bathroom on hands and knees 1949 on left side, moaning and involuntarily pushing Monitors re-adjusted 20:04 SVE ant lip/100/+1 pt attempting to breath thru contractions 2029 pt moved to right side, breathing well coping beautifully 20:55 oob to stand for a few contractions 21:18 oob to void, per CNVinay Brooks ok for monitor to pause 2125 complete 2135 pushing using squat bar, pulse ox on to verify maternal/ HR toco not registering contractions. 21:44 switched to hard wired montior, pt pushing well with direction 21:53 Hand and knees pushing 22:14 on stool pushing 22:26 Back on bed on side/ 22:52 Left side pushing 2330 squatting stool 23:48 FSE placed pt pushing on tilt 23:56 Turned to far left 0:22 o2 on 0:39 MD Till to bedside to check in. Ped's @ bedside. 0:43 IM Pit 0045: Placenta 0115: SC performed for 150mL. Fundus soft, firming up with massage. Bleeding minimal. 0117: Joie Brooks at bedside for fundal assessment. 0125: Tylenol and IBU administered. Pt eating toast. STS with pt. * Luis Lieberman MD - 04/07/2018 192 EDT L&D Progress Note CC: @ 40w4d, SROM and labor S: sitting on toilet O: BP 98/67 Temp 36.8 ??C (98.2 ??F) (Tympanic) Resp 16 LMP 06/27/2017 FHT: Baseline 110, mod variability, + accels, no decels; Category I tracing [place]: ctx q2-3min SVE: Deferred A/P: 27 y.o. @ 40w4d admitted for SROM and spontaneous labor, now in active labor. CategoryI tracing. Labor: -s/p SROM at 0500 for clear fluid, progressing spontaneously. Next SVE likely soon. Anticipate . ?? A1GDM: -Well-controlled, glucose 68 on admission. ?? H/o Chiari Type I malformation: -s/p Chiari decompression and suboccipital craniectomy, C1 laminectomy at age 9 with significant improvement -s/p Anesthesia consult several weeks ago, will allow neuraxial anesthesia and should be safe if desired -Anesthesia aware ?? Mild intermittent asthma: -Uses albuterol PRN intermittently ?? FWB: -Cat I, intermittent EFM okay ?? PPH risk: -Low, no labs, no IV, no active T&S ?? Pain: -Plans NCB, hoping to avoid epidural. Seen with BEATRIS Maravilla MD 04/07/2018 19:24 PGY2, OBGYN Pager [phone] * Gloria Zaidi MD - 04/07/2018 1803 EDT L&D Progress Note Rh pos/GBS neg CC: IUP @ 40w4d, SROM S: very uncomfortable O: BP 98/67 Temp 36.8 ??C (98.2 ??F) (Tympanic) Resp 16 LMP 06/27/2017 FHT: Baseline 115, mod variability, + accels, no decels (indeterminate at times due to patient movement with ctx but do not suspect decels); Category I tracing [place]: ctx q2-3min SVE: 7-8/90/0, suspect OA A/P: 27 y.o. @ 40w4d admitted for SROM. Category I tracing. Labor: -s/p SROM at 0500 for clear fluid, progressing spontaneously. Next SVE 2h. Anticipate . ?? A1GDM: -Well-controlled, glucose 68 on admission. POCT glucose q2h in active labor and q1h in Second stage. ?? H/o Chiari Type I malformation: -s/p Chiari decompression and suboccipital craniectomy, C1 laminectomy at age 9 with significant improvement -s/p Anesthesia consult several weeks ago, will allow neuraxial anesthesia and should be safe if desired -Anesthesia aware ?? Mild intermittent asthma: -Uses albuterol PRN intermittently ?? FWB: -Cat I, intermittent EFM okay ?? PPH risk: -Low, no labs, no IV, no active T&S ?? Pain: -Plans NCB, hoping to avoid epidural. Gloria Zaidi MD 04/07/2018 18:03 * Gloria Zaidi MD - 04/07/2018 1415 EDT L&D Progress Note Rh pos/GBS neg CC: IUP @ 40w4d, SROM S: Ctx closer together, more uncomfortable. O: BP 123/84 Temp 36.5 ??C (97.7 ??F) (Tympanic) Resp 16 LMP 06/27/2017 FHT: Baseline 115, mod variability, + accels, no decels (indeterminate at times due to patient movement with ctx but do not suspect decels); Category I tracing [place]: ctx q2-3min SVE: 5-6/90/-1 per Joie Barrazar, AROM for forebag, clear fluid A/P: 27 y.o. @ 40w4d admitted for SROM. Category I tracing. Labor: -s/p SROM at 0500 for clear fluid, progressing spontaneously, now s/p AROM of forebag. Next SVE 2h. ?? A1GDM: -Well-controlled, will collect single glucose now, then q4h in latent labor ?? H/o Chiari Type I malformation: -s/p Chiari decompression and suboccipital craniectomy, C1 laminectomy at age 9 with significant improvement -s/p Anesthesia consult several weeks ago, will allow neuraxial anesthesia and should be safe if desired -Anesthesia aware ?? Mild intermittent asthma: -Uses albuterol PRN intermittently ?? FWB: -Cat I, intermittent EFM okay ?? PPH risk: -Low, no labs, no IV, no active T&S ?? Pain: -Plans NCB, hoping to avoid epidural. Gloria Zaidi MD 04/07/2018 14:15 * Indira Wyatt RN - 04/07/2018 1143 EDT 11:00 Pt. Arrived in L+D with and jose manuel, admitted to room 4 at livestock breeder's request. EFM applied, FHR baseline 120's reactive, mod. Variability without decels. + movement noted. Reassuring Tracing Cat 1. Pt. States she awoke at 05:00 with contractions, that became stronger and more regular by 06:30. SROM at [address] her way here to hospital. She is wearing a saturated pad, which we usedto determine srom with, as Pt. Requested no Speculum exam if at all possible. Pt. States she was checked in the office and was found. To be 1.5cm/80% effaced. EFM removed, and pt. Encouraged to get out of bed to ambulate at will. Discussed her plans for delivering her baby, and how we may assist her. 13:00 L. Brooks CNM in room for evaluation and exam. /-1, broke forebag with amnio hook clear fluid. Pt. oob bed to ball. FHR baseline 115 reactive to 140 without decels. Monitor is sometimes doublingthe audio heart rate. 15:00 Pt. Continues to cope well with labor, encouraging PO fluids constantly,Tub is filled for use, 15:30 Pt in tub for good relief, states, it is much better in here 16:00 L. Brooks CNM in room. FHR baseline 110 reactive, Contraction pattern has spaced out to 3-4 minutes. 17:00 L. Brooks CNM and Gloria Zaidi Md enter room for evaluation and exam. Encourage pt. To get out oftub and empty bladder prior to exam in bed. 17:14 Dr. Zaidi exam -0 . Pt continues to cope well with contractions, FHR baselilne 115 reactive, mod. variabilty with mild 10 sec variables noted. 17:30 Pt. Is reclined on left side, moaning through contractions, with and livestock breeder by her side, She states she has tremendous vaginal/rectal pressure, No involuntary pushing noted. Early decelsstarting to be noticeable. 18:00 Pt. Pt. Is encouraged to get out of bed and ambulate, she hesitates but then makes herself get up, chase, OOB for 20 minutes, amulating, back to room at 18:20 sitting on birthing ball, FHR baseline 110 Indira Wyatt RN documented in this encounter H&P Notes * Gloria Zaidi MD - 04/07/2018 1156 EDT Department of Obstetrics History & Physical Admit Date: 04/07/2018 Chief Complaint Patient presents with ??? Laboring Admission indication: Term labor/ROM Maternal transport/Outside delivery: No HPI: Rita Tavares is a 27 y.o. at 40w4d by LMP who presents with ctx and LOF. Contractions started around 0500 - were irregular but progressively more regular. Her water broke at 0800. Uncomfortably ifeanyi but overall in no distress. No headaches, chest pain, shortness of breath, epigastric/RUQ pain. This is complicated by: 1. A1GDM: 1hr GTT was 168 with 2/4 elevated from GTT. S/p MFM consult - No medications necessary. 36wk EFW 2668g (31st%ile), normal fluid 2. Chiari Type I malformation: S/p decompression and suboccipital craniectomy C1 laminectomy, RADHA and WNL posterior placenta 3. Mild intermittent asthma: Occasional albuterol inhaler use 4. Letrozole for conception Review of Systems: See HPI. Current Complications: Does patient have any current complications?: Yes Diabetes: Gestational diet Hypertension: None Assisted reproduction this : Other (Comment) (Letrazole) Prior admission for PTL (this ): No Prior : None growth abnormality: None Multiple gestation: No, Padilla Second or third trimester bleeding: None Alloimmunization: None Testing: Genetic screening: NIPT Genetic screening abnormalities: None Genetic procedures: None testing: None Maternal/ imaging: First trimester US;Routine US Medication Exposure: Significant medication exposure: None Labs: Rh pos/ Antibody screen neg / Rubella imm / Varicella imm / RPR neg / Gonorrhea neg / Chlamydia neg / Hepatitis B neg/ Hepatitis C not done / HIV neg / 1hr GTT 168 / 3hr GTT 86/201/162/132 / GBS neg Ultrasound 36+2: ceph, post plac, EFW [id number] (31%ile), MVP 4.38cm FOB History: Father of the baby medical history: Unknown OB History Para Term AB Living 2 1 SAB TAB Ectopic Multiple Live Births # Outcome Date GA Lbr Brock/2nd Weight Sex Delivery Anes PTL Lv 2 Current 1 AB 03/14/17 6w5d Comments: SAB Previous Complications: No Data Recorded Past Medical History Past Surgical History Asthma Chiari Type I malformation, s/p decompression and suboccipital craniectomy C1 laminectomy Chiari decompression and suboccipital craniectomy C1 laminectomy Past Gynecological History Social History Hx of PCOS No abnormal pap smears No STI's Social History Substance Use Topics ??? Smoking status: Never Smoker ??? Smokeless tobacco: Never Used ??? Alcohol use Yes Comment: . not while reports that she does not use illicit drugs. Medications Allergies Prilosec PNV Albuterol Allergies Allergen Reactions ??? Augmentin [Amoxicillin-Pot Clavulanate] Rash Objective: Weights Prepregnancy Weight: 68 kg (150 lb) Patient Vitals for the past 8 hrs: BP Heart Rate Resp Temp 04/07/18 1300 123/84 77 BPM 16 36.5 ??C (97.7 ??F) 04/07/18 1100 132/77 82 BPM 16 36.8 ??C (98.2 ??F) General: NAD between ctx, very uncomfortable and breathing heavily during ctx Cardiovascular: RRR Respiratory: CTAB Abdomen: Soft, NTTP, ceph and EFW 8lb by Davis Extremities: WWP, NTTP, no edema Physical Lie: Longitudinal Presentation: Vertex FHT: 115 baseline. mod variability, pos accels, neg decels; Cat I tracing. TOCO: ctx q3min SSE: no speculum exam done - + nitrazine and + ferning from fluid on pad SVE: deferred - pt declined (confirmed cephalic on bedside US) Assessment/Problems/Plan: Rita Tavares is a 27 y.o. at 40w4d by LMP presenting with SROMand early labor. Will admit. Labor: -s/p SROM at 0500 for clear fluid -Appears to be in early labor. Declining SVE currently but will plan for SVE when more uncomfortable. A1GDM: -Well-controlled, will collect single glucose now, then q4h in latent labor H/o Chiari Type I malformation: -s/p Chiari decompression and suboccipital craniectomy, C1 laminectomy at age 9 with significant improvement -s/p Anesthesia consult several weeks ago, will allow neuraxial anesthesia and should be safe if desired -Anesthesia aware Mild intermittent asthma: -Uses albuterol PRN intermittently FWB: -Cat I, intermittent EFM okay PPH risk: -Low, no labs, no IV, no active T&S Pain: -Plans NCB, hoping to avoid epidural. Patient plans to breastfeed?: Yes Breastmilk contraindication: None Planning: Prior uterine surgery: No candidate?: No Waterbirth planned: No Home : No Post-Delivery Contraception?: Undecided Global hemorrhage risk: Low Rh pos GBS neg Immunizations indicated : None Discussed with Joie Brooks CNM. Gloria Zaidi MD 04/07/2018 14:07 Cosigned by Joie Brooks at 04/07/2018 15:39 EDT Associated attestation - Joie Brooks RN - 04/07/2018 1539 EDT Attending MD addendum: I saw and examined the patient. I discussed the plan with the resident and agree with resident's exam and assessment and plan as documented above. Pt is breathing well with ctxs. She had an anesthesia consult in and was given the okay for an epidural if desired. Will consult anesthesia atpt request. Pt has good support from Jasson and her livestock breeder. Joie Brooks APRN documented in this encounter Miscellaneous Notes * Note - Yesenia Miramontes, RN IBCLC - 04/10/2018 1022 EDT Images from the original note were not included. [facility] Progress Note Consult Requested By: Nursing Order Reason for Consult: Difficult latch/non-sustained latch Subjective: He has done better today with BF, using nipple shield. She feels independent with cross cradle holdbut needs help in football hold. Feels that she obtains more using pump than c hand expression. Objective: Date of : Information for the patient's : Rafal Tavares [[id number]] 04/08/2018 Time of Delivery: Information for the patient's : Rafal Tavares [[id number]] 0040 Type of Delivery: Information for the patient's : Rafal Tavares [[id number]] Spontaneous Vaginal Delivery [1056] Weight: 3246 g (7 lb 2.5 oz) Gestational Age: Information for the patient's : Rafal Tavares [[id number]] 40 5/7 : Information for the patient's : Rafal Tavares [[id number]] 5 Information for the patient's : Rafal Tavares [[id number]] 7 GBS: Mother was negative. Anesthesia: Labor analgesia: None Delivery anesthesia: None Adjunctive analgesia: Incisional local, Anesthetic complications: None Additional comments: History/ Complications: GDM, SROM, some decels during labor Maternal Lab: Lab Results Component Value Date HCT 34.2 (L) 01/11/2018 Infant Lab: Information for the patient's : Rafal Tavares [[id number]] Lab Results Component Value Date TCB 8.0 04/09/2018 Information for the patient's : Rafal Tavares [[id number]] No results found for: TBIL Information for the patient's : Rafal Tavares [[id number]] No results found for: CRP History: Primip Social History: Rita is a [employer] ATTEND[employer] in [employer]. 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 He is a television repair teacher. She plans RTW in 12 wks. Both sets of grandparents live nearby and are available to help. Jasson's mother will babysit for Colin til he is 6 mths old when Rita RTW. Medical History: Pertinent Maternal History: PCOS, used Letrozole for contraception. Hx of Neck surgery for a Chiarimalformation, Asthma, GDM, PCOS Current Maternal Medications: Current Facility-Administered Medications: acetaminophen (TYLENOL) tablet 650 mg oral Q4H PRN albuterol inhaler 2 Puff inhalation Q4H PRN calcium carbonate (TUMS) 200 mg calcium (500 mg) per chewable tablet tablet,chewable 2 Tab oral Q2HPRN docusate sodium (COLACE) capsule 100 mg oral BID PRN ibuprofen (MOTRIN) tablet 400 mg oral Q4H PRN lansinoh HPA lanolin topical PRN multivitamin vit-iron fumarate-FA (STUARTNATAL) 27 mg iron- 1 mg tablet 1 Tab oral DAILY Maternal Anatomy: Inelastic breast tissue with nipples tending to flat, inelastic. Pumping about 2-4 cc each time today. Nipples intact. Pertinent History: Deep suctioned several times. 1 x down to nb's stomach d/t copious secretions persisting. GFR. PEEP on RA. Low tone and low resp effort at Current Infant Medications: Information for the patient's : Rafal Tavares [[id number]] Current Facility-Administered Medications: Breast Milk Identification oral PRN sucrose 24% (TOOTSWEET) solution 0.1 mL oral PRN Infant Anatomy: no abnormalities noted Infants Current Weight: down 5.7 oz since yesterday Information for the patient's : Rafal Tavares [[id number]] 2930 g (6 lb 7.4 oz) Change from Weight: Information for the patient's : Rafal Tavares [[id number]] -10% 24 hour I/O: BF 9 x in 24 hours + use of nipple shield + 3.5 cc EBM (also has 5.5 cc EBM at bedside) Void x 2 Stool x 9 Observation: Introduced self/role. Baby had just eaten and was asleep. Discussed how things were going, discussed weight. Made a plan for family to ring next time he was awake and feeding. Patient Education:Typical pattern of night and cluster feeding, Pumping instructions, Spoonfeeding, hand expression, Breast compressions, Basics of positioning/latch and How to use nipple shield Assessment: Primipara with desire to exclusively breast feed. with 10% weight loss. Use of nipple. Need for support from partner, nursing and to meet her breast feeding goals. Plan: STS as much as possible. Offer breast with cues, at least 8-12 times per 24 hours Watch for light sleep state cues if needed, to avoid longer than 3 hours without feeding Try to observe latch at least once per shift - help with this PRN. Can use shield Use breast compressions to keep baby swallowing PRN If he BF well using shield, she can double pump x 3/24 hrs for now Offer both sides each feed LC to see daily Re-weigh at 1500 Handouts given: List of Community Resources - will plan to see Elsa Jorge IBYANDY Pump Equipment:: Spectra Time spent: In Room: 35 minutes face to face + latch/feed Out of room: 15 min chart review and note LC to see: daily as in-pt's YESENIA Miramontes RN IBCLC 04/10/2018 10:22 * Plan of Care - Sanaz Nair RN - 04/10/2018 0921 EDT Problem: Daily Care Plan Goals Goal: Care Plan Documentation Outcome: Met This Shift 04/10/18 0722 Care Plan Focus Area of Focus Discharge Plan Goal This Shift prepare family for disch Data: Mom vs and assessment wnl. Parents watched injoy video, one on one ed done prior to discharge, Everything on avs reviewed, injoy pages that say what to report to ob and pedi gone over. We discussed never shake a baby, safe sleep, causes of sids. Action:reinforce all education Response: mom will be discharged to home or will be discharged and stay to care for her baby. She will arrange help on her own. She has a list of who does visits. Sanaz Nair RN 04/10/2018 9:19 * Plan of Care - Yesenia Diop RN - 04/10/2018 0253 EDT Problem: Daily Care Plan Goals Goal: Care Plan Documentation Outcome: Met This Shift 04/09/182002 Care Plan Focus Area of Focus Sleep Goal This Shift cluster care to promote rest Data: Patient is a , GBS -, Rh+ mother who had an on 04/08/18 at 0040 sustaining a left labial laceration at 40 weeks 5 days. Patient has stable vital signs and assessments. Patient is exclusively . Rates pain at a 0-2/10. Action: Vital signs and assessments per orders, tylenol/motrin given q 4 while awake, assessed and assistance given as needed, taken to nursery x 1 per parents' request for rest, patient independently pumping (3x per day d/t nipple shield use), hourly rounding completed, care clustered for sleep promotion. Response: well independently or with minimal assist with a nipple shield, pain level low, resting well in between feeds, getting 3-5 mL with pumping. Stable, continue current care and education. Yesenia Diop RN 04/10/2018 2:44 Problem: Lifecycle: : Goal: Chance of risk for complications during the period will decrease Outcome: Met This Shift * Plan of Care - Mary Alice Tapia RN - 04/09/2018 1756 EDT Problem: Daily Care Plan Goals Goal: Care Plan Documentation Outcome: Met This Shift 04/09/18 1530 Care Plan Focus Area of Focus Sleep Goal This Shift Cluster care so she can get some rest Data: . S/P vaginal delivery. Tired this evening. Attempting to cluster care. AVSS. Taking painmeds Q 4 hours prn. Breast feeding with a shield. Mom is pumping. Action: Mom pumped this shift. Has tried to rest when in resting. Response: Pumped and got 7cc this last time. Infant latched well with shield. Stable PP. Plan for DC home tomorrow. Mary Alice Tapia RN 04/09/2018 17:53 * Note - Asim Santo RN IBCLC - 04/09/2018 1343 EDT Images from the original note were not included. [facility] Progress Note Consult Requested By: Nursing Order Reason for Consult: Difficult latch/non-sustained latch Subjective: He has done better today with BF, using nipple shield. She feels independent with cross cradle holdbut needs help in football hold. Feels that she obtains more using pump than c hand expression. Objective: Date of : Information for the patient's : Rafal Tavares [[id number]] 04/08/2018 Time of Delivery: Information for the patient's : Rafal Tavares [[id number]] 0040 Type of Delivery: Information for the patient's : Rafal Tavares [[id number]] Spontaneous Vaginal Delivery [1056] Weight: 3246 g (7 lb 2.5 oz) Gestational Age: Information for the patient's : Rafal aTvares [[id number]] 40 5/7 : Information for the patient's : Rafal Tavares [[id number]] 5 Information for the patient's : Rafal Tavares [[id number]] 7 GBS: Mother was negative. Anesthesia: Labor analgesia: None Delivery anesthesia: None Adjunctive analgesia: Incisional local, Anesthetic complications: None Additional comments: History/ Complications: GDM, SROM, some decels during labor Maternal Lab: Lab Results Component Value Date HCT 34.2 (L) 01/11/2018 Infant Lab: Information for the patient's : Rafal Tavares [[id number]] Lab Results Component Value Date TCB 8.0 04/09/2018 Information for the patient's : Rafal Tavares [[id number]] No results found for: TBIL Information for the patient's : Rafal Tavares [[id number]] No results found for: CRP History: Primip Social History: Rita is a [employer] ATTEND[employer] in [employer]. 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 He is a television repair teacher. She plans RTW in 12 wks. Both sets of grandparents live nearby and are available to help. Jasson's mother will babysit for Colin til he is 6 mths old when Rita RTW. Medical History: Pertinent Maternal History: PCOS, used Letrozole for contraception. Hx of Neck surgery for a Chiarimalformation, Asthma, GDM, PCOS Current Maternal Medications: Current Facility-Administered Medications: acetaminophen (TYLENOL) tablet 650 mg oral Q4H PRN albuterol inhaler 2 Puff inhalation Q4H PRN calcium carbonate (TUMS) 200 mg calcium (500 mg) per chewable tablet tablet,chewable 2 Tab oral Q2HPRN docusate sodium (COLACE) capsule 100 mg oral BID PRN ibuprofen (MOTRIN) tablet 400 mg oral Q4H PRN lansinoh HPA lanolin topical PRN multivitamin vit-iron fumarate-FA (STUARTNATAL) 27 mg iron- 1 mg tablet 1 Tab oral DAILY Maternal Anatomy: Inelastic breast tissue with nipples tending to flat, inelastic. Pumping about 2-4 cc each time today. Nipples intact. Pertinent Infant History: Deep suctioned several times. 1 x down to nb's stomach d/t copious secretions persisting. GFR. PEEP on RA. Low tone and low resp effort at Current Infant Medications: Information for the patient's : Rafal Tavares [[id number]] Current Facility-Administered Medications: Breast Milk Identification oral PRN sucrose 24% (TOOTSWEET) solution 0.1 mL oral PRN Anatomy: no abnormalities noted Infants Current Weight: down 5.7 oz since yesterday Information for the patient's : Rafal Tavares [[id number]] 3085 g (6 lb 12.8 oz) Change from Weight: Information for the patient's : Rafal Tavares [[id number]] -5% 24 hour I/O: BF x3, using nipple shield + 6.2-plus cc colostrum Void x 3 Stool x 4 Observation: Introduced self/role. Baby in drowsy state when I first came in and Rita planning to offer breast. She was able to position him in cross cradle hold on right side, independently with some verbal guidance. He did not gape very widely at first but then yawned so Rita brought him in to breast, using nipple shield. He latched but didn't start to suck, despite breast massage/compression and gentle stimulation. After about 10 mins, we decided to take him off breast and tried some hand expression. Gave baby about 0.3 cc colostrum on spoon and tried him back to breast again jaskaran cotto, even p he suckedon Rita's finger for a short bit. He latched again but did not suck so Rita double pumped, collecting 4 cc. I showed her how to break suction when removing baby from breast. Colin had 2 episodes of gagging, spitting up moderate amounts both times, of clear/yellow mucous. Reviewed feeding plan jaskaran Salinas and enc STS as much as possible. Enc her to call for help at next feeding. Patient Education:Typical pattern of night and cluster feeding, Pumping instructions, Spoonfeeding, hand expression, Breast compressions, Basics of positioning/latch and How to use nipple shield Assessment: Colin continues to be very gaggy, spitting up mucous which may cause him to be uninterested in BF much yet. Rita works gently and patiently with him. She did try laid back position with him yesterday but felt that that made him cry more. She has good amounts of colostrum to feed baby until he is BF better, most likely once mucous resolves. Nipple shield is helpful at this time but once baby more interested in feeding,we should evaluate whether it is needed. Plan: STS as much as possible. Offer breast with cues, at least 8-12 times per 24 hours Watch for light sleep state cues if needed, to avoid longer than 3 hours without feeding Try to observe latch at least once per shift - help with this PRN. Can use shield Use breast compressions to keep baby swallowing PRN Rita to double pump at any BF session if baby doesn't sustain sucking at breast. If he BF well using shield, she can double pump x 3/24 hrs for now Handouts given: none yet Pump Equipment:: Needs review Time spent: In Room: 40 mins face to face Out of room: 20 min chart review and note LC to see: daily as in-pt's Asim Santo RN IBCLC 04/09/2018 13:43 * Plan of Care - Sanaz Nair RN - 04/09/2018 1117 EDT Problem: Daily Care Plan Goals Goal: Care Plan Documentation Outcome: Met This Shift 04/09/18 0742 Care Plan Focus Area of Focus Sleep Goal This Shift cluster care so mom can nap Data: Mom looks exhausted. She did take a nap after nursing. Mom medicated with tylenol and motrin q 4 hr. . Action: medicate q 4 hr, ice given to her perineum. Mom is pumping some because using a shield and the extra milk motivates the baby to suck initially. Response: mom was able to rest a little. Sanaz Nair RN 04/09/2018 11:09 * Plan of Care - Haydee Ferrer RN - 04/09/2018 0537 EDT Problem: Daily Care Plan Goals Goal: Care Plan Documentation Outcome: Ongoing 04/08/18 1927 Care Plan Focus Area of Focus Pain/ Comfort Goal This Shift pt will report good pain control with current regimen Data: 1 Day s/p vaginal delivery , pushed 3hrs without anesthesia Action: Medicate with tylenol & motrin q4hrs Response: Patient has been medicated with pain meds q4hrs, see eMAR for times. Pain has been well controlled with current regimen. Continue with current plan of care. Haydee Ferrer RN 04/09/2018 5:34 * Plan of Care - Ashia Marley RN - 04/08/2018 1513 EDT Problem: Daily Care Plan Goals Goal: Care Plan Documentation Outcome: Met This Shift 04/08/18 0810 Care Plan Focus Area of Focus Pain/ Comfort Goal This Shift maintain pt comfort/pain control Data: Rita delivered this AM vaginally at 0040. First baby for Rita and Jasson. Pt stable. Pain 2-3/10. Taking tylenol and motrin for discomfort Action: medicate q 4 hours, cluster care to provide rest, assist with feedings and pumping Response: Pt stable, continue to assist as needed. Pt needs fasting FS in AM Problem: Pain: Goal: Pain level will decrease Outcome: Met This Shift * Note - Tosha Milligan RN IBCLC - 04/08/2018 1346 EDT Images from the original note were not included. [facility] Initial Consult Consult Requested By: Nursing Order Reason for Consult: Difficult latch/non-sustained latch Subjective: He really screams when we have tried him to breast. Objective: Date of : Information for the patient's : Rafal Tavares [[id number]] 04/08/2018 Time of Delivery: Information for the patient's : Rafal Tavares [[id number]] 0040 Type of Delivery: Information for the patient's : Rafal Tavares [[id number]] Spontaneous Vaginal Delivery [1056] Weight: 3246 g (7 lb 2.5 oz) Gestational Age: Information for the patient's : Rafal Tavares [[id number]] 40 5/7 : Information for the patient's : Rafal Tavares [[id number]] 5 Information for the patient's : Rafal Tavares [[id number]] 7 GBS: Mother was negative. Anesthesia: Labor analgesia: None Delivery anesthesia: None Adjunctive analgesia: Incisional local, Anesthetic complications: None Additional comments: History/ Complications: GDM, SROM, some decels during labor Maternal Lab: Lab Results Component Value Date HCT 34.2 (L) 01/11/2018 Lab: Information for the patient's : Rafal Tavares [[id number]] No results found for: TCB Information for the patient's : Rafal Tavares [[id number]] No results found for: TBIL Information for the patient's : Rafal Tavares [[id number]] No results found for: CRP History: Primip Social History: Rita is a [employer] ATTEND[employer] in [employer]. 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 RTW in 12 wks. Medical History: Pertinent Maternal History: PCOS, used Letrozole for contraception. Hx of Neck surgery for a Chiarimalformation, Asthma, GDM. Current Maternal Medications: Current Facility-Administered Medications: acetaminophen (TYLENOL) tablet 650 mg oral Q4H PRN albuterol inhaler 2 Puff inhalation Q4H PRN calcium carbonate (TUMS) 200 mg calcium (500 mg) per chewable tablet tablet,chewable 2 Tab oral Q2HPRN docusate sodium (COLACE) capsule 100 mg oral BID PRN ibuprofen (MOTRIN) tablet 400 mg oral Q4H PRN lansinoh HPA lanolin topical PRN multivitamin vit-iron fumarate-FA (STUARTNATAL) 27 mg iron- 1 mg tablet 1 Tab oral DAILY Maternal Anatomy: Tighter, firmer breasts, nipples not fully everted Pertinent Infant History: Deep suctioned several times. 1 x down to nb's stomach d/t copious secretions persisting. GFR. PEEP on RA. Low tone and low resp effort at Current Infant Medications: Information for the patient's : Rafal Tavares [[id number]] Current Facility-Administered Medications: Breast Milk Identification oral PRN Hepatitis B Virus Vaccine (PF) (ENGERIX-B) 10 mcg/0.5 mL IM injection-syringe 0.5 mL intramuscular ONCE sucrose 24% (TOOTSWEET) solution 0.1 mL oral PRN Infant Anatomy: no abnormalities noted Infants Current Weight: down 46 g = 2 oz Information for the patient's : Rafal Tavares [[id number]] 3200 g (7 lb 0.9 oz) Change from Weight: Information for the patient's : Rafal Tavares [[id number]] -1% 24 hour I/O: BF x2 with drops of colostrum V= lg void x1 Stool= not recorded Observation: Introduced self in role. Rita and I discussed and how it all starts. Rita expressed that the nb really cries hard when he is put to breast. I reassured her that babies aren't really happy with change, that he is ok. Explaining that he did go through some invasive procedures with deep suctioning post a few times, so he can be feeling sore orally and down his throat. (suctioned to nb's stomach d/t persistent GFR.) Rita allowed me to put nb STS. NB did move over toward one breast, but didn't lurch over to nipple. Recommended as much STS as possible and offered nb EBM on Rita's finger, licked and fell asleep. Prior to STS, taught FOB how to let nb suckon his finger in attempts of teaching nb to feel secure with something in his mouth. Addendum: 2nd visit with family. NB placed in the center of Rita's chest, STS, in hopes of attaining a self-led latch. NB was in the quiet alert stage and did not lurch over to either breast. Demonstrated how to hand express. Taught father how to hand express and give many drops of EBM to nb via his finger tip. We then attempted the self led latch and nb did move over toward her L breast, but didn't attach. Added an XS shield with Rita's permission. With some shoulder pressure nb did latch on and had a sucking burst. Then unlatched and stayed next to breast. Removed shield and nb wasn't able to re-latch. Rita has firmer breasts with nipples that don't fully crispin. Rita stated that L breast leaked at the end of her . Patient Education:hand expression and Discussed a nipple shield Assessment: Rita has potential to EBF her nb. With assistance form [facility] staff, she will have a good start to EBF her nb. Plan: STS as much as possible. Offer breast with cues, at least 8-12 times per 24 hours Watch for light sleep state cues if needed, to avoid longer than 3 hours without feeding Try to observe latch at least once per shift - help with this PRN Use breast compressions to keep baby swallowing PRN Pump prn to stimulate milk supply and 2-3 x in a 24 hour period with shield use (shield not in use at this time.) Handouts given: Needs f/u Pump Equipment:: Needs review Time spent: In Room: 15 + 17 min face to face (2 visits) Out of room: 23 min chart review and note LC to see: daily as in-pt's Tosha Milligan RN IBCLC 04/08/2018 13:46 * Plan of Care - Cecily Dumont RN - 04/08/2018 0642 EDT Problem: Daily Care Plan Goals Goal: Care Plan Documentation Outcome: Ongoing 04/08/18 0400 Care Plan Focus Area of Focus Sleep Goal This Shift Patient will sleep between clustered care and feedings Data: S/P vaginal delivery after long pushing stage, exhausted, wishes to breastfeed, first child, up to void x1, wishes pain medication to be given when available Action: Assessed, assisted to bathroom for first time, pain medication given, assisted with and hand expression, oriented to room before they fell asleep Response: Stable, able to sleep for first hour, awoken for skin to skin with , extremely opento hypoglycemic interventions, wishes to exclusively breastfeed CECILY DUMONT RN 04/08/2018 6:39 Problem: Pain: Goal: Pain level will decrease Outcome: Ongoing * L&D Delivery Note - Mami Garcia MD - 04/08/2018 0123 EDT Delivery Information Rita Tavares is a 27 y.o. at 40w5d delivered by Spontaneous Vaginal Delivery . Rafal Tavares [phone] at Gestational Age: 40w5d delivered by Spontaneous Vaginal Delivery weighed 3246 g (7 lb 2.5 oz), 5 /7 , sent to nursery after delivery. Maternal: Delivery Plan Outcome Planned home ? Not planned External cephalic version attempt indicated? Not indicated Delivery as waterbirth? No JAYASHREE after : Not applicable Delivery Indications Maternal Indications for delivery/comments: Labor Indications for delivery/comments: Not applicable Intrapartum Medication Intrapartum preeclampsia: No Intrapartum Mg: No Intrapartum Mg Indication: N/A Labor Labor onset: Spontaneous Cervical ripening/induction agent: N/A Labor augmentation: None Augmentation indication/comments: N/A Infection/Risk of Sepsis GBS Status: Negative GBS treatment: PROM > or = 18 Hours: N/A Maternal Fever > or = 38 C: N/A Maternal Tachycardia > 100 bpm: N/A Tachycardia > 160 bpm: N/A Uterine tenderness: N/A Foul odor of amniotic fluid: N/A Chorioamnionitis: N/A HIV Status/treatment: Not indicated Hepatitis B Surface Antigen: Negative Syphilis: Negative Assessment monitoring: Contiunous - External Continuous - Internal heart rate characteristics/comments: Cat 1 Cat 2 Baseline 120, moderate variability, prolonged decel to 90 then 60 with delivery for 9 minutes demise: N/A Anesthesia Labor analgesia: None Delivery anesthesia: None Adjunctive analgesia: Incisional local, Anesthetic complications: None Additional comments: Maternal Delivery Delivery type: Spontaneous Vaginal Delivery Presentation: Vertex Position: TANNER indication: Forceps Attempted: No Vacuum Attempted: No Operative Vaginal Delivery Indication: N/A Station - Initial Application: N/A Details of Shoulder Dystocia (if applicable) Dystocia Present? No Maneuvers Performed (if applicable) Placenta Delivered: 04/08 0:45 Delivery method: Spontaneous;Controlled Cord Traction Morphology: Normal Disposition: Refrigerator Cord Details Vessels: 3 Vessels Complications: None Nuchal intervention: Nuchal cord description: Cord around: Number of loops: Gases Sent? Yes Cord Blood Sent: None Stem cell collection (by MD)? No Comments: Lacerations/Episiotomy Lacerations: Yes Periurethral: N/A Additional Lacerations: Labial Left labial buttonhole laceration Episiotomy: None Indication: N/A Repair Suture: 4-0 Vicryl Procedures Additional Procedures: None Hemorrhage (if applicable) hemorrhage: None Estimated blood loss (mL): 300.00 Uterotonics/PPH Procedures: Uterine massage, Oxytocin, Blood Products Transfused: (if applicable) Labor Length Duration of 1st Stage: hours minutes Duration of 2nd Stage: hours minutes Duration of 3rd Stage: 0 hours 4 minutes Duration of Cord Clamp Delay: 30 seconds Precipitous Labor (<3 hours): No Prolonged Labor (>20 hours): No Gerlaw: Date of : 04/08/2018 Time of : 0040 Sex: male Weight (grams): 3246 g (7 lb 2.5 oz) Length (in): Head circumference (in): Observed anomalies, comments: Meconium Present at Delivery: No (<37 wks): No Late (34-37 wks): No Steroid Course: Not indicated Indication: N/A PPROM Gestational Age: N/A APGARS Totals: 5 /7 /-/-/- Resuscitation Resuscitation: Suctioning;Mask CPAP;Pulse Oximetry Delivery Personnel Delivering Clinician: JOIE BROOKS Additional Personnel: LUIS LIEBERMAN;ARAVIND MURRELL;PED NICU TEAM ROM Duration: (Delivered) 16h 40m Induction Duration (if applicable): Labor and Delivery comments: 27 yo at 40w5 presented to L&D in spontaneous labor with SROM. She progressed to complete cervical dilation and pushed un-medicated for a little over 3 hours to deliver a live male infant in the OA position. Second stage was complicated by recurrent decelerations that became deeper with longer recovery to baseline near to delivery. Infant was initially placed on maternal abdomen, but due to poor initial tone and delayed respiratory effort, cord was clamped and cut and handed to awaiting pediatric team. IM pitocin was administered. Placenta delivered intact with maternal effort and gentle cord traction. A small left labial button hole laceration between the labia minora and majora was repaired with 4-0 vicryl under local anesthesia. Perineum was intact. weighed 3,246g with Apgars of 5 and 7. Maternal EBL was 300 cc. Mami Garcia MD 04/08/2018 1:34 Cosigned by Joie Brooks at 04/08/2018 8:14 EDT Associated attestation - Joie Brooks, RN - 04/08/2018 0814 EDT Attending addendum: I saw and examined the patient. I discussed the plan with the resident and agree with resident's exam and assessment and plan as documented above. FSE at 1209 started to cut out during ctx, however moderate variability noted between ctx and pt was . At 1232 lidocaine injected into perineum by Mami Garcia MD, pt was able to push baby out prior to episiotomy over the next two ctx. Infant to mother's abdomen and cord immediately clamped and cut and baby to the warmer. Couplet stable and were transferred to . Joie Brooks APRN documented in this encounter Plan of Treatment Scheduled Referrals Name Type Priority Associated Diagnoses Order Schedule PROVIDER FOLLOW-UP INSTRUCTIONS Outpatient Referral Routine Ordered: 04/10/2018 documented as of this encounter Procedures Procedure Name Priority Date/Time Associated Diagnosis Comments GLUCOSE, GLUCOMETER Routine 04/09/2018 7 :39 EDT GLUCOSE, GLUCOMETER Routine 04/09/2018 7 :04 EDT GLUCOSE, GLUCOMETER Routine 04/09/2018 6 :38 EDT BLOOD GASES, CORD VENOUS STAT 04/08/2018 0:43 EDT BLOOD GASES, CORD ARTERIAL STAT 04/08/2018 0:43 EDT GLUCOSE, GLUCOMETER Routine 04/07/2018 1 9:54 EDT GLUCOSE, GLUCOMETER Routine 04/07/2018 1 2:23 EDT documented in this encounter Results * GLUCOSE, GLUCOMETER (04/09/2018 7:39 EDT) Glucose, Fingerstick 81 70 - 100 mg/dl 04/09/2018 7:40 EDT [facility] [employer] Necktie Operator ID [id number] 04/09/2018 7:40 EDT [facility] Comment:Test Performed by [facility] BLOOD SPECIMEN / Unknown 04/09/2018 7:39 EDT 04/09/2018 7:40 EDT us Aubree Tapia MD CHEMISTRY & BLOOD GAS ORDJulia DO Final Result [facility] [address] [place] [address] * GLUCOSE, GLUCOMETER (04/09/2018 7:04 EDT) Glucose, Fingerstick 74 70 - 100 mg/dl 04/09/2018 7:04 EDT [facility] [employer]cktie Operator ID [id number] 04/09/2018 7:04 EDT [facility] Comment:Test Performed by batterii rsing [employer] BLOOD SPECIMEN / Unknown 04/09/2018 7:04 EDT 04/09/2018 7:05 EDT us Aubree Tapia MD CHEMISTRY & BLOOD GAS ORDJulia DO Final Result [facility] [address] [place] [address] * (ABNORMAL) GLUCOSE, GLUCOMETER (04/09/2018 6:38 EDT) Glucose, Fingerstick 67(L) 70 - 100 mg/dl 04/09/2018 6:39 EDT [facility] [employer] Necktie Operator ID [id number] 04/09/2018 6:39 EDT [facility] Comment:Test Performed by [facility] Services BLOOD SPECIMEN / Unknown 04/09/2018 6:38 EDT 04/09/2018 6:39 EDT us Aubree Tapia MD CHEMISTRY & BLOOD GAS ALDO DO Final Result [facility] [address] [place] [address] * (ABNORMAL) BLOOD GASES, CORD VENOUS (04/08/2018 0:43 EDT) Pathologist [facility] pH, Cord blood didi 7.24(L) 7.25 - 7.45 04/08/2018 1:09 EDT [facility] PCO2, Cord blood 40 mmHg 04/08/2018 1:09 EDT [facility] PO2, Cord bld didi 29 17 - 41 mmHg 04/08/2018 1:09 EDT [facility] tCO2, Cord blood 18 14 - 22 mEq/L 04/08/2018 1:09 EDT [facility] Base Deficit 10.3 04/08/2018 1:09 EDT [facility] BLOOD SPECIMEN / Unknown 04/08/2018 0:43 EDT 04/08/2018 0:50 EDT us Joie Brooks CNM GEN LAB UNIT COLLECT ORDERABLES Final Result [facility] [address] [place] [address] * (ABNORMAL) BLOOD GASES, CORD ARTERIAL (04/08/2018 0:43 EDT) pH, Cord blood art 7.14(L) 7.18 - 7.38 04/08/2018 1:09 EDT [facility] PCO2, Cord blood 58 mmHg 04/08/2018 1:09 EDT [facility] PO2, Cord bld art 24 6 - 30 mmHg 04/08/2018 1:09 EDT [facility] tCO2, Cord blood 21 14 - 22 mEq/L 04/08/2018 1:09 EDT [facility] Base Deficit 10.2 04/08/2018 1:09 EDT [facility] Blood specimen (specimen) BLOOD SPECIMEN / Unknown 04/08/2018 0:43 EDT 04/08/2018 0:50 EDT us Joie Brooks [facility] GEN LAB UNIT COLLECT ORDERABLES Final Result Performing Organization Address City/[facility]/ZIP Co de Phone Number [facility] [address] [place] [address] * (ABNORMAL) GLUCOSE, GLUCOMETER (04/07/2018 19:54 EDT) Glucose, Fingerstick 123(H) 70 - 100 mg/dl 04/07/2018 19:58 EDT [facility] [employer] Ne[employer]tie Operator ID [id number] 04/07/2018 19:58 EDT [facility] Comment:Test Performed by [facility] [place] BLOOD SPECIMEN / Unknown 04/07/2018 19:54 EDT 04/07/2018 19:58 EDT us Aubree Tapia MD CHEMISTRY & BLOOD GAS ALDO DO Final Result [facility] [address] [place] [address] * (ABNORMAL) GLUCOSE, GLUCOMETER (04/07/2018 12:23 EDT) Glucose, Fingerstick 65(L) 70 - 100 mg/dl 04/07/2018 12:25 EDT [facility] [employer] Operator ID [id number] 04/07/2018 12:25 EDT [facility] Comment:Test Performed by [facility] BLOOD SPECIMEN / Unknown 04/07/2018 12:23 EDT 04/07/2018 12:25 EDT us Aubree Tapia MD CHEMISTRY & BLOOD GAS ALDO DO Final Result [facility] [address] [place] [address] documented in this encounter Visit Diagnoses Diagnosis Supervision of normal - Primary Supervision of other normal Encounter for supervision of other normal in third trimester documented in this encounter Administered Medications Inactive Administered Medications - up to 3 most recent administrations Medication Order MAR Action Action Date Dose Rate Site acetaminophen (TYLENOL) tablet 650 mg 650 mg, oral, EVERY 4 HOURS PRN, Starting on 04/07/18 at 1231, Until Sun04/08/18 at 0428, Pain, Post-, Routine Given 04/08/2018 1:25 EDT 650 mg acetaminophen (TYLENOL) tablet 650 mg 650 mg, oral, EVERY 4 HOURS PRN, Starting on 04/08/18 at 0427, Until Sun04/10/18 at 1830, Pain, Routine Given 04/10/2018 11:52 EDT 650 mg Given 04/10/2018 8:03 EDT 650 mg Given 04/10/2018 3:47 EDT 650 mg albuterol inhaler 2 Puff 2 Puff, inhalation, EVERY 4 HOURS PRN, Starting on 04/07/18 at 1930, Until Sun04/10/18 at 1830, Wheezing, Routine calcium carbonate (TUMS) 200 mg calcium (500 mg) per chewable tablet tablet,chewable 1 Tab 1 Tablet, oral, 4 TIMES DAILY PRN, Starting on 04/07/18 at 2202, Until Sun04/08/18 at 0428, Heartburn, Routine Given 04/08/2018 1:27 EDT 1 Tablet calcium carbonate (TUMS) 200 mg calcium (500 mg) per chewable tablet tablet,chewable 2 Tab 2 Tablet, oral, EVERY 2 HOURS PRN, Starting on 04/08/18 at 0427, Until Sun04/10/18 at 1830, Heartburn, Indigestion, Routine Given 04/08/2018 19:25 EDT 2 Tab lets docusate sodium (COLACE) capsule 100 mg 100 mg, oral, 2 TIMES DAILY PRN, Starting on Sun04/08/18 at 0427, Until Sun04/10/18 at 1830, Constipation, Routine Given 04/10/2018 8:03 EDT 100 mg Given 04/09/2018 18:03 EDT 100 mg Given 04/09/2018 10:00 EDT 100 mg ibuprofen (MOTRIN) tablet 400 mg 400 mg, oral, EVERY 4 HOURS PRN, Starting on Sun04/07/18 at 1231, Until Sun04/08/18 at 0428, Pain, post-, Routine Given 04/08/2018 1:27 EDT 400 mg ibuprofen (MOTRIN) tablet 400 mg 400 mg, oral, EVERY 4 HOURS PRN, Starting on Sun04/08/18 at 0427, Until Sun04/10/18 at 1830, Pain, Routine Given 04/10/2018 11:52 EDT 400 mg Given 04/10/2018 8:03 EDT 400 mg Given 04/10/2018 3:47 EDT 400 mg lansinoh HPA lanolin topical, PRN, Starting on Sun04/08/18 at 0427, Until Sun04/10/18 at 1830, Other, breast feeding Given 04/09/2018 18:04 EDT 7 g multivitamin vit-iron fumarate-FA (STUARTNATAL) 27 mg iron- 1 mg tablet 1 Tab 1 Tablet, oral, DAILY, First dose on Sun04/08/18 at 0900, Until Discontinued, Routine Given 04/10/2018 8:03 EDT 1 Tablet ondansetron (ZOFRAN-ODT) disintegrating tablet 4 mg 4 mg, oral, EVERY 4 HOURS PRN, Starting on Sun04/07/18 at 1518, Until Sun04/08/18 at 0428, Nausea, STAT Given 04/07/2018 15:25 EDT 4 mg oxytocin (PITOCIN) 10 unit/mL injection 1 dose, Starting on Sun04/07/18 at 1400, Until Sun04/08/18 at 0043 Given 04/08/2018 0:43 EDT 10 Units Right Vastus Lateral is sodium citrate-citric acid (BICITRA) 500-334 mg/5 mL solution 30 mL 30 mL, oral, Once (Without Time Specified), 1 dose, Starting on 04/07/18 at 2033, Until 04/07/18 at 2000, Routine Given 04/07/2018 20:00 EDT sodium citrate-citric acid (BICITRA) 500-334 mg/5 mL solution 1 dose, Starting on 04/07/18 at 1938, Until 04/07/18 at 2000 documented in this encounter Discontinued Medications Medication Sig Discontinue Reason Start Date End Da te blood glucose test strips One touch verio meter or any brand compatible with meter and covered by Pt's insurance. Tests QID. 01/28/2018 04/07/2018 letrozole (FEMARA) 2.5 mg tablet Take 2 Tabs by mouth daily. Take cycle days 5-9 07/01/2017 04/07/2018 clomiPHENE (CLOMID) 50 mg tablet Take 1 Tab by mouth daily. Take 1 tablet once a day for cycle days 5-9. 12/01/2016 04/07/2018 UNKNOWN TO PATIENT Reported on 10/27/2016 018 doxylamine succinate (UNISOM, DOXYLAMINE, ORAL) Take by mouth. 04/10/2018 documented as of this encounter Active and Recently Administered Medications Times are shown in EDT. Scheduled Medication Order 04/08/2018 04/09/2018 04/10/2018 multivitamin vit-iron fumarate-FA (STUARTNATAL) 27 mg iron- 1 mg tablet 1 Tab 1 Tablet, oral, DAILY, First dose on 04/08/18 at 0900, Until Discontinued, Routine 1053 (Not Given - Provider: Ashia Marley RN - Reason: Patient/family refused) 0959 (Not Given - Provider: Sanaz Nair RN - Reason: Patient/family refused) 0803 (Given - Provider: Sanaz Nair RN) PRN Medication Order 04/08/2018 04/09/2018 04/10/2018 acetaminophen (TYLENOL) tablet 650 mg (CANCELED) 650 mg, oral, EVERY 4 HOURS PRN, Starting on 04/07/18 at 1231, Until 04/08/18 at 0428, Pain, Post-, Routine 0125 (Given - Provider: Jodie Mcneill RN) acetaminophen (TYLENOL) tablet 650 mg 650 mg, oral, EVERY 4 HOURS PRN, Starting on 04/08/18 at 0427, Until Sun04/10/18 at 1830, Pain, Routine 0547 (Given - Provider: Cecily Dumont, RN)1010 (Given - Provider: Ashia Marley, RN)1413 (Given - Provider: Ashia Marley, RN)1805 (Given - Provider: Chance Hernandez, RN)2200 (Given - Provider: Haydee Ferrer, RN) 0219 (Given - Provider: Haydee Ferrer, RN)0605 (Given - Provider: Haydee Ferrer, RN)1000 (Given - Provider: Sanaz Nair, MIKEY)1357 (Given - Provider: Sanaz Nair RN)1803 (Given - Provider: Mary Alice Tapia RN)2159 (Given - Provider: Yesenia Diop, MIKEY) 0347 (Given - Provider: Yesenia Diop, MIKEY)0803 (Given - Provider: Sanaz Nair RN)1152 (Given - Provider: Sanaz Nair RN) albuterol inhaler 2 Puff 2 Puff, inhalation, EVERY 4 HOURS PRN, Starting on 04/07/18 at 1930, Until Sun04/10/18 at 1830, Wheezing, Routine calcium carbonate (TUMS) 200 mg calcium (500 mg) per chewable tablet tablet,chewable 1 Tab (CANCELED) 1 Tablet, oral, 4 TIMES DAILY PRN, Starting on 04/07/18 at 2202, Until Sun04/08/18 at 0428, Heartburn, Routine 0127 (Given - Provider: Jodie Mcneill RN) calcium carbonate (TUMS) 200 mg calcium (500 mg) per chewable tablet tablet,chewable 2 Tab 2 Tablet, oral, EVERY 2 HOURS PRN, Starting on Sun04/08/18 at 0427, Until Sun04/10/18 at 1830, Heartburn, Indigestion, Routine 1925 (Given - Provider: Haydee Ferrer, MIKEY) docusate sodium (COLACE) capsule 100 mg 100 mg, oral, 2 TIMES DAILY PRN, Starting on Sun04/08/18 at 0427, Until Sun04/10/18 at 1830, Constipation, Routine 0547 (Given - Provider: Cecily Dumont, MIKEY)2200 (Given - Provider: Haydee Ferrer, MIKEY) 1000 (Given - Provider: Sanaz Nair RN)1803 (Given - Provider: Mary Alice Tapia, RN) 0803 (Given - Provider: Sanaz Nair, MIKEY) ibuprofen (MOTRIN) tablet 400 mg (CANCELED) 400 mg, oral, EVERY 4 HOURS PRN, Starting on Sun04/07/18 at 1231, Until Sun04/08/18 at 0428, Pain, post-, Routine 0127 (Given - Provider: Jodie Mcneill RN) ibuprofen (MOTRIN) tablet 400 mg 400 mg, oral, EVERY 4 HOURS PRN, Starting on Sun04/08/18 at 0427, Until Sun04/10/18 at 1830, Pain, Routine 0547 (Given - Provider: Cecily Dumont RN)1010 (Given - Provider: Ashia Marley RN)1413 (Given - Provider: Ashia Marley RN)1805 (Given - Provider: Chance Hernandez RN)2200 (Given - Provider: Haydee Ferrer, MIKEY) 0219 (Given - Provider: Haydee Ferrer, MIKEY)0605 (Given - Provider: Haydee Ferrer, MIKEY)1000 (Given - Provider: Sanaz Nair RN)1357 (Given - Provider: Sanaz Nair, MIKEY)1803 (Given - Provider: Mary Alice Tapia, MIKEY)2200 (Given - Provider: Yesenia Diop, MIKEY) 0347 (Given - Provider: Yesenia Diop RN)0803 (Given - Provider: Sanaz Nair, MIKEY)1152 (Given - Provider: Sanaz Nair, MIKEY) lansinoh HPA lanolin topical, PRN, Starting on Sun04/08/18 at 0427, Until Sun04/10/18 at 1830, Other, breast feeding 1804 (Given - Provider: Mary Alice Tapia, MIKEY) No Frequency Medication Order 04/08/2018 04/09/2018 04/10/2018 oxytocin (PITOCIN) 10 unit/mL injection (COMPLETED) 1 dose, Starting on 10/28/18 at 1400, Until 04/08/18 at 0043 0043 (Given - Provider: Jodie Mcneill RN) documented in this encounter Orders Medications Ordered That Gokul ht Not Have Been Administered Count Last Ordered Date First Ordered Date albuterol inhaler 2 Puff 2 04/07/2018 carboprost (HEMABATE) intram uscular injection 250 mcg 1 04/07/2018 lactated ringers (LR) infusion 1 04/07/2018 methylergonovine (METHERGINE ) injection 200 mcg 1 04/07/2018 miSOPROStol (CYTOTEC) tablet 200 mcg 1 03/12 miSOPROStol (CYTOTEC) tablet 800 mcg 1 03/12 oxytocin in lactated ringers 30 units/500 ml 2 04/07/2018 Diet Count Last Ordered Date First Orde red Date DISCHARGE DIET 1 04/10/2018 Nursing Count Last Ordered Date First Orde red Date ACTIVITY INSTRUCTIONS 3 04/10/2018 BATHING INSTRUCTIONS 2 04/10/2018 Admission Count Last Ordered Date First Orde red Date STATUS: NON-MEDICARE OB INPA TIENT ADMISSION 1 04/07/2018 Transfer Count Last Ordered Date First Orde red Date NOTIFY PPS OF DISCHARGE COMPLETE 1 04/10/20 18 PPS NOTIFICATION OF PATIENT ARRIVAL ON UNIT 1 04/08/2018 PPS NOTIFICATION OF SENDING PATIENT OFF THE UNIT 1 04/08/2018 Discharge Count Last Ordered Date First Orde red Date DISCHARGE PATIENT 1 04/10/2018 Legal Count Last Ordered Date First Orde red Date MISCELLANEOUS DISCHARGE INSTRUCTIONS 2 03/13 documented in this encounter Care Teams Boiler Helper Relationship Specialty Start Date End Date Alexa Hairston APRN [address] [place] [address] PCP - General 10/26/16 07/11/20 documented as of this encounter
--- OUTSIDE RECORDS SUMMARY | 2024-06-16 16:41 | XMS_ITS | Encounter Summary ---
Author Organization [facility] Address [address] [place] [address] Care Team Providers Care Regeneration Operator Name Role Phone YovannynAuel underwood YU Primary Care Provider [phone] [phone] Encounter Details Date Type Department Care Team (Late st Contact Info) Description 09/29/2018 Results Only [facility] [phone] Sharon Dent MD [address] [place] [address] Social History Tobacco Use Types Packs/Day Years [...] Procedure Name Priority Date/Time Associated Diagnosis Comments SURGICAL PATHOLOGY Routine 09/29/2018 8:28 EDT documented in this encounter Results * SURGICAL PATHOLOGY (09/29/2018 8:28 EDT) Pathology Report: SURGICAL PATHOLOGY REPORT Reports generated via electronic interface contain original data; however they are lacking the format of the original report. Caution should be taken when reading/interpret ing unformatted reports. Name: ? EBONI FLYNN ? Accession #: ? [id number] ? : ? 1990 (Age: 27) ??F ? Collect Date: ? 09/29/2018 ? Location: ? [facility] ? Receive Date: ? 09/30/2018 ? Provider: SHARON DENT MD Copy to: ANUEL JENSEN CERTIFIED SURGICAL TECHNICIAN ? Final Pathologic Diagnosis: APPENDIX, APPENDECTOMY: - Acute appendicitis. Document reviewed and electronically signed by: JAIME ARRIAGA MD Report ??Date: 10/05/2018 10:06 By the signature above, the attending physician certifies that he/she has personally conducted a gross and/or microscopic examination of the described specimens and rendered or confirmed the above diagnosis. Specimen(s) Received: Appendix Clinical History: Acute appendicitis Gross Description: ? Received in formalin labelled with proper patient identification (initials D, A) and appendix is an 11.0 cm in length appendix stapled along its margin. The appendix ranges from 0.8-1.2 cm in diameter and contains a moderate amount of attached mesoappendix. The serosa is glistening to dusky madrid-brown with mild exudate coating. A wall perforation is not identified. ? Sections through the appendix show a dilated lumen containing pertinent material throughout the majority of its length. The proximal lumen contains three small fecaliths up to 0.5 cm in greatest dimension. The wall is madrid-diaz with focal hemorrhage and ranges from 0.1-0.3 cm in thickness. ? Financial Reporting Analyst sections are submitted to include the proximal margin (inked blue), en face in 1. LARA Mcclure (ASCP) 10/01/2018 9:18 AM End of Report [facility] 09/29/2018 8:28 EDT 09/30/2018 8:28 EDT us Sharon Dent MD PATHOLOGY ORDERABLES Final Re sult [facility] [address] [place] [address] documented in this encounter Visit Diagnoses Not on filedocumented in this encounter Care Teams Regeneration Operator Relationship Specialty Start Date End Date Anuel Jensen, YU [address] [place] [address] PCP - General 10/26/16 07/11/20 documented as of this encounter
--- OUTSIDE RECORDS SUMMARY | 2024-06-16 16:41 | XMS_ITS | Encounter Summary ---
Author Organization [facility] Address [address] [place] [address] Care Team Providers Care Chemicals Distiller Name Role Phone Alexa Hairston APRN Primary Care Provider [phone] [phone] Reason for Referral * IMPLANT POLISHER (Routine) - Specialty Report Received Specialty Diagnoses / Procedures Referred By Contac t Referred To Contact Diagnoses Procreative management Procedures US FOLLICULAR (DINESH ONLY) Sofia Kaufman MD Phone: tel: fax: Referral ID Status Reason Start Date Expiration Date V isits Requested Visits Authorized [id number] Specialty Report Received 05/19/2020 1 1 Reason for Visit * Reason Onset Date Comments Advice Only 05/18/2020 Encounter Details Date Type Department Care Team (Late st Contact Info) Description 05/18/[address] [facility] OBGYN Services - [address] [address] Sofia Kaufman MD [address] [facility], [address] [place] [address] Advice Only Social History Tobacco Use Types Packs/Day [...] encounter Miscellaneous Notes * Telephone Encounter - Lai Ho RN - 05/19/2020 1111 EST Intrauterine Insemination Cycle number: 2 Plan: ltz 5 CD 5-9/USFCD12/HCG/IUI 1.) Call from patient- Date: 05/19/2020 Time: 11:16 Previous IUI: yes A.) Attended injection site technique class: yes B.) Pre-certfied: yes C.) Consent signed by patient & partner to use specimen: yes D.) Aware of current costs: yes E.) GC/ Chlamydia lab done: yes RXD: no 2.) Last Menstrual Period: 05/18/20 WNL?: yes 3.) OK to proceed? yes - pending neg HCG - sent to [facility] A.) Ovulation Induction Medication: letrozole Dose: 2.5 mg Cycle days: 5-9 Pharmacy: Refills:0 B.) Trigger injection: Ovidrel Refills: 1 D.) USF scheduled- Cycle Day: 12 Date: 05/29/20 Time: 0830 4.) Routed to pre-cert specialist. LAI HO RN 05/19/2020 11:16 * Telephone Encounter - Lai Ho RN - 05/18/2020 1557 EST Returned call to pt. She is interested in starting another IUI cycle. CD #1 today. Advised to have HCG checked for letrozole. Previous cycle was scheduled during system downtime- advised would review paper records and confirmplan for USF and medication after reviewing those records tomorrow. Pt will go to [facility] lab in the meantime for HCG. Order faxed. Briefly discussed the COVID-19 vaccine. Pt was asked to complete a questionnaire as to whether she will accept or decline a vaccine when it becomes available. 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 Advised at this time, we are unable to make specific recommendations in terms of the vaccine and its relation to her fertility treatment. Until official recommendations are available from ASRM and ACOG, would defer this discussion to the patient and her PCP and employer. She verbalized understanding. * Telephone Encounter - Mai Nicholas - 05/18/2020 1152 EST Patient informing DINESH that they got their period today, had IUI 05/04. Patient was also wondering if there were any recommendations on the COVID vaccine from their provider. 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 Patient can be reached at [phone] documented in this encounter Plan of Treatment [...] free fluid visualized. Impression USF (Follicular) - 68502 1. Thin endometrium. If endometrial development does [...] free fluid visualized. Impression USF (Follicular) - 89706 1. Thin endometrium. If endometrial development does not develop, considerbiopsy of endometrium to rule out chronic endometritis. 2. Maturing folliculogenesis on right, early follicular development onleft ovary. 3. No free fluid in the pelvis. Follow-up Repeat follicle scan in 2 days. Comment ========= Thin endometrium but multiple dominant follicles. further studies based onMondays scan. DATE OF SERVICE: 05/29/2020 Sofia Kaufman MD [facility] OB ORDERABLES Fatimah domenico Result documented in this encounter Visit Diagnoses Diagnosis Encounter for test, result unknown- Primary Procreative management Unspecified procreative management Procreative management Unspecified procreative management documented in this encounter Care Teams Chemicals Distiller Relationship Specialty Start Date End Date Alexa Hairston APRN [address] [place] [address] PCP - General 10/26/16 07/11/20 documented as of this encounter
--- OUTSIDE RECORDS SUMMARY | 2024-06-16 16:41 | XMS_ITS | Encounter Summary ---
Author Organization [facility] Address [address] [place] [address] Care Team Providers Care Medieval English Literature Professor Name Role Phone Alexa Hairston APRN Primary Care Provider [phone] [phone] Encounter Details Date Type Department Care Team (Latest Contact Info) Description 05/04/2020 7:59 EST - 05/04/2020 23:59 EST Hospital Encounter [facility] - [address] [address] Lab, E&I Infertility, female Discharge Disposition: Home or Self [...] Progress Notes * Dinora Whitaker RN - 05/04/2020 0800 EST Patient and partner Luke here today for insemination #1. Consent signed by patient, IUI sample identified [...] during insemination. Anticipated date of test is 05/18/20. Patient was educated prior to leaving office [...] of plan. I was supervised by Dr Clari Redd who was present and immediately available in the office suite. DINORA WHITAKER RN 05/04/2020 9:46 documented in this encounter Miscellaneous Notes * Addendum Note - Dinora Whitaker RN - 05/04/2020 0800 [facility] addended by: Dinora Whitaker RN on: 05/04/2020 9:47 Actions taken: Clinical Note Signed, Visit diagnoses modified, Charge Capture section accepted documented in this encounter Plan of Treatment Not on file documented as of this encounter Visit Diagnoses Diagnosis Infertility, female Female infertility of unspecified origin documented in this encounter Care Teams Medieval English Literature Professor Relationship Specialty Start Date End Date Alexa Hairston APRN [address] [place] [address] PCP - General 10/26/16 07/11/20 documented as of this encounter
--- OUTSIDE RECORDS SUMMARY | 2024-06-16 16:41 | XMS_ITS | Encounter Summary ---
Author Organization [facility] Address [address] [place] [address] Care Team Providers Care Manager Biostatistics Name Role Phone Alexa Hairston APRN Primary Care Provider [phone] Reason for Visit * Reason Onset Date Comments Appointment Related 11/12/2019 Encounter Details Date Type Department Care Team (Late st Contact Info) Description 11/12/2019 Telephone [facility] - [address] [address] Sofia Kaufman MD [address] [facility], [address] [place] [address] Appointment Related Social History Tobacco Use Types Packs/Day Years [...] encounter Miscellaneous Notes * Telephone Encounter - Stacia Marin - 11/12/2019 1146 EDT Patient has not received email with ZOOM appointment link for appointment with this Provider on 11/13/2019 @ 3:45pm Please contact patient regarding Thank you ZOOM Support documented in this encounter Plan of Treatment Not on file documented as of this encounter Visit Diagnoses Not on filedocumented in this encounter Care Teams Manager Biostatistics Relationship Specialty Start Date End Date Alexa Hairston APRN [address] [place] [address] PCP - General 10/26/16 07/11/20 documented as of this encounter
--- OUTSIDE RECORDS SUMMARY | 2024-06-16 16:41 | XMS_ITS | Encounter Summary ---
Author Organization [facility] Address [address] [place] [address] Care Team Providers Care Rn Advanced Name Role Phone Alexa Hairston APRN Primary Care Provider [phone] Reason for Visit * Reason Comments Routine Visit Encounter Details Date Type Department Care Team (Late st Contact Info) Description 01/28/2018 14:30 EDT Initial consult [facility] Obstetrics & Midwifery - [address] [address] Gloria Scruggs MD [address] [place] [address], [address] [place] [address] Gestational diabetes mellitus (GDM) in third trimester, gestational diabetes method of control unspecified (Primary Dx) Social History Tobacco Use Types [...] Sign Reading Time Taken Comments Blood Pressure 120/68 01/28/2018 1430 EDT Pulse - - Temperature - - Respiratory Rate - - Oxygen Saturation - - Inhaled Oxygen Concentration - - Weight 81.3 kg (179 lb 3.2 oz) 01/28/2018 1430 E DT Height 170.2 cm (5' 7) 01/28/2018 1430 EDT Body Mass Index 28.07 01/28/2018 1430 EDT documented in this encounter Ordered Prescriptions Prescription Sig Dispense Quantity Refills Last Filled Start Date End Date blood glucose test strips One touch verio meter or any brand compatible with meter and covered by Pt's insurance. Tests QID. 100 Each 3 01/28/2018 8 lancets Delica lancing device or any brand compatible with lancing device and covered by Pt's insurance. Tests QID. 100 Each 3 01/28/2018 0 documented in this encounter Progress Notes * Kaci Dillon MD - 01/28/[address] Quintanilla, Thank you for the consultation regarding your patient Rita Tavares. As you know, Rita is a [id number] [id number]. She was recently diagnosed with gestational diabetes mellitus after having an elevated 1 hour glucose tolerance test result of 168 with a 3 hour glucose tolerance test resulting at 86/201/162/132. Two of these readings were elevated, which is consistent with diagnosis of gestational diabetes mellitus. 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 Objective: Vitals: BP: 120/68 Height: 170.2 cm (67) Weight : 81.3 kg (179 lb 3.2 oz) BMI: 28.125 Movement: Present Fundal Height: 30 cm FHTs: 150s Summary and Recommendations: Gestational Diabetes: Ms Tavares is very informed and motivated to have good blood sugar control. She presented to the office today with understanding that her diagnosis increases her risk of type 2diabetes mellitus in the future, with studies showing an up to 70% chance of development 22-26 years after delivery. We discussed that gestational diabetes has two categories, diet controlled and medication controlled, and that we do not yet know in which category she falls. She confirms understanding. She had a consultation with the software educator today and was given a glucometer and instructed in its use. We discussed checking fasting glucose and 2 hour post-prandial glucose levels for a total of 4 daily. We discussed that regardless of A1GDM vs A2GDM diagnosis, she would need a growth ultrasound at 32-36 weeks gestation. If she were to require medication, she will need antepartum testing with weekly BPP's and NST's starting at 32 weeks gestation. She would also need an additional growth ultrasound measurement 4 weeks after her initial one. We discussed that this conclusion will be drawn after 1-2weeks of data regarding her glucose levels. If she were to need medication or insulin (based on 50%of readings being abnormal), she should return to our office for further evaluation and counseling.She would otherwise be managed by her [facility] providers. Additionally, we reviewed mode of delivery, and that if she were to have well controlled glucose levels, her chance of macrosomia would be decreased. However, if the estimated weight exceeded 4500g, her chances of a successful vaginal delivery would decline and at that point, discussion of primary section would ensue. In terms of risk to the fetus, Rita understands that in addition to macrosomia, there is risk of hypoglycemia, respiratory distress syndrome, and hyperbilirubinemia. In cases of extremely poorly controlled gestational diabetes, there is also an increased risk of stillbirth. We emphasized that thereis a low chance of these things happening if she were to maintain stable glucose readings and have good control from now until her due date. If she is diet-controlled, she can deliver at term or at latest 41 weeks gestation. If she requires medication, or if her blood sugar control is sub-optimal, we recommend induction of labor at 39 weeks. Rita had questions regarding her child's future risk of developing type 2 diabetes mellitus, and she was counseled on the multifactorial considerations for this. Thank you for the opportunity to meet with this very pleasant patient. Kaci Dillon, R2 Attestation statement: I saw and examined the patient. I agree with the resident's/fellow's findings and plans as documented. I suspect Ms. Tavares will have good control with dietary modifications, at least initially. We would be happy to see her back to discuss medical therapy if >50% of her blood sugars become abnormal at any one time point. Additionally, she should undergo a 2 hour GTT at 6 weeks and have regular screening for type 2 diabetes with her PCP in the future. Thank you for allowing me to participate in the care of this nice patient. Please don't hesitate tocall me if you have any questions regarding her care. Sincerely, Gloria Scruggs MD Maternal- Medicine [facility] documented in this encounter Plan of Treatment Not on file documented as of this encounter Visit Diagnoses Diagnosis Gestational diabetes mellitus (GDM) in third trimester, gestational diabetes method of control unspecified- Primary documented in this encounter Historical Medications * This list may reflect changes made after this encounter. calcium carbonate (TUMS ORAL) Take by mouth. 11/13/2019 doxylamine succinate (UNISOM, DOXYLAMINE, ORAL) Take by mouth. 04/10/2018 added in this encounter Care Teams Rn Advanced Relationship Specialty Start Date End Date Alexa Hairston APRN [address] [place] [address] PCP - General 10/26/16 07/11/20 documented as of this encounter
--- OUTSIDE RECORDS SUMMARY | 2024-06-16 16:41 | XMS_ITS | Encounter Summary ---
Author Organization [facility] Address [address] [place] [address] Care Team Providers Care Manager Fine Name Role Phone Alexa Hairston APRN Primary Care Provider [phone] Renea Delcid Primary Care Provider [phone] Encounter Details Date Type Department Care Team (Late st Contact Info) Description 02/23/2020 Lab Requisition [facility] Pathology & Laboratory Medicine - [facility] [address] [place] [address] Outr Resulting Lab, Provider Social History Tobacco [...] ORDER STANDALONE - BROAD COVID TEST Today 02/23/2020 10:10 EDT COVID-19 TESTING Routine 02/23/2020 10:1 0 EDT documented in this encounter Results * DO NOT ORDER STANDALONE - BROAD COVID TEST (02/23/2020 10:10 EDT) Pathologist [facility] COVID-19 rt-PCR Result NEGATIVE Negative 02/24/2020 11:27 EDT [facility] Comment: 2019-novel Coronavirus (2019-nCoV) not detected [...] in accordance with CLIA regulations, College of [place] Pathologists (CAP) guidelines (Aug 28, 2019), and FDA guidance (Aug 09, 2019). This test is only for use under the Food and Drug Administration's Emergency Use Authorization. Swab ENTIRE NASOPHARYNX / Unknown 02/23/2020 10:10 EDT 02/23/2020 15:26 EDT us Provider Outr Resulting Lab MICROBIOLOGY - GENER AL ORDERABLES Final Result [facility] [place] * COVID-19 TESTING (02/23/2020 10:10 EDT) COVID-19 rt-PCR Result NEGATIVE Negative 02/24/2020 12:23 EDT [facility] Comment: 2019-novel Coronavirus (2019-nCoV) not detected [...] in accordance with CLIA regulations, College of [place] Pathologists (CAP) guidelines (Aug 28, 2019), and FDA guidance (Aug 09, 2019). This test is only for use under the Food and Drug Administration's Emergency Use Authorization. Performing Lab [facility] 02/24/2020 12:23 EDT [facility] Swab 02/23/2020 10:1 0 EDT 02/23/2020 15:26 EDT us Provider Outr Resulting Lab MICROBIOLOGY - GENER AL ORDERABLES Final Result [facility] [address] [place] [address] [facility] [place] documented in this encounter Visit Diagnoses Not on filedocumented in this encounter Care Teams Manager Fine Relationship Specialty Start Date End Date Alexa Hairston APRN [address] [place] [address] PCP - General 10/26/16 07/11/20 Renea Delcid FNP [address] [place] [address] PCP - General 07/12/20 documented as of this encounter
--- OUTSIDE RECORDS SUMMARY | 2024-06-16 16:41 | XMS_ITS | Encounter Summary ---
Author Organization [facility] Address [address] [place] [address] Care Team Providers Care Credit Card Specialist Name Role Phone Alexa Hairston APRN Primary Care Provider [phone] Encounter Details Date Type Department Care Team (Latest Contact Info) Description 03/08/2018 11:30 EDT - 03/08/2018 11:31 EDT Hospital Encounter [address] [address] Tamika Knight, [address] [address] Discharge Disposition: Home or Self Care [...] as of this encounter Discharge Diagnoses Diagnosis Z34.83 Encounter for supervision of other normal , third trimester-Z34.83[ICD-10-CM] documented in this encounter Medications at Time of Discharge albuterol 90 mcg/actuation inhaler Inhale 180 mcg as directed every 4 hours. Magnesium 250 mg tablet Take by mouth daily. VIT CALC,IRON,FOLIC ( #2 ORAL) Take by mouth. blood glucose test strips One touch verio meter or any brand compatible with meter and covered by Pt's insurance. Tests QID. 100 Each 3 01/28/2018 8 calcium carbonate (TUMS ORAL) Take by mouth. 0 clomiPHENE (CLOMID) 50 mg tablet Take 1 Tab by mouth daily. Take 1 tablet once a day for cycle days 5-9. 5 Tab 12/01/2016 8 doxylamine succinate (UNISOM, DOXYLAMINE, ORAL) Take by mouth. 8 lancets Delica lancing device or any brand compatible with lancing device and covered by Pt's insurance. Tests QID. 100 Each 3 01/28/2018 0 letrozole (FEMARA) 2.5 mg tablet Take 2 [...] on filedocumented in this encounter Care Teams Credit Card Specialist Relationship Specialty Start Date End Date Alexa Hairston APRN [address] [place] [address] PCP - General 10/26/16 07/11/20 documented as of this encounter
--- OUTSIDE RECORDS SUMMARY | 2024-06-16 16:41 | XMS_ITS | Encounter Summary ---
Author Organization [facility] Address [address] [place] [address] Care Team Providers Care Box Blank Machine Feeder Name Role Phone Alexa Hairston APRN Primary Care Provider [phone] Reason for Visit * Reason Onset Date Comments Results 11/18/2019 Encounter Details Date Type Department Care Team (Late st Contact Info) Description 11/18/2019 Telephone [facility] - [address] [id number] Dinora Whitaker, RN Results Social History Tobacco Use Types Packs/Day Years [...] Miscellaneous Notes * Telephone Encounter - Dinora Whitaker, MIKEY - 11/18/2019 4666 EDT Spoke to Rita, advised her prog does not confirm ovulation but is a bit elevated. Asked her to check back in on to see if menses begin. If not, will ask her to go to the lab again to see if Prog is trending up. She is agreeable to this and will call back to check in. Pt does endorse some spotting today. No further questions at this time. * Telephone Encounter - Dinora Whitaker RN - 11/18/2019 1424 EDT Component Latest Ref Rng & Units 11/17/2019 Progesterone See Table ng/mL 2.5 Varicella IgG Ab See Note Positive Measles IgG Ab See Note Positive Will discuss lab work with Dr. Kaufman. Unclear if pt is cleared to start LTZ. * Telephone Encounter - Dinora Whitaker RN - 11/18/2019 1240 EDT Call from Rita to discuss lab results. documented in this encounter Plan of Treatment Not on file documented as of this encounter Visit Diagnoses Not on filedocumented in this encounter Care Teams Box Blank Machine Feeder Relationship Specialty Start Date End Date Alexa Hairston APRN [address] [place] [address] PCP - General 10/26/16 07/11/20 documented as of this encounter
--- OUTSIDE RECORDS SUMMARY | 2024-06-16 16:41 | XMS_ITS | Encounter Summary ---
Author Organization [facility] Address [address] [place] [address] Care Team Providers Care Electromedical Service Engineer Name Role Phone Alexa Hairston Mitchel YU Primary Care Provider [phone] [phone] Reason for Visit * Reason Onset Date Comments Advice Only 12/25/2019 Encounter Details Date Type Department Care Team (Late st Contact Info) Description 12/25/2019 Telephone [facility] OBGYN Services - [address] [address] Sofia Kaufman MD [address] [facility], Level [address] [place] [address] Advice Only Social History Tobacco [...] 1 Tab by mouth daily. 5 Tab 12/26/2019 02/03/2020 documented in this encounter Miscellaneous Notes * Telephone Encounter - Brandi Gloria RN - 12/25/2019 1321 EDT Left message for Rita advising that her medication has been sent to her pharmacy. OPK and Timed [place] Cycle Cycle number: 2 Plan: ltz2.5mg CD#5-9/TI 1.) Call from patient- Date: 12/25/2019 Time: 13:22 2.) Last Menstrual Period: 12/20 WNL?: yes Does pt need HCG/P4 drawn prior to starting medication: yes UPT prior to medication: no If pt is using home UPT to r/o : Pt will call to notify us of +UPT; ok to start medicationif -UPT. Pt verbalized understanding. Labs ordered: yes Faxed to outside lab: yes Faxed to: [facility] Mid-Luteal Progesterone needed this cycle: no Date needed: 3.) OK to proceed? yes Is pt using Ovulation Induction medication: yes A.) Ovulation Induction Medication: letrozole Dose: 2.5mg Cycle days: 5-9 Pharmacy: [facility] Refills: 0 Pt to call with next menses or UPT result two weeks after +OPK. BRANDI GLORIA RN 12/25/2019 13:22 * Telephone Encounter - Cydney Baltazar - 12/25/2019 0819 EDT Pt called in this morning stating she was only able to get her HGC drawn at 7:30am today and hopes that give you enough time to get it turned around to start medications today at [facility]. She can be reached at: [phone] documented in this encounter Plan of Treatment Not on file documented as of this encounter Visit Diagnoses Not on filedocumented in this encounter Discontinued Medications Medication Sig Discontinue Reason Start Date End Da te letrozole (FEMARA) 2.5 mg tablet Take 1 Tab by mouth daily. Reorder 11/21/2019 12/25/2019 documented as of this encounter Care Teams Electromedical Service Engineer Relationship Specialty Start Date End Date Alexa Hairston APRN [address] [place] [address] PCP - General 10/26/16 07/11/20 documented as of this encounter
--- OUTSIDE RECORDS SUMMARY | 2024-06-16 16:41 | XMS_ITS | Encounter Summary ---
Author Organization [facility] Address [address] [place] [address] Care Team Providers Care Mmd Unit Teacher Name Role Phone Alexa Hairston APRN Primary Care Provider [phone] Reason for Visit * Reason Onset Date Comments Infertility 03/19/2020 Encounter Details Date Type Department Care Team (Late st Contact Info) Description 03/19/2020 Telephone [facility] - [facility] [address] [place] [address] Brandi Gloria, RN [address] [place] [address] Infertility Social History Tobacco Use Types Packs/Day Years [...] Date letrozole (FEMARA) 2.5 mg tablet Take 2 Tabs by mouth daily. Take cycle days 5-9 10 Tab 03/22/2020 05/20/2020 documented in this encounter Miscellaneous Notes * Telephone Encounter - Caridad Ho RN - 03/22/2020 1152 EDT Pt will be going to lab this afternoon. * Telephone Encounter - Brandi Gloria RN - 03/19/2020 0974 EDT My Chart message from Rita reporting start of menses. She will proceed to [facility] for hCG over the weekend and we will follow up with results and letrozole prescription. OPK and Timed [place] Cycle Cycle number: 3 Plan: Letrozole 5mg/OPK/TI 1.) Call from patient- Date: 03/19/2020 Time: 10:00 2.) Last Menstrual Period: 03/19 WNL?: yes Does pt need HCG/P4 drawn [...] no Date needed: 3.) OK to proceed? yes, pending negative hCG Is pt using Ovulation Induction medication: yes A.) Ovulation Induction Medication: letrozole Dose: 5mg Cycle days: 5-9 Pharmacy: [facility] Refills: 0 Pt to call with next menses or UPT result two weeks after +OPK. BRANDI GLORIA RN 03/19/2020 10:00 documented in this encounter Plan of Treatment Not on file documented as of this encounter Visit Diagnoses Diagnosis Encounter for test, result unknown- Primary documented in this encounter Care Teams Mmd Unit Teacher Relationship Specialty Start Date End Date Alexa Hairston APRN [address] [place] [address] PCP - General 10/26/16 07/11/20 documented as of this encounter
--- OUTSIDE RECORDS SUMMARY | 2024-06-16 16:41 | XMS_ITS | Encounter Summary ---
Author Organization [facility] Address [address] [place] [address] Care Team Providers Care Terry Cloth Cutter Hand Name Role Phone Alexa Hairston APRN Primary Care Provider [phone] [phone] Reason for Visit * Reason Onset Date Comments Advice Only 01/30/2020 Encounter Details Date Type Department Care Team (Late st Contact Info) Description 01/30/2020 Telephone [facility] OBGYN Services - [address] [address] Sofia Kaufman MD [address] [facility], Level [address] [place] [address] Advice Only Social History Tobacco [...] encounter Miscellaneous Notes * Telephone Encounter - Bernadine Reyes - 01/30/2020 6459 EDT Pt is calling to let Dr. Kaufman know that she did get her blood work done at [facility]. Pt can be reached at [phone] documented in this encounter Plan of Treatment Not on file documented as of this encounter Visit Diagnoses Not on filedocumented in this encounter Care Teams Terry Cloth Cutter Hand Relationship Specialty Start Date End Date Alexa Hairston APRN [address] [place] [address] PCP - General 10/26/16 07/11/20 documented as of this encounter
--- OUTSIDE RECORDS SUMMARY | 2024-06-16 16:41 | XMS_ITS | Encounter Summary ---
Author Organization [facility] Address [address] [place] [address] Care Team Providers Care Power Screwdriver Operator Name Role Phone Alexa Hairston APRN Primary Care Provider [phone] [phone] Encounter Details Date Type Department Care Team (Latest Contact Info) Description 09/29/2018 15:29 EDT - 09/29/2018 23:59 EDT Hospital Encounter [address] [address] Unknown, Provider, MD Discharge Disposition: Home or Self Care Social [...] 09/10/2010 0 documented as of this encounter Discharge Disposition Disposition Code Departure Means Destination Home or Self Custodial documented in this encounter Plan of Treatment Not on file documented as of this encounter Visit Diagnoses Not on filedocumented in this encounter Care Teams Power Screwdriver Operator Relationship Specialty Start Date End Date Alexa Hairston APRN [address] [place] [address] PCP - General 10/26/16 07/11/20 documented as of this encounter
--- OUTSIDE RECORDS SUMMARY | 2024-06-16 16:41 | XMS_ITS | Encounter Summary ---
Author Organization [facility] Address [address] [place] [address] Care Team Providers Care Content Designer Name Role Phone Alexa Hairston APRN Primary Care Provider [phone] [phone] Renea Delcid Primary Care Provider [phone] Encounter Details Date Type Department Care Team (Late st Contact Info) Description 11/22/2019 Lab Requisition [facility] Pathology & Laboratory Medicine - [facility] [address] [place] [address] Outr Resulting Lab, Provider Social History Tobacco [...] Associated Diagnosis Comments RUBELLA IGG ANTIBODY Routine 11/21/2019 12:30 EDT documented in this encounter Results * RUBELLA IGG ANTIBODY (11/21/2019 12:30 EDT) Rubella IgG Ab Positive See Note 11/24/2019 11:57 EDT [facility] Comment:Positive for IgG ant ibodies to Rubella virus. Blood VENOUS BLOOD / Unknown 11/21/2019 12:30 EDT 11/24/2019 8:04 EDT us Provider Outr Resulting Lab CHEMISTRY & BLOOD GA S ORDERABLES Final Result [facility] [address] [place] [address] documented in this encounter Visit Diagnoses Not on filedocumented in this encounter Care Teams Content Designer Relationship Specialty Start Date End Date Alexa Hairston APRN [address] [place] [address] PCP - General 10/26/16 07/11/20 Renea Delcid FNP [address] [place] [address] PCP - General 07/12/20 documented as of this encounter
--- OUTSIDE RECORDS SUMMARY | 2024-06-16 16:41 | XMS_ITS | Encounter Summary ---
Author Organization [facility] Address [address] [place] [address] Care Team Providers Care Director Automotive Name Role Phone YovannySabina underwoodhrmargo Grullon UY Primary Care Provider [phone] Reason for Visit * Reason Onset Date Comments Advice Only 01/29/2020 Encounter Details Date Type Department Care Team (Late st Contact Info) Description 01/29/2020 Telephone [facility] OBGYN Services - [address] [address] Sofia Kaufman MD [address] [facility], [address] [place] [address] Advice Only Social History Tobacco [...] tablet Take 2 Tabs by mouth daily. 10 Tab 02/03/2020 02/20/2020 letrozole (FEMARA) 2.5 mg tablet Take 2 Tabs by mouth daily. 5 Tab 02/03/2020 02/03/2020 documented in this encounter Miscellaneous Notes * Addendum Note - Lai Ho RN - 02/03/2020 1017 EDTAddended by: LAI HO on: 02/03/2020 10:17 Modules accepted: Orders * Telephone Encounter - Lai Ho RN - 02/03/2020 1002 EDT Returned call to Rita to advise , per Dr Kaufman, results indicate that she did not ovulate when shethought she did and likely has early follicle growing now. Advised virtual ltz 5 mg cycle x 5 days starting today. Advised to begin checking OPK at end of 5 day course and begin TI every other day at any point, butdefinitely at least by the end of the ltz cycle. Will check mid cycle VDC P4 to confirm increased dose resulted in ovulation. OPK and Timed [place] Cycle Cycle number: 1 (first time with ltz 5 mg) Plan: Ltz 5/OPK/TI 1.) Call from patient- Date: 02/03/2020 Time: 10:06 2.) Last Menstrual Period: N/A- virtual cycle Does pt need HCG/P4 drawn prior to starting medication: yes - completed prior to virtual start Mid-Luteal Progesterone needed this cycle: yes Date needed: 02/18 - order faxed to [facility] 3.) OK to proceed? yes Is pt using Ovulation Induction medication: yes A.) Ovulation Induction Medication: ltz Dose: 5 mg Cycle days: VCD 5-9 Pharmacy: [facility] Refills:0 Pt to call clinic if no +OPK by VCD21. Pt verbalized understanding of when to start using OPK (CD#10, and daily until positive) and timingof timed intercourse (every other day starting the day of +OPK x1 week). Pt to call with next menses or UPT result two weeks after +OPK. LAI HO RN 02/03/2020 10:06 * Telephone Encounter - Dinora Whitaker RN - 02/02/2020 1119 EDT Received lab results. HCG= <1 Component Latest Ref Rng & Units 01/30/2020 Estradiol See Note pg/mL 101 Progesterone See Table ng/mL 0.[address] Kaufman. * Telephone Encounter - Lai Ho RN - 01/29/2020 1028 EDT Returned call to patient. She reports that she did have a positive OPK (solid smiley face) on 01/07 after taking ltz starting on 12/24. Is now one week late for menses and continues to have negative test. Advised that she is either or did not ovulate given this information, though a false negative test is very unlikely, it is more likely that her ovulation test was inaccurate. Will obtain HCG, E2, and P4 to assess where she is in her cycle and review next steps with Dr Kaufman based on results. * Telephone Encounter - Bernadine Reyes - 01/29/2020 0805 EDT Sasha asked me to call and update her, I took another test that was negative but I still have not started my period Pt can be reached at [phone] documented in this encounter Plan of Treatment Not on file documented as of this encounter Visit Diagnoses Diagnosis Amenorrhea- Primary Absence of menstruation Fertility testing documented in this encounter Discontinued Medications Medication Sig Discontinue Reason Start Date End Da te letrozole (FEMARA) 2.5 mg tablet Take 1 Tab by mouth daily. 12/26/2019 02/03/2020 letrozole (FEMARA) 2.5 mg tablet Take 2 Tabs by mouth daily. Reorder 02/03/2020 02/03/2020 documented as of this encounter Care Teams Director Automotive Relationship Specialty Start Date End Date Alexa Hairston APRN [address] [place] [address] PCP - General 10/26/16 07/11/20 documented as of this encounter
--- OUTSIDE RECORDS SUMMARY | 2024-06-16 16:41 | XMS_ITS | Encounter Summary ---
Author Organization [facility] Address [address] [place] [address] Care Team Providers Care School Bus Inspector Name Role Phone Anuel Jensen CULINARY INTERN Primary Care Provider [phone] Encounter Details Date Type Department Care Team (Late st Contact Info) Description 01/24/2019 Results Only [facility] [[email or web address]] [phone] Laura Null, [facility] [address] [place] [phone] Social History Tobacco Use Types Packs/Day Years [...] Name Priority Date/Time Associated Diagnosis Comments PAP TEST- RESULT ONLY Routine 01/24/2019 0:00 EDT documented in this encounter Results * PAP TEST- RESULT ONLY (01/24/2019 0:00 EDT) Pathology Report: CYTOPATHOLOGY REPORT Reports generated via electronic interface contain original data; however they are lacking the format of the original report. Caution should be taken when reading/interpreti ng unformatted reports. Name: ? EBONI FLYNN ? Accession #: ? [id number] ? : ? 1990 (Age: 28) ??F ?Collect Date: ? 01/24/2019 ? Location: ? [facility] ? Receive Date: ? 01/27/2019 ? Provider: LAURA NULL HYDROGEN CELL TENDER Copy to: ANUEL JENSEN CULINARY INTERN ? Final Report SPECIMEN ADEQUACY ? Satisfactory for Evaluation - transformation zone component present GENERAL CATEGORIZATION ? Negative for Intraepithelial Lesion or Malignancy ?? Other: Additional clinical information: Lactating Specimen/Source: ??Pap Test, Cervix, ThinPrep Imaging System with manual evaluation Document reviewed and electronically signed by: ? Mary Ann Sow, CT(ASCP)(IAC) ? Report ??Date: 01/29/2019 16:45 HPV with Pap Test ? Date Ordered: ? 01/29/2019 ? Status: ?? Signed Out ?Date Complete: ? 01/31/2019 ? By: ??System Interface ? Date Reported: ? 01/31/2019 ? Interpretation RESULT: Negative for HPV. No E6 or E7 mRNA is detected from HPV types 16,18,31,33,35, 39,45,51,52,56,58, 59,66, and 68 by roving weight gauger mediated amplification. Comments Document reviewed and electronically signed by: ? System Interface ? Report date: 01/31/2019 By the signature above, the attending physician certifies that he/she has personally conducted a gross and/or microscopic examination of the described specimens and rendered or confirmed the above diagnosis. End of Report [facility] 01/24/2019 01/27/2019 us Laura Null HYDROGEN CELL TENDER PATHOLOGY ORDERABLES Final R esult [facility] [address] [place] [address] documented in this encounter Visit Diagnoses Not on filedocumented in this encounter Care Teams School Bus Inspector Relationship Specialty Start Date End Date Anuel Jensen APRN [address] [place] [address] PCP - General 10/26/16 07/11/20 documented as of this encounter
--- OUTSIDE RECORDS SUMMARY | 2024-06-16 16:41 | XMS_ITS | Encounter Summary ---
Author Organization [facility] Address [address] [place] [address] Care Team Providers Care Container Washer Name Role Phone Alexa Hairston APRN Primary Care Provider [phone] Reason for Visit * Reason Onset Date Comments Results 03/11/2020 Encounter Details Date Type Department Care Team (Late st Contact Info) Description 03/11/2020 Telephone [facility] Reproductive Medicine & Infertility Center - [facility] [address] [place] [address] Luzmaria Gloria RN [address] [place] [address] Results Social History Tobacco Use Types Packs/Day [...] Telephone Encounter - Luzmaria Gloria RN - 03/11/2020 0839 EDT Left detailed message on Rita's voicemail. Mid-luteal progesterone is positive and confirms recent ovulation on letrozole 5mg. If no menses in 1 week, check UPT. Component Latest Ref Rng & Units 03/10/2020 Progesterone See Table ng/mL 17.6 documented in this encounter Plan of Treatment Not on file documented as of this encounter Visit Diagnoses Not on filedocumented in this encounter Care Teams Container Washer Relationship Specialty Start Date End Date Alexa Hairston APRN [address] [place] [address] PCP - General 10/26/16 07/11/20 documented as of this encounter
--- OUTSIDE RECORDS SUMMARY | 2024-06-16 16:41 | XMS_ITS | Encounter Summary ---
Author Organization [facility] Address [address] [place] [address] Care Team Providers Care Precision Lens Grinder Apprentice Name Role Phone Alexa Hairston APRN Primary Care Provider [phone] Renea Delcid Primary Care Provider [phone] Encounter Details Date Type Department Care Team (Late st Contact Info) Description 12/10/2019 Lab Requisition [facility] Pathology & Laboratory Medicine - [facility] [address] [place] [address] Outr Resulting Lab, Provider Social History Tobacco [...] Priority Date/Time Associated Diagnosis Comments PROGESTERONE Routine 12/10/2019 8:09 EDT documented in this encounter Results * PROGESTERONE (12/10/2019 8:09 EDT) Progesterone 9.1 See Table ng/mL 12/10/2019 17:36 EDT [facility] Comment: Female Reference Ranges: [...] been established. Blood VENOUS BLOOD / Unknown 12/10/2019 8:09 EDT 12/10/2019 16:42 EDT us Provider Outr Resulting Lab CHEMISTRY & BLOOD GA S ORDERABLES Final Result [facility] [address] [place] [address] documented in this encounter Visit Diagnoses Not on filedocumented in this encounter Care Teams Precision Lens Grinder Apprentice Relationship Specialty Start Date End Date Alexa Hairston, EQUIPMENT SPECIALIST [address] [place] [address] PCP - General 10/26/16 07/11/20 Renea Delcid FNP [address] [address] PCP - General 07/12/20 documented as of this encounter
--- OUTSIDE RECORDS SUMMARY | 2024-06-16 16:41 | XMS_ITS | Encounter Summary ---
Author Organization [facility] Address [address] [place] [address] Care Team Providers Care Vice President Of Finance Name Role Phone Alexa Hairston Mitchel YU Primary Care Provider [phone] Reason for Visit * Reason Onset Date Comments Advice Only 02/02/2020 Encounter Details Date Type Department Care Team (Late st Contact Info) Description 02/02/2020 Telephone [facility] OBGYN Services - [address] [address] Sofia Kaufman MD [address] [facility], [address] [place] [address] Advice Only Social History Tobacco [...] * Telephone Encounter - Bernadine Reyes - 02/02/2020 1037 EDT Pt is inquiring about lab results Pt can be reached at [phone] documented in this encounter Plan of Treatment Not on file documented as of this encounter Visit Diagnoses Not on filedocumented in this encounter Care Teams Vice President Of Finance Relationship Specialty Start Date End Date Alexa Hairston APRN [address] [place] [address] PCP - General 10/26/16 07/11/20 documented as of this encounter
--- OUTSIDE RECORDS SUMMARY | 2024-06-16 16:41 | XMS_ITS | Encounter Summary ---
Author Organization [facility] Address [address] [place] [address] Care Team Providers Care Special Forces Warrant Officer Name Role Phone Alexa Hairston APRN Primary Care Provider [phone] Reason for Visit * Reason Onset Date Comments Advice Only 01/26/2020 Encounter Details Date Type Department Care Team (Late st Contact Info) Description 01/26/2020 Telephone [facility] OBGYN Services - [address] [address] Sofia Kaufman MD [address] [facility], [address] [place] [address] Advice Only Social History Tobacco [...] Telephone Encounter - Dinora Whitaker RN - 01/26/2020 1109 EDT Called and LVM for Rita. Since she started LTZ on 12/24 and does not use OPK, unsure when she ovulated. On previous cycle, pt had P4 of 9.1 on 12/10, then started menses on 12/20. Advised her to wait until 12/28, if no menses and -UPT on that morning, will send labs to [facility] to check E2 and P4. Asked her to call back with any questions. * Telephone Encounter - Mai Nicholas - 01/26/2020 7623 EDT Patient states they are 1 week late for their period but the 3 at home tests they took ondifferent days were negative. Patient can be reached at [phone] OK to leave a message. documented in this encounter Plan of Treatment Not on file documented as of this encounter Visit Diagnoses Not on filedocumented in this encounter Care Teams Special Forces Warrant Officer Relationship Specialty Start Date End Date Alexa Hairston APRN [address] [place] [address] PCP - General 10/26/16 07/11/20 documented as of this encounter
--- OUTSIDE RECORDS SUMMARY | 2024-06-16 16:41 | XMS_ITS | Encounter Summary ---
Author Organization [facility] Address [address] [place] [address] Care Team Providers Care Web Development Director Name Role Phone Yovanny Alexa H YU Primary Care Provider [phone] Reason for Visit * Reason Comments Infertility Encounter Details Date Type Department Care Team (Late st Contact Info) Description 11/13/2019 16:00 EDT Telemedicine [facility] - [address] [address] Sofia Kaufman MD [address] [facility], [address] [place] [address] PCOS (polycystic ovarian syndrome) (Primary Dx); Encounter for preconception consultation Social History Tobacco Use Types Packs/Day Years [...] 7:40 EDT documented as of this encounter Progress Notes * Sofia Kaufman MD - 11/13/2019 1600 EDT The concept of ???Telemedicine?? has been described to the patient.? Patient has been informed of the anticipated benefits and possible risks.? Patient understands the information provided regardingtelemedicine, has had the opportunity to ask questions about this information, and all questions have been answered to patient???s satisfaction. Patient consents for the use of telemedicine in his/her medical care and authorizes the transmission of any relevant medical information to providers and their staff involved in patient???s medical or mental health care. Conducted via zoom, with audio-visual. Patient location: home Provider location: home office. Subjective: Rita Tavares is a 28 y.o. female with PCOS who presents to resume care for infertility. In 2016, patient and partner conceived with letrozole 2.5 mg CD - and OPK/ TI on third cycle, ended as early SAB. Then conceived again on 2nd or 3rd cycle of letrozole, which resulted in at 40w5d 04/08/2018, son Colin is a healthy child. complicated by GDM, diet controlled. Uncomplicated delivery. Breast fed for 18 months, completely weaned 2 months ago. Had IUD placed 9 months , removed in September 2019 then had some bleeding at that time, 09/23-. Has felt mild pelvic pain like ovulation pain, associated with cervical mucus, with positive OPK on October 20, stayed positive for 4 days in a row until ran out of strips. Had symptoms again on November 04, checked OPK again and was positive; had intercourse then. Pregnancies with current partner: yes. Partners sex is male; Jasson has not had any changes to his health; only medication is sertraline. 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 She has not had any symptoms; test was negative. Obstetrical History OB History Para Term AB Living 2 1 1 1 1 SAB TAB Ectopic Multiple Live Births 0 1 # Outcome Date GA Lbr Brock/2nd Weight Sex Delivery Anes PTL Lv 2 Term 04/08/18 40w5d 3246 g (7 lb 2.5 oz) M LORIN 1 AB 03/14/17 6w5d Comments: SAB Past Medical History: Diagnosis Date ??? Asthma ??? Diabetes mellitus ([facility]) History reviewed. No pertinent family history. Current Outpatient Medications Medication Sig Dispense Refill ??? albuterol 90 mcg/actuation inhaler Inhale 180 mcg as directed every 4 hours. ??? Magnesium 250 mg tablet Take by mouth daily. ??? VIT CALC,IRON,FOLIC ( #2 ORAL) Take by mouth. No current facility-administered medications for this visit. Allergies Allergen Reactions ??? Augmentin [Amoxicillin-Pot Clavulanate] Rash Social History Socioeconomic History ??? Marital status: Spouse name: Not on file ??? Number of children: Not on file ??? Years of education: Not on file ??? Highest education level: Not on file Occupational History ??? Not on file Social Needs ??? Financial resource strain: Not on file ??? Food insecurity: Worry: Not on file Inability: Not on file ??? Transportation needs: Medical: Not on file Non-medical: Not on file Tobacco Use ??? Smoking status: Never Smoker ??? Smokeless tobacco: Never Used Substance and Sexual Activity ??? Alcohol use: Yes Comment: . not while ??? Drug use: No ??? Sexual activity: Yes Partners: Male Lifestyle ??? Physical activity: Days per week: Not on file Minutes per session: Not on file ??? Stress: Not on file Relationships ??? Social connections: Talks on phone: Not on file Gets together: Not on file Attends anglican service: Not on file Active member of club or organization: Not on file Attends meetings of clubs or organizations: Not on file Relationship status: Not on file ??? Intimate partner violence: Fear of current or ex partner: Not on file Emotionally abused: Not on file Physically abused: Not on file Forced sexual activity: Not on file Other Topics Concern ??? 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 Lives in [facility]. 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. Has 4 weeks off to help. Nursing is a work in progress.. Review of Systems MACHINE DESIGN CHECKER ROS Complete: oligomenorrhea Objective: Female Exam Wt Readings from Last 1 Encounters: 01/28/18 81.3 kg (179 lb 3.2 oz) Gen: NAD, answers questions appropriately. Assessment: 28 yo with PCOS, anovulatory infertility, desires OI to conceive second child. Plan: Rita was seen today for infertility. Diagnoses and all orders for this visit: PCOS (polycystic ovarian syndrome) - HEMOGLOBIN A1C; Future - VITAMIN D (25,OH); Future - PROGESTERONE; Future Encounter for preconception consultation - RUBELLA IGG ANTIBODY; Future - VARICELLA IGG ANTIBODY; Future - MEASLES IGG AB; Future - VITAMIN D (25,[place]); Future - She will have labs done at [place]; will call her with results and discuss management as indicated. - If non-immune to the above viruses, rec preconception booster shot since infection in is associated with increased risk of defects or SAB. - If A1C is elevated, discussed that metformin can improve response to ovulation inducing medications. - If Vitamin D deficient, will supplement since D deficiency has been associated with worse symptoms in PCOS and slightly increased risk of miscarriage. - We discussed that the risks of COVID-19 infection in are still largely unknown, since the pandemic has not janice ongoing for 9 months yet. Data so far has overall been reassuring; no increased risk of defects from women with SARS viral infections in first trimester in prior outbreaks. No maternal- transmission confirmed to date. Potential for increased risk of miscarriage dueto the high fever associated with infection. Early date regarding infection in the third trimester is showing possible increased risk of labor or growth restriction. It does not seem that women who become infected have a more severe course of illness. If a woman has an active infection at the time of delivery, currently recommending quarantine away from the for up to 2 weeks to minimize risk of infection. Can still pump breast milk and have another caregiver feed the baby. She is willing to accept these risks, and desires to proceed with fertility treatment at this time. Discussed that while undergoing treatment, she can request COVID testing in the future if she wishes.She had a negative test within the past 2 weeks, done for her work. - Plan for OI with letrozole 2.5 Mg CD 5-9, then timed intercourse. Will check prog level now; if not elevated can start virtual cycle. I spent a total of 29 minutes in face to face time with this patient today and 20 minutes of that time was spent in counseling and coordination of care as described in the progress note. Sofia Kaufman MD Reproductive Endocrinology and Infertility documented in this encounter Plan of Treatment Not on file documented as of this encounter Visit Diagnoses Diagnosis PCOS (polycystic ovarian syndrome)- Primary Polycystic ovaries Encounter for preconception consultation Other procreative management counseling and advice documented in this encounter Discontinued Medications Medication Sig Discontinue Reason Start Date End Da te acetaminophen (TYLENOL) 325 mg tablet Take 2 Tabs by mouth every 4 hours as needed for Pain. Patient Stopped Taking 04/10/2018 11/13/2019 calcium carbonate (TUMS ORAL) Take by mouth. Patient Stopped Taking 11/13/2019 docusate sodium (COLACE) 100 mg capsule Take 1 Cap by mouth 2 times daily as needed for Constipation. Patient Stopped Taking 04/10/2018 11/13/2019 ibuprofen (MOTRIN) 400 mg tablet Take 1 Tab by mouth every 4 hours as needed for Pain. Patient Stopped Taking 04/10/2018 11/13/2019 lancets Delica lancing device or any brand compatible with lancing device and covered by Pt's insurance. Tests QID. Therapy completed 01/28/2018 11/13/2019 omeprazole (PRILOSEC) 20 mg capsule Take 1 Cap by mouth. Take the medication twice a day for the first week and then continue taking it once a day. If stomach pain comes back go back to taking it twice a day. Patient Stopped Taking 09/10/2010 11/13/2019 documented as of this encounter Care Teams Web Development Director Relationship Specialty Start Date End Date Alexa Hairston APRN [address] [place] [address] PCP - General 10/26/16 07/11/20 documented as of this encounter
--- OUTSIDE RECORDS SUMMARY | 2024-06-16 16:41 | XMS_ITS | Encounter Summary ---
Author Organization [facility] Address [address] [place] [address] Care Team Providers Care Bath Design Sales Consultant Name Role Phone Alexa Hairston APRN Primary Care Provider [phone] Renea Delcid Primary Care Provider [phone] Encounter Details Date Type Department Care Team (Late st Contact Info) Description 05/28/2020 Lab Requisition [facility] Pathology & Laboratory Medicine - [facility] [address] [place] [address] Outr Resulting Lab, Provider Social History Tobacco [...] ORDER STANDALONE - BROAD COVID TEST Today 05/28/2020 9:04 EST COVID-19 TESTING Routine 05/28/2020 9:04 EST documented in this encounter Results * DO NOT ORDER STANDALONE - BROAD COVID TEST (05/28/2020 9:04 EST) Pathologist [facility] [place] COVID-19 rt-PCR Result NEGATIVE Negative 05/31/2020 12:[address] [facility] Comment: 2019-novel Coronavirus (2019-nCoV) not detected [...] in accordance with CLIA regulations, College of [place] Pathologists (CAP) guidelines (Aug 28, 2019), and FDA guidance (Aug 09, 2019). This test is only for use under the Food and Drug Administration's Emergency Use Authorization. Swab ENTIRE NASOPHARYNX / Unknown 05/28/2020 9:04 EST 05/28/2020 16:15 EST us Provider Outr Resulting Lab MICROBIOLOGY - GENER AL ORDERABLES Final Result [facility] [place], [place] * COVID-19 TESTING (05/28/2020 9:04 EST) COVID-19 rt-PCR Result NEGATIVE Negative 05/31/2020 17:[address] [facility] Comment: 2019-novel Coronavirus (2019-nCoV) not detected [...] in accordance with CLIA regulations, College of [place] Pathologists (CAP) guidelines (Aug 28, 2019), and FDA guidance (Aug 09, 2019). This test is only for use under the Food and Drug Administration's Emergency Use Authorization. Performing Lab [facility] 05/31/2020 17:17 EST [facility] Swab 05/28/2020 9:04 EST 05/28/2020 16:15 EST us Provider Outr Resulting Lab MICROBIOLOGY - GENER AL ORDERABLES Final Result [facility] [address] [place] [address] [facility] [place], [place] documented in this encounter Visit Diagnoses Not on filedocumented in this encounter Care Teams Bath Design Sales Consultant Relationship Specialty Start Date End Date Alexa Hairston APRN [address] [place] [address] PCP - General 10/26/16 07/11/20 Renea Delcid FNP [address] [place] [address] PCP - General 07/12/20 documented as of this encounter
--- OUTSIDE RECORDS SUMMARY | 2024-06-16 16:41 | XMS_ITS | Encounter Summary ---
Author Organization [facility] Address [address] [place] [address] Care Team Providers Care Assembler Leather Goods Name Role Phone Alexa Hairston APRN Primary Care Provider [phone] Reason for Visit * Reason Onset Date Comments Advice Only 12/22/2019 Encounter Details Date Type Department Care Team (Late st Contact Info) Description 12/22/2019 Telephone [facility] O[facility] - [address] [address] Sofia Kaufman MD [address] [facility], [address] [place] [address] Advice Only Social History Tobacco [...] encounter Miscellaneous Notes * Telephone Encounter - Mai Nicholas - 12/22/2019 1117 EDT Called and left message for patient to call back to update. * Telephone Encounter - Mai Nicholas - 12/22/2019 0903 EDT Patient started their period yesterday. Patient was wondering if they could have their prescription sent in and lab work ordered as needed. Preferred pharmacy: [id number] - [place], [place] - [address] [place] [address]. AT [facility] Patient can be reached at [phone] needed. documented in this encounter Plan of Treatment Not on file documented as of this encounter Visit Diagnoses Diagnosis examination or test, unconfirmed- Primary documented in this encounter Care Teams Assembler Leather Goods Relationship Specialty Start Date End Date Alexa Hairston APRN [address] [place] [address] PCP - General 10/26/16 07/11/20 documented as of this encounter
--- OUTSIDE RECORDS SUMMARY | 2024-06-16 16:41 | XMS_ITS | Encounter Summary ---
Author Organization [facility] Address [address] [place] [address] Care Team Providers Care Forestry Extension Specialist Name Role Phone Alexa Hairston APRN Primary Care Provider [phone] Reason for Visit * Reason Onset Date Comments Billing Question 05/11/2020 Encounter Details Date Type Department Care Team (Late st Contact Info) Description 05/11/2020 Telephone [facility] - [address] [address] Sofia Kaufman MD 111 [facility], [address] [place] [address] Billing Question Social History Tobacco [...] * Telephone Encounter - Melany Redd - 05/11/2020 1351 EST Returned patients phone call regarding her question about a med: Ovidrel and having insurance coverit after she paid out of pocket for the medication.. I left a detailed message stating if this was in relation with any fertility treatment services it might not be covered under the plan because [employer] does not cover any treatment related services including meds. I left the nurses telephone number for the patient to discuss clinical questions (if med is relatedto a treatment cycle) and I left my number for any financial questions. documented in this encounter Plan of Treatment Not on file documented as of this encounter Visit Diagnoses Not on filedocumented in this encounter Care Teams Forestry Extension Specialist Relationship Specialty Start Date End Date Alexa Hairston APRN [address] [place] [address] PCP - General 10/26/16 07/11/20 documented as of this encounter
--- OUTSIDE RECORDS SUMMARY | 2024-06-16 16:41 | XMS_ITS | Encounter Summary ---
Author Organization [facility] Address [address] [place] [address] Care Team Providers Care Sinter Machine Operator Name Role Phone Alexa Hairston APRN Primary Care Provider [phone] Renea Delcid Primary Care Provider [phone] Encounter Details Date Type Department Care Team (Late st Contact Info) Description 11/21/2019 Lab Requisition [facility] Pathology & Laboratory Medicine - [facility] [address] [place] [address] Outr Resulting Lab, Provider Social History Tobacco [...] Procedure Name Priority Date/Time Associated Diagnosis Comments MEASLES IGG AB Routine 11/21/2019 12:30 EDT documented in this encounter Results * MEASLES IGG AB (11/21/2019 12:30 EDT) Measles IgG Ab Positive See Note 11/24/2019 11:57 EDT [facility] Comment:Presence of detectab le measles virus IgG antibodies. Blood VENOUS BLOOD / Unknown 11/21/2019 12:30 EDT 11/21/2019 21:04 EDT us Provider Outr Resulting Lab IMMUNOLOGY AND SEROL OGY ORDERABLES Final Result [facility] [address] [place] [address] documented in this encounter Visit Diagnoses Not on filedocumented in this encounter Care Teams Sinter Machine Operator Relationship Specialty Start Date End Date Alexa Hairston APRN [address] [place] [address] PCP - General 10/26/16 07/11/20 Renea Delcid FNP [address] [place] [address] PCP - General 07/12/20 documented as of this encounter
--- OUTSIDE RECORDS SUMMARY | 2024-06-16 16:41 | XMS_ITS | Encounter Summary ---
Author Organization [facility] Address [address] [place] [address] Care Team Providers Care Third Rigger Name Role Phone Alexa Hairston APRN Primary Care Provider [phone] Reason for Visit * Reason Onset Date Comments Labs Only 12/10/2019 Encounter Details Date Type Department Care Team (Late st Contact Info) Description 12/10/2019 Telephone [facility] OBGYN Services - [address] [id number] Sofia Kaufman MD [address] [facility], [address] [place] [address] Labs Only Social History Tobacco [...] * Telephone Encounter - Bernadine Reyes - 12/10/2019 0901 EDT Pt called to let Mandeep know that she went for her labs today at [facility]. If any questions PT can be reached at [phone] documented in this encounter Plan of Treatment Not on file documented as of this encounter Visit Diagnoses Not on filedocumented in this encounter Care Teams Third Rigger Relationship Specialty Start Date End Date Alexa Hairston APRN [address] [place] [address] PCP - General 10/26/16 07/11/20 documented as of this encounter
--- OUTSIDE RECORDS SUMMARY | 2024-06-16 16:42 | XMS_ITS | Encounter Summary ---
Author Organization [facility] Address [address] [place] [address] Care Team Providers Care Floor Sanding Machine Operator Name Role Phone Alexa Hairston APRN Primary Care Provider [phone] Reason for Visit * Reason Onset Date Comments Follow-up 02/01/2017 Encounter Details Date Type Department Care Team (Late st Contact Info) Description 02/01/2017 Telephone [facility] - [facility] [address] [place] [address] Luzmaria Gloria RN [address] [place] [address] Follow-up Social History Tobacco Use Types Packs/Day Years Used Date Smoking Tobacco: Never Alcohol Use Standard Drinks/Week Comments Yes 0 (1 standard drink = 0.6 oz pur e alcohol) occ Comments Unknown Sex and Gender Information Value Date Recorded Sex Assigned at Not on file Legal Sex Female 18:27 EST Gender Identity Female 11/12/2019 18:49 EDT Sexual Orientation Not on file documented as of this encounter Miscellaneous Notes * Telephone Encounter - Luzmaria Gloria RN - 02/01/2017 1026 EDT Pt called to report start of menses. CD#1=01/31. Ready to start another letrozole cycle. OPK and Timed Harvest Cycle Cycle number: 3 (previously did one clomid, one letrozole) Plan: letrozole 2.5mg CD#5-9/OPK/TI 1.) Call from patient- Date: 02/01/2017 Time: 10:27 2.) Last Menstrual Period: 01/31 WNL?: yes Does pt need HCG/P4 drawn prior to starting medication: yes UPT prior to medication: no If pt is using home UPT to r/o : Pt will call to notify us of +UPT, ok to start medicationif -UPT. Pt verbalized understanding. Labs ordered: yes Faxed to outside lab: yes Faxed to: [facility] Mid-Luteal Progesterone needed this cycle: no Date needed: 3.) OK to proceed? yes - once results are returned Is pt using Ovulation Induction medication: yes A.) Ovulation Induction Medication: letrozole Dose: 2.5 Cycle days: 5-9 Pharmacy: [facility] Refills: 0 Pt to call clinic if no +OPK by CD21. Pt verbalized understanding of when to start using OPK(CD#10-12) and timing of timed intercourse(every other day starting the day of +OPK x1 week). Pt to call with next menses or +UPT 2 weeks after +OPK. Luzmaria Gloria RN 02/01/2017 10:27 documented in this encounter Plan of Treatment Not on file documented as of this encounter Visit Diagnoses Diagnosis Encounter for test, result unknown- Primary documented in this encounter Care Teams Floor Sanding Machine Operator Relationship Specialty Start Date End Date Alexa Hairston APRN [address] [place] [address] PCP - General 10/26/16 07/11/20 documented as of this encounter
--- OUTSIDE RECORDS SUMMARY | 2024-06-16 16:42 | XMS_ITS | Encounter Summary ---
Author Organization [facility] Address [address] [place] [address] Care Team Providers Care Neurodiagnostic Technologist Name Role Phone Yovanny Alexa Grullon YU Primary Care Provider [phone] Reason for Referral * Laboratory Services (Routine) - Closed Specialty Diagnoses / Procedures Referred By Contac t Referred To Contact Diagnoses Fertility testing Procedures PROGESTERONE Kendra Carpenter RN Referral ID Status Reason Start Date Expiration Date Visits Re quested Visits Authorized [id number] Closed 01/01/2017 1 1 * Laboratory Services (Routine) - Closed Specialty Diagnoses / Procedures Referred By Contmissy t Referred To Contact Diagnoses Fertility testing Procedures HCG FOR Kendra Carpenter RN Referral ID Status Reason Start Date Expiration Date Visits Re quested Visits Authorized [id number] Closed 01/01/2017 1 1 Reason for Visit * Reason Onset Date Comments Follow-up 01/01/2017 Encounter Details Date Type Department Care Team (Late st Contact Info) Description 01/01/2017 Telephone [facility] - [facility] [place] [address] [place], [place] [id number] Kendra Carpenter RN Follow-up Social History Tobacco Use Types Packs/Day [...] tablet Take 1 Tab by mouth daily. Cycle days 5-9 5 Tab 01/02/2017 02/03/2017 documented in this encounter Miscellaneous Notes * Telephone Encounter - Kendra Carpenter RN - 01/02/2017 1651 EDT Pt lab results negative. OK to start letrozole on 01/05/17. Pt using 2.5 mg letrozole CD 5-9, OPK/TI. Pt will call with + on OPK to schedule CD 21 progesterone if needed this cycle because Pt changed ovulation stimulation medication. * Telephone Encounter - Kendra Carpenter RN - 01/02/[address] Kaufman, OK for Pt to use 2.5mg letrozole for this cycle. Awaiting Pt lab results from [facility]. * Telephone Encounter - Kendra Carpenter RN - 01/01/2017 1616 EDT Pt started menses 01/01/17. Pt would like to proceed with new cycle of clomid or letrozole use. Pt used clomid last cycle with a confirmed CD 21 progesterone: 23.8ng/ml (12/27/16). Pt was traveling last month and could not get to a lab for hcg or prog. and therefore used clomid. Pt interested in changing to letrozole this cycle because she remembered Dr. Kaufman stating it is first choice for ovulation induction. Labs sent to [facility] for Pt to have drawn 01/02/17. Pt will started using 2.5mg letrozole in 01/05/17 if labs are negative. Msg routed to Dr. Kaufman. documented in this encounter Plan of Treatment Not on file documented as of this encounter Results * PROGESTERONE (01/22/2017) Progesterone, External 22.5 POINT OF CARE Blood specimen (specimen) 01/22/2017 us Sofia Kaufman MD CHEMISTRY & BLOOD GAS ORD ERABLES Final Result POINT OF CARE * HCG FOR (01/22/2017) HCG, External <1 POINT OF CARE Blood specimen (specimen) 01/22/2017 us Sofia Kaufman MD CHEMISTRY & BLOOD GAS ORD ERABLES Final Result Performing Organization Address City/[facility]/ZIP Co de Phone Number POINT OF CARE documented in this encounter Visit Diagnoses Diagnosis Fertility testing- Primary documented in this encounter Care Teams Neurodiagnostic Technologist Relationship Specialty Start Date End Date Alexa Hairston APRN [address] [place] [address] PCP - General 10/26/16 07/11/20 documented as of this encounter
--- OUTSIDE RECORDS SUMMARY | 2024-06-16 16:42 | XMS_ITS | Encounter Summary ---
Author Organization [facility] Address [address] [place] [address] Care Team Providers Care Leather Belt Loop Cutter Name Role Phone Alexa Hairston APRN Primary Care Provider [phone] [phone] Reason for Visit * Reason Onset Date Comments Other 03/16/2017 Encounter Details Date Type Department Care Team (Late st Contact Info) Description 03/16/2017 Telephone [facility] - [facility] [address] [place] [address] Sheila Grewal, RN Other Social History Tobacco Use Types Packs/Day Years [...] encounter Miscellaneous Notes * Telephone Encounter - Sheila Grewal, MIKEY - 03/16/2017 1236 EDT PC Requesting CB in regards to some questions she has. Returned call to Rita requesting CB. Unknown what specific questions Rita has at this time. Rita called back and has questions on beta hCG and when she can proceed with starting Letrozole IUIcycle. Discussed patient's beta hCG must return to zero post miscarriage before moving forward and to make sure there is no remaining product. Reviewed patient has future order to have repeat bHCG next week to confirm beta is continuing to trend downward. Discussed with Rita, prior to beginning Letrozole CD# 5-9, patient must have beta HCG drawn to confirm patient is not , so patient can call with what she believes is CD#1, but bHCG will need to be repeated again. Reviewed pt may have spotting/cramping due to miscarriage, but can call with her next full menses. Pt verbalized understanding and has no further questions at this time. documented in this encounter Plan of Treatment Not on file documented as of this encounter Visit Diagnoses Not on filedocumented in this encounter Care Teams Leather Belt Loop Cutter Relationship Specialty Start Date End Date Alexa Hairston APRN [address] [place] [address] PCP - General 10/26/16 07/11/20 documented as of this encounter
--- OUTSIDE RECORDS SUMMARY | 2024-06-16 16:42 | XMS_ITS | Encounter Summary ---
Author Organization [facility] Address [address] [place] [address] Care Team Providers Care Merchant Tailor Name Role Phone Alexa Hairston APRN Primary Care Provider [phone] [phone] Reason for Referral * Laboratory Services (Routine) - New Request Specialty Diagnoses / Procedures Referred By Contac t Referred To Contact Diagnoses Encounter for test, result unknown Procedures BETA HCG QUANTITATIVE Caridad Ho RN Referral ID Status Reason Start Date Expiration Date V isits Requested Visits Authorized [id number] New Request 07/23/2017 1 1 Reason for Visit * Reason Onset Date Comments 07/23/2017 Encounter Details Date Type Department Care Team (Late st Contact Info) Description 07/23/2017 Telephone [facility] - [address] [address] Caridad Ho RN Social History Tobacco Use Types Packs/Day Years [...] Telephone Encounter - Caridad Ho RN - 07/23/2017 1010 EST PC from Rita to report + UPT this morning following Ltz/OPK/TI cycle. She is CD #26. Requests serial HCG. Advised she wait until CD #28 to check HCG as the value will still be quite low prior to missed menses. She verbalized agreement and will present to lab on Tuesday 07/25. Order faxed to [facility] documented in this encounter Plan of Treatment Scheduled Orders Name Type Priority Associated Diagnoses Orde r Schedule BETA HCG QUANTITATIVE Lab Routine Encounter for test, result unknown Expected: 07/23/2017 (Approximate), Expires: 07/23/2018 documented as of this encounter Visit Diagnoses Diagnosis Encounter for test, result unknown- Primary documented in this encounter Care Teams Merchant Tailor Relationship Specialty Start Date End Date Alexa Hairston APRN [address] [place] [address] PCP - General 10/26/16 07/11/20 documented as of this encounter
--- OUTSIDE RECORDS SUMMARY | 2024-06-16 16:42 | XMS_ITS | Encounter Summary ---
Author Organization [facility] Address [address] [place] [address] Care Team Providers Care Pan Washer Name Role Phone Alexa Hairston APRN Primary Care Provider [phone] [phone] Reason for Visit * Reason Onset Date Comments Amenorrhea 05/28/2017 Encounter Details Date Type Department Care Team (Late st Contact Info) Description 05/28/2017 Telephone [facility] Reproductive Medicine & Infertility Center - [facility] [address] [place] [address] Luzmaria Gloria, RN [address] [place] [address] Amenorrhea Social History Tobacco Use Types Packs/Day Years [...] Miscellaneous Notes * Telephone Encounter - Caridad Ho, MIKEY - 05/31/2017 0932 EST Discussed plan with Dr Mckinley. Plan is virtual cycle with ltz increase to 5 mg/OPK/TI Medication ordered to [facility] in [facility]. VCD #21 progesterone ordered to [facility] lab. OPK and Timed [place] Cycle Cycle number: 2 (didn't ovulate on cycle 1 with ltz 2.5, this is a step-up) Plan: ltz VCD #5-9/OPK/TI 1.) Call from patient- Date: 05/28/17 2.) Last Menstrual Period: 04/19/17 WNL?: yes Does pt need HCG/P4 drawn prior to starting medication: yes- this has been completed, see note below. UPT prior to medication: no If pt is using home UPT to r/o : Pt will call to notify us of +UPT, ok to start medicationif -UPT. Pt verbalized understanding. Labs ordered: yes Faxed to outside lab: yes Faxed to: [facility] Mid-Luteal Progesterone needed this cycle: yes Date needed: 06/16/16 3.) OK to proceed? yes Is pt using Ovulation Induction medication: yes A.) Ovulation Induction Medication: ltz Dose: 5mg Cycle days: VCD 5-9 Pharmacy: [facility] Refills:0 Pt to call clinic if no +OPK by CD21. Pt verbalized understanding of when to start using OPK(CD#10-12) and timing of timed intercourse(every other day starting the day of +OPK x1 week). Pt to call with next menses or +UPT 2 weeks after +OPK. Caridad Ho RN 05/31/2017 9:34 * Telephone Encounter - Caridad Ho RN - 05/30/2017 1134 EST P4= 0.5 HCG <1 CD # 42 following LMP 04/19, ltz 2.5 mg days 5-9 Rita calling to review results and plan. Will discuss with Dr Kaufman as labs indicate that she has still not ovulated. * Telephone Encounter - Luzmaria Gloria RN - 05/28/2017 1528 EST Message from pt reporting she has not started her menses yet. LMP 04/19. Returned call, left messageoffering progesterone level to assess for ovulation. Orders faxed to [facility]. documented in this encounter Plan of Treatment Not on file documented as of this encounter Visit Diagnoses Diagnosis Amenorrhea- Primary Absence of menstruation Encounter for test, result unknown documented in this encounter Care Teams Pan Washer Relationship Specialty Start Date End Date Alexa Hairston APRN [address] [place] [address] PCP - General 10/26/16 07/11/20 documented as of this encounter
--- OUTSIDE RECORDS SUMMARY | 2024-06-16 16:42 | XMS_ITS | Encounter Summary ---
Author Organization [facility] Address [address] [place] [address] Care Team Providers Care Hot Mill Observer Name Role Phone Yovanny Alexa H YU Primary Care Provider +1 [phone] Encounter Details Date Type Department Care Team (Late st Contact Info) Description 03/14/2017 Orders Only [facility] Inf[facility] - [address] [address] Colin Mckinley MD [address] [address] of unknown anatomic location (Primary Dx) Social History Tobacco Use Types [...] documented as of this encounter Results * (ABNORMAL) HCG FOR (03/14/2017 9:07 EDT) Quant Beta HCG, Preg 35(H) <5 mIU/ml 03/14/2017 10:13 EDT [facility] Comment: Reference Range: Negative = <5 Indeterminate = 5-25 recommend repeat in 48 hours. Positive = >25 Blood specimen (specimen) BLOOD SPECIMEN / Unknown 03/14/2017 9:07 EDT 03/14/2017 9:23 EDT us Davin Brunson MD CHEMISTRY & BLOOD GAS ORDERA BLES Final Result [facility] [address] [place] [address] documented in this encounter Visit Diagnoses Diagnosis of unknown anatomic location- Primary state, incidental documented in this encounter Care Teams Hot Mill Observer Relationship Specialty Start Date End Date Alexa Hairston APRN [address] [place] [address] PCP - General 10/26/16 07/11/20 documented as of this encounter
--- OUTSIDE RECORDS SUMMARY | 2024-06-16 16:42 | XMS_ITS | Encounter Summary ---
Author Organization [facility] Address [address] [place] [address] Care Team Providers Care Dormitory Maid Name Role Phone Alexa Hairston YU Primary Care Provider +1 [phone] Reason for Visit * Reason Onset Date Comments Other 01/24/2017 Encounter Details Date Type Department Care Team (Late st Contact Info) Description 01/24/2017 Orders Only [facility] Reproductive Medicine [facility] Infertility Center - [address] [address] Olga Noe, MIKEY Fertility testing (Primary Dx) Social History Tobacco Use Types [...] Priority Date/Time Associated Diagnosis Comments PROGESTERONE Routine 01/22/2017 Fertility testing QUANT BETA HCG, Routine 01/22/2017 Fertility testing documented in this encounter Results * PROGESTERONE (01/22/2017) Progesterone, External 22.5 POINT OF CARE Blood specimen (specimen) 01/22/2017 us Sofia Kaufman MD CHEMISTRY & BLOOD GAS ORD ERABLES Final Result POINT OF CARE * HCG FOR (01/22/2017) HCG, External <1 POINT OF CARE Blood specimen (specimen) 01/22/2017 Sofia Kaufman MD CHEMISTRY & BLOOD GAS ORD ERABLES Final Result POINT OF CARE documented in this encounter Visit Diagnoses Diagnosis Fertility testing- Primary documented in this encounter Care Teams Dormitory Maid Relationship Specialty Start Date End Date Alexa Hairston APRN [address] [place] [address] PCP - General 10/26/16 07/11/20 documented as of this encounter
--- OUTSIDE RECORDS SUMMARY | 2024-06-16 16:42 | XMS_ITS | Encounter Summary ---
Author Organization [facility] Address [address] [place] [address] Care Team Providers Care Veneer Sander Name Role Phone Yovanny Alexa H YU Primary Care Provider +1 [phone] Encounter Details Date Type Department Care Team (Late st Contact Info) Description 03/14/2017 Results Only Imaging [facility] Reproductive Medicine & Infertility Center - [address] [address] Sofia Kaufman MD [address] [place] [address], [address] [place] [address] Social History Tobacco Use Types [...] Procedure Name Priority Date/Time Associated Diagnosis Comments CHROME WORKER US OB FIRST TRIMESTER TRANSVAGINAL 03/14/2017 8:40 EDT documented in this encounter Results * CHROME WORKER US OB FIRST TRIMESTER TRANSVAGINAL (03/14/2017 8:40 EDT) Anatomical Region Laterality Modality Other 03/14/2017 8:40 EDT 03/14/2017 8:58 EDT Narrative 03/14/2017 8:58 EDT Indication Early assessment. Number of gestational sacs: 1. Dating ======= Method of dating: ??based on the LMP LMP on: ?01/31/2017 GA by LMP ??6 w + 0 d JEFFREY by LMP : ? 11/07/2017 Assigned: ??Dating performed on 03/14/2017 Based on the LMP Assigned GA ?6 w + 0 d Assigned JEFFREY: ??11/07/2017 Assessment Gestational sac: Not visualized. Yolk sac: Not visualized. Embryo: Not visualized. Maternal Structures Uterus / Cervix Uterus: ?Visualized Uterus position: ?? Retroverted Endometrium: ?? Luteal phase Endometrial thickness, total ?? 8.4 mm Cervix: ?Appears normal Approach: ??Transvaginal Ovaries / Tubes / Adnexa Rt ovary: ??Normal with Corpus luteum Rt ovary details: ??Appears normal Rt ovary morphology: ?? Normal Rt ovarian corpus luteum: ??Complex Rt ovarian cyst(s): ?Cysts identified Rt ovary other findings: ?? Corpus Luteum present measuring 1.6 x 1.4 x 1.4 cm Rt fallopian tube: Not visualized Lt ovary: ??Visualized, normal appearance Lt ovary details: ??Appears normal Lt ovary morphology: ?? normal Lt fallopian tube: Not visualized Pouch of Doyle / Other Structures Cul de Sac: ?Appears normal Free fluid: ?No free fluid visualized Method ======== Transvaginal ultrasound examination. Impression OB transabdominal 1st trimester [id number] of uncertain location. No abnormal masses were appreciated in the adnexa, though ectopic cannot be definitively ruled out by today's examination. Follow-up Patient to check HCG levels today, repeat TVUS in 1 week. Comment ========= Ultrasound findings discussed w/patient. Patient is asymptomatic. Pain, bleeding, ectopic precautions provided. DATE OF SERVICE: 03/14/2017 Procedure Note Davin Brunson MD - 03/14/2017 Indication Early assessment. Number of gestational sacs: 1. Dating ======= Method of dating: based on the LMP LMP on: 01/31/2017 GA by LMP 6 w + 0 d JEFFREY by LMP : 11/07/2017 Assigned: Dating performed on 03/14/2017 Based on the LMP Assigned GA 6 w + 0 d Assigned JEFFREY: 11/07/2017 Assessment Gestational sac: Not visualized. Yolk sac: Not visualized. Embryo: Not visualized. Maternal Structures Uterus / Cervix Uterus: Visualized Uterus position: Retroverted Endometrium: Luteal phase Endometrial thickness, total 8.4 mm Cervix: Appears normal Approach: Transvaginal Ovaries / Tubes / Adnexa Rt ovary: Normal with Corpus luteum Rt ovary details: Appears normal Rt ovary morphology: Normal Rt ovarian corpus luteum: Complex Rt ovarian cyst(s): Cysts identified Rt ovary other findings: Corpus Luteum present measuring 1.6 x 1.4 x 1.4 cm Rt fallopian tube: Not visualized Lt ovary: Visualized, normal appearance Lt ovary details: Appears normal Lt ovary morphology: normal Lt fallopian tube: Not visualized Pouch of Doyle / Other Structures Cul de Sac: Appears normal Free fluid: No free fluid visualized Method ======== Transvaginal ultrasound examination. Impression OB transabdominal 1st trimester [id number] of uncertain location. No abnormal masses were appreciated in the adnexa, though ectopic cannot be definitively ruled out by today's examination. Follow-up Patient to check HCG levels today, repeat TVUS in 1 week. Comment ========= Ultrasound findings discussed w/patient. Patient is asymptomatic. Pain, bleeding, ectopic precautions provided. DATE OF SERVICE: 03/14/2017 us Sofia Kaufman MD IMG US CHROME WORKER ORDERABLES Fin al Result documented in this encounter Visit Diagnoses Not on filedocumented in this encounter Care Teams Veneer Sander Relationship Specialty Start Date End Date Alexa Hairston APRN [address] [place] [address] PCP - General 10/26/16 07/11/20 documented as of this encounter
--- OUTSIDE RECORDS SUMMARY | 2024-06-16 16:42 | XMS_ITS | Encounter Summary ---
Author Organization [facility] Address [address] [place] [address] Care Team Providers Care Heel Attacher Name Role Phone Alexa Hairston APRN Primary Care Provider [phone] [phone] Reason for Visit * Reason Onset Date Comments Follow-up 04/20/2017 Encounter Details Date Type Department Care Team (Late st Contact Info) Description 04/20/2017 Telephone [facility] Reproductive Medicine & Infertility Center - [facility] [address] [place] [address] Brandi Gloria RN [address] [place] [address] Follow-up Social History Tobacco Use Types Packs/Day [...] mouth daily. Cycle days 5-9 5 Tab 04/23/2017 05/31/2017 documented in this encounter Miscellaneous Notes * Addendum Note - Brandi Gloria RN - 04/23/2017 1259 ESTAddended by: BRANDI GLORIA on: 04/23/2017 12:59 Modules accepted: Orders * Telephone Encounter - Brandi Gloria RN - 04/23/2017 1258 EST Call to pt with lab results from 04/20. HCG and progesterone both negative, okay to start letrozoleto. Pt scheduled f/u visit, as she is losing insurance coverage for fertility services on June 11. * Telephone Encounter - Brandi Gloria RN - 04/20/2017 1042 EST Pt calling to report start of menses. States light bleeding started 04/18, then became heavier with clots on 04/19, now with cramping today 04/20. We will call 04/19 CD#1. Pt will have labs drawn today at [facility] to start next letrozole/TI cycle. Will f/u with results on Monday 04/23. Also reviewed OPK/IUI and USF/IUI for possible future cycle, if pt does not become in the next few months. OPK and Timed [place] Cycle Cycle number: 1, after miscarriage Plan: letrozole 2.5mg/OPK/TI 1.) Call from patient- Date: 04/20/2017 Time: 11:00 2.) Last Menstrual Period: 04/19 WNL?: yes Does pt need HCG/P4 drawn prior to starting medication: yes UPT prior to medication: no If pt is using home UPT to r/o : Pt will call to notify us of +UPT, ok to start medicationif -UPT. Pt verbalized understanding. Labs ordered: yes Faxed to outside lab: yes Faxed to: [facility] Mid-Luteal Progesterone needed this cycle: no Date needed: 3.) OK to proceed? yes, once labs are resulted Is pt using Ovulation Induction medication: yes A.) Ovulation Induction Medication: letrozole Dose: 2.5 Cycle days: - Pharmacy: [facility] Refills: 0 Pt to call clinic if no +OPK by CD21. Pt verbalized understanding of when to start using OPK(CD#10-12) and timing of timed intercourse(every other day starting the day of +OPK x1 week). Pt to call with next menses or +UPT 2 weeks after +OPK. Brandi Gloria RN 04/20/2017 11:00 documented in this encounter Plan of Treatment Not on file documented as of this encounter Visit Diagnoses Diagnosis examination or test, unconfirmed- Primary documented in this encounter Discontinued Medications Medication Sig Discontinue Reason Start Date End Da te letrozole (FEMARA) 2.5 mg tablet Take 1 Tab by mouth daily. Cycle days 5-9 Reorder 02/03/2017 04/23/2017 documented as of this encounter Care Teams Heel Attacher Relationship Specialty Start Date End Date Alexa Hairston APRN [address] [place] [address] PCP - General 10/26/16 07/11/20 documented as of this encounter
--- OUTSIDE RECORDS SUMMARY | 2024-06-16 16:42 | XMS_ITS | Encounter Summary ---
Author Organization [facility] Address [address] [place] [address] Care Team Providers Care Sifting Operator Name Role Phone Alexa Hairston APRN Primary Care Provider [phone] [phone] Reason for Visit * Reason Onset Date Comments Results 03/01/2017 Encounter Details Date Type Department Care Team (Late st Contact Info) Description 03/01/2017 Telephone [facility] Reproductive Medicine & Infertility Center - [facility] [address] [place] [address] Brandi Gloria RN [address] [place] [address] Results Social History Tobacco Use Types Packs/Day [...] as of this encounter Miscellaneous Notes * Addendum Note - Brandi Gloria RN - 03/02/2017 1529 EDTAddended by: BRANDI GLORIA on: 03/02/2017 15:29 Modules accepted: Orders * Telephone Encounter - Brandi Gloria RN - 03/02/2017 1522 EDT Left detailed message on identified voicemail. Appropriate rise. Advised pt to repeat once more on Tuesday 03/06 to ensure trending appropriately upward. Order in place. Will schedule OB US once that result has returned. Component Latest Ref Rng & Units 02/28/2017 03/02/2017 HCG, External mIU/mL 12 52 * Telephone Encounter - Brandi Gloria RN - 03/01/2017 1537 EDT Reviewed hCG results with pt. HCG is positive and indicative of early . LMP 01/31. Advised pt to check another hCG in 48 hours, then likely a third on Sunday to ensure trending appropriatelyupward ([facility] lab closed Sunday). Pt verbalized understanding. Component Latest Ref Rng & Units 02/28/2017 HCG, External mIU/mL 12 documented in this encounter Plan of Treatment Not on file documented as of this encounter Procedures Procedure Name Priority Date/Time Associated Diagnosis Comments QUANT BETA HCG, Routine 03/02/2017 9:20 EDT examination or test, unconfirmed QUANT BETA HCG, Routine 02/28/2017 9:45 EDT Encounter for test, result positive documented in this encounter Results * (ABNORMAL) HCG FOR (03/02/2017 9:20 EDT) HCG, External 52 mIU/mL [facility] Blood specimen (specimen) 03/02/2017 9:20 EDT us Sofia Kaufman MD CHEMISTRY & BLOOD GAS ORD ERABLES Final Result [facility] * (ABNORMAL) HCG FOR (02/28/2017 9:45 EDT) HCG, External 12 mIU/mL [facility] Blood specimen (specimen) 02/28/2017 9:45 EDT us Dinora Aguilar MD CHEMISTRY & BLOOD GAS ORDER BOBBY Final Result [facility] documented in this encounter Visit Diagnoses Diagnosis Encounter for test, result positive- Primary examination or test, positive result examination or test, unconfirmed documented in this encounter Care Teams Sifting Operator Relationship Specialty Start Date End Date Alexa Hairston, HYDROGEN TREATER [address] [place] [address] PCP - General 10/26/16 07/11/20 documented as of this encounter
--- OUTSIDE RECORDS SUMMARY | 2024-06-16 16:42 | XMS_ITS | Encounter Summary ---
Author Organization [facility] Address [address] [place] [address] Care Team Providers Care Load Planner Name Role Phone Alexa Hairston APRN Primary Care Provider +1 [phone] Encounter Details Date Type Department Care Team (Latest Contact Info) Description 08/27/2017 9:25 EDT - 08/27/2017 9:52 EDT Hospital Encounter [facility] - [address] [address] Aubree Tapia MD [address] [place] [phone] Discharge Disposition: Home or Self Care [...] as of this encounter Discharge Diagnoses Diagnosis Z34.80 Encounter for supervision of other normal , unspecified trimester-Z34.80[ICD-10-CM] documented in this encounter Medications at Time [...] on filedocumented in this encounter Care Teams Load Planner Relationship Specialty Start Date End Date Alexa Hairston APRN [address] [place] [address] PCP - General 10/26/16 07/11/20 documented as of this encounter
--- OUTSIDE RECORDS SUMMARY | 2024-06-16 16:42 | XMS_ITS | Encounter Summary ---
Author Organization [facility] Address [address] [place] [address] Care Team Providers Care Strip Mine Supervisor Name Role Phone Alexa Hairston APRN Primary Care Provider [phone] -[phone] Reason for Visit * Reason Onset Date Comments Results 06/28/2017 Encounter Details Date Type Department Care Team (Late st Contact Info) Description 06/28/2017 Telephone [facility] Reproductive Medicine & Infertility Center - [address] [id number] Caridad Ho, RN Results Social History Tobacco Use Types [...] Take cycle days 5-9 10 Tab 07/01/2017 04/07/2018 documented in this encounter Miscellaneous Notes * Telephone Encounter - Caridad Ho RN - 06/28/2017 0820 EST Component Latest Ref Rng & Units 06/26/2017 HCG, External 1 Progesterone, External 1.9 OPK and Timed [place] Cycle Cycle number: 3 Plan: ltz5/OPK/TI 1.) Call from patient- Date: 06/28/2017 Time: 8:20 2.) Last Menstrual Period: 06/27/17 WNL?: yes Does pt need HCG/P4 drawn prior to starting medication: yes- results negative 06/26/17, See above Mid-Luteal Progesterone needed this cycle: no 3.) OK to proceed? yes Is pt using Ovulation Induction medication: yes A.) Ovulation Induction Medication: letrozole Dose: 5mg Cycle days: 5-9 Pharmacy: [facility] Refills:0 Pt to call clinic if no +OPK by CD21. Pt verbalized understanding of when to start using OPK(CD#10-12) and timing of timed intercourse(every other day starting the day of +OPK x1 week). Pt to call with next menses or +UPT 2 weeks after +OPK. Caridad Ho RN 06/28/2017 8:20 documented in this encounter Plan of Treatment Not on file documented as of this encounter Visit Diagnoses Not on filedocumented in this encounter Discontinued Medications Medication Sig Discontinue Reason Start Date End Da te letrozole (FEMARA) 2.5 mg tablet Take 2 Tabs by mouth daily. Virtual cycle days 5-9 Reorder 05/31/2017 06/28/2017 documented as of this encounter Care Teams Strip Mine Supervisor Relationship Specialty Start Date End Date Alexa Hairston APRN [address] [place] [address] PCP - General 10/26/16 07/11/20 documented as of this encounter
--- OUTSIDE RECORDS SUMMARY | 2024-06-16 16:42 | XMS_ITS | Encounter Summary ---
Author Organization [facility] Address [address] [place] [address] Care Team Providers Care Finance Professor Name Role Phone Alexa Hairston APRN Primary Care Provider +1 -[phone] Reason for Referral * Laboratory Services (Routine) - Closed Specialty Diagnoses / Procedures Referred By Contac t Referred To Contact Diagnoses Problems with ovulation Procedures PROGESTERONE Olga Noe RN Referral ID Status Reason Start Date Expiration Date Visits Re quested Visits Authorized [id number] Closed 12/18/2016 1 1 Reason for Visit * Reason Onset Date Comments Other 12/01/2016 Encounter Details Date Type Department Care Team (Late st Contact Info) Description 12/01/2016 Orders Only [facility] Reproductive Medicine [facility] Infertility Center - [address] [address] Olga Noe RN Problems with ovulation (Primary Dx) Social History Tobacco Use Types [...] as of this encounter Results * PROGESTERONE (12/23/2016) Progesterone, External 23.8 ng/ml POINT OF CARE Blood specimen (specimen) 12/23/2016 us Sofia Kaufman MD CHEMISTRY & BLOOD GAS ORD [facility] Final Result POINT OF CARE documented in this encounter Visit Diagnoses Diagnosis Problems with ovulation- Primary Unspecified noninflammatory disorder of ovary, fallopian tube, and broad ligament documented in this encounter Care Teams Finance Professor Relationship Specialty Start Date End Date Alexa Hairston, BANQUET PREP COOK [address] [place] [address] PCP - General 10/26/16 07/11/20 documented as of this encounter
--- OUTSIDE RECORDS SUMMARY | 2024-06-16 16:42 | XMS_ITS | Encounter Summary ---
Author Organization [facility] Address [address] [place] [address] Care Team Providers Care Boiler Technician Name Role Phone Alexa Hairston APRN Primary Care Provider +1 -[phone] Encounter Details Date Type Department Care Team (Late st Contact Info) Description 03/21/2017 Orders Only [facility] Reproductive Medicine & Infertility Center - [facility] [address] [place] [address] Luzmaria Gloria, RN [address] [place] [address] Spontaneous ; at early stage Social History Tobacco Use Types Packs/Day Years [...] Associated Diagnosis Comments QUANT BETA HCG, Routine 04/20/2017 QUANT BETA HCG, Routine 03/21/2017 8:15 EDT at early stage documented in this encounter Results * HCG FOR (04/20/2017) HCG, External <1 mIU/mL EXTERNAL LAB Blood specimen (specimen) 04/20/2017 us Sofia Kaufman MD CHEMISTRY & BLOOD GAS ORD [facility] Final Result EXTERNAL LAB * HCG FOR (03/21/2017 8:15 EDT) HCG, External 2 mIU/mL [facility] Blood specimen (specimen) 03/21/2017 8:15 EDT us Davin Brunson MD CHEMISTRY & BLOOD GAS [facility] Final Result Performing Organization Address [facility]/ZIP Co de Phone Number [facility] documented in this encounter Visit Diagnoses Diagnosis Spontaneous Unspecified spontaneous without mention of complication at early stage documented in this encounter Care Teams Boiler Technician Relationship Specialty Start Date End Date Alexa Hairston APRN [address] [place] [address] PCP - General 10/26/16 07/11/20 documented as of this encounter
--- OUTSIDE RECORDS SUMMARY | 2024-06-16 16:42 | XMS_ITS | Encounter Summary ---
Author Organization [facility] Address [address] [place] [address] Care Team Providers Care Dice Maker Name Role Phone Alexa Hairston APRN Primary Care Provider +1 -[phone] Encounter Details Date Type Department Care Team (Late st Contact Info) Description 02/03/2017 Orders Only [facility] Reproductive Medicine & Infertility Center - [address] [address] Colin Mckinley MD [address] [id number] Social History Tobacco Use Types Packs/Day Years [...] mouth daily. Cycle days 5-9 5 Tab 02/03/2017 04/23/2017 documented in this encounter Plan of Treatment Not on file documented as of this encounter Visit Diagnoses Not on filedocumented in this encounter Discontinued Medications Medication Sig Discontinue Reason Start Date End Da te letrozole (FEMARA) 2.5 mg tablet Take 1 Tab by mouth daily. Cycle days 5-9 Reorder 01/02/2017 02/03/2017 documented as of this encounter Care Teams Dice Maker Relationship Specialty Start Date End Date Alexa Hairston APRN [address] [place] [address] PCP - General 10/26/16 07/11/20 documented as of this encounter
--- OUTSIDE RECORDS SUMMARY | 2024-06-16 16:42 | XMS_ITS | Encounter Summary ---
Author Organization [facility] Address [address] [place] [address] Care Team Providers Care Systems Engineering Manager Name Role Phone Alexa Hairston APRN Primary Care Provider +1 -[phone] Encounter Details Date Type Department Care Team (Late st Contact Info) Description 08/27/2017 Results Only [facility] [phone] Aubree Tapia MD [address] [place] [id number] Social History Tobacco Use Types Packs/Day [...] Comments CHLAMYDIA/N. GONORRHOEAE AMPLIFIED NUCLEIC ACID Routine 08/27/2017 14:59 EDT documented in this encounter Results * CHLAMYDIA/N. GONORRHOEAE AMPLIFIED RNA (08/27/2017 14:59 EDT) Chlamydia Result Negative 08/28/2017 13:[address] [facility] GC Result Negative 08/28/2017 13:[address] [facility] ENDOCERVICAL STRUCTURE / Unknown 08/27/2017 14:59 EDT 08/27/2017 20:25 EDT us Aubree Tapia MD MICROBIOLOGY - GENERAL ORD ERABLES Final Result [facility] [address] [place] [address] documented in this encounter Visit Diagnoses Not on filedocumented in this encounter Care Teams Systems Engineering Manager Relationship Specialty Start Date End Date Alexa Hairston APRN [address] [place] [address] PCP - General 10/26/16 07/11/20 documented as of this encounter
--- OUTSIDE RECORDS SUMMARY | 2024-06-16 16:42 | XMS_ITS | Encounter Summary ---
Author Organization [facility] Address [address] [place] [address] Care Team Providers Care Hair Assistant Name Role Phone Yovanny Alexa H YU Primary Care Provider +1 -[phone] Encounter Details Date Type Department Care Team (Late st Contact Info) Description 03/06/2017 Documentation Visit [facility] Reproductive Medicine & Infertility Center - [address] [phone] Caridad Ho RN Social History Tobacco Use [...] as of this encounter Progress Notes * Caridad Ho RN - 03/06/2017 1638 EDT External results entered. documented in this encounter Plan of Treatment Not on file documented as of this encounter Procedures Procedure Name Priority Date/Time Associated Diagnosis Comments QUANT BETA HCG, Routine 03/06/2017 documented in this encounter Results * HCG FOR (03/06/2017) HCG, External 377 EXTERNAL LAB Blood specimen (specimen) 03/06/2017 us Sofia Kaufman MD CHEMISTRY & BLOOD GAS ORD ER[facility] Final Result EXTERNAL LAB documented in this encounter Visit Diagnoses Not on filedocumented in this encounter Care Teams Hair Assistant Relationship Specialty Start Date End Date Alexa Hairston APRN [address] [place] [address] PCP - General 10/26/16 07/11/20 documented as of this encounter
--- OUTSIDE RECORDS SUMMARY | 2024-06-16 16:42 | XMS_ITS | Encounter Summary ---
Author Organization [facility] Address [address] [place] [address] Care Team Providers Care Internal Controls Consultant Name Role Phone Alexa Hairston APRN Primary Care Provider +1 -[phone] Reason for Visit * Reason Onset Date Comments Results 06/27/2017 Encounter Details Date Type Department Care Team (Late st Contact Info) Description 06/27/2017 Telephone [facility] Reproductive Medicine & Infertility Center - [address] [phone] Caridad Ho, MIKEY Results Social History Tobacco Use Types Packs/Day [...] Telephone Encounter - Caridad Ho, MIKEY - 06/27/2017 1339 EST Component Latest Ref Rng & Units 06/26/2017 HCG, External 1 Progesterone, External 1.9 ? PC to Rita to review lab results. She has still not started full menses but has been having some spotting since yesterday. Would like to start letrozole with this cycle. Advised to call with first day of full menses, which is likely to be soon based on progesterone result compared to her mid-lutealvalue of 17. ?? She will call with update tomorrow. documented in this encounter Plan of Treatment Not on file documented as of this encounter Visit Diagnoses Not on filedocumented in this encounter Care Teams Internal Controls Consultant Relationship Specialty Start Date End Date Alexa Hairston APRN [address] [place] [address] PCP - General 10/26/16 07/11/20 documented as of this encounter
--- OUTSIDE RECORDS SUMMARY | 2024-06-16 16:42 | XMS_ITS | Encounter Summary ---
Author Organization [facility] Address [address] [place] [address] Care Team Providers Care Wine Merchant Name Role Phone Alexa Hairston APRN Primary Care Provider [phone] [phone] Reason for Visit * Reason Onset Date Comments Results 03/21/2017 Encounter Details Date Type Department Care Team (Late st Contact Info) Description 03/21/2017 Telephone [facility] Reproductive Medicine & Infertility Center - [facility] [address] [place] [address] Luzmaria Gloria, RN [address] [place] [address] Results Social History Tobacco Use Types Packs/Day [...] Miscellaneous Notes * Telephone Encounter - Luzmaria Gloria, MIKEY - 03/21/2017 1316 EDT Call to pt with hCG results from today at [facility]. hCG=2, appropriate decrease after miscarriage. Doesnot need any further blood draws at this time. Advised that pt call with next CD#1 if she would like to start letrozole. Safe to attempt after miscarriage, and hx of one early miscarriage does not significantly increase risk of a second miscarriage. Pt verbalized understanding. Component Latest Ref Rng & Units 03/21/2017 HCG, External mIU/mL 2 documented in this encounter Plan of Treatment Not on file documented as of this encounter Visit Diagnoses Not on filedocumented in this encounter Care Teams Wine Merchant Relationship Specialty Start Date End Date Alexa Hairston APRN [address] [place] [address] PCP - General 10/26/16 07/11/20 documented as of this encounter
--- OUTSIDE RECORDS SUMMARY | 2024-06-16 16:42 | XMS_ITS | Encounter Summary ---
Author Organization [facility] Address [address] [place] [address] Care Team Providers Care Marine Machinist Name Role Phone YovannySabinaAlexa H YU Primary Care Provider +1 -[phone] Encounter Details Date Type Department Care Team (Late st Contact Info) Description 05/11/2017 Orders Only [facility] Reproductive Medicine & Infertility Center - [address] [address] Sofia Kaufman MD [address] [place] [address], [address] [place] [address] PCOS (polycystic ovarian syndrome) (Primary Dx) Social History Tobacco Use Types Packs/Day Years Used Date Smoking Tobacco: Never Smokeless Tobacco: Never Alcohol Use Standard Drinks/Week Comments Yes 0 (1 standard drink = 0.6 oz pur e alcohol) occ Interpersonal Safety Answer Date Record ed Physically [...] Priority Date/Time Associated Diagnosis Comments PROGESTERONE Routine 05/11/2017 15:51 EST PCOS (polycystic ovarian syndrome) documented in this encounter Results * PROGESTERONE (05/11/2017 15:51 EST) Progesterone 0.6 ng/ml 05/11/2017 18:09 EST [facility] Comment: NON- FEMALES: follicular phase: ??<0.2-1.4 ng/mL luteal phase: 3.3-25.6 ng/ml postmenopausal: ??<0.2-0.7 ng/mL FEMALES: first trimester: 11.2-90.0 ng/ml second trimester: 25.6-89.4 ng/ml third trimester: 48.4-422.5 ng/ml ECTOPIC PREGNANCIES: consult pathologist Blood specimen (specimen) BLOOD SPECIMEN / Unknown 05/11/2017 15:51 EST 05/11/2017 16:02 EST us Sofia Kaufman MD CHEMISTRY & BLOOD GAS ORD ERABLES Final Result [facility] [address] [place] [address] documented in this encounter Visit Diagnoses Diagnosis PCOS (polycystic ovarian syndrome)- Primary Polycystic ovaries documented in this encounter Care Teams Marine Machinist Relationship Specialty Start Date End Date Alexa Hairston APRN [address] [place] [address] PCP - General 10/26/16 07/11/20 documented as of this encounter
--- OUTSIDE RECORDS SUMMARY | 2024-06-16 16:42 | XMS_ITS | Encounter Summary ---
Author Organization [facility] Address [address] [place] [address] Care Team Providers Care Surgical Coordinator Name Role Phone Alexa Hairston APRN Primary Care Provider +1 -[phone] Encounter Details Date Type Department Care Team (Late st Contact Info) Description 03/02/2017 Orders Only [facility] Reproductive Medicine & Infertility Center - [address] [address] Caridad Ho RN at early stage (Primary Dx) Social History Tobacco Use Types [...] as of this encounter Visit Diagnoses Diagnosis at early stage- Primary documented in this encounter Care Teams Surgical Coordinator Relationship Specialty Start Date End Date Alexa Hairston APRN [address] [place] [address] PCP - General 10/26/16 07/11/20 documented as of this encounter
--- OUTSIDE RECORDS SUMMARY | 2024-06-16 16:42 | XMS_ITS | Encounter Summary ---
Author Organization [facility] Address [address] [place] [address] Care Team Providers Care Regional Sales Coordinator Name Role Phone Alexa Hairston APRN Primary Care Provider +1 -[phone] Reason for Visit * Reason Onset Date Comments Labs Only 01/16/2017 Encounter Details Date Type Department Care Team (Late st Contact Info) Description 01/16/2017 Telephone [facility] OBGYN Services - [address] [address] Kendra Carpenter, RN Labs Only Social History Tobacco Use Types [...] Telephone Encounter - Kendra Carpenter RN - 01/16/2017 1627 EDT Pt had +OPK on 01/15/17. Pt due for CD 21 progesterone on 01/22/17 (CD 22 based on LMP of 01/01/17) - Pt started letrozole this cycle. Lab order faxed to [facility]. documented in this encounter Plan of Treatment Not on file documented as of this encounter Visit Diagnoses Diagnosis Fertility testing- Primary documented in this encounter Care Teams Regional Sales Coordinator Relationship Specialty Start Date End Date Alexa Hairston APRN [address] [place] [address] PCP - General 10/26/16 07/11/20 documented as of this encounter
--- OUTSIDE RECORDS SUMMARY | 2024-06-16 16:42 | XMS_ITS | Encounter Summary ---
Author Organization [facility] Address [address] [place] [address] Care Team Providers Care Tumbler Operator Name Role Phone YovannySabina underwoodhrmargo Grullon YU Primary Care Provider +1 -[phone] Encounter Details Date Type Department Care Team (Late st Contact Info) Description 08/13/2017 Results Only [facility] Reproductive Medicine & Infertility Center - [address] [address] Sofia Kaufman MD [address] [place] [address], [address] [place] [address] Social History Tobacco Use Types [...] Procedure Name Priority Date/Time Associated Diagnosis Comments MAIL SERVICE COORDINATOR US OB FIRST TRIMESTER TRANSVAGINAL 08/13/2017 9:35 EST documented in this encounter Results * MAIL SERVICE COORDINATOR US OB FIRST TRIMESTER TRANSVAGINAL (08/13/2017 9:35 EST) Anatomical Region Laterality Modality Other 08/13/2017 9:35 EST 08/13/2017 9:51 EST Narrative 08/13/2017 9:51 EST Indication Early Assessment. TI. History ======= Previous Outcomes ?2 Para ?? 0 Padilla children born (T) ?0 Padilla children born (P) ?0 Abortions (A) ??1 Padilla living children (L) ??0 Number of gestational sacs: 1. Dating ======= Method of dating: ??based on the LMP LMP on: ?06/27/2017 GA by LMP ??6 w + 5 d JEFFREY by LMP : ? 04/03/2018 Ultrasound examination on: 08/13/2017 GA by U/S based upon: ??CRL GA by U/S ??6 w + 4 d JEFFREY by U/S: ?04/04/2018 Assigned: ??Dating performed on 08/13/2017 Based on the LMP Assigned GA ?6 w + 5 d Assigned JEFFREY: ??04/03/2018 Assessment Gestational sac: ?? Visualized Location: ??Intrauterine Yolk sac: ??Visualized Amniotic sac: ??Visualized Embryo: ?Visualized CRL ?7.2 mm ??49% 6w 4d Hadlock Cardiac activity: ??Present FHR ?111 bpm Maternal Structures Uterus / Cervix Uterus: ?Appears normal Uterus details: ?No abnormalities detected. Appears normal Uterus position: ?? Retroverted Cervix: ?Appears normal Ovaries / Tubes / Adnexa Rt ovary D1 ?5.3 cm Rt ovary D2 ?3.5 cm Rt ovary D3 ?3.5 cm Rt ovary mean ??4.1 cm Rt ovary vol ?? 34.3 cm cubed Lt ovary D1 ?3.4 cm Lt ovary D2 ?2.0 cm Lt ovary D3 ?2.0 cm Lt ovary mean ??2.5 cm Lt ovary vol ?? 7.1 cm cubed Pouch of Doyle / Other Structures Cul de Sac: ?Appears normal Free fluid: ?Free fluid visualized Amount of free fluid: ??mild Method ======== Transvaginal ultrasound examination. View: Sufficient. Impression 1st Trimester OB scan ,transvaginal +[id number] Single viable intrauterine (IUP) , size equals menstrual dates. Follow-up The patient will establish care with her provider. Comment ========= Results discussed w/patient. DATE OF SERVICE: 08/13/2017 Procedure Note Cammie Whitley MD - 08/13/2017 Indication Early Assessment. TI. History ======= Previous Outcomes 2 Para 0 Padilla children born (T) 0 Padilla children born (P) 0 Abortions (A) 1 Padilla living children (L) 0 Number of gestational sacs: 1. Dating ======= Method of dating: based on the LMP LMP on: 06/27/2017 GA by LMP 6 w + 5 d JEFFREY by LMP : 04/03/2018 Ultrasound examination on: 08/13/2017 GA by U/S based upon: CRL GA by U/S 6 w + 4 d JEFFREY by U/S: 04/04/2018 Assigned: Dating performed on 08/13/2017 Based on the LMP Assigned GA 6 w + 5 d Assigned JEFFREY: 04/03/2018 Assessment Gestational sac: Visualized Location: Intrauterine Yolk sac: Visualized Amniotic sac: Visualized Embryo: Visualized CRL 7.2 mm 49% 6w 4d Hadlock Cardiac activity: Present FHR 111 bpm Maternal Structures Uterus / Cervix Uterus: Appears normal Uterus details: No abnormalities detected. Appears normal Uterus position: Retroverted Cervix: Appears normal Ovaries / Tubes / Adnexa Rt ovary D1 5.3 cm Rt ovary D2 3.5 cm Rt ovary D3 3.5 cm Rt ovary mean 4.1 cm Rt ovary vol 34.3 cm cubed Lt ovary D1 3.4 cm Lt ovary D2 2.0 cm Lt ovary D3 2.0 cm Lt ovary mean 2.5 cm Lt ovary vol 7.1 cm cubed Pouch of Doyle / Other Structures Cul de Sac: Appears normal Free fluid: Free fluid visualized Amount of free fluid: mild Method ======== Transvaginal ultrasound examination. View: Sufficient. Impression 1st Trimester OB scan ,transvaginal +[id number] Single viable intrauterine (IUP) , size equals menstrual dates. Follow-up The patient will establish care with her provider. Comment ========= Results discussed w/patient. DATE OF SERVICE: 08/13/2017 us Sofia Kaufman MD IMG US MAIL SERVICE COORDINATOR ORDERABLES Fin al Result documented in this encounter Visit Diagnoses Not on filedocumented in this encounter Care Teams Tumbler Operator Relationship Specialty Start Date End Date Alexa Hairston APRN [address] [place] [address] PCP - General 10/26/16 07/11/20 documented as of this encounter
--- OUTSIDE RECORDS SUMMARY | 2024-06-16 16:42 | XMS_ITS | Encounter Summary ---
Author Organization [facility] Address [address] [place] [address] Care Team Providers Care As400 Analyst Name Role Phone Rakan Hairstonmargo Grullon YU Primary Care Provider +1 -[phone] Reason for Visit * Reason Onset Date Comments Results 05/12/2017 Encounter Details Date Type Department Care Team (Late st Contact Info) Description 05/12/2017 Telephone [facility] Reproductive Medicine & Infertility Center - [address] [phone] Sofia Kaufman MD [address] [facility], [address] [place] [address] Results Social History Tobacco Use Types Packs/Day [...] encounter Miscellaneous Notes * Telephone Encounter - Sofia Kaufman MD - 05/12/2017 0936 EST Component Latest Ref Rng & Units 05/11/2017 Progesterone ng/ml 0.6 Left VM that prog is low so she has not ovulated yet this cycle. Could be that her travel delayed ovulation. Can check OPK this weekend, for up to one more week. If still no ovulation can just await next menses and start over. Sofia Kaufman MD documented in this encounter Plan of Treatment Not on file documented as of this encounter Visit Diagnoses Not on filedocumented in this encounter Care Teams As400 Analyst Relationship Specialty Start Date End Date Alexa Hairston APRN [address] [place] [address] PCP - General 10/26/16 07/11/20 documented as of this encounter
--- OUTSIDE RECORDS SUMMARY | 2024-06-16 16:42 | XMS_ITS | Encounter Summary ---
Author Organization [facility] Address [address] [place] [address] Care Team Providers Care Pellet Preparation Operator Name Role Phone YovannySabina underwoodhrmarog Grullon YU Primary Care Provider +1 -[phone] Encounter Details Date Type Department Care Team (Late st Contact Info) Description 07/26/2017 Orders Only [facility] Reproductive Medicine & Infertility Center - [address] [address] Caridad Ho RN Encounter for test, result unknown (Primary Dx) Social History Tobacco Use Types [...] Progress Notes * Caridad Ho RN - 07/26/2017 0842 EST Orders for HCG faxed to [facility] documented in this encounter Plan of Treatment Not on file documented as of this encounter Procedures Procedure Name Priority Date/Time Associated Diagnosis Comments QUANT BETA HCG, Routine 07/25/2017 documented in this encounter Results * (ABNORMAL) HCG FOR (07/25/2017) HCG, External 86 [facility] Blood specimen (specimen) 07/25/2017 us Sofia Kaufman MD CHEMISTRY & BLOOD GAS ORD ERABLES Final Result [facility] documented in this encounter Visit Diagnoses Diagnosis Encounter for test, result unknown- Primary documented in this encounter Orders Lab Orders Without Results Count Last Ordered D ate First Ordered Date BETA HCG QUANTITATIVE 1 07/26/2017 documented in this encounter Care Teams Pellet Preparation Operator Relationship Specialty Start Date End Date Alexa Hairston APRN [address] [place] [address] PCP - General 10/26/16 07/11/20 documented as of this encounter
--- OUTSIDE RECORDS SUMMARY | 2024-06-16 16:42 | XMS_ITS | Encounter Summary ---
Author Organization [facility] Address [address] [place] [address] Care Team Providers Care Plate Finisher Name Role Phone Yovanny Alexa H YU Primary Care Provider +1 -[phone] Reason for Visit * Reason Onset Date Comments Results 03/06/2017 Encounter Details Date Type Department Care Team (Late st Contact Info) Description 03/06/2017 Telephone [facility] Reproductive Medicine & Infertility Center - [address] [phone] Caridad Ho, RN Results Social History Tobacco [...] Telephone Encounter - Caridad Ho, MIKEY - 03/06/2017 1641 EDT Component Latest Ref Rng & Units 02/28/2017 03/02/2017 03/06/2017 HCG, External 12 [phone] PC to Rita to inform her of HCG result today. Ist ultrasound scheduled for 6w0d based on LMP for 03/14/17 @ 08:40. Additionally, Rita inquired if she may safely take zofran for a flight next week. Advised that it is not clear if zofran is completely safe in the first trimester, as there is conflicting data. Advised she use only if completely necessary. Advised that she may use OTC motion sickness medicine safely if needed. documented in this encounter Plan of Treatment Not on file documented as of this encounter Visit Diagnoses Not on filedocumented in this encounter Care Teams Plate Finisher Relationship Specialty Start Date End Date Alexa Hairston APRN [address] [place] [address] PCP - General 10/26/16 07/11/20 documented as of this encounter
--- OUTSIDE RECORDS SUMMARY | 2024-06-16 16:42 | XMS_ITS | Encounter Summary ---
Author Organization [facility] Address [address] [place] [address] Care Team Providers Care Programs Assistant Name Role Phone Alexa Hairston MANGLE TENDER CLOTH Primary Care Provider +1 [phone] Encounter Details Date Type Department Care Team (Late st Contact Info) Description 07/13/2017 Results Only [facility] [phone] Harjinder Hidalgo, [address] [address] Social History Tobacco Use Types Packs/Day Years [...] Date/Time Associated Diagnosis Comments SURGICAL PATHOLOGY Routine 07/13/2017 16 :33 EST documented in this encounter Results * SURGICAL PATHOLOGY (07/13/2017 16:33 EST) Pathology Report: SURGICAL PATHOLOGY REPORT Reports generated via electronic interface contain original data; however they are lacking the format of the original report. Caution should be taken when reading/interpret ing unformatted reports. Name: ? EBONI FLYNN ? Accession #: ? [id number] ? : ? 1990 (Age: 26) ??F ? Collect Date: ? 07/13/2017 ? Location: ? [facility] ? Receive Date: ? 07/13/2017 ? Provider: HARJINDER MAGANA [facility] Copy to: ? Final Pathologic Diagnosis: A. ??SKIN OF SHOULDER, RIGHT, PUNCH BIOPSY: - Melanocytic nevus, intradermal type. - Lesion does not extend to biopsy edges in the plane of sections examined. ??- Lesion measures approximately 0.6 mm to the peripheral edge of the biopsy specimen. ?? - Lesion measures approximately 1.8 mm to the biopsy base. B. ??SKIN OF BACK, MID, SHAVE BIOPSY: - Melanocytic nevus, compound type. - Lesion extends to base of biopsy specimen. Document reviewed and electronically signed by: FLACO MATHEW MD Report ??Date: 07/16/2017 12:54 By the signature above, the attending physician certifies that he/she has personally conducted a gross and/or microscopic examination of the described specimens and rendered or confirmed the above diagnosis. Specimen(s) Received: A. ??R shoulder punch bx (#1) B. ??Mid back shave bx (#2) Clinical History: Skin lesions x2 Gross Description: A. ?Received in formalin labelled with proper patient identification (initials D, A) and right shoulder punch biopsy is a punch biopsy of madrid-pink and hairbearing skin (0.4 cm in diameter and 0.3 cm in thickness). No definitive lesion is identified. The specimen is bisected and entirely submitted in A1. B. ?Received in formalin labelled with proper patient identification (initials D, A) and shave biopsy mid back is a shave biopsy of madrid-pink skin (0.6 x 0.5 x 0.1 cm). There is a centrally located madrid-brown papule that measures 0.2 x 0.2 x 0.1 cm. Bisected and submitted in B1. Dr. Rodarte 07/14/2017 8:51 AM End of Report [facility] 07/13/2017 16:3 3 EST 07/13/2017 16:33 EST us Harjinder Hidalgo [facility] PATHOLOGY ORDERABLES Fin al Result [facility] [address] [place] [address] documented in this encounter Visit Diagnoses Not on filedocumented in this encounter Care Teams Programs Assistant Relationship Specialty Start Date End Date Alexa Hairston APRN [address] [place], [place] [address] PCP - General 10/26/16 07/11/20 documented as of this encounter
--- OUTSIDE RECORDS SUMMARY | 2024-06-16 16:42 | XMS_ITS | Encounter Summary ---
Author Organization [facility] Address [address] [place] [address] Care Team Providers Care Rag Boiler Name Role Phone Alexa Hairston APRN Primary Care Provider +1 [phone] Encounter Details Date Type Department Care Team (Latest Contact Info) Description 07/13/2017 8:28 EST - 07/13/2017 23:59 EST Hospital Encounter [address] [address] Unknown, Provider, MD Discharge Disposition: Auto Discharge Social History Tobacco Use Types Packs/Day Years [...] Discharge Disposition Disposition Code Departure Means Destination Auto Discharge Home documented in this encounter Plan of Treatment Not on file documented as of this encounter Visit Diagnoses Not on filedocumented in this encounter Care Teams Rag Boiler Relationship Specialty Start Date End Date Alexa Hairston APRN [address] [place] [address] PCP - General 10/26/16 07/11/20 documented as of this encounter
--- OUTSIDE RECORDS SUMMARY | 2024-06-16 16:42 | XMS_ITS | Encounter Summary ---
Author Organization [facility] Address [address] [place] [address] Care Team Providers Care Taxicab Dispatcher Name Role Phone Alexa Hairston YU Primary Care Provider [phone] [phone] Reason for Visit * Reason Onset Date Comments Other 12/27/2016 Encounter Details Date Type Department Care Team (Late st Contact Info) Description 12/27/2016 Orders Only [facility] - [address] [address] Olga Noe RN Problems with ovulation (Primary [...] Priority Date/Time Associated Diagnosis Comments PROGESTERONE Routine 12/23/2016 Problems with ovulation documented in this encounter Results * PROGESTERONE (12/23/2016) Progesterone, External 23.8 ng/ml POINT OF CARE Blood specimen (specimen) 12/23/2016 us Sofia Kaufman MD CHEMISTRY & BLOOD GAS ORD ERABLES Final Result POINT OF CARE documented in this encounter Visit Diagnoses Diagnosis Problems with ovulation- Primary Unspecified noninflammatory disorder of ovary, fallopian tube, and broad ligament documented in this encounter Care Teams Taxicab Dispatcher Relationship Specialty Start Date End Date Alexa Hairston APRN [address] [place] [address] PCP - General 10/26/16 07/11/20 documented as of this encounter
--- OUTSIDE RECORDS SUMMARY | 2024-06-16 16:42 | XMS_ITS | Encounter Summary ---
Author Organization [facility] Address [address] [place] [address] Care Team Providers Care Information Receptionist Name Role Phone Yovanny Alexa H YU Primary Care Provider [phone] [phone] Reason for Visit * Reason Onset Date Comments Labs Only 06/13/2017 Encounter Details Date Type Department Care Team (Late st Contact Info) Description 06/13/2017 Telephone [facility] - [address] [id number] Caridad Ho, RN Labs Only Social History Tobacco Use [...] Notes * Telephone Encounter - Caridad Ho, RN - 06/13/2017 1343 EST PC from Rita to follow up on current ltz5/OPK/TI cycle (virtual step-up cycle from ltz 2.5). She had a positive LH strip on 06/10 and 06/11, wondering if she should still have the lab drawn. Advised that she should still have lab drawn so ovulation can be confirmed on this dose and to confirm her LH kits are reading accurately. She verbalized agreement and understanding. Will present to lab on 06/15 (7 days after LH pos) . documented in this encounter Plan of Treatment Not on file documented as of this encounter Visit Diagnoses Not on filedocumented in this encounter Care Teams Information Receptionist Relationship Specialty Start Date End Date Alexa Hairston APRN [address] [place] [address] PCP - General 10/26/16 07/11/20 documented as of this encounter
--- OUTSIDE RECORDS SUMMARY | 2024-06-16 16:42 | XMS_ITS | Encounter Summary ---
Author Organization [facility] Address [address] [place] [address] Care Team Providers Care Game Author Name Role Phone Alexa Hairston APRN Primary Care Provider [phone] [phone] Reason for Visit * Reason Onset Date Comments Results 01/24/2017 Encounter Details Date Type Department Care Team (Late st Contact Info) Description 01/24/2017 Telephone [facility] - [address] [id number] Olga Noe, RN Results Social History Tobacco Use Types [...] encounter Miscellaneous Notes * Telephone Encounter - Olga Noe RN - 01/24/2017 1448 EDT Reviewed results with pt. Progesterone level was 22.5.This was CD 21. BHCG done also, <1. * Telephone Encounter - Olga Noe RN - 01/24/2017 4442 EDT Call from pt. LM asking for results of progesterone level drawn 01/22/17. Verbal given by lab at [facility] that level was 22.5. They will fax hard copy. Call to pt. Unable to leave message, voice mail full. documented in this encounter Plan of Treatment Not on file documented as of this encounter Visit Diagnoses Not on filedocumented in this encounter Care Teams Game Author Relationship Specialty Start Date End Date Alexa Hairston APRN [address] [place] [address] PCP - General 10/26/16 07/11/20 documented as of this encounter
--- OUTSIDE RECORDS SUMMARY | 2024-06-16 16:42 | XMS_ITS | Encounter Summary ---
Author Organization [facility] Address [address] [place] [address] Care Team Providers Care Deicer Element Winder Machine Name Role Phone Alexa Hairston APRN Primary Care Provider [phone] [phone] Reason for Referral * Laboratory Services (Routine) - Closed Specialty Diagnoses / Procedures Referred By Contac t Referred To Contact Diagnoses examination or test, unconfirmed Procedures HCG FOR Olga Noe RN Referral ID Status Reason Start Date Expiration Date Visits Re quested Visits Authorized [id number] Closed 02/28/2017 1 1 Reason for Visit * Reason Onset Date Comments Other 02/28/2017 Faint positive h ome UPT. Encounter Details Date Type Department Care Team (Late st Contact Info) Description 02/28/2017 Telephone [facility] - [facility] [address] [place] [address] Olga Noe RN Other (Faint positive home UPT.) Social History Tobacco Use Types Packs/Day Years [...] Telephone Encounter - Olga Noe RN - 02/28/2017 5064 EDT Rita Tavares is a 26 y.o. female Date of : 1990 Referring Provider : Mandeep [facility] Provider : GA Para Abort Ectopic Miscarriage 1 0 0 0 0 LMP Blood Type Weight Height 01/31/17 will check 145lbs 5f7i Medications Current Outpatient Prescriptions on File Prior to Visit Medication Sig Dispense Refill ??? albuterol 90 mcg/actuation inhaler Inhale 180 mcg as directed every 4 hours. ??? clomiPHENE (CLOMID) 50 mg tablet Take 1 Tab by mouth daily. Take 1 tablet once a day for cycle days 5-9. 5 Tab 0 ??? letrozole (FEMARA) 2.5 mg tablet Take 1 Tab by mouth daily. Cycle days 5-9 5 Tab 0 ??? omeprazole (PRILOSEC) 20 mg capsule Take [...] Reported on 10/27/2016 No current facility-administered medications on file prior to visit. Allergies Allergies Allergen Reactions ??? Augmentin [Amoxicillin-Pot Clavulanate] Rash Risk Factors Abdominal Pain? No, mild pelvic cramping Vaginal Bleeding? No, spotting 2 days ago and yesterday. Currently no bleeding Previous Pelvic or Tubal Surgery? no Ruptured Appendix? no History of PID (Pelvic Inflammation)? no Used an IUD? yes - in past. 2010 Do you currently smoke? 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 yes - Any Chronic Medical condition? no If so, please explain... Previous Outcomes (to add more rows type .ppo) a hCG levels (to add more rows type .bhcg) Date 02/28/17 : Level pending Plan : repeat in 48 hrs Discussed with Provider : Olga Noe RN * Telephone Encounter - Olga Noe RN - 02/28/2017 1632 EDT Call to [facility].Qualitative BHCG was positive, quantitative still pending. Pt aware. Will call tomorrow for results. * Telephone Encounter - Olga Noe RN - 02/28/2017 0834 EDT Call from pt. States had a positive OPK on 02/15/17. States had 2 days of spotting with cramps. No bleeding today. Had a faint positive home UPT. Pt took letrozole 2.5 mg this last cycle. Will check BHCG and prog level today.Pt will have her blood checked at [facility]. documented in this encounter Plan of Treatment Not on file documented as of this encounter Results * (ABNORMAL) HCG FOR (03/02/2017 9:20 EDT) HCG, External 52 mIU/mL [facility] Blood specimen (specimen) 03/02/2017 9:20 EDT us Sofia Kaufman MD CHEMISTRY & BLOOD GAS ORD ERABLES Final Result [facility] documented in this encounter Visit Diagnoses Diagnosis examination or test, unconfirmed- Primary Disorder of ovulation Unspecified noninflammatory disorder of ovary, fallopian tube, and broad ligament documented in this encounter Care Teams Deicer Element Winder Machine Relationship Specialty Start Date End Date Alexa Hairston APRN [address] [place] [address] PCP - General 10/26/16 07/11/20 documented as of this encounter
--- OUTSIDE RECORDS SUMMARY | 2024-06-16 16:42 | XMS_ITS | Encounter Summary ---
Author Organization [facility] Address [address] [place] [address] Care Team Providers Care Grocery Stock Clerk Name Role Phone Alexa Hairston APRN Primary Care Provider [phone] [phone] Reason for Visit * Reason Onset Date Comments Results 06/18/2017 Encounter Details Date Type Department Care Team (Late st Contact Info) Description 06/18/2017 Telephone [facility] - [facility] [address] [place] [address] Luzmaria Gloria RN [address] [place] [address] Results Social History Tobacco Use Types Packs/Day [...] Telephone Encounter - Luzmaria Gloria RN - 06/18/2017 0858 EST Call to pt. Left detailed message on identified voicemail. Progesterone is positive and indicative of recent ovulation. If no menses by 06/23, can check UPT. Asked pt to call back if she has any questions, or would like to review this in more detail. Component Latest Ref Rng & Units 06/15/2017 Progesterone, External ng/mL 17.5 documented in this encounter Plan of Treatment Not on file documented as of this encounter Procedures Procedure Name Priority Date/Time Associated Diagnosis Comments PROGESTERONE Routine 06/15/2017 12:50 EST documented in this encounter Results * PROGESTERONE (06/15/2017 12:50 EST) Progesterone, External 17.5 ng/mL [facility] Blood specimen (specimen) 06/15/2017 12:50 EST us Historical Provider CHEMISTRY & BLOOD GAS ORD ERABLES Final Result [facility] documented in this encounter Visit Diagnoses Not on filedocumented in this encounter Care Teams Grocery Stock Clerk Relationship Specialty Start Date End Date Alexa Hairston APRN [address] [place] [address] PCP - General 10/26/16 07/11/20 documented as of this encounter
--- OUTSIDE RECORDS SUMMARY | 2024-06-16 16:42 | XMS_ITS | Encounter Summary ---
Author Organization [facility] Address [address] [place] [address] Care Team Providers Care Vacuum Pan Tender Name Role Phone Alexa Hairston APRN Primary Care Provider [phone] [phone] Reason for Visit * Reason Onset Date Comments Results 03/14/2017 Encounter Details Date Type Department Care Team ([facility] Contact Info) Description 03/14/2017 Telephone [facility] - [facility] [address] [place] [address] Danielle Solano MD [address] [phone] Results Social History Tobacco Use Types Packs/Day [...] encounter Miscellaneous Notes * Telephone Encounter - Danielle Oakley MD - 03/14/2017 1089 EDT TC to patient with HCG results from this morning decreased to 35 from 377 indicating failed . Reassured patient again that most common cause of miscarriage is genetic and nothing that she did caused miscarriage to occur. All questions answered. At this time patient opts for expectant management and will plan for repeat HCG in one week. Will need type and screen drawn with HCG. Patient added to beta book. She states insurance is changing in May so may be interested in appointment to discuss future treatment options moving forward, will contact us if desired. Bleeding and pain precautions were given when to seek MD. D/w Dr. Brunson. Danielle Oakley MD Reproductive Endocrinology and Infertility Fellow documented in this encounter Plan of Treatment Not on file documented as of this encounter Visit Diagnoses Diagnosis Spontaneous - Primary Unspecified spontaneous without mention of complication documented in this encounter Orders Lab Orders Without Results Count Last Ordered D ate First Ordered Date HCG FOR 1 03/14/2017 documented in this encounter Care Teams Vacuum Pan Tender Relationship Specialty Start Date End Date Alexa Hairston APRN [address] [place] [address] PCP - General 10/26/16 07/11/20 documented as of this encounter
--- OUTSIDE RECORDS SUMMARY | 2024-06-16 16:42 | XMS_ITS | Encounter Summary ---
Author Organization [facility] Address [address] [place] [address] Care Team Providers Care Executive Officer Name Role Phone Rakan Hairstonmargo Grullon UY Primary Care Provider +1 -[phone] Encounter Details Date Type Department Care Team (Latest Contact Info) Description 03/14/2017 10:04 EDT - 03/14/2017 10:05 EDT Hospital Encounter [address] [address] Davin Brunson MD [address] [place] [address] [address] Discharge Disposition: Home or Self Care Social [...] 180 mcg as directed every 4 hours. VIT CALC,IRON,FOLIC ( #2 ORAL) Take by mouth. clomiPHENE (CLOMID) 50 mg tablet Take 1 Tab by mouth daily. Take 1 tablet once a day for cycle days 5-9. 5 Tab 12/01/2016 8 letrozole (FEMARA) 2.5 mg tablet Take 1 Tab by mouth daily. Cycle days 5-9 5 Tab 02/03/2017 7 omeprazole (PRILOSEC) 20 mg capsule Take 1 [...] on filedocumented in this encounter Care Teams Executive Officer Relationship Specialty Start Date End Date Alexa Hairston APRN [address] [place] [address] PCP - General 10/26/16 07/11/20 documented as of this encounter
--- OUTSIDE RECORDS SUMMARY | 2024-06-16 16:42 | XMS_ITS | Encounter Summary ---
Author Organization [facility] Address [address] [place] [address] Care Team Providers Care Manager Of Application Development Name Role Phone Alexa Hairston MEDICAL SCHEDULER Primary Care Provider [phone] [phone] Encounter Details Date Type Department Care Team (Latest Contact Info) Description 06/27/[address] [facility] - [address] [address] Caridad Ho RN Encounter for assisted reproductive fertility procedure cycle (Primary Dx) Social History Tobacco Use Types [...] Progress Notes * Caridad Ho RN - 06/27/2017 1329 EST External results entered. documented in this encounter Plan of Treatment Not on file documented as of this encounter Procedures Procedure Name Priority Date/Time Associated Diagnosis Comments PROGESTERONE STAT 06/26/2017 Encounter for assisted reproductive fertility procedure cycle QUANT BETA HCG, Routine 06/26/2017 documented in this encounter Results * PROGESTERONE (06/26/2017) Progesterone, External 1.9 EXTERNAL LAB Blood specimen (specimen) 06/26/2017 us Sofia Kaufman MD CHEMISTRY & BLOOD GAS ORD ERABLES Final Result Performing Organization Address City/[facility]/ZIP Co de Phone Number EXTERNAL LAB * HCG FOR (06/26/2017) HCG, External 1 EXTERNAL LAB Blood specimen (specimen) 06/26/2017 us Sofia Kaufman MD CHEMISTRY & BLOOD GAS ORD ERABLES Final Result Performing Organization Address City/[facility]/ZIP Co de Phone Number EXTERNAL LAB documented in this encounter Visit Diagnoses Diagnosis Encounter for assisted reproductive fertility procedure cycle- Primary documented in this encounter Orders Lab Orders Without Results Count Last Ordered D ate First Ordered Date BETA HCG QUANTITATIVE 1 06/27/2017 documented in this encounter Care Teams Manager Of Application Development Relationship Specialty Start Date End Date Alexa Hairston APRN [address] [place] [address] PCP - General 10/26/16 07/11/20 documented as of this encounter
--- OUTSIDE RECORDS SUMMARY | 2024-06-16 16:42 | XMS_ITS | Encounter Summary ---
Author Organization [facility] Address [address] [place] [address] Care Team Providers Care Director Of Materials Management Name Role Phone Yovanny Alexa H YU Primary Care Provider [phone] [phone] Reason for Referral * Laboratory Services (Urgent) - New Request Specialty Diagnoses / Procedures Referred By Contac t Referred To Contact Diagnoses Encounter for assisted reproductive fertility procedure cycle Procedures PROGESTERONE Heidi Yeager RN Referral ID Status Reason Start Date Expiration Date V isits Requested Visits Authorized [id number] New Request 06/26/2017 1 1 * Laboratory Services (Urgent) - New Request Specialty Diagnoses / Procedures Referred By Contac t Referred To Contact Diagnoses Encounter for assisted reproductive fertility procedure cycle Procedures BETA HCG QUANTITATIVE Heidi Yeager RN Referral ID Status Reason Start Date Expiration Date V isits Requested Visits Authorized [id number] New Request 06/26/2017 1 1 Reason for Visit * Reason Onset Date Comments Amenorrhea 06/26/2017 Encounter Details Date Type Department Care Team (Late st Contact Info) Description 06/26/2017 Telephone [facility] - [address] [address] Heidi Yeager RN Amenorrhea Social History Tobacco Use Types Packs/Day [...] encounter Miscellaneous Notes * Telephone Encounter - Heidi Yeager RN - 06/26/2017 0826 EST Pt called to report no start of menses yet. Reports a negative UPT. Sending b- hCG and progesterone to [facility] in [facility]. Pt will call if menses do begin. documented in this encounter Plan of Treatment Scheduled Orders Name Type Priority Associated Diagnoses Orde r Schedule BETA HCG QUANTITATIVE Lab STAT Encounter for assisted reproductive fertility procedure cycle Expected: 06/26/2017 (Approximate), Expires: 06/26/2018 documented as of this encounter Results * PROGESTERONE (06/26/2017) Progesterone, External 1.9 EXTERNAL LAB Blood specimen (specimen) 06/26/2017 us Sofia Kaufman MD CHEMISTRY & BLOOD GAS ORD ERABLES Final Result EXTERNAL LAB documented in this encounter Visit Diagnoses Diagnosis Encounter for assisted reproductive fertility procedure cycle- Primary documented in this encounter Care Teams Director Of Materials Management Relationship Specialty Start Date End Date Alexa Hairston APRN [address] [place] [address] PCP - General 10/26/16 07/11/20 documented as of this encounter
--- OUTSIDE RECORDS SUMMARY | 2024-06-16 16:42 | XMS_ITS | Encounter Summary ---
Author Organization [facility] Address [address] [place] [address] Care Team Providers Care Biological Aide Name Role Phone YovannySabinaAlexa H YU Primary Care Provider +1 [phone] Reason for Visit * Reason Comments Other did not ovulate most recent cycle letrozole Encounter Details Date Type Department Care Team (Late st Contact Info) Description 05/11/2017 15:30 EST Office Visit [facility] - [address] [id number] Sofia Kaufman MD [address] [facility] [place], [address] [place] [address] PCOS (polycystic ovarian syndrome) (Primary Dx) Discharge Disposition: Auto Discharge Social History Tobacco [...] Sign Reading Time Taken Comments Blood Pressure 118/66 05/11/2017 1509 EST Pulse - - Temperature - - Respiratory Rate - - Oxygen Saturation - - Inhaled Oxygen Concentration - - Weight 64.9 kg (143 lb) 05/11/2017 1509 EST per pt Height 170.2 cm (5' 7) 05/11/2017 1509 EST Body Mass Index 22.4 05/11/2017 1509 EST documented in this encounter Discharge Diagnoses Diagnosis E28.2 Polycystic ovarian syndrome-E28.2[ICD-10-CM] documented in this encounter Discharge Disposition Disposition Code Departure Means Destination Auto Discharge documented in this encounter Progress Notes * Sofia Kaufman MD - 05/11/2017 1530 EST S: Rita is a 26 yo here to discuss no response to letrozole after miscarriage. Had OB scan 03/14/17 at 6 wks, no embryo or yolk sac seen, had bleeding a few days later. Menses resumed 04/19/17,had a few days of spotting. Confirmed hCG negative 04/20 then started letrozole. Took 2.5 mg CD 5-9, then had heavy bleeding for 2 days 05/05- with clots. Had not had intercourse since 4 days prior. No intercourse since then. Never got OPK+ this cycle. CD 23 now. Has ovulated on CD 16-17 in past cycles on same dose of letrozole. Traveled to [place] for Thanksgiving. O: Had normal A1C in June. 06/16/[address] [facility]: TSH 1.51 PRL 5.7 Component Latest Ref Rng & Units 03/14/2017 03/21/2017 HCG for <5 mIU/ml 35 (H) HCG, External mIU/mL 2 Vitals: 05/11/17 1509 BP: 118/66 Weight: 64.9 kg (143 lb) Height: 170.2 cm (67) Exam: Pelvic- NEFG, normal vagina, normal cervix without polyp, lesions or discharge. A/P: 26 yo w PCOS and recent SAB, no ovulation this cycle now CD 23 - She was concerned that the recent miscarriage may have caused her to not respond to letrozole this month. Discussed that since hCG was confirmed negative, the SAB should not impact her ability to respond to ovulation induction. Reviewed that travel can delay ovulation; will check progesterone level today to see if may have had false negative OPK this month. If prog negative, can keep checking OPK a few more days. I will call her w result. Should be OK continuing with same dose letrozole. - Normal pelvic exam, unsure what may have caused her midcycle bleeding. If has any more irregular bleeding, would check TVUS to look for functional ovarian cyst. - Discussed the most common cause of loss in first trimester is genetic aneuploidy. Miscarriage rate at age 26 is ~20%, and she is not at any increased rate of having a second miscarriage when conceives again. Typically do not initiate a workup for other potential underlying cause until after two consecutive losses. She has normal thyroid and glucose tolerance testing this year, normal PRL so has already done the endocrine part of a RPL workup. Also had normal uterine cavity eval at [facility] this year. She seemed reassured by this. I spent a total of 25 minutes in face to face time with this patient today and 15 minutes of that time was spent in counseling and coordination of care as described in the progress note. Sofia Kaufman MD documented in this encounter Plan of Treatment Not on file documented as of this encounter Results * PROGESTERONE (05/11/2017 15:51 EST) Progesterone 0.6 ng/ml 05/11/2017 18:09 EST [facility] Comment: NON- FEMALES: follicular phase: ??<0.2-1.4 ng/mL luteal phase: 3.3-25.6 ng/ml postmenopausal: ??<0.2-0.7 ng/mL FEMALES: first trimester: 11.2-90.0 ng/ml second trimester: 25.6-89.4 ng/ml third trimester: 48.4-422.5 ng/ml ECTOPIC PREGNANCIES: consult pathologist Blood specimen (specimen) BLOOD SPECIMEN / Unknown 05/11/2017 15:51 EST 05/11/2017 16:02 EST us Sofia Kaufman MD CHEMISTRY & BLOOD GAS ORD ERABLES Final Result [facility] [address] [place] [address] documented in this encounter Visit Diagnoses Diagnosis PCOS (polycystic ovarian syndrome)- Primary Polycystic ovaries documented in this encounter Historical Medications * This list may reflect changes made after this encounter. Magnesium 250 mg tablet Take by mouth daily. added in this encounter Care Teams Biological Aide Relationship Specialty Start Date End Date Alexa Hairston APRN [address] [place] [address] PCP - General 10/26/16 07/11/20 documented as of this encounter
--- OUTSIDE RECORDS SUMMARY | 2024-06-16 16:42 | XMS_ITS | Encounter Summary ---
Author Organization [facility] Address [address] [place] [address] Care Team Providers Care Machine Compositor Name Role Phone Alexa Hairston APRN Primary Care Provider [phone] [phone] Encounter Details Date Type Department Care Team (Late st Contact Info) Description 01/11/2018 Results Only [facility] [phone] Matilda Quintanilla MD [address] [place] [phone] Social History Tobacco Use Types Packs/Day [...] Procedure Name Priority Date/Time Associated Diagnosis Comments GLUCOSE-1HR GESTATIONAL SCREEN Routine 01/11/2018 15:36 EDT COMPLETE BLOOD COUNT Routine 01/11/2018 15:36 EDT documented in this encounter Results * (ABNORMAL) COMPLETE BLOOD COUNT (01/11/2018 15:36 EDT) WBC 13.83(H) 4.0 - 12.4 K/cmm 01/11/2018 19:30 [facility] RBC 3.94 3.86 - 5.04 M/cmm 01/11/2018 19:30 [facility] Hemoglobin 11.7 11.6 - 15.2 gm/dl 01/11/2018 19:30 [facility] HCT 34.2(L) 34.9 - 44.4 % 01/11/2018 19:30 [facility] MCV 87 81 - 98 fl 01/11/2018 19:30 [facility] MCH 29.7 26.7 - 33.3 pg 01/11/2018 19:30 [facility] MCHC 34.2 32.1 - 35.9 gm/dl 01/11/2018 19:30 [facility] RDW-CV 11.9 <14.7 % 01/11/2018 19:30 [facility] RDW-SD 37.8 <50.4 fl 01/11/2018 19:30 [facility] PLT 319 141 - 377 K/cmm 01/11/2018 19:30 [facility] MPV 10.4 9.5 - 12.7 fl 01/11/2018 19:30 [facility] BLOOD SPECIMEN / Unknown 01/11/2018 15:36 EDT 01/11/2018 18:56 EDT us Matilda Quintanilla MD HEMATOLOGY & PF4 ORDERABLE S Final Result [facility] [address] [place] [address] * (ABNORMAL) GLUCOSE-1HR GESTATIONAL SCREEN (01/11/2018 15:36 EDT) Glucose Dose 50 g 01/11/2018 15:41 [facility] Glucose-1hr Gest Scn 168(H) 50 - 134 mg/dl 01/11/2018 19:33 [facility] Comment: Slight hemolysis Results may be affected due to hemolysis. A one hour glucose greater than or equal to 135 mg/dl should be further evaluated with a formal three hour glucose tolerance test. BLOOD SPECIMEN / Unknown 01/11/2018 15:36 EDT 01/11/2018 18:56 EDT us Matilda Quintanilla MD PACKAGES & DNA PROBE ORDER BOBBY Final Result [facility] [address] [place] [address] documented in this encounter Visit Diagnoses Not on filedocumented in this encounter Care Teams Machine Compositor Relationship Specialty Start Date End Date Alexa Hairston APRN [address] [place] [address] PCP - General 10/26/16 07/11/20 documented as of this encounter
--- OUTSIDE RECORDS SUMMARY | 2024-06-16 16:42 | XMS_ITS | Encounter Summary ---
Author Organization [facility] Address [address] [place] [address] Care Team Providers Care Data Services Developer Name Role Phone Alexa Hairston YU Primary Care Provider [phone] [phone] Encounter Details Date Type Department Care Team (Latest Contact Info) Description 03/14/2017 Documentation Visit [facility] - [facility] [address] [place] [address] Caridad Ho, MIKEY of unknown anatomic location (Primary Dx) Social [...] Progress Notes * Caridad Ho RN - 03/14/2017 0907 EDT Venipuncture Note: Site: Left AC Needle: 23G butterfly # of Attempts: 1 Tubes sent: 1 SST , confirmed with lab cust svs. Patient tolerated well Caridad Ho RN 03/14/2017 9:08 documented in this encounter Plan of Treatment Not on file documented as of this encounter Procedures Procedure Name Priority Date/Time Associated Diagnosis Comments QUANT BETA HCG, Routine 03/14/2017 9:07 EDT of unknown anatomic location documented in this encounter Results * (ABNORMAL) HCG FOR (03/14/2017 9:07 EDT) Quant Beta HCG, Preg 35(H) <5 mIU/ml 03/14/2017 10:13 EDT [facility] Comment: Reference Range: Negative = <5 Indeterminate = 5-25 recommend repeat in 48 hours. Positive = >25 Blood specimen (specimen) BLOOD SPECIMEN / Unknown 03/14/2017 9:07 EDT 03/14/2017 9:23 EDT us Davin Brunson MD CHEMISTRY & BLOOD GAS ORDERA BLES Final Result [facility] [address] [place] [address] documented in this encounter Visit Diagnoses Diagnosis of unknown anatomic location- Primary state, incidental documented in this encounter Care Teams Data Services Developer Relationship Specialty Start Date End Date Alexa Hairston APRN [address] [place] [address] PCP - General 10/26/16 07/11/20 documented as of this encounter
--- OUTSIDE RECORDS SUMMARY | 2024-06-16 16:42 | XMS_ITS | Encounter Summary ---
Author Organization [facility] Address [address] [place] [address] Care Team Providers Care Heating Element Winder Name Role Phone Alexa Hairston APRN Primary Care Provider [phone] [phone] Reason for Visit * Reason Onset Date Comments Other 03/12/2017 Encounter Details Date Type Department Care Team (Late st Contact Info) Description 03/12/2017 Telephone [facility] - [address] [address] Sheila Grewal, RN Other Social History Tobacco [...] Telephone Encounter - Sheila Grewal, MIKEY - 03/12/2017 1040 EDT PC reporting pink tinged discharge when wiping this morning accompanied with mild cramping Returned call to Rita. Discussed light cramping and/or small amount of pink/brown tinged spotting/discharge in early is normal and something that should be monitored. Reviewed cervix is very vascular during and so if patient has recently had intercourse, patient may have bleeding if anything was touching the cervical area. Pt reports having intercourse 2 days ago. Currently patient is scheduled for 1st OB US (6 weeks) on 03/14/17. Pt advised to call if she develops heavier bleeding, bright red bleeding, or cramping that is unbearable. Pt verbalized udnerstandign and shouldcall with any questions or concerns. documented in this encounter Plan of Treatment Not on file documented as of this encounter Visit Diagnoses Not on filedocumented in this encounter Care Teams Heating Element Winder Relationship Specialty Start Date End Date Alexa Hairston APRN [address] [place] [address] PCP - General 10/26/16 07/11/20 documented as of this encounter
--- OUTSIDE RECORDS SUMMARY | 2024-06-16 16:42 | XMS_ITS | Encounter Summary ---
Author Organization [facility] Address [address] [place] [address] Care Team Providers Care Concrete Mixer Truck Driver Name Role Phone Alexa Hairston APRN Primary Care Provider [phone] [phone] Reason for Visit * Reason Onset Date Comments Medication Management 02/02/2017 Encounter Details Date Type Department Care Team (Late st Contact Info) Description 02/02/2017 Telephone [facility] - [address] [address] Olga Noe, supervisor model making Management Social History Tobacco Use Types Packs/Day Years [...] Telephone Encounter - Olga Noe RN - 02/02/2017 3969 EDT Call to pt. BHCG today was <1. Progesterone is still pending. [facility] sends labs to [facility]. Progesterone should be resulted by tomorrow. Pt needs to start letrozole on Sunday02/04/17. order desk caller provider will check progesterone results and call pt and letrozole 2.5mg to be called into [facility]. documented in this encounter Plan of Treatment Not on file documented as of this encounter Visit Diagnoses Not on filedocumented in this encounter Care Teams Concrete Mixer Truck Driver Relationship Specialty Start Date End Date Alexa Hairston APRN [address] [place] [address] PCP - General 10/26/16 07/11/20 documented as of this encounter
--- OUTSIDE RECORDS SUMMARY | 2024-06-16 16:42 | XMS_ITS | Encounter Summary ---
Author Organization [facility] Address [address] [place] [address] Care Team Providers Care Narrow Fabric Loom Fixer Name Role Phone Alexa Hairston APRN Primary Care Provider +1 [phone] Reason for Visit * Reason Onset Date Comments Abdominal Cramping 08/09/2017 Encounter Details Date Type Department Care Team (Late st Contact Info) Description 08/09/2017 Telephone [facility] - [address] [phone] Caridad Ho, MIKEY Abdominal Cramping Social History Tobacco Use Types Packs/Day Years [...] Telephone Encounter - Caridad Ho, MIKEY - 08/09/2017 1540 EST PC from Rita at 6w1d with concerns about some cramping she is experiencing. Similar to menstrual cramps. She denies vaginal bleeding. Pain is not severe or limiting her activity. Reassurance providedthat cramping can be very normal in early . Advised to present to her ultrasound on as planned, but to call sooner should she develop severe pain or vaginal bleeding. She verbalized agreement and understanding. documented in this encounter Plan of Treatment Not on file documented as of this encounter Visit Diagnoses Not on filedocumented in this encounter Care Teams Narrow Fabric Loom Fixer Relationship Specialty Start Date End Date Alexa Hairston APRN [address] [place] [address] PCP - General 10/26/16 07/11/20 documented as of this encounter
--- OUTSIDE RECORDS SUMMARY | 2024-06-16 16:42 | XMS_ITS | Encounter Summary ---
Author Organization [facility] Address [address] [place] [address] Care Team Providers Care Raveler Name Role Phone Yovanny Alexa H YU Primary Care Provider +1 [phone] Encounter Details Date Type Department Care Team (Late st Contact Info) Description 12/14/2017 Documentation Visit [facility] [address] [place], [place] [phone] Anamaria Dowell MD [address] [place] [phone] Social History Tobacco Use Types Packs/Day Years [...] Concentration - - Weight 64.9 kg (143 lb 1.3 oz) 12/14/2017 1409 E DT Height 170.2 cm (5' 7.01) 12/14/2017 1409 EDT Body Mass Index 22.4 12/14/2017 1409 EDT documented in this encounter Miscellaneous Notes * Anesthesia Pre-Eval - Anamaria Dowell MD - 12/14/2017 1409 EDT Obstetric Anesthesia Consult Name: RITA FLYNN : 1990 Date: 12/14/2017 Age: 26 y.o. GA: Unknown Filter Bed Placer: No att. providers found Obstetric History: Obstetric History Complications during : Complicated By: Complicated by: Chiari I malformation (see below) Allergies Allergen Reactions ??? Augmentin [Amoxicillin-Pot Clavulanate] Rash Anesthetic History: Anesthesia History Previous Patient or Family Problems with Anesthesia: None Airway Evaluation: Airway Evaluation Mallampati: 2 Mouth Opening: Normal Jaw Thrust: Normal Thyro-Mental Distance: Normal Neck Eval: ROM Normal Teeth: Normal Review of Systems: Smoker: No History of Respiratory Infections: No Asthma: Yes (occasional inhaler use) Hospitalized for Asthma: No Asthma Medications: Yes Asthma Triggers: Exercise, Environmental Heart Murmur: No High Blood Pressure: No Angina/Palpitations: No Blood Vessel Disease: No Neurological Disease: Yes Type of Neurologic Disease: Other Muscular Degeneration: No Backpain/Neckpain: No Reflux/Heartburn/Hiatial Hernia: No Liver Disease: No Thyroid Disease: No Kidney Disease: No Diabetes: No Anemia: No Bleeding Disorders: No Previous Anesthesia for Childbirth: No Infectious Disease: No Opioid Dependency: No Contact Lenses/Glasses: None Past Surgical History: Procedure Laterality Date ??? NECK SURGERY Current Outpatient Prescriptions: albuterol 90 mcg/actuation inhaler clomiPHENE (CLOMID) 50 mg tablet letrozole (FEMARA) 2.5 mg tablet Magnesium 250 mg tablet omeprazole (PRILOSEC) 20 mg capsule VIT CALC,IRON,FOLIC ( #2 ORAL) UNKNOWN TO PATIENT No current facility-administered medications for this visit. No outpatient prescriptions have been marked as taking for the 12/14/17 encounter (Documentation Visit) with Anamaria Dowell MD. Vital Signs: Ht 170.2 cm (67.01) Wt 64.9 kg (143 lb 1.3 oz) BMI 22.4 kg/m2 Labs: Lab Results Component Value Date WBC 6.35 09/10/2010 HGB 12.3 09/10/2010 HCT 36.1 09/10/2010 MCV 88 09/10/2010 PLT 285 09/10/2010 NA 140 09/10/2010 K 4.2 09/10/2010 CL 105 09/10/2010 CO2 28 09/10/2010 BUN 8 (L) 09/10/2010 CREATININE 0.90 09/10/2010 Blood/Cultures: ASA Classification: Grade III Plan: epidural, general, spinal mode(s) of anesthesia were discussed. Seen in anesthesia consultation for Chiari I malformation The patient was followed by [facility] Neurology Neurosurgery, Dr. Davin Curry, and brought paper records (now scanned into [facility]) to this consultation. Original MRI per records per Dr. Curry??? 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 Afterwards, she had significant improvement, and she reports that she has remained nearly symptom-free over the years. Her last documented MRI as mentioned in Dr. Curry??? 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 . She has no activity restrictions or neck pain, no vision deficits, denies gait disturbances or urinary incontinence, numbness/tingling or headaches. Other past medical history includes asthma (occasional inhaler use, no past hospitalizations). In this patient with a past history of known intracranial pathology without new neurological symptoms, and in fact a known and documented history of Chiari decompression, without evidence of hydrocephalus or evidence of increased intracranial pressure, it would be reasonable to proceed with neuraxial anesthesia should she wish to pursue that option for labor and delivery (Neuraxial Anesthesia in parturients with intracranial pathology. Edt et al. Anesthesiology 9 2013, Vol.119, 703-718.) She is at low risk for herniation given her history of decompression and asymptomatic history thus far. That being said, there will be a low threshold for concern for neurological sequelae s/p neuraxialplacement in this patient, with close follow-up warranted in the post- period. Risks discussed included: Bleeding, Infection, Nerve Injury, Spinal headaches, low blood pressures with underperfusion, high spinals, hematomas, failure and replacement. All of Rita Flynn's questions were answered to her satisfaction. Unless otherwise noted, follow standard anesthesia pre-operative protocol. Anamaria Dowell MD 12/14/2017 documented in this encounter Plan of Treatment Not on file documented as of this encounter Visit Diagnoses Not on filedocumented in this encounter Care Teams Raveler Relationship Specialty Start Date End Date Alexa Hairston APRN [address] [place] [address] PCP - General 10/26/16 07/11/20 documented as of this encounter
--- OUTSIDE RECORDS SUMMARY | 2024-06-16 16:42 | XMS_ITS | Encounter Summary ---
Author Organization [facility] Address [address] [place] [address] Care Team Providers Care Printed Forms Proofreader Name Role Phone Alexa Hairston APRN Primary Care Provider [phone] [phone] Reason for Visit * Reason Onset Date Comments Results 07/26/2017 Encounter Details Date Type Department Care Team (Late st Contact Info) Description 07/26/2017 Telephone [facility] - [address] [phone] Caridad Ho, MIKEY Results Social History Tobacco [...] Telephone Encounter - Caridad Ho, MIKEY - 07/26/2017 0874 EST Component Latest Ref Rng & Units 07/25/2017 HCG, External 86 PC to Rita to review HCG result. Reviewed that it is positive and indicative of early . Plan to repeat in 48 hours, 07/27. Order has been faxed to [facility]. Rita verbalized understanding and agreement with plan . documented in this encounter Plan of Treatment Not on file documented as of this encounter Visit Diagnoses Not on filedocumented in this encounter Care Teams Printed Forms Proofreader Relationship Specialty Start Date End Date Alexa Hairston APRN [address] [place] [address] PCP - General 10/26/16 07/11/20 documented as of this encounter
--- OUTSIDE RECORDS SUMMARY | 2024-06-16 16:42 | XMS_ITS | Encounter Summary ---
Author Organization [facility] Address [address] [place] [address] Care Team Providers Care Field Reviewer Name Role Phone Yovanny Alexa H YU Primary Care Provider [phone] [phone] Reason for Visit * Reason Onset Date Comments Follow-up 12/19/2016 Encounter Details Date Type Department Care Team (Late st Contact Info) Description 12/19/2016 Telephone [facility] - [address] [address] Kendra Carpenter, RN Follow-up Social History Tobacco Use Types [...] Telephone Encounter - Kendra Carpenter RN - 12/19/2016 1216 EDT Pt returned call to [facility] triage. + OPK on 12/16/16. Order for CD 21 progesterone faxed to [facility]. Pt will go to lab 12/22/16. * Telephone Encounter - Kendra Carpenter RN - 12/19/2016 1208 EDT Lft msg for Pt to return call to [facility] triage with an update in cycle. Pt was due to have CD 21 progesterone checked this month. Awaiting response from Pt. documented in this encounter Plan of Treatment Not on file documented as of this encounter Visit Diagnoses Not on filedocumented in this encounter Care Teams Field Reviewer Relationship Specialty Start Date End Date Alexa Hairston APRN [address] [place] [address] PCP - General 10/26/16 07/11/20 documented as of this encounter
--- OUTSIDE RECORDS SUMMARY | 2024-06-16 16:42 | XMS_ITS | Encounter Summary ---
Author Organization [facility] Address [address] [place] [address] Care Team Providers Care Receptionist Airline Lounge Name Role Phone Alexa Hairston APRN Primary Care Provider [phone] Reason for Referral * Laboratory Services (Routine) - Closed Specialty Diagnoses / Procedures Referred By Contac t Referred To Contact Diagnoses Encounter for test, result positive Procedures HCG FOR Luzmaria Gloria RN [address] [place] [address] Referral ID Status Reason Start Date Expiration Date Visits Re quested Visits Authorized [id number] Closed 02/28/2017 1 1 Encounter Details Date Type Department Care Team (Late st Contact Info) Description 02/28/2017 Orders Only [facility] - [address] [address] Luzmaria Gloria RN [address] [place] [address] Encounter for test, result positive (Primary Dx) Social History Tobacco Use Types [...] this encounter Results * (ABNORMAL) HCG FOR (02/28/2017 9:45 EDT) HCG, External 12 mIU/mL [facility] Blood specimen (specimen) 02/28/2017 9:45 EDT us Dinora Aguilar MD CHEMISTRY & BLOOD GAS ORDER BOBBY Final Result [facility] documented in this encounter Visit Diagnoses Diagnosis Encounter for test, result positive- Primary examination or test, positive result documented in this encounter Care Teams Receptionist Airline Lounge Relationship Specialty Start Date End Date Alexa Hairston APRN [address] [place] [address] PCP - General 10/26/16 07/11/20 documented as of this encounter
--- OUTSIDE RECORDS SUMMARY | 2024-06-16 16:42 | XMS_ITS | Encounter Summary ---
Author Organization [facility] Address [address] [place] [address] Care Team Providers Care Roads Supervisor Name Role Phone Alexa Hairston APRN Primary Care Provider [phone] Encounter Details Date Type Department Care Team (Late st Contact Info) Description 11/14/2017 Results Only Imaging [facility] [phone] Matilda Quintanilla MD [address] [place] [phone] Social History Tobacco Use Types Packs/Day [...] Procedure Name Priority Date/Time Associated Diagnosis Comments HALFWAY DETAILED 11/14/2017 15:57 EDT documented in this encounter Results * HALFWAY DETAILED (11/14/2017 15:57 EDT) Anatomical Region Laterality Modality Other 11/14/2017 15:5 7 EDT 11/14/2017 16:32 EDT Narrative 11/14/2017 16:32 EDT Indication Maternal cranial abnormality: Arnold-Chiari malformation. History ======= General History Height 170 cm Height (ft) ?5 ft Height (in) ?7 in Previous Outcomes ?2 Para ?? 0 Abortions (A) ??1 Maternal Assessment Height 170 cm Height (ft) ?5 ft Height (in) ?7 in Physical Exam Initial weight 66 kg Initial weight (lb) ?145 lb Initial BMI ?22.71 kg/m? Number of fetuses: 1. Dating ======= LMP on: ?06/27/2017 GA by LMP ??20 w + 0 d JEFFREY by LMP : ? 04/03/2018 Ultrasound examination on: 11/14/2017 GA by U/S based upon: ??AC, BPD, Femur GA by U/S ??19 w + 5 d JEFFREY by U/S: ?04/05/2018 Assigned: ??Dating performed on 08/13/2017 Based on the LMP Assigned GA ?20 w + 0 d Assigned JEFFREY: ??04/03/2018 General Evaluation Cardiac activity: Present. FHR 134 bpm. movements: visualized. Presentation: breech. Placenta: posterior. Umbilical cord: Cord vessels: 3 vessel cord. Cord insertion: placental insertion: normal. Amniotic fluid: Amount of AF: normal. Biometry Biometry BPD ?43.9 mm 21% 19w 2d Hadlock OFD ?58.5 mm 64% 20w 3d Sandi HC 164.2 mm ?24% Chervenak AC 151.0 mm ?56% 20w 2d Hadlock Femur ??30.7 mm 46% 19w 5d Sandi Cerebellum tr ??20.6 mm 65% 20w 3d Robles CM 3.7 mm ??13% Nicolaides Nuchal fold ?3.93 mm Humerus ?31.8 mm 77% 20w 4d Sandi EFW ?317 g Calculated by: Hadlock ([id number]) EFW (lb) ?? 0 lb EFW (oz) ?? 11 oz Cephalic index 0.75 ?13% Nicolaides HC / AC ?1.09 ?9% Hadlock FL / BPD ?? 0.70 ?49% Hadlock FL / AC ?0.20 ?14% Hadlock FHR ?134 bpm Head / Face / Neck Auto Travel Counselor 6.9 mm Nasal bone 6.5 mm Extremities / Bony Struc Radius 27.2 mm 59% Chitty Ulna ?? 28.6 mm 58% 20w 4d Sandi Tibia ??26.8 mm 47% 19w 4d Sandi Fibula 26.8 mm 39% 19w 3d Sandi Foot ?? 33.7 mm 67% Chitty Anatomy Cranium: ?? normal Lateral ventricles: ?normal Choroid plexus: ?normal Midline falx: ??normal Cavum septi pellucidi: normal Cerebellum: ?normal Cisterna magna: ?normal Parenchyma: ?normal Cerebellar lobes: ??normal Vermis: ?normal Neck: ??normal Nuchal fold: ?? normal Lips: ??normal Profile: ?? normal Nose: ??normal Maxilla: ?? normal Mandible: ??normal 4-chamber view: ?normal RVOT: ??normal LVOT: ??normal Situs: normal Aortic arch: ?? normal SVC: ?? normal IVC: ?? normal 3-vessel view: normal 6-kuzkve-mwwkhzw view: normal Rt lung: ?? normal Lt lung: ?? normal Diaphragm: normal Cord insertion: ?normal Stomach: ?? normal Bladder: ?? normal Genitals: ??normal Abdom. wall: ?? normal Rt kidney: normal Lt kidney: normal Liver: normal Cervical spine: ?normal Thoracic spine: ?normal Lumbar spine: ??normal Sacral spine: ??normal Skeleton: ??normal Arms: ??normal Legs: ??normal Rt arm: ?normal Lt arm: ?normal Rt hand: ?? normal Lt hand: ?? normal Rt leg: ?normal Lt leg: ?normal Rt foot: ?? normal Lt foot: ?? normal Gender: ?male Wants to know gender: ??yes Aneuploidy Screening Age ?26 yrs Echogenic focus: ?? no Include: ?? intracardiac echogenic focus Include: ?? ventriculomegaly Include: ?? nuchal fold Include: ?? echogenic bowel Include: ?? mild hydronephrosis Ventriculomegaly: ??no Nuchal fold: ?? normal Echogenic bowel: ?? no Pyelectasis: ?? no Short femur: ?? no Include: ?? short humerus Include: ?? nasal bone Short humerus: no Nasal bone: ?present Display risk: ??Risk at time of screening Other: She has had normal results on a cell-free DNA in maternal serum test. Maternal Structures Uterus / Cervix Uterus: ?Appears normal Cervix: ?Appears normal Ovaries / Tubes / Adnexa Rt ovary: ??Visualized, normal appearance Lt ovary: ??Visualized, normal appearance Method ======== Transabdominal ultrasound examination, Voluson E10. View: Sufficient. Impression [id number] Obstetrical ultrasound with and maternal evaluation, including detailed anatomic examination This is a alfaro gestation. Biometry is consistent with menstrual dating. Anatomy appears normal as noted above; however, ultrasound cannot detect all anomalies. As per the [facility] guidelines, the following were evaluated and were normal: the cerebellum (including lobes and vermis), facial profile, the chest (including examination for masses, effusion, integrity of both sides of the diaphragm and lung parenchyma), abdomen for ascites, 12-long bones with normal architecture/position of limbs, hands and feet, placental insertion site of the umbilical cord and placenta for masses. The amniotic fluid volume is normal. There is trunk and extremity movement noted. Follow-up Follow-up as clinically indicated. DATE OF SERVICE: 11/14/2017 Procedure Note Rossy Smith MD - 11/14/2017 Indication Maternal cranial abnormality: Arnold-Chiari malformation. History ======= General History Height 170 cm Height (ft) 5 ft Height (in) 7 in Previous Outcomes 2 Para 0 Abortions (A) 1 Maternal Assessment Height 170 cm Height (ft) 5 ft Height (in) 7 in Physical Exam Initial weight 66 kg Initial weight (lb) 145 lb Initial BMI 22.71 kg/m? Number of fetuses: 1. Dating ======= LMP on: 06/27/2017 GA by LMP 20 w + 0 d JEFFREY by LMP : 04/03/2018 Ultrasound examination on: 11/14/2017 GA by U/S based upon: AC, BPD, Femur GA by U/S 19 w + 5 d JEFFREY by U/S: 04/05/2018 Assigned: Dating performed on 08/13/2017 Based on the LMP Assigned GA 20 w + 0 d Assigned JEFFREY: 04/03/2018 General Evaluation Cardiac activity: Present. FHR 134 bpm. movements: visualized. Presentation: breech. Placenta: posterior. Umbilical cord: Cord vessels: 3 vessel cord. Cord insertion: placental insertion: normal. Amniotic fluid: Amount of AF: normal. Biometry Biometry BPD 43.9 mm 21% 19w 2d Hadlock OFD 58.5 mm 64% 20w 3d Sandi HC 164.2 mm 24% Chervenak AC 151.0 mm 56% 20w 2d Hadlock Femur 30.7 mm 46% 19w 5d Sandi Cerebellum tr 20.6 mm 65% 20w 3d Robles CM 3.7 mm 13% Nicolaides Nuchal fold 3.93 mm Humerus 31.8 mm 77% 20w 4d Sandi EFW 317 g Calculated by: Hadlock ([id number]) EFW (lb) 0 lb EFW (oz) 11 oz Cephalic index 0.75 13% Nicolaides HC / AC 1.09 9% Hadlock FL / BPD 0.70 49% Hadlock FL / AC 0.20 14% Hadlock FHR 134 bpm Head / Face / Neck Auto Travel Counselor 6.9 mm Nasal bone 6.5 mm Extremities / Bony Struc Radius 27.2 mm 59% Chitty Ulna 28.6 mm 58% 20w 4d Sandi Tibia 26.8 mm 47% 19w 4d Sandi Fibula 26.8 mm 39% 19w 3d Sandi Foot 33.7 mm 67% Chitty Anatomy Cranium: normal Lateral ventricles: normal Choroid plexus: normal Midline falx: normal Cavum septi pellucidi: normal Cerebellum: normal Cisterna magna: normal Parenchyma: normal Cerebellar lobes: normal Vermis: normal Neck: normal Nuchal fold: normal Lips: normal Profile: normal Nose: normal Maxilla: normal Mandible: normal 4-chamber view: normal RVOT: normal LVOT: normal Situs: normal Aortic arch: normal SVC: normal IVC: normal 3-vessel view: normal 2-ejyoix-bvlheql view: normal Rt lung: normal Lt lung: normal Diaphragm: normal Cord insertion: normal Stomach: normal Bladder: normal Genitals: normal Abdom. wall: normal Rt kidney: normal Lt kidney: normal Liver: normal Cervical spine: normal Thoracic spine: normal Lumbar spine: normal Sacral spine: normal Skeleton: normal Arms: normal Legs: normal Rt arm: normal Lt arm: normal Rt hand: normal Lt hand: normal Rt leg: normal Lt leg: normal Rt foot: normal Lt foot: normal Gender: male Wants to know gender: yes Aneuploidy Screening Age 26 yrs Echogenic focus: no Include: intracardiac echogenic focus Include: ventriculomegaly Include: nuchal fold Include: echogenic bowel Include: mild hydronephrosis Ventriculomegaly: no Nuchal fold: normal Echogenic bowel: no Pyelectasis: no Short femur: no Include: short humerus Include: nasal bone Short humerus: no Nasal bone: present Display risk: Risk at time of screening Other: She has had normal results on a cell-free DNA in maternal serum test. Maternal Structures Uterus / Cervix Uterus: Appears normal Cervix: Appears normal Ovaries / Tubes / Adnexa Rt ovary: Visualized, normal appearance Lt ovary: Visualized, normal appearance Method ======== Transabdominal ultrasound examination, Voluson E10. View: Sufficient. Impression [id number] Obstetrical ultrasound with and maternal evaluation, including detailed anatomic examination This is a alfaro gestation. Biometry is consistent with menstrual dating. Anatomy appears normal as noted above; however, ultrasound cannot detect all anomalies. As per the [facility] guidelines, the following were evaluated and were normal: the cerebellum (including lobes and vermis), facial profile, the chest (including examination for masses, effusion, integrity of both sides of the diaphragm and lung parenchyma), abdomen for ascites, 12-long bones with normal architecture/position of limbs, hands and feet, placental insertion site of the umbilical cord and placenta for masses. The amniotic fluid volume is normal. There is trunk and extremity movement noted. Follow-up Follow-up as clinically indicated. DATE OF SERVICE: 11/14/2017 Matilda uQintanilla MD [facility] ORDERABLES Fatimah l Result documented in this encounter Visit Diagnoses Not on filedocumented in this encounter Care Teams Roads Supervisor Relationship Specialty Start Date End Date Alexa Hairston APRN [address] [place] [address] PCP - General 10/26/16 07/11/20 documented as of this encounter
--- OUTSIDE RECORDS SUMMARY | 2024-06-16 16:42 | XMS_ITS | Encounter Summary ---
Author Organization [facility] Address [address] [place] [address] Care Team Providers Care Mechanical Shop Laborer Name Role Phone Alexa Hairston APRN Primary Care Provider [phone] Reason for Visit * Reason Onset Date Comments Results 12/27/2016 Encounter Details Date Type Department Care Team (Late st Contact Info) Description 12/27/2016 Telephone [facility] - [facility] [address] [place], [place] [address] Olga Noe RN Results Social History Tobacco Use Types [...] Telephone Encounter - Olga Noe RN - 12/27/2016 1025 EDT Call to pt to let her know results of progesterone level- 23.8. LM with result and to call if menses/no menses in 7 days. documented in this encounter Plan of Treatment Not on file documented as of this encounter Visit Diagnoses Not on filedocumented in this encounter Care Teams Mechanical Shop Laborer Relationship Specialty Start Date End Date Alexa Hairston APRN [address] [place] [address] PCP - General 10/26/16 07/11/20 documented as of this encounter
--- OUTSIDE RECORDS SUMMARY | 2024-06-16 16:42 | XMS_ITS | Encounter Summary ---
Author Organization [facility] Address [address] [place] [address] Care Team Providers Care Coconut Boiler Name Role Phone Alexa Hairston APRN Primary Care Provider [phone] Reason for Visit * Reason Onset Date Comments Results 07/27/2017 Encounter Details Date Type Department Care Team (Late st Contact Info) Description 07/27/2017 Telephone [facility] - [facility] [address] [place] [address] Luzmaria Gloria RN [address] [place] [address] Results Social History Tobacco Use Types Packs/Day [...] Telephone Encounter - Luzmaria Gloria RN - 07/27/2017 1151 EST Call to pt with hCG results from this morning, drawn at [facility]. Appropriate rise in 48 hours. No further labs needed at this time. Scheduled pt for OB US 08/13 at 0930. Pt concerned about outcome of US, and would like to see Dr Kaufman if US shows anything other than viable IUP. Follow up with Dr Abadcheduled at 1000, if needed. Component Latest Ref Rng & Units 07/25/2017 07/27/2017 HCG, External 86 254 documented in this encounter Plan of Treatment Not on file documented as of this encounter Procedures Procedure Name Priority Date/Time Associated Diagnosis Comments QUANT BETA HCG, Routine 07/27/2017 documented in this encounter Results * (ABNORMAL) HCG FOR (07/27/2017) HCG, External 254 [facility] Blood specimen (specimen) 07/27/2017 us Historical Provider CHEMISTRY & BLOOD GAS ORD ERABLES Final Result [facility] documented in this encounter Visit Diagnoses Not on filedocumented in this encounter Care Teams Coconut Boiler Relationship Specialty Start Date End Date Alexa Hairston APRN [address] [place] [address] PCP - General 10/26/16 07/11/20 documented as of this encounter
--- OUTSIDE RECORDS SUMMARY | 2024-06-16 16:43 | XMS_ITS | Encounter Summary ---
Author Organization [facility] [place] [place] [address] Care Team Providers Care Application Release Manager Name Role Phone Alexa Hairston APRN Primary Care Provider [phone] [phone] Encounter Details Date Type Department Care Team (Late st Contact Info) Description 07/25/2016 External Results Obstetrics and Gynecology at [facility] [place] [address] Provider, Scanning Social History Tobacco Use Types Packs/Day Years Used Date Smoking Tobacco: Never Alcohol Use Standard Drinks/Week Comments Yes 0 (1 standard drink = 0.6 oz pur e alcohol) socially Sex and Gender Information Value Date Recorded Sex Assigned at Not on file Gender Identity Not on file Sexual Orientation Not on file documented as of this encounter Plan of Treatment Not on file documented as of this encounter Procedures Procedure Name Priority Date/Time Associated Diagnosis Comments LAB SCAN Routine 07/10/2016 documented in this encounter Results * Scan Doc: Lab (07/10/2016) Scanning Provider MEDIA MGR SCAN EXT O RDR/RSLT documented in this encounter Visit Diagnoses Not on filedocumented in this encounter Care Teams Application Release Manager Relationship Specialty Start Date End Date Alexa Hairston APRN [address] [place] [address] PCP - General Family Medicine 03/31/16 documented as of this encounter
--- OUTSIDE RECORDS SUMMARY | 2024-06-16 16:43 | XMS_ITS | Encounter Summary ---
Author Organization [facility] Address [address] [place] [address] Care Team Providers Care Developmental Education Instructor Name Role Phone Unknown, Provider MD Primary Care Provider Unava ilable Reason for Visit * Reason Onset Date Comments Other 10/25/2016 Encounter Details Date Type Department Care Team (Late st Contact Info) Description 10/25/2016 Telephone [facility] - [address] [address] Olga Noe RN Other Social History Tobacco Use Types [...] Telephone Encounter - Olga Noe RN - 10/25/2016 8629 EDT Call to pt, returning call regarding medical records. [facility] called and may send records faxed. documented in this encounter Plan of Treatment Not on file documented as of this encounter Visit Diagnoses Not on filedocumented in this encounter Care Teams Developmental Education Instructor Relationship Specialty Start Date End Date Unknown, Provider, PCP - General 07/10/14 10/25/16 documented as of this encounter
--- OUTSIDE RECORDS SUMMARY | 2024-06-16 16:43 | XMS_ITS | Encounter Summary ---
Author Organization [facility] [place] [address] [place] [address] Care Team Providers Care Hotel Front Desk Clerk Name Role Phone Alexa Hairston APRN Primary Care Provider [phone] Reason for Visit * Reason Comments Skin Check Follow-up Encounter Details Date Type Department Care Team (Late st Contact Info) Description 10/05/2017 10:00 AM EDT Office Visit Dermatology at [facility] [address] [place] [address] Stefani De Leon MD [facility] [address] [place] [address] Dermatofibroma; Nevus; Scar Social History Tobacco Use Types Packs/Day Years Used Date Smoking Tobacco: Never Smokeless Tobacco: Never Alcohol Use Standard Drinks/Week Comments Yes 0 (1 standard drink = 0.6 oz pur e alcohol) socially Sex and Gender Information Value Date Recorded Sex Assigned at Not on file Gender Identity Not on file Sexual Orientation Not on file documented as of this encounter Progress Notes * Stefani De Leon - 10/05/2017 10:00 AM EDT Images from the original note were not included. DERMATOLOGY - ESTABLISHED PATIENT FOLLOW-UP Date of service: 10/05/2017 Rita Marion Marietta : 1990, 26 y.o. Chief Complaint: Chief Complaint Patient presents with ??? Skin Check HPI: Rita Marion Marietta is a 26 y.o. female last seen by myself on 07/20/2017. Ms. Tavares returns today for recheck of a dermatofibroma that was removed and a nevus on her leftcheek. She states that the biopsy scar is well-healed, though it is still quite red. She has not noticed any change in the mole on her left yarsanism. She has no other concerns today. Relevant Skin History: - Okay to leave detailed message with results? - Skin cancer (including type) None ?? Family History: Melanoma: None PGF-non melanoma ?? 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 norgestimate-ethinyl estradiol (TRI SPRINTEC) 0.18/0.215/0.25 mg-35 mcg (28) Tablet Take 1 tablet by mouth daily. (Patient not taking: Reported on 07/20/2017) 84 tablet 0 ??? vitamin with [id number] Tablet Take by mouth. ??? CIS Free Text Med - Albuterol No current facility-administered medications for this visit. Allergies: Allergies Allergen Reactions ??? Amoxicillin-Pot Clavulanate CIS - Rash Review of Systems: - General: Feels well. - Skin: No other skin concerns. Examination: - Constitutional: Patient was alert, well-appearing and in no noticeable distress. - Skin: Focused examination of face and right arm Diagnosis/Skin findings/Assessment/Plan: 1. Nevus- left yarsanism: 3 mm medium-brown macule with focal hyperpignmented globule centrally - Lesion appears benign and relatively symmetric; unchanged from prior exam - Counseled patient to return if she notices any significant changes in this or any other nevi 2. History of dermatofibroma s/p punch removal- 6 mm indurated mildly indurated pink papule - Discussed ScarAway silicone sheets to decrease prominence of scar - Could also consider kenalog injection or laser treatment if redness or induration does not improve with time - Explained that V-beam treatment would be performed at not charge to her for post-procedure scar revision RTC: PRN The following photos were obtained with patient consent: 3-mo follow-up Baseline Note initiated by Shantal Harrison LPN. I performed the above scribed service and agree with the accuracy of the documentation in this encounter. Reviewed and signed by: STEFANI DE LEON MD Resident in Dermatology [facility] Patient seen and evaluated with staff finance broker: Marcellus Barboza MD Section of Dermatology [facility] * Marcellus Barboza MD - 10/05/2017 10:00 AM EDT I directly supervised Dr. Stefani De Leon during this office visit. Dr. De Leon presented the history and physical exam to me. I then saw and examined this patient with Dr. De Leon. We reviewed the history and pertinent details and I confirmed the physical findings. I agree with the details of the history and physical exam as documented in Dr. De Leon's note. MARCELLUS BARBOZA MD Staff Physician documented in this encounter Plan of Treatment Not on file documented as of this encounter Visit Diagnoses Diagnosis Dermatofibroma Benign neoplasm of skin, site unspecified Nevus Benign neoplasm of skin, site unspecified Scar Scar condition and fibrosis of skin documented in this encounter Care Teams Hotel Front Desk Clerk Relationship Specialty Start Date End Date Alexa Hairston APRN [address] [place] [address] PCP - General Family Medicine 03/31/16 documented as of this encounter
--- OUTSIDE RECORDS SUMMARY | 2024-06-16 16:43 | XMS_ITS | Encounter Summary ---
Author Organization [facility] Address [address] [place] [address] Care Team Providers Care City Supervisor Name Role Phone Nasra Sanchez MD Primary Care Provider [phone] Encounter Details Date Type Department Care Team (Late st Contact Info) Description 02/18/2014 Results Only [facility] [phone] Rachid Morris MD [address] [place] [address] Social History Tobacco Use Types Packs/Day Years [...] Diagnosis Comments PAP TEST- RESULT ONLY Routine 02/18/2014 0:00 EDT documented in this encounter Results * PAP TEST- RESULT ONLY (02/18/2014 0:00 EDT) Pathology Report: CYTOPATHOLOGY REPORT Reports generated via electronic interface contain original data; however they are lacking the format of the original report. Caution should be taken when reading/interpreti ng unformatted reports. Name: ? EBONI FLNYN ? Accession #: ? [id number] : ? 1990 (Age: 23) ??F ?Collect Date: ? 02/18/2014 Location: ? [facility] ? Receive Date: ? 02/19/2014 Provider: ?RACHID MORRIS MD Copy to: ?NASRA Mclean NON [facility] ? Specimen/Source: ?Pap Test, Cervix/Endocervix, ThinPrep Imaging System with manual evaluation Last Menstrual Period: ? Hormonal/Contracep tive Status: ? Oral contraceptives Other: ? Additional clinical information: Normal pap 2012, spotting 3 weeks per month ? SPECIMEN ADEQUACY ? Satisfactory for Evaluation - transformation zone component present GENERAL CATEGORIZATION ? Negative for Intraepithelial Lesion or Malignancy INTERPRETATION ? Reactive cellular changes associated with inflammation present (includes repair). ? Document reviewed and electronically signed by: ? LORI HARRISON MD ? Report Date: ??03/02/2014 11:29 End of Report [facility] 02/18/2014 02/19/2014 us Rachid Morris MD PATHOLOGY ORDERABLES Final Resu lt [facility] [address] [place] [address] documented in this encounter Visit Diagnoses Not on filedocumented in this encounter Care Teams City Supervisor Relationship Specialty Start Date End Date Nasra Sanchez MD [address] [place] [address] [phone] PCP - General 09/10/10 07/09/14 documented as of this encounter
--- OUTSIDE RECORDS SUMMARY | 2024-06-16 16:43 | XMS_ITS | Encounter Summary ---
Author Organization [facility] [place] [address] [place] [address] Care Team Providers Care Picker And Sorter Load And Unload Name Role Phone Alexa Hairston YU Primary Care Provider [phone] Encounter Details Date Type Department Care Team (Late st Contact Info) Description 08/18/2016 Orders Only Obstetrics and Gynecology at [facility] [place] [id number] Sanaz Brown RN Procreative management Social History Tobacco Use Types Packs/Day Years Used Date Smoking Tobacco: Never Alcohol Use Standard Drinks/Week Comments Yes 0 (1 standard drink = 0.6 oz pur e alcohol) socially Sex and Gender Information Value Date Recorded Sex Assigned at Not on file Gender Identity Not on file Sexual Orientation Not on file documented as of this encounter Progress Notes * Sanaz Brown RN - 08/18/2016 2:15 PM EST Pt called regarding minimal flow of last menses, day one was August. She has HYCOSY scheduledfor day 11. I informed her that we will have Hcg ordered for the morning of procedure. She will come a little early to go to lab draw before HYCOSY appt. Sanaz Brown RN * Sanaz Brown RN - 08/18/2016 2:15 PM EST Called pt to let her know she did not need to go to the lab on the day of her HCOSY, but that we would do a UPT when she got here in the Clinic. Sanaz Maritn, RN documented in this encounter Plan of Treatment Not on file documented as of this encounter Visit Diagnoses Diagnosis Procreative management Unspecified procreative management documented in this encounter Care Teams Picker And Sorter Load And Unload Relationship Specialty Start Date End Date Alexa Hairston APRN [address] [place] [address] PCP - General Family Medicine 03/31/16 documented as of this encounter
--- OUTSIDE RECORDS SUMMARY | 2024-06-16 16:43 | XMS_ITS | Encounter Summary ---
Author Organization [facility] [place] [address] Care Team Providers Care Storage And Backup Administrator Name Role Phone Alexa Hairston APRN Primary Care Provider [phone] Encounter Details Date Type Department Care Team (Late st Contact Info) Description 07/08/2016 Orders Only Obstetrics [place] [address] Dinora Jaime APRN [facility] [place] [address] Encounter for investigation and testing for procreative management Social History Tobacco Use Types Packs/Day [...] this encounter Visit Diagnoses Diagnosis Encounter for investigation and testing for procreative management documented in this encounter Care Teams Storage And Backup Administrator Relationship Specialty Start Date End Date Alexa Hairston APRN [address] [place] [address] PCP - General Family Medicine 03/31/16 documented as of this encounter
--- OUTSIDE RECORDS SUMMARY | 2024-06-16 16:43 | XMS_ITS | Encounter Summary ---
Author Organization [facility] Address [address] [place] [address] Care Team Providers Care Rubber Splicer Name Role Phone Rakan Hairstonmargo Grullon YU Primary Care Provider [phone] Reason for Visit * Reason Comments Advice Only Encounter Details Date Type Department Care Team (Late st Contact Info) Description 10/27/2016 14:15 EDT Office Visit [facility] - [address] [id number] Sofia Kaufman MD [address] [place] [address], [address] [place] [address] Oligomenorrhea (Primary Dx); PCOS (polycystic ovarian syndrome) Discharge Disposition: Auto Discharge Social History Tobacco [...] Sign Reading Time Taken Comments Blood Pressure 120/70 10/27/2016 1344 EDT Pulse - - Temperature - - Respiratory Rate - - Oxygen Saturation - - Inhaled Oxygen Concentration - - Weight 65.3 kg (144 lb) 10/27/2016 1344 EDT Height 170.2 cm (5' 7) 10/27/2016 1344 EDT Body Mass Index 22.55 10/27/2016 1344 EDT documented in this encounter Discharge Diagnoses Diagnosis N91.5 Oligomenorrhea, unspecified-N91.5[ICD-10-CM] E28.2 Polycystic ovarian syndrome-E28.2[ICD-10-CM] documented in this encounter Discharge Disposition Disposition Code Departure Means Destination Auto Discharge documented in this encounter Progress Notes * Sofia Kaufman MD - 10/27/2016 1415 EDT Subjective: Consult requested by: [facility] transfer Rita Tavares is a 25 y.o. G0 female who presents for evaluation of infertility. Patient and partner have been attempting conception for 2 years. Stopped OCPs September 2014. Pregnancies with current partner: no. 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 HyCoSy 10/10/16 by [facility]BP: normal cavity, bilateral tubal patency. AFC 40. Labs: 04/03/16 GC/CT neg 06/16/16 TSH 1.51, Prolactin 5.7, DHEAS 372 , T 40, free T 4.3, Vit D 34, Rubella immune, Hep B sAg neg, CBC 12/20.9/36.4/316, RPR neg, blood type O+, HIV neg, Hep C neg, Varicella IgG pos 06/22/16 AMH 7.47 07/07/16 E2 41, FSH 6.6, LH 4.6 Fasting glucose 86 at [facility] 07/10/16. Took OCPs for 1.5 months, prescribed at [facility] in order to coordinate her HyCoSy. Stopped October 11, had heavy bleeding and cramping after that. Menstrual and Endocrine History LMP LMP 10/03/16 Menses irregular Shortest Interval 22 Longest Interval 60 days Duration of flow 5 days Heavy Menses Yes at times; lasted 3 wks once Dysmenorrhea Yes, needs NSAIDs 3days Amenorrhea no Hirsutism No, no acne Galactorrhea no Obstetrical History OB History G0 Gynecologic History Last PAP 03/2016 normal, HPV N/A Previous abdominal or pelvic surgery no Pelvic Pain no Endometriosis no Hot Flashes no WIL Exposure no Abnormal Pap no Cervix Cryo/cone no STD no PID no Infertility and Endocrine Studies BBT no Ovulation Predictor Kit Yes tried but not + HSG Yes HyCoSy Laparoscopy no Hormonal Studies yes Semen analysis yes Other Studies no Meds none Other Therapies N/A Antral Follicle Count yes Sexual History Dyspareunia No Couple is having intercourse with adequate frequency to maximize chance of conception Yes, 3-4 x per week Use of Lubricant no Family History Thyroid Problems no Defects/Inherited diseases no Cysticfibrosis no Age Mother Underwent Menopause ? No past medical history on file. No family history on file. Current Outpatient Prescriptions Medication Sig Dispense Refill ??? albuterol 90 mcg/actuation inhaler Inhale 180 mcg as directed every 4 hours. ??? omeprazole (PRILOSEC) 20 mg capsule Take [...] ??? Augmentin [Amoxicillin-Pot Clavulanate] Rash Social History Social History ??? Marital status: Spouse name: N/A ??? Number of children: N/A ??? Years of education: N/A Occupational History ??? Not on file. Social History Main Topics ??? Smoking status: Never Smoker ??? Smokeless tobacco: Not on file ??? Alcohol use Yes Comment: occ ??? Drug use: No ??? Sexual activity: Not on file Other Topics Concern ??? Not on file Social History Narrative ??? 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 Medical History: none Past surgical history: appendectomy, broke femur- fixation Medications none; daily [employer] Exposure to reproductive toxins: non smoker; 2 alcoholic drinks per week, no MJ Paternity of Pregnancies: Number with this partner: 0 Number with other partners: 0 Age of youngest child: N/A Urologic History: Infection no STD no Mumps no Varicocele Yes small Semen analysis yes Undescended Testes no Testicular Trauma no Genital Surgery no Ejaculatory Problem no Impotence no FONSECA: Jun 19 2016 Count: 70 M/ml Motility: 80% Morphology: 6% normal Vol: 1.8 ml Objective: Female Exam BP 120/70 Ht 170.2 cm (67) Wt 65.3 kg (144 lb) BMI 22.55 kg/m2 Wt Readings from Last 1 Encounters: 10/27/16 65.3 kg (144 lb) BMI: Body mass index is 22.55 kg/(m^2). 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 Plan: - We reviewed all of her test results. Normal FONSECA, patent tubes, normal uterine cavity. Labs significant for elevated AMH and DHEAS, which ase c/wPCOS. Discussed that PCOS is a diagnosis of exclusion, and she has all 3 clinical criteria: oligomenorrhea, PCO on ultrasound, and high androgens. Since she has a normal BMI, is lean PCOS but still at increased risk of DM type II in her life. This year her fasting glucose was normal. Rec to check q 3-5 years while she is young. Encouraged her to maintain current healthy weight, as this will optimize her ovaries' ability to cycle. Discussed ovulationinduction with OPK vs TI, using clomid 50 mg or letrozole 2.5 mg CD 5-9. This will provide up to 25% chance of per cycle, with 5% risk of twins. Side effects of clomid include hot flashes, headaches, and moodiness, more common w clomid and studies have shown slightly higher rates w letrozole. Will check prog level today to see if ovulated this cycle. She will call office w next menses for hCG/ prog level, then to get rx for letrozole 2.5 mg CD 5-9,then TI CD 12-22. Check CD 21 prog with first OI cycle to make sure dose adequate. Higher AMH has been a/w increased resistance to OI meds. Can try for 6 months, if no can then f/u to discuss other options (next step would be IUI). I spent a total of 45 minutes in face to face time with this patient today and 25 minutes of that time was spent in counseling and coordination of care as described in the progress note. Sofia Kaufman MD documented in this encounter Plan of Treatment Not on file documented as of this encounter Procedures Procedure Name Priority Date/Time Associated Diagnosis Comments PROGESTERONE Routine 10/27/2016 14:43 EDT Oligomenorrhea documented in this encounter Results * PROGESTERONE (10/27/2016 14:43 EDT) Progesterone 0.4 ng/ml 10/27/2016 16:33 EDT [facility] Comment: NON- FEMALES: follicular phase: ??<0.2-1.4 ng/mL luteal phase: 3.3-25.6 ng/ml postmenopausal: ??<0.2-0.7 ng/mL FEMALES: first trimester: 11.2-90.0 ng/ml second trimester: 25.6-89.4 ng/ml third trimester: 48.4-422.5 ng/ml ECTOPIC PREGNANCIES: consult pathologist Blood specimen (specimen) BLOOD SPECIMEN / Unknown 10/27/2016 14:43 EDT 10/27/2016 14:45 EDT us Sofia Kaufman MD CHEMISTRY & BLOOD GAS ORD ERABLES Final Result [facility] [address] [place] [address] documented in this encounter Visit Diagnoses Diagnosis Oligomenorrhea- Primary Scanty or infrequent menstruation PCOS (polycystic ovarian syndrome) Polycystic ovaries documented in this encounter Historical Medications * This list may reflect changes made after this encounter. VIT CALC,IRON,FOLIC ( #2 ORAL) Take by mouth. albuterol 90 mcg/actuation inhaler Inhale 180 mcg as directed every 4 hours. added in this encounter Care Teams Rubber Splicer Relationship Specialty Start Date End Date Alexa Hairston APRN [address] [place] [address] PCP - General 10/26/16 07/11/20 documented as of this encounter
--- OUTSIDE RECORDS SUMMARY | 2024-06-16 16:43 | XMS_ITS | Encounter Summary ---
Author Organization Health system Address [address] [place] [address] Care Team Providers Care Tool Adjuster Name Role Phone Alexa Hairston APRN Primary Care Provider [phone] Reason for Referral * Laboratory Services (Routine) - Closed Specialty Diagnoses / Procedures [facility] Referred To Contact Diagnoses Amenorrhea examination or test, unconfirmed Procedures PROGESTERONE Luzmaria Gloria RN [address] [place] [address] Referral ID Status Reason Start Date Expiration Date Visits Re quested Visits Authorized [id number] Closed 11/24/2016 1 1 * Laboratory Services (Routine) - Closed Specialty Diagnoses / Procedures Referred By [facility] t Referred To Contact Diagnoses examination or test, unconfirmed Amenorrhea Procedures HCG FOR Luzmaria Gloria RN [address] [place] [address] Referral ID Status Reason Start Date Expiration Date Visits Re quested Visits Authorized [id number] Closed 11/24/2016 1 1 Reason for Visit * Reason Onset Date Comments Follow-up 11/23/2016 Encounter Details Date Type Department Care Team (Late st Contact Info) Description 11/23/2016 Telephone [facility] - [facility] [address] [place] [address] Luzmaria Gloria RN [address] [place] [address] Follow-up Social History Tobacco Use Types Packs/Day [...] Telephone Encounter - Luzmaria Gloria RN - 11/23/2016 1356 EDT Pt calling, concerned that she has not had a period in 2 months, and ready to start OI. Mentioned she will be going on vacation starting on Sunday. Returned call. Pt reports LMP 10/03. Will have labs drawn at [facility] tomorrow 11/24 for virtual letrozole start. Plan per last office visit: letrozole 2.5 mg CD 5-9, then TI CD 12-22. Check CD 21 prog with first OI cycle to make sure dose adequate. Higher AMH has been a/w increased resistance to OI meds. Can try for 6 months, if no can then f/u to discuss other options (next step would be IUI). documented in this encounter Plan of Treatment Not on file documented as of this encounter Results * PROGESTERONE (11/24/2016) Progesterone, External 8.4 ng/ml POINT OF CARE Blood specimen (specimen) 11/24/2016 us Sofia Kaufman MD CHEMISTRY & BLOOD GAS ORD ERABLES Final Result POINT OF CARE * HCG FOR (11/24/2016) HCG, External negative POINT OF CARE Blood specimen (specimen) 11/24/2016 us Sofia Kaufman MD CHEMISTRY & BLOOD GAS ORD ERABLES Final Result POINT OF CARE documented in this encounter Visit Diagnoses Diagnosis examination or test, unconfirmed- Primary Amenorrhea Absence of menstruation documented in this encounter Care Teams Tool Adjuster Relationship Specialty Start Date End Date Alexa Hairston, YU [address] [place] [address] PCP - General 10/26/16 07/11/20 documented as of this encounter
--- OUTSIDE RECORDS SUMMARY | 2024-06-16 16:43 | XMS_ITS | Encounter Summary ---
Author Organization [facility] Address [facility] [place] [address] Care Team Providers Care Small Package And Bundle Sorter Clerk Name Role Phone YovannySabina underwoodhrmargo Grullon YU Primary Care Provider [phone] Reason for Visit * Reason Comments Infertility Encounter Details Date Type Department Care Team (Latest Contact Info) Description 08/24/2016 1:00 PM EDT Procedure visit Obstetric[place] [address] Shakira Cowart MD [facility] OBSTETRICS & [place] [address] Female infertility associated with male factors (Primary Dx) Social History Tobacco Use Types [...] this encounter Patient Instructions * Patient Instructions* Shakira Cowart MD - 08/24/2016 1:00 PM EDT WHAT IS A HYCOSY PROCEDURE? A test for tubal patency (open). Pxlnsphryuldoou-upxyifsg-kzhyhnfkuo (usually shortened to HYCOSY) is a simple and well-tolerated outpatient ultrasound procedure used to assess the patency of the fallopian tubes, as well as detect abnormalities of the uterus and the endometrium (uterine lining). The test requires the use of a contrast agent to visualize the patency of the fallopian tubes. Manywomen will be able to have the test performed simply using an agitated saline / air mixture. The HyCoSy procedure is a safe and reliable alternative to the conventional hysterosalpingogram (HSG) which uses X-rays. No radiation or iodinated contrast material is used for a HyCoSy test. WHY WOULD I NEED A HYCOSY PROCEDURE? Investigation of infertility is the main reason for a woman to be referred for a HyCoSy procedure. Occluded (blocked) fallopian tubes are a common cause of infertility. Tubal occlusion can occur with a number of conditions including previous pelvic infection, severe endometriosis, previous appendicitis and pelvic adhesions. Many women will be unaware that these conditions are present and that tubal blockage has occurred. A normal fallopian tube is not seen with regular ultrasound. Even if the fallopian tube is blocked, it may still be difficult to see on regular ultrasound unless it is also filled with fluid (forming what is known as a hydrosalpinx). This is why a special testusing a contrast agent is useful, as it helps the physician to visualize the fallopian tubes and assess whether they are patent (working). DOES THE HYCOSY PROCEDURE ONLY EXAMINE MY TUBES? The HyCoSY procedure allows integrated assessment of the fallopian tubes, the uterus and and endometrial cavity, and the pelvis. The initial part of the HyCoSy procedure uses saline to assess the endometrial cavity for pathology. The doctor will be looking for problems such as endometrial polyps, submucosal fibroids and congenital uterine abnormalities (such as a uterine septum). The HyCoSY procedure also allows concurrent ultrasound review of the remaining pelvis, such as the ovaries. HOW DO I PREPARE FOR A HYCOSY? It is important that you are not when you have this test, as the procedure can disturb theimplantation of the embryo. If there is a possibility that you are , the procedure will need to be postponed until your next menstrual cycle. The best time to perform a HyCoSy is just after your period has finished, approximately day 4 to day 10 of a regular 28-day (monthly) menstrual cycle (the first day of your period is counted as day 1). If your menstrual cycle is shorter than 28 days (for example, you usually have 21 days between periods), you will need to have the test earlier in the cycle. If your menstrual cycle is longer than 28 days, but still regular (for example, you usually have 35days between periods), you may be able to have the test later in the cycle if that is more convenient. If your periods are infrequent or irregular, please discuss the optimal time for this test with your doctor or our nursing staff. We may suggest you take a medication to induce a menses and shed a thickened inspector brake lining so that the procedure can be properly timed and that exccessive inspector brake lining does not prevent a clear view of the uterine cavity. DO I NEED PAIN RELIEF FOR THIS TEST? The level of pain experienced during the HyCoSy is variable, but most women experience only mild tomoderate cramping period-type discomfort during the test. If you do not have an allergy to ibuprophen, we suggest you take two (200 mg) tablets 60 minutes before the procedure, to minimize discomfort. No anesthetic is required for this procedure. DO I NEED A FULL BLADDER FOR THIS TEST? You do not need a full bladder for this test. We will ask you to completely empty your bladder before the test begins. If you are booked for both a complete pelvic scan and a HyCoSy, the pelvic scan will be performed first, followed by the HyCoSy procedure. You can eat and drink normally before and after the test. HOW IS HYCOSY PERFORMED? The first part of the HyCoSy is like the first part of a pap smear, with a vaginal speculum gently inserted into the vagina to visualize the cervix. The cervix is then cleansed with antiseptic solution to decrease the risk of infection. A thin flexible balloon catheter is inserted through the opening of the cervix, so that the catheter lies within the endometrial cavity. Inserting the intrauterine catheter does not usually cause discomfort. A tiny balloon at the tip of the catheter is slowly inflated with saline-this is necessary to stop fluid leaking back out through the cervix during the test. Inflating this tiny balloon can cause some cramping. The vaginal speculum is removed, with the ca theter remaining in the uterus. Next, the transvaginal ultrasound (internal scan through the vagina) is used to image the uterus. Initially, a small amount of sterile saline is introduced into the endometrial cavity through the catheter, and the uterine cavity is inspected. This saline distends the endometrial cavity, allowing assessment of the contour and shape of the cavity. The doctor will be looking for such problems as endometrial polyps, submucosal fibroids, and congenital uterine abnormalities (such as a uterine septum). Next, a small amount of contrast agent (either agitated saline/air misture, or a Foam-EX Foam) willbe introduced through the catheter. The doctor will be looking at both fallopian tubes, to see if the tubes are patent. If the contrast can be seen flowing through each tube, and spilling out the endof the tube around the area of the ovaries, the tubes are patent. The transvaginal ultrasound and catheter are removed at the end of the procedure. WHAT ARE THE RISKS OF HYCOSY? HyCoSy is a safe and well-tolerated procedure for the assessment of tubal patency. Infection of theuterus/pelvis is not common following this procedure, but it may occur. You should contact either your referring doctor or our practice immediately if you have the following symptoms: Persistent or foul-smelling vaginal discharge Increasing lower abdominal pain Unexplained Fever Generally unwell Such symptoms may indicate an infection requiring antibiotics. If you have a history of pelvic infection or in special circumstances, the provider may give you antibiotics to prevent pelvic infection. Please tell the doctor before your procedure begins if you have a history of pelvic infection, or another reason for antibiotic pre-treatment. Antibiotics are otherwise not routinely given during this test. WHAT SHOULD I DO AFTER THE PROCEDURE? You should wear a sanitary pap after the procedure. There may be some persistent vaginal discharge for a few hours, as the fluid used in the test will leak out the vagina. This discharge is sometimesblood stained so do not be alarmed if this occurs. Our practice will give you a sanitary pad to usefollowing the procedure. HOW WILL I FEEL AFTER THE PROCEDURE? Most women do not find the test too uncomfortable. Most women experience only mild to moderate cramping period-type pain during the test, but this usually subsides once the test is completed. You should be able to drive and resume normal daily activities after the test. Occasionally women have moresevere pain, and do not feel up to driving or returning to work. If you are concerned about how youwill feel after the test, you may consider have a friend drive you home, or having the day off work. You can eat and drink normally after the procedure. WHEN ARE THE RESULTS AVAILABLE? The ultrasound doctor will discuss your results once the procedure has been completed (for example,whether the fallopian tubes appear patent). WHAT OTHER TESTS SHOULD I HAVE? Sometimes the fallopian tubes (either one or both tubes) are not seen during the HyCoSy procedure. This may be due to: Spasm of the tubal opening which temporarily prevents the flow of contrast from the uterus into thetube Permanent tubal occlusion (blockage), secondary to an underlying tubal or pelvic problem (such as scar tissue) Technical factors may hinder visibility during the ultrasound, such as uterine fibroids, and bowel gas in the pelvis. It is important to remember that HyCoSy is simply one test used to investigate infertility. NeitherHyCoSy nor traditional HSG provide definitive answers in all women, making other investigations sometimes necessary. You referring provider will decide if you may need to have further investigations or procedures such as laparoscopy. documented in this encounter Progress Notes * Shakira Cowart MD - 08/24/2016 1:00 PM EDT Cycle was much necktie maker than normal, cycles irregular. Urine test negative but will send for hCG. MBP documented in this encounter Plan of Treatment Not on file documented as of this encounter Procedures Procedure Name Priority Date/Time Associated Diagnosis Comments POCT URINE Routine 08/24/2016 Female infertility associated with male factors documented in this encounter Results * POCT urine (08/24/2016) POC Urine HCG Negative Negative - Negative POC Control Internal Controls Acceptable 08/24/2016 Shakira Vega MD POINT OF CA RE TEST ORDERABLES documented in this encounter Visit Diagnoses Diagnosis Female infertility associated with male factors- Primary Female infertility of other specified origin documented in this encounter Care Teams Small Package And Bundle Sorter Clerk Relationship Specialty Start Date End Date Alexa Hairston APRN [address] [place] [address] PCP - General Family Medicine 03/31/16 documented as of this encounter
--- OUTSIDE RECORDS SUMMARY | 2024-06-16 16:43 | XMS_ITS | Clinical Summary ---
Author Organization [facility] Address [facility] [place] [address] Care Team Providers Care Flattening Press Operator Name Role Phone Alexa Hairston APRN Primary Care Provider [phone] Allergies Active Allergy Reactions Criticality Noted Date Comments Amoxicillin-Pot Clavulanate CIS - Rash Medications Medication Sig Dispensed Refills Start Date End Date Status CIS Free Text Med - Albuterol 04/13/2006 Active vitamin with ezeepgkf-Cx-Blnz-FA Tablet Take by mouth. Active norgestimate-ethiny l estradiol (TRI SPRINTEC) 0.18/0.215/0.25 mg-35 mcg (28) Tablet Take 1 tablet by mouth daily. 84 tablet 09/07/2016 Active Additional Information Patient not taking.Reported on 10/05/2017 sertraline (ZOLOFT) 50 mg Tablet Take 50 mg by mouth daily. Active magnesium 250 mg Tablet Take by mouth. 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 factors 08/19/2016 Asthma 03/31/2016 Chiari malformation type I 03/31/2016 Overview (03/31/2016): Surgery completed 11/2000 Immunizations Name Administration Dates Next Due DTaP 06/18/1990, 0,04/26/1989,02/14 HPV, Quadrivalent (Gardasil) 10/25/2007,06/21/19 08,04/14/2007 Hepatitis A Adult (Havrix, Vaqta) 10/18/2018 Hepatitis B, Unspecified Formulation 08/18/1999, 03/17/1999,02/09/1991 Influenza Trivalent, Preservative Free 8 MMR Vaccine LIVE 01/26/1998,03/19/1990 Meningococcal Acwy, Unspecif ied Formulation 01/10/2007 Pneumococcal 23-Valent Polys accharide (Pneumovax 23) 09/10/2014 Polio Inactivated (IPOL) 01/17/1994,01/1991,04/26/1989,02/14 Tdap (Adacel, Boostrix) 01/11/2018 Varicella LIVE (Varivax) 10/25/2007,01/02/1995 Family History Medical History Relation Comments Hyperlipidemia Father Hypertension Father Hyperlipidemia Maternal Grandmother Hypertension Maternal Grandmother Myocardial Infarction Maternal Grandmother Alcohol Use Disorder Paternal Grandfather Cancer Paternal Grandfather bladder Hyperlipidemia Paternal Grandfather Hypertension Paternal Grandfather Mental Illness Paternal Grandfather depression and anxiety Myocardial Infarction Paternal Grandfather Hyperlipidemia Paternal Grandmother Mental Illness Sister depression and a nxiety Relation Status Comments Father Alive Maternal Grandfather Alive Maternal Grandmother Alive Mother Alive Paternal Grandfather Paternal Grandmother Alive Sister Alive Social History Tobacco Use Types Packs/Day Years Used Date Smoking Tobacco: Never Smokeless Tobacco: Never Alcohol Use Standard Drinks/Week Comments Yes 0 (1 standard drink = 0.6 oz pur e alcohol) socially Sex and Gender Information Value Date Recorded Sex Assigned at Not on file Gender Identity Not on file Sexual Orientation Not on file Last Filed Vital Signs Vital Sign Reading Time Taken Comments Blood Pressure 112/72 06/16/2016 10:33 AM EST Pulse 92 06/16/2016 10:33 AM EST Temperature 37 ??C (98.6 ??F) 03/31/2016 9:14 AM EDT Respiratory Rate 12 06/16/2016 10:33 AM EST Oxygen Saturation 98% 03/31/2016 9:14 AM EDT Inhaled Oxygen Concentration - - Weight 65.5 kg (144 lb 6.4 oz) 06/16/2016 10:33 AM EST Height 169.5 cm (5' 6.75) 06/16/2016 10:[address] Body Mass Index 22.79 06/16/2016 10:33 AM EST Plan of Treatment Health Maintenance Due Date Last Done Comments HPV test 2018 PAP Smear 03/31/2021 03/31/2016 Covid-19 Vaccine (2023-2 5 season) 2024 Influenza (Flu) vaccine (1 o f 1 - Influenza standard series) 02/10/2024 02/18/2018 Tetanus/Diphtheria/Pertussis Vaccines (6 - Td or Tdap) 01/12/2028 01/11/2018, 06/18/1990, 06/27/1989, Additional history exists Hepatitis B vaccine (0-59 yrs) Completed 0 08/18/1999, 03/17/1999, 02/09/1991 HPV vaccine Completed 10/25/2007, 06/11, 04/14/2007 HIV screen Completed 06/16/2016 Hepatitis C Screening Completed 06/16/2016 Procedures Procedure Name Priority Date/Time Associated Diagnosis Comments HIV SCREEN, 4TH GENERATION (MC/CGP/APD/NLH) Routine 06/16/2016 12:12 PM EST Procreative investigation and testing HEPATITIS C ANTIBODY Routine 06/16/2016 12:12 PM EST Procreative investigation and testing CHANNEL REBUILDER CYTOLOGY FINAL REPORT Routine 03/31/2016 10:11 AM EDT from Last 3 Months or Most Recently Relevant to Health Maintenance Results * Hepatitis C Antibody (06/16/2016 12:12 PM EST) Hepatitis C Antibody Negative Negative [facility] Blood specimen (specimen) 06/16/2016 12:12 PM EST 06/16/2016 12:25 PM EST Narrative Resulting Agency Comment Spec In Lab Shakira Vega MD CHEMISTRY O RDERABLES [facility] [place] [address] * HIV Screen, 4th Generation (06/16/2016 12:12 PM EST) HIV Ab/Ag Screen Negative Negative [facility] Comment: This 4th Generation HIV test screens for the presence of the HIV-1 p24 antigen as well as antibodies reactive against HIV-1 and HIV-2. A negative screen does not rule out an acute HIV infection. If acute HIV infection is suspected, testing should be repeated in 2 - 3 weeks or HIV nucleic acid testing performed. Blood specimen (specimen) 06/16/2016 12:12 PM EST 06/16/2016 12:25 PM EST Narrative Resulting Agency Comment Spec In Lab Shakira Vega MD CHEMISTRY O RDERABLES Performing Organization Address City/State/[facility] Co de Phone Number [facility] [place] [address] * Well Servicing Rig Operator Cytology Final Report (03/31/2016 10:11 AM EDT) Well Servicing Rig Operator Cytology Final Report [id number] ? Location: 5L The signing pathologist has (i) examined the relevant preparation(s) for the specimen(s) and (ii) rendered or confirmed the diagnosis(es). . ? Well Servicing Rig Operator Final DIAGNOSIS Normal Negative for Intraepithelial Lesion or Malignancy (NILM). For consensus guidelines for the management of cervical cancer screening test results, please see: ?? http://www.asccp.o rg/guidelines . Electronically signed by: ??Mack STRANGE(ASCP)Flaquita Verified: ??04/05/2016 ?Tar Processing Technician HPV RESULTS Not applicable (HPV testing either not indicated or not requested by clinician). STATEMENT OF ADEQUACY Specimen submitted is satisfactory. Endocervical component present. CLINICAL INFORMATION HPV Option: ? Reflex HPV Preparation: ?Liquid Based Pap Specimen Source: ?Cervical Endocervical LBP LMP: ?02/04/16 Hormones?: ?No Hysterectomy?: ?No ?: ?No ?: ?No I.U.D.?: ?No Pelvic Radiation: ? No Prior CHANNEL REBUILDER Therapy?: ? No Hist Abnl Pap/Biopsy?: ??No Hist of HPV Vaccine?: ?? Yes Hist of Smoking?: ? No Hist of WIL exposure?: ??No Clinical Data, Significant Therapy and Clinical Impression ?? : ?? _ This Pap Test has been evaluated with the assistance of the Flexiroam Pap Test Imaging System. Note: The Pap test is a screening test for cervical cancer with an inherent false-negative rate dependent upon several variables. ??For further information please contact the [facility] Laboratory. Reference: ??Abnael CS. ??Suture Gauger of Pap Smear Results. ??In: ??James BS, [facility], ed. ??The Pap Smear. ??[place]: ??Julien, 2002: ??71-77. [facility] 03/31/2016 10:1 1 AM EDT Jessica Carias GUIDE DOMESTIC TOUR PATHOLOGY/CY TOLOGY ORDERABLES [facility] [place] [address] from Last 3 Months or Most Recently Relevant to Health Maintenance Care Teams Flattening Press Operator Relationship Specialty Start Date End Date Alexa Hairston APRN [address] [place] [address] PCP - General Family Medicine 03/31/16
--- OUTSIDE RECORDS SUMMARY | 2024-06-16 16:43 | XMS_ITS | Encounter Summary ---
Author Organization [facility] Address [facility] [place] [address] Care Team Providers Care Process Engineering Intern Name Role Phone Alexa Hairston APRN Primary Care Provider [phone] Encounter Details Date Type Department Care Team (Late st Contact Info) Description 10/18/2018 2:30 PM EDT Office [place] [address] Dinora Brumfield, RN [facility] [place] [address] Healthcare maintenance; Other specified counseling Social History Tobacco Use Types Packs/Day Years [...] of this encounter Progress Notes * Dinora Brumfield, RN - 10/18/2018 2:30 PM EDT Adult Travel Clinic Reason for Visit: Rita Schultz Marietta is a 27 y.o. old patient who comes to travel clinic today for pre-travel evaluation, vaccination and traveler's health education. She is here with her and son. Destination countries (list from first to last): [place], [facility], [facility] (6nights),[facility] (3 nights) Departure date: November 17 Length of trip: 10 days Purpose of travel: vacation Type of environment (urban or rural): urban and tourist Accommodations: independent [place], and hotels Medical History: Medical problems: Patient Active Problem List Diagnosis Code ??? Asthma J45.909 ??? Chiari malformation type I G93.5 ??? Female infertility associated with male factors Z31.81, N97.8 Immunosuppression: No recent steroid use; chemotherapy or other immunosuppresion. History of adverse vaccine reactions: None. History of latex, egg or beesting allergy: None. Not Not intending in the next several months. Discussed zika risks. Is . Medications: Current Outpatient Medications Medication Sig Dispense Refill ??? sertraline (ZOLOFT) 50 mg Tablet Take 50 mg by mouth daily. ??? magnesium 250 mg Tablet Take by mouth. ??? vitamin with kffemxbt-Yg-Dwrk-FA Tablet Take by mouth. ??? CIS Free Text Med - Albuterol ??? norgestimate-ethinyl estradiol (TRI SPRINTEC) 0.18/0.215/0.25 mg-35 mcg (28) Tablet Take 1 tablet by mouth daily. (Patient not taking: Reported on 10/05/2017) 84 tablet 0 No current facility-administered medications for this visit. Allergies: Amoxicillin-pot clavulanate Patient advised to carry all medications in carry on luggage. Travel Health and Safety Issues: A discussion of travel health hazards and safety issues was done with patient, including the following topics: traffic-accidents (alcohol, seatbelts, taxis), crime, alcohol related issues, sun exposure/heat illness, Schistosomiasis and other fresh water exposures, rabies, HIV infection, Hepatitis and other STI's, control, TB, embassy info, DVT prevention and health insurance coverage/[employer]. Food and Water Precautions Discussed food and water precautions and patient handout provided. The following strategies were recommended for the management of traveler's diarrhea according to severity: ??? For treatment of mild diarrhea: hydration and over the counter antidiarrheal recommended. ??? For treatment of moderately severe diarrhea (accompanied by fever or systemic illness): hydration and empiric treatment with antibiotic recommended. A prescription for azithroycin was e-faxed to the pharmacy. Discussed pros/cons of self treatment with one 500 mg dose of azithromycin (cons including rare side effects, drug drug interactions and disruption of normal gastric lawson). Advised to reserve its use to bad diarrhea accompanied by fever/illness and no ready access to medical care. ??? For severe or bloody diarrhea, or diarrhea accompanied by vomiting: patient advised to seek medical treatment. Vector-borne Disease Prevention Discussed insect bite prevention to reduce risk of malaria, dengue and other insect borne illnesses. Handout given. Malaria Risk: No malaria risk on this particular trip. Altitude: This trip does not involve high altitude. Immunization History Administered Date(s) Administered ??? DTaP 02/14/1989, 04/26/1989, 06/27/1989, 06/18/1990 ??? HPV, Quadrivalent 04/14/2007, 06/21/2007, 10/25/2007 ??? Hepatitis B Vaccine, unspecified formulation 02/09/1991, 03/17/1999, 08/18/1999 ??? Inactivated Polio Vaccine 02/14/1989, 04/26/1989, 06/18/1990, 01/17/1994 ??? Influenza PF, Split 02/18/2018 ??? MMR Vaccine, Live 03/19/1990, 01/26/1998 ??? Meningococcal Conjugate 01/10/2007 ??? Pneumococcal Polyvalent 23 09/10/2014 ??? Tdap Vaccine 01/11/2018 ??? Varicella Vaccine, LIVE 01/02/1995, 10/25/2007 Today Hep A #1 Typhoid - discussed, not a particularly high risk trip. Rabies - discussed animal avoidance, wound care and need for post-exposure prophylaxis. VIS sheets given. Follow up recommendations: She will need a second hepatitis A vaccine in 6-12 months. Patient advised to call travel clinic if they return from trip with any illness. Note written by DINORA BRUMFIELD RN Time spent in travel counselin min with family documented in this encounter Plan of Treatment Not on file documented as of this encounter Visit Diagnoses Diagnosis Healthcare maintenance Routine general medical examination at a health care facility Other specified counseling documented in this encounter Care Teams Process Engineering Intern Relationship Specialty Start Date End Date Alexa Hairston APRN [address] [place] [id number] PCP - General Family Medicine 03/31/16 documented as of this encounter
--- OUTSIDE RECORDS SUMMARY | 2024-06-16 16:43 | XMS_ITS | Encounter Summary ---
[facility] Organization [facility] [place] [address] Care Team Providers Care Stock Selector Name Role Phone Alexa Hairston APRN Primary Care Provider [phone] [phone] Encounter Details Date Type Department Care Team (Late st Contact Info) Description 09/07/2016 Orders Only Obstetrics [place] [address] Shamar Montero, RN Social History Tobacco Use Types Packs/Day [...] on filedocumented in this encounter Care Teams Stock Selector Relationship Specialty Start Date End Date Alexa Hairston APRN [address] [place] [address] PCP - General Family Medicine 03/31/16 documented as of this encounter
--- OUTSIDE RECORDS SUMMARY | 2024-06-16 16:43 | XMS_ITS | Encounter Summary ---
Author Organization [facility] Address [address] [place] [address] Care Team Providers Care Button Grader Name Role Phone Alexa Hairston APRN Primary Care Provider [phone] [phone] Reason for Visit * Reason Onset Date Comments Other 11/27/2016 Encounter Details Date Type Department Care Team (Late st Contact Info) Description 11/27/[address] [facility] [address] [address] Olga Noe RN examination or test, unconfirmed; Amenorrhea Social History Tobacco Use Types Packs/Day [...] Priority Date/Time Associated Diagnosis Comments PROGESTERONE Routine 11/24/2016 Amenorrhea examination or test, unconfirmed QUANT BETA HCG, Routine 11/24/2016 examination or test, unconfirmed Amenorrhea documented in this encounter Results * PROGESTERONE (11/24/2016) Progesterone, External 8.4 ng/ml POINT OF CARE Blood specimen (specimen) 11/24/2016 us Sofia Kaufman MD CHEMISTRY & BLOOD GAS ORD ERABLES Final Result POINT OF CARE * HCG FOR (11/24/2016) HCG, External negative POINT OF CARE Blood specimen (specimen) 11/24/2016 us Sofia Kaufman MD CHEMISTRY & BLOOD GAS ORD ERABLES Final Result Performing Organization Address City/State/[facility] Co de Phone Number POINT OF CARE documented in this encounter Visit Diagnoses Diagnosis examination or test, unconfirmed Amenorrhea Absence of menstruation documented in this encounter Care Teams Button Grader Relationship Specialty Start Date End Date Alexa Hairston APRN [address] [place] [address] PCP - General 10/26/16 07/11/20 documented as of this encounter
--- OUTSIDE RECORDS SUMMARY | 2024-06-16 16:43 | XMS_ITS | Encounter Summary ---
Author Organization [facility] [address] Care Team Providers Care Tool Worker Name Role Phone Alexa Hairston APRN Primary Care Provider [phone] [phone] Encounter Details Date Type Department Care Team (Late st Contact Info) Description 10/02/2016 Orders Only Obstetrics [place] [address] Sanaz Brown RN Procreative management Social History [...] as of this encounter Results * US Ultrasound Hysterosalpinogram (10/10/2016 3:43 PM EDT) Anatomical Region Laterality Modality Ultrasound 10/10/2016 3:27 PM EDT Impressions 10/10/2016 4:01 PM EDT Hysterosalpinogram - Summary SUBJECTIVE: The patient presents for an Ultrasound hystersalpinogram. ??Speculum placed without difficulty. ??Betadine prep. ??A (SHG) catheter placed without difficulty under direct visualization. ??Under T/V US guidance saline was injected into the uterine cavity and the uterine cavity was thoroughly inspected in a three dimensional fashion. ??Patient tolerated the procedure well. Summary: Bilateral tubal patency demonstrated. Normal uterine cavity Positive fluid in the posterior cul-de-sac with possible posterior cul-de-sac adhesions 3D reconstruction was used to evaluate the uterus. I ??viewed the images and agree with the above interpretation. ?Shakira M Dulce Vega MD Electronically Signed Final Report ?? 10/10/2016 04:00 pm Narrative 10/10/2016 4:01 PM EDT Gynecological Report ? (Signed Final 10/10/2016 04:00 pm) PATIENT INFO: ID #: ? [id number] ?: ??[birth year] (25 yrs) Name: ? RITA FLYNN ?Visit Date: 10/10/2016 03:27 pm PERFORMED BY: Performed By: ? Zully Archer RDMS Attending: ?Dulce Vega MD, Shakira Referred By: ?YARELI ALVAREZ Location: ? [place] SERVICE(S) PROVIDED: ??SG - Hysterosalpinogram - [id number] ? 27203, 60216 ??U3D - ??3D rendering with interpretation - [id number] ? [id number] INDICATIONS: ??tubal patency, CD 4-11 -------- HISTORY: -------- Age: ?? 25 ENDOMETRIUM: FALLOPIAN TUBE: Bilateral tubal patency demonstrated. RIGHT OVARY: Comment: ? Antral follicle:20 LEFT OVARY: Comment: ? Antral follicle:20 --------- COMMENTS: --------- 3D rendering with interpretation was performed Procedure Note Shakira Cwoart MD - 10/10/2016 Gynecological Report (Signed Final 10/10/2016 04:00 pm) PATIENT INFO: ID #: [id number] : [birth year] (25 yrs) Name: RITA FLYNN Visit Date: 10/10/2016 03:27 pm PERFORMED BY: Performed By: Zully Archer RDMS Attending: Shakira Cowart MD Referred By: YARELI ALVAREZ Location: [place] SERVICE(S) PROVIDED: [facility] - Hysterosalpinogram - [id number] [id number], 03641 U3D - 3D rendering with interpretation - [id number] INDICATIONS: tubal patency, CD 4-11 -------- HISTORY: -------- Age: 25 ENDOMETRIUM: FALLOPIAN TUBE: Bilateral tubal patency demonstrated. RIGHT OVARY: Comment: Antral follicle:20 LEFT OVARY: Comment: Antral follicle:20 --------- COMMENTS: --------- 3D rendering with interpretation was performed IMPRESSION Hysterosalpinogram - Summary SUBJECTIVE: The patient presents for an Ultrasound hystersalpinogram. Speculum placed without difficulty. Betadine prep. A (SHG) catheter placed without difficulty under direct visualization. Under T/V US guidance saline was injected into the uterine cavity and the uterine cavity was thoroughly inspected in a three dimensional fashion. Patient tolerated the procedure well. Summary: Bilateral tubal patency demonstrated. Normal uterine cavity Positive fluid in the posterior cul-de-sac with possible posterior cul-de-sac adhesions 3D reconstruction was used to evaluate the uterus. I viewed the images and agree with the above interpretation. Shakira Vega MD Electronically Signed Final Report 10/10/2016 04:00 pm Dominik Flanagan MD IMG US PELVIC ORDERA BLES documented in this encounter Visit Diagnoses Diagnosis Procreative management Unspecified procreative management Procreative management Unspecified procreative management documented in this encounter Care Teams Tool Worker Relationship Specialty Start Date End Date Alexa Hairston APRN [address] [place] [address] PCP - General Family Medicine 03/31/16 documented as of this encounter
--- OUTSIDE RECORDS SUMMARY | 2024-06-16 16:43 | XMS_ITS | Encounter Summary ---
Author Organization [facility] [place] [place] [address] Care Team Providers Care Natural Resource Economist Name Role Phone Alexa Hairston APRN Primary Care Provider [phone] Encounter Details Date Type Department Care Team (Late st Contact Info) Description 09/07/2016 Telephone Obstetrics [place] [id number] Shamar Montero RN Social History Tobacco Use Types Packs/Day [...] encounter Miscellaneous Notes * Telephone Encounter - Shamar Montero LPN - 09/07/2016 1:29 PM EDT TELEPHONE NOTE Caller: Rita Tavares Reason for call: Discuss irregular cycles Assessment: Patient is currently performing standard workup for infertility but is having difficulty scheduling hycosy with irregular cycles. Plan/Instructions: Per Sasha Jaime, patient can take one active pack of OCP and call with menses to schedule hycosy. Phone message left for patient with this information. documented in this encounter Plan of Treatment Not on file documented as of this encounter Visit Diagnoses Not on filedocumented in this encounter Care Teams Natural Resource Economist Relationship Specialty Start Date End Date Alexa Hairston APRN [address] [place] [address] PCP - General Family Medicine 03/31/16 documented as of this encounter
--- OUTSIDE RECORDS SUMMARY | 2024-06-16 16:43 | XMS_ITS | Encounter Summary ---
Author Organization [facility] [place] [place] [address] Care Team Providers Care Boat Tester Name Role Phone Alexa Hairston APRN Primary Care Provider [phone] [phone] Encounter Details Date Type Department Care Team (Late st Contact Info) Description 07/13/2016 External Results Obstetrics and Gynecology at [place] [address] Provider, Scanning Social History Tobacco Use Types [...] Date/Time Associated Diagnosis Comments LAB SCAN Routine 07/07/2016 documented in this encounter Results * Scan Doc: Lab (07/07/2016) Scanning Provider MEDIA MGR SCAN EXT O RDR/RSLT documented in this encounter Visit Diagnoses Not on filedocumented in this encounter Care Teams Boat Tester Relationship Specialty Start Date End Date Alexa Hairston APRN [address] [place] [address] PCP - General Family Medicine 03/31/16 documented as of this encounter
--- OUTSIDE RECORDS SUMMARY | 2024-06-16 16:43 | XMS_ITS | Encounter Summary ---
Author Organization [facility] Address [address] [place] [address] Care Team Providers Care Underwriting Operations Manager Name Role Phone Unknown, Provider Primary Care Provider Unava ilable Encounter Details Date Type Department Care Team (Late st Contact Info) Description 04/25/2016 Results Only [facility] [phone] Jennifer Matthews MD [address] [place] [address] Social History Tobacco Use Types Packs/Day Years [...] Date/Time Associated Diagnosis Comments SURGICAL PATHOLOGY Routine 04/25/2016 9:59 EST documented in this encounter Results * SURGICAL PATHOLOGY (04/25/2016 9:59 EST) Pathology Report: SURGICAL PATHOLOGY REPORT Reports generated via electronic interface contain original data; however they are lacking the format of the original report. Caution should be taken when reading/interpret ing unformatted reports. Name: ? EBONI FLYNN ? Accession #: ? [id number] ? : ? 1990 (Age: 25) ??F ? Collect Date: ? 04/25/2016 ? Location: ? [facility] ? Receive Date: ? 04/26/2016 ? Provider: JENNIFER MATTHEWS MD Copy to: ANUEL JENSEN ASSET PROTECTION ASSOCIATE ? Final Pathologic Diagnosis: SUBMITTED PILONIDAL CYST, EXCISION: - Subcutaneous tissue with focal fibrosis, chronic inflammation, hemosiderin deposition and foreign body-type giant cell reaction. See comment. ?? Comment: While no definitive cyst is identified, the histologic features could be compatible with a pilonidal cyst in the appropriate clinical setting. Document reviewed and electronically signed by: ANTOINETTE AGUIRRE MD Report ??Date: 04/28/2016 09:50 By the signature above, the attending physician certifies that he/she has personally conducted a gross and/or microscopic examination of the described specimens and rendered or confirmed the above diagnosis. Specimen(s) Received: Pilonidal cyst Clinical History: Pilonidal cyst Gross Description: ? Received in formalin labelled with proper patient identification (initials D, A) and pilonidal cyst are multiple fragments of madrid-yellow, focally hemorrhagic fibrofatty tissue (1.0 x 1.4 x 1.8 cm in aggregate). A discrete cystic structure is not discernible. The specimen is submitted entirely, with the two largest tissue fragments bisected and submitted in 1 and 2 and the remaining fragments submitted in 3. Bernadine Ford 04/26/2016 11:07 AM End of Report [facility] 04/25/2016 9:59 EST 04/26/2016 9:59 EST us Jennifer Matthews MD PATHOLOGY ORDERABLES Fin al Result [facility] [address] [place] [address] documented in this encounter Visit Diagnoses Not on filedocumented in this encounter Care Teams Underwriting Operations Manager Relationship Specialty Start Date End Date Unknown, Provider, PCP - General 07/10/14 10/25/16 documented as of this encounter
--- OUTSIDE RECORDS SUMMARY | 2024-06-16 16:43 | XMS_ITS | Encounter Summary ---
Author [facility] [place] [address] Care Team Providers Care Practice Clinician Name Role Phone Alexa Hairston APRN Primary Care Provider [phone] [phone] Encounter Details Date Type Department Care Team (Latest Contact Info) Description 10/10/2016 3:21 PM EDT - 10/10/2016 11:59 PM EDT Hospital [place] [id number] FlanaganDominik jackson MD Procreative management Discharge Disposition: Home Social History Tobacco Use Types Packs/Day Years Used Date Smoking Tobacco: Never Alcohol Use Standard Drinks/Week Comments Yes 0 (1 standard drink = 0.6 oz pur e alcohol) socially Sex and Gender Information Value Date Recorded Sex Assigned at Not on file Gender Identity Not on file Sexual Orientation Not on file documented as of this encounter Medications at Time of Discharge Medication Sig Dispensed Refills Start Date End Date norgestimate-ethinyl estradiol (TRI SPRINTEC) 0.18/0.215/0.25 mg-35 mcg (28) Tablet Take 1 tablet by mouth daily. 84 tablet 09/07/2016 vitamin with [id number] Tablet Take by mouth. CIS Free Text Med - Albuterol 04/13/2006 documented as of this encounter Plan of Treatment Not on file documented as of this encounter Procedures Procedure Name Priority Date/Time Associated Diagnosis Comments US HYSTEROSALPINOGRAM Routine 10/10/2016 3:43 PM EDT Procreative management documented in this encounter Results * US Ultrasound Hysterosalpinogram [...] 04:00 pm) PATIENT INFO: ID #: ? [id number] ?: ??[birth year] (25 yrs) Name: ? EBONI FLYNN ?Visit Date: 10/10/2016 03:27 pm PERFORMED BY: Performed By: ? Zully Archer RDMS Attending: ?Dulce Vega MD, Shakira Referred By: ?YARELI ALVAREZ Location: ? [place] SERVICE(S) PROVIDED: ??[facility] - Hysterosalpinogram - [id number] ? 66203, 77362 ??U3D - ??3D rendering with interpretation - [id number] ? [id number] INDICATIONS: ??tubal patency, CD 4-11 -------- HISTORY: -------- Age: ?? 25 ENDOMETRIUM: FALLOPIAN TUBE: Bilateral tubal patency demonstrated. RIGHT OVARY: Comment: ? Antral follicle:20 LEFT OVARY: Comment: ? Antral follicle:20 --------- COMMENTS: --------- 3D rendering with interpretation was performed Procedure Note Shakira Cowart MD - 10/10/2016 Gynecological Report (Signed Final 10/10/2016 04:00 pm) PATIENT INFO: ID #: [id number] : [birth year] (25 yrs) Name: EBONI FLYNN Visit Date: 10/10/2016 03:27 pm PERFORMED BY: Performed By: Zully Archer RDMS Attending: Shakira Cowart MD By: YARELI ALVAREZ Location: [place] SERVICE(S) PROVIDED: [facility] - Hysterosalpinogram - [id number] [id number], 48782 U3D - 3D rendering with interpretation - [id number] INDICATIONS: tubal patency, CD 4-11 -------- HISTORY: [...] management documented in this encounter Care Teams Practice Clinician Relationship Specialty Start Date End Date Alexa Hairston, HAND CANDLE DIPPER [address] [place] [address] PCP - General Family Medicine 03/31/16 documented as of this encounter
--- OUTSIDE RECORDS SUMMARY | 2024-06-16 16:43 | XMS_ITS | Encounter Summary ---
Author Organization [facility] Address [address] [place] [address] Care Team Providers Care Boxing And Pressing Supervisor Name Role Phone Alexa Hairston CASE MONITOR Primary Care Provider [phone] [phone] Reason for Visit * Reason Onset Date Comments Results 10/30/2016 Encounter Details Date Type Department Care Team (Late st Contact Info) Description 10/30/2016 Telephone [facility] - [address] [address] Sofia Kaufman MD [address] [facility], [address] [place] [address] Results Social History Tobacco Use [...] Telephone Encounter - Sofia Kaufman MD - 10/30/2016 1214 EDT Component Latest Ref Rng & Units 10/27/2016 Progesterone ng/ml 0.4 Informed that prog negative, so had not ovulated yet. This may be a longer than average cycle. She will call RNs w next menses for letrozole Rx. Sofia Kaufman MD documented in this encounter Plan of Treatment Not on file documented as of this encounter Visit Diagnoses Not on filedocumented in this encounter Care Teams Boxing And Pressing Supervisor Relationship Specialty Start Date End Date Alexa Hairston APRN [address] [place] [address] PCP - General 10/26/16 07/11/20 documented as of this encounter
--- OUTSIDE RECORDS SUMMARY | 2024-06-16 16:43 | XMS_ITS | Encounter Summary ---
Author Organization [facility] Address [address] [place] [address] Care Team Providers Care Redrawer Name Role Phone Nasra Sanchez MD Primary Care Provider [phone] Reason for Visit * Reason Comments Abdominal Pain Intermittant caitlin-um bilical pain for past 2 months. Walking makes it worse, pepto makes it better. Lying flat is hew position of comfort. Non-radiating pain described as dull and achy with occasional nausea. No vomitting. No fever. Sometimes eating makes it worse and stomach is gurguly. Occ. loose stools but otherwise nomal BM's. No change in urination. Normal mestruation. Encounter Details Date Type Department Care Team (Latest Contact Info) Description 09/10/2010 18:20 EDT - 09/10/2010 20:06 EDT Hospital Encounter [facility] - [address] [id number] Gurwinder Ornelas MD [address] [place] [address] [phone] Abdominal pain; Gastritis Discharge Disposition: Home or Self Care Social [...] Sign Reading Time Taken Comments Blood Pressure 139/75 09/10/2010 1842 EDT Pulse 84 09/10/2010 1842 EDT Temperature 36.9 ??C (98.5 ??F) 09/10/2010 1842 EDT Respiratory Rate 16 09/10/2010 184 EDT Oxygen Saturation - - Inhaled Oxygen Concentration - - Weight - - Height - - Body Mass Index - - documented in this encounter Discharge Instructions * Discharge Instructions* Gurwinder Ornelas MD - 09/10/2010 19:41 EDT We will call you if any of the labs are abnormal and will also let him know the results of your H. Pylori test * Attachments The following attachments cannot be sent through Care Everywhere. * ABDOMINAL PAIN IN ADULTS: AFTER YOUR VISIT (URUGUAYAN) * GASTRITIS: AFTER YOUR VISIT (URUGUAYAN) documented in this encounter Medications at Time of Discharge omeprazole (PRILOSEC) 20 mg capsule Take 1 Cap by mouth. Take the medication twice a day for the first week and then continue taking it once a day. If stomach pain comes back go back to taking it twice a day. 60 Cap 2 09/10/2010 0 UNKNOWN TO PATIENT Reported on 10/27/2016 8 documented as of this encounter Ordered Prescriptions Prescription Sig Dispense Quantity Refills Last Filled Start Date End Date omeprazole (PRILOSEC) 20 mg capsule Take 1 Cap by mouth. Take the medication twice a day for the first week and then continue taking it once a day. If stomach pain comes back go back to taking it twice a day. 60 Cap 2 09/10/2010 0 documented in this encounter Discharge Disposition Disposition Code Departure Means Destination Home or Self Care Car documented in this encounter ED Notes * Cecily Vogel - 09/14/2010 0900 EDT Called patient back with lab results all normal. * Alissa Smith - 09/10/2010 195 EDT Pre-procedure time out completed prior to blood draw, pt identified self by name and . Verified by ALISSA SMITH MA. Blood drawn via butterfly needle per protocol, [place] and Purple tube(s) sent tolab per order. * Gurwinder Ornelas MD - 09/10/20101941 EDT Images from the original note were not included. DOS: 09/10/2010 Chief Complaint Patient presents with ??? Abdominal Pain Intermittant caitlin-umbilical pain for past 2 months. Walking makes it worse, pepto makes it better. Lying flat is hew position of comfort. Non-radiating pain described as dull and achy with occasional nausea. No vomitting. No fever. Sometimes eating makes it worse and stomach is gurguly. Occ. loose stools but otherwise nomal BM's. No change in urination. Normal mestruation. The patient is a 19 y.o. female who presents today with Abdominal Pain Abdominal Pain Pertinent negatives include diarrhea, nausea, vomiting and constipation. this patient presents having had intermittent upper abdominal pain for a month and a half to 2 months. She stayed in the past that she is febrile he had significant abdominal troubles in the past nor has sensitive stomach . There is no significant family history of peptic ulcer disease cholelithiasis pancreatitis or other GI problems. She in the past and used a lot of NSAIDs related to a neck injury and surgery and has been using very little of these recently. She is a very light social drinker and she is a nonsmoker. No frequent use of NSAIDs or aspirin or Neva-Peculiar at this point though she has been trying TUMS intermittently and using Pepto-Bismol at times. 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 At that time she did have some nausea but no diarrhea or vomiting. Since then most but not all days a week she'll sense some upper abdominal tightness certainly tightconstant cramping that makes her slightly nauseous it is a little bit uncomfortable movement. This has not changed her up once a day stooling habit and there's been no melena or change in stoolcaliber. She occasionally gets a taste of waterbrash at times. In the point that she exhibited anything floor of light peritoneal signs. This pain does not radiate to the back of the shoulder blade. She states that most mornings she wakes up feeling okay but the pain increases through the day. Though she gets a bit nauseous she does not have significant problems if she does eat while having the pain. There has not been any specific relationship i.e. Worse on an empty stomach were worse after eating. She has experimented somewhat changing types of food and not have a significant effect with that. She states that she has been under a fair amount of stress both through completing schooling and working in the [employer] at the same time. She is graduating this sprain plan pending at [employer] at that time. She has no ill close contacts other than usual viral illnesses She's had no weight gain or weight loss Review of Systems Constitutional: Positive for appetite change. Respiratory: Negative. Cardiovascular: Negative. Gastrointestinal: Positive for abdominal pain. Negative for nausea, vomiting, diarrhea, constipation, blood in stool, abdominal distention, anal bleeding and rectal pain. Skin: Negative for rash. No current facility-administered medications on file. Current outpatient prescriptions Medication Sig Dispense Refill ??? UNKNOWN TO PATIENT Allergies Allergen Reactions ??? Augmentin (Amoxicillin-pot Clavulanate) Rash History reviewed. No pertinent past medical history. History Substance Use Topics ??? Smoking status: Never Smoker ??? Smokeless tobacco: Not on file ??? Alcohol Use: Yes occ History reviewed. No pertinent family history. BP 139/75 Pulse 84 Temp(Src) 98.5 ??F (36.9 ??C) (Temporal) Resp 16 Physical Exam Constitutional: She appears well-developed and well-nourished. No distress. Well-appearing pleasant young ectomorphic woman. HENT: Head: Normocephalic. Right Ear: External ear normal. Left Ear: External ear normal. Mouth/Throat: Oropharynx is clear and moist. Eyes: Conjunctivae are normal. Pupils are equal, round, and reactive to light. Neck: Normal range of motion. Neck supple. Cardiovascular: Normal rate and regular rhythm. Pulmonary/Chest: Effort normal and breath sounds normal. Abdominal: Soft. Bowel sounds are normal. She exhibits no distension and no mass. She has no rebound and no guarding. No CVA tenderness Musculoskeletal: Normal range of motion. Neurological: She is alert. Skin: Skin is warm and dry. She is not diaphoretic. Psychiatric: She has a normal mood and affect. Her behavior is normal. Judgment and thought contentnormal. She is slightly anxious however mostly anxious about her phlebotomy. Consult orders: None PCP: Nasra Sanchez MD, MD Results for orders placed during the hospital encounter of 09/10/10 POCT URINE DIPSTICK Component Value Range ??? Color, UA Yellow ??? Clarity, UA Clear ? ? Glucose, UA Negative > Negative (mg/dL) ? ? Bilirubin, UA Negative > Negative ? ? Ketones, UA Negative > Negative (mg/dL) ? ? Spec Grav, UA 1.015 > 1.010, 1.015, 1.020, 1.025 ? ? Blood, UA 2+ (*) > Negative ??? pH, UA 7.5 4.6 - 8.0 ? ? Protein, UA Negative > Negative (mg/dL) ??? Urobilinogen, UA 0.2 0.2 - 1.0 (E.U./dL) ? ? Nitrite, UA Negative > Negative ? ? Leuk Esterase 1+ (*) > Negative ??? Comment POCT URINE TEST Component Value Range ? ? Test, Urine, POC Negative > Pending, Negative ??? Control Line Present Yes ??? Background Clear? Yes Radiology orders: None Procedures Course: We'll check for hepatic biliary pancreatic trouble. Feel this most likely represents GI symptoms ofthe range of gastritis peptic ulcer or duodenitis. Though her pain is persistent there still appeared to be fairly large and quick magnitude changes of the pain which suggest a heavy colicky nature. However I am not seeing much the way in exam and history that suggest biliary disease at this point. Will get a test for H. Pylori at this time and treat for a month with proton pump inhibitors. She'll followup if not getting significant change in this over a week. 1. Abdominal pain (789.00AP) POCT URINE DIPSTICK, POCT URINE TEST, POCT URINE DIPSTICK, POCT URINE TEST, URINE MICROSCOPIC ONLY, URINE MICROSCOPIC ONLY 2. Gastritis (535.50H) MDM 09/10/2010 19:42 documented in this encounter Miscellaneous Notes * Scanned Note-Null - Inpatient, Physician - 09/10/2010 0000 EDT documented in this encounter Plan of Treatment Not on file documented as of this encounter Procedures Procedure Name Priority Date/Time Associated Diagnosis Comments HELICOBACTER PYLORI IGG ANTIBODY STAT 09/10/2010 19:48 EDT Abdominal pain Gastritis COMPLETE BLOOD COUNT AND DIFFERENTIAL STAT 09/10/2010 19:48 EDT Abdominal pain Gastritis LIPASE STAT 09/10/2010 19:48 EDT Abdominal pain Gastritis COMPREHENSIVE METABOLIC PANEL (CMP) STAT 09/10/2010 19:48 EDT Abdominal pain Gastritis URINE SEDIMENT (MICRO) WITHOUT REFLEX TO CULTURE STAT 09/10/2010 19:14 EDT Abdominal pain POCT TEST, VISUAL READ STAT 09/10/2010 19:11 EDT Abdominal pain POCT URINE DIPSTICK, CLINITEK STAT 09/10/2010 19:11 EDT Abdominal pain documented in this encounter Results * LIPASE (09/10/2010 19:48 EDT) Lipase 43 0 - 250 U/L [facility] Blood specimen (specimen) 09/10/2010 19:48 EDT 09/10/2010 21:00 EDT us Gurwinder Ornelas MD CHEMISTRY & BLOOD GAS ORDERABLES Final Result [facility] [address] [place] [address] * (ABNORMAL) COMPREHENSIVE METABOLIC PANEL (CMP) (09/10/2010 19:48 EDT) Potassium 4.2 3.5 - 5.0 mEq/L [facility] Sodium 140 136 - 145 mEq/L [facility] Chloride 105 96 - 110 mEq/L [facility] CO2 28 24 - 32 mEq/L [facility] Total Alkaline Phosphatase 48 38 - 126 U/L [facility] Bilirubin, Total <0.5 0.2 - 1.3 mg/dl [facility] AST 19 15 - 46 U/L [facility] ALT 21 9 - 52 U/L [facility] Albumin 4.2 3.4 - 4.9 g/dl [facility] Total Protein 7.2 6.5 - 8.3 g/dl [facility] Creatinine 0.90 0.7 - 1.5 mg/dl [facility] GFR, Calculated >60 ml/min/1.7 3m2 [facility] BUN 8(L) 10 - 26 mg/dl [facility] Calcium 8.8 8.5 - 10.5 mg/dl [facility] Calculated Calcium 9.0 8.5 - 10.5 mg/dl [facility] Glucose, Serum 82 70 - 100 mg/dl [facility] Fasting? Unknown [facility] Blood specimen (specimen) 09/10/2010 19:48 EDT 09/10/2010 21:00 EDT us Gurwinder Ornelas MD CHEMISTRY & BLOOD GAS ORDERABLES Final Result Performing Organization Address City/State/[facility] Co de Phone Number [facility] [address] [place] [address] * HEMAGRAM AND DIFFERENTIAL (09/10/2010 19:48 EDT) WBC 6.35 4.0 - 12.4 K/cmm [facility] RBC 4.08 3.86 - 5.04 M/cmm [facility] Hemoglobin 12.3 11.6 - 15.2 gm/dl [facility] HCT 36.1 34.9 - 44.4 % [facility] MCV 88 81 - 98 fl [facility] MCH 30.3 26.7 - 33.3 pg [facility] MCHC 34.2 32.1 - 35.9 gm/dl [facility] PLT 285 141 - 320 K/cmm [facility] RDW-CV 12.5 11.7 - 14.6 % [facility] % Neutrophils 60.2 45.5 - 79.7 % [facility] % Lymphocytes 29.0 15.0 - 46.8 % [facility] % Monocytes 7.5 1.8 - 12.0 % [facility] % Eosinophils 3.0 0.6 - 6.9 % [facility] % Basophils 0.3 0.2 - 1.4 % [facility] ABS Neutrophils 3.82 2.20 - 8.85 K/cmm [facility] ABS Lymphs 1.84 1.09 - 3.30 K/cmm [facility] ABS Monocytes 0.48 0.1 - 0.8 K/cmm [facility] ABS Eosinophils 0.19 0.03 - 0.61 K/cmm [facility] ABS Basophils 0.02 0.01 - 0.11 K/cmm [facility] Type of Diff: Automated [facility] Blood specimen (specimen) 09/10/2010 19:48 EDT 09/10/2010 21:00 EDT Gurwinder Ornelas MD PACKAGES & DNA PROBE O RDERABLES Final Result Performing Organization Address [facility] Co de Phone Number [facility] [address] [place] [address] * HELICOBACTER PYLORI IGG ANTIBODY (09/10/2010 19:48 EDT) H Pylori IgG 0.4 U/mL [facility] Comment: Interpretation: ??Negative Negative is <0.9 U/mL Assayed utilizing the [facility] Immulite 2500. Values may vary with other methods. Blood specimen (specimen) 09/10/2010 19:48 EDT 09/10/2010 21:00 EDT Gurwinder Ornelas MD CHEMISTRY & BLOOD GAS ORDERABLES Final Result Performing Organization Address [facility] Co de Phone Number [facility] [address] [place] [address] * (ABNORMAL) URINE MICROSCOPIC ONLY (09/10/2010 19:14 EDT) WBC, UA 1 to 5 0 - 5 /HPF [facility] RBC, UA 1 to 5 0 - 5 /HPF [facility] Squam Epithel, UA Innum(A) NS /HPF [facility] Renal Epithel, UA None seen NS /HPF [facility] Bacteria, UA Rare(A) NS /HPF [facility] Crystals, UA None seen /HPF [facility] Hyaline Casts, UA None seen /LPF [facility] UA Comment Microscopic results are unreliable on urines unrefrig >2hrs or refrig >8hrs. [facility] Urine specimen (specimen) 09/10/2010 19:14 EDT 09/10/2010 21:00 EDT Gurwinder Ornelas MD URINALYSIS ORDERABLES Final Result [facility] [address] [place] [address] * POCT URINE TEST (09/10/2010 19:11 EDT) Test, Urine, POC Negative Pending, Negative POINT OF CARE Control Line Present Yes POINT OF CARE Background Clear? Yes POINT OF CARE Urine specimen (specimen) 09/10/2010 19:11 EDT us Teri Troy MD POINT OF CARE TEST ORDERA BLES Final Result POINT OF CARE * (ABNORMAL) POCT URINE DIPSTICK (09/10/2010 19:11 EDT) Color, UA Yellow POINT OF CARE Clarity, UA Clear POINT OF CARE Glucose, UA Negative Negative mg/dL POINT OF CARE Bilirubin, UA Negative Negative POINT OF CARE Ketones, UA Negative Negative mg/dL POINT OF CARE Spec Grav, UA 1.015 1.010, 1.015, 1.020, 1.025 POINT OF CARE Blood, UA 2+(A) Negative POINT OF CARE pH, UA 7.5 4.6 - 8.0 POINT OF CARE Protein, UA Negative Negative mg/dL POINT OF CARE Urobilinogen, UA 0.2 0.2 - 1.0 E.U./dL POINT OF CARE Nitrite, UA Negative Negative POINT OF CARE Leuk Esterase 1+(A) Negative POINT OF CARE Comment POINT OF CARE Urine specimen (specimen) 09/10/2010 19:11 EDT us Teri Troy MD POINT OF CARE TEST ORDERA BLES Final Result POINT OF CARE documented in this encounter Visit Diagnoses Diagnosis Abdominal pain Abdominal pain, unspecified site Gastritis Unspecified gastritis and gastroduodenitis without mention of hemorrhage documented in this encounter Historical Medications * This list may reflect changes made after this encounter. UNKNOWN TO PATIENT Reported on 10/27/2016 04/07/2018 added in this encounter Care Teams Redrawer Relationship Specialty Start Date End Date Nasra Sanchez MD [address] [place] [phone] PCP - General 09/10/10 07/09/14 documented as of this encounter
--- OUTSIDE RECORDS SUMMARY | 2024-06-16 16:43 | XMS_ITS | Encounter Summary ---
Author Organization [facility] [place] [address] Care Team Providers Care Heart Coordinator Name Role Phone Alexa Jensen APRN Primary Care Provider [phone] Reason for Visit * Reason Comments Annual Exam Encounter Details Date Type Department Care Team (Latest Contact Info) Description 03/31/2016 9:00 AM EDT Office Visit Obstetrics [place] [address] Jessica Eldridge APRN [facility] [place] [address] Encounter for gynecological examination (Primary Dx); Chiari malformation type I; Abnormal uterine bleeding (AUB) Social History Tobacco Use Types Packs/Day Years [...] Sign Reading Time Taken Comments Blood Pressure 126/66 03/31/2016 9:14 AM EDT Pulse 81 03/31/2016 9:14 AM EDT Temperature 37 ??C (98.6 ??F) 03/31/2016 9:14 AM EDT Respiratory Rate 18 03/31/2016 9:14 AM EDT Oxygen Saturation 98% 03/31/2016 9:14 AM EDT Inhaled Oxygen Concentration - - Weight 64.9 kg (143 lb) 03/31/2016 9:14 AM EDT Height 169.1 cm (5' 6.58) 03/31/2016 9:14 AM ED T Body Mass Index 22.68 03/31/2016 9:14 AM EDT documented in this encounter Progress Notes * Schultzkatina Mclean, CURATORIAL ASSISTANT - 03/31/2016 9:00 AM EDT Reason for Visit: Annual WWV Subjective: Rita Tavares is a 25 y.o. female who is here today for her annual well woman visit. Her last PAP was done in 2013 and it was normal. She has no history of abnormal paps. Rita reports that hermenses started at age 10. They have been irregular since that time, except for when she was on OCP's, however, she still experienced spotting with the pill. Current menstrual cycles come every 30-60 d ays and last anywhere from 7-14 days. Rita does have 5 days of cramping that usually precedes the start of her menses. She does have intermenstrual bleeding. This can occur with sex or at random times also. The spotting ranges from a thick tiburcio brown discharge to a bright red active bleed. Rita is and has been with her for the past 6.5 years. They are sexually active withoccasional pain and bleeding with sex. Rita states that position changes don't seem to effect either, as sometimes the the pain and bleeding happen and the following week they use the same position and the pain and bleeding are absent. Rita is planning on children. She stopped control in September 2014. Since June 2015 they have been actively trying to conceive. She does report that she had a work-up about 1 year ago of her thyroid, prolactin and other hormonal labs, all of which were normal. She will sign a records release today. Patient's last menstrual period was 02/04/2016. She's had two negative home tests. Diet and Exercise - Rita reports that she takes a vitamin daily. She gets regular exerciseby walking, riding horses, cross country skiing, etc. Immunization Status - Rita has completed her HPV vaccination series. Patient Active Problem List Diagnosis Date Noted ??? Asthma 03/31/2016 ??? Chiari malformation type I 03/31/2016 Past Medical History Diagnosis Date ??? Anxiety in counseling years ago and no issues with this since ??? Asthma ??? Chiari malformation type I ??? Pneumonia age 2-5 Past Surgical History Procedure Laterality Date ??? Neck surgery 11/2000 for Chirari malformation Outpatient Prescriptions Marked as Taking for the 03/31/16 encounter (Office Visit) with Jessica Eldridge APRN Medication Sig Dispense Refill ??? vitamin with eriqensk-Ma-Adyj-FA Tablet Take by mouth. ??? CIS Free Text Med - Albuterol ??? [DISCONTINUED] CIS Free Text Med - Flovent 2 Puff(s), Inh, twice daily with rinses prn Allergies Allergen Reactions ??? Amoxicillin-Pot Clavulanate CIS - Rash ROS: General: No fever, unplanned changes in weight, or fatigue. Genitourinary: No UTI s/sx or changes in bladder habits. Denies vaginal discharge, odor or discomfort. No pelvic pain. Endocrine: No sexual changes, or abnormal hair growth. See HPI for menstrual changes. Skin/Breast: No masses, skin changes, or nipple discharge. Objective: BP 126/66 (Patient Position: Sitting) Pulse 81 Temp 37 ??C (98.6 ??F) (Temporal) Resp 18 Ht 169.1 cm (5' 6.58) Wt 64.9 kg (143 lb) LMP 02/04/2016 SpO2 98% BMI 22.68 kg/m2 General: Appears healthy and well nourished. No apparent distress. Thyroid: Symmetrical. No palpable masses. Not enlarged. Breasts: No lymphadenopathy. No palpable masses bilaterally. No skin changes. No nipple discharge or retraction. Pelvic Exam: Urethra: No lesions. Normal opening. Vulva: No lesions. Normal hair distribution. Vagina: [place], moist, rugated. Thick, brown menstrual discharge noted. No lesions. Cervix: No CMT. Anterior, pink and smooth. No abnormal discharge. Ectropion of columnar epithelium visible at external cervical os. Friable and tender to touch. Pap obtained. Uterus: Small, firm, non-tender, mobile. Position R/V. Adnexa: No masses or tenderness bilaterally. Ovaries non-palpable. Assessment/Plan: Normal wiping rag washer exam. Pap sent to lab early to ensure cervical health. If normal, continue routine screening Q3 yrs. Irregular bleeding. I discussed with Rita that this will make conception more difficult, as she cannot accurately time menses. STI screening sent to routinely rule out GC/CT. test in the clinic today is negative. Rita will have her lab records sent and we signed paperwork for this today. Preconception counseling. Rita should continue her vitamin. She is avoiding ETOH and we reviewed avoiding this during the luteal phase of her menstrual cycle. She isn't on any current medications that are unsafe for . I gave Rita a card for Sasha Jaime APRN and she is aware to callif she has not conceived by June for a meeting with the reproductive endocrinology specialists. Counseled on self-breast awareness. Reviewed reasons to call such as breast pain or any change in skin contour or color. Rita sees her primary care provider ALEXA JENSEN APRN for age and disease specific screening not related to gynecological care Return for annual WWV in 1 year and PRN I had Dr. Elizabeth evaluate Rita's cervix with me and no further follow-up needs to be done for her abnormal bleeding at this time. JESSICA ELDRIDGE APRN 03/31/2016 documented in this encounter Plan of Treatment Not on file documented as of this encounter Procedures Procedure Name Priority Date/Time Associated Diagnosis Comments LABOR RELATIONS WORKER CYTOLOGY INTERPRETATION Routine 03/31/2016 10:11 AM EDT GC/CHLAMYDIA Routine 03/31/2016 10:11 AM EDT Abnormal uterine bleeding (AUB) GC/CHLAM Routine 03/31/2016 10:11 AM EDT Abnormal uterine bleeding (AUB) LABOR RELATIONS WORKER CYTOLOGY FINAL REPORT Routine 03/31/2016 10:11 AM EDT CYTOPATHOLOGY GYNECOLOGICAL Routine 03/31/2016 10:11 AM EDT Encounter for gynecological examination POCT URINE Routine 03/31/2016 Abnormal uterine bleeding (AUB) documented in this encounter Results * Underwriting Account Representative Cytology Final Report (03/31/2016 10:11 AM EDT) Pathologist [facility] Underwriting Account Representative Cytology Final Report [id number] ? Location: 5L The signing pathologist has (i) examined the relevant preparation(s) for the specimen(s) and (ii) rendered or confirmed the diagnosis(es). . ? Underwriting Account Representative Final DIAGNOSIS Normal Negative for Intraepithelial Lesion or Malignancy (NILM). For consensus guidelines for the management of cervical cancer screening test results, please see: ?? http://www.asccp.o rg/guidelines . Electronically signed by: ??Mack CT(ASCP), Flaquita L Verified: ??04/05/2016 ?Informatics Developer HPV RESULTS Not applicable (HPV testing either not indicated or not requested by clinician). STATEMENT OF ADEQUACY Specimen submitted is satisfactory. Endocervical component present. CLINICAL INFORMATION HPV Option: ? Reflex HPV Preparation: ?Liquid Based Pap Specimen Source: ?Cervical Endocervical LBP LMP: ?02/04/16 Hormones?: ?No Hysterectomy?: ?No ?: ?No ?: ?No I.U.D.?: ?No Pelvic Radiation: ? No Prior LABOR RELATIONS WORKER Therapy?: ? No Hist Abnl Pap/Biopsy?: ??No Hist of HPV Vaccine?: ?? Yes Hist of Smoking?: ? No Hist of WIL exposure?: ??No Clinical Data, Significant Therapy and Clinical Impression ?? : ?? _ This Pap Test has been evaluated with the assistance of the ThinPrep Pap Test Imaging System. Note: The Pap test is a screening test for cervical cancer with an inherent false-negative rate dependent upon several variables. ??For further information please contact the [facility] Laboratory. Reference: ??Ababhirotletitia CS. ??Leather Goods Maker of Pap Smear Results. ??In: ??James BS, Don[facility]on [facility], ed. ??The Pap Smear. ??[place]: ??Julien, 2002: ??71-77. [facility] 03/31/2016 10:1 1 AM EDT Jessica Vinay Aretha CURATORIAL ASSISTANT PATHOLOGY/CY TOLOGY ORDERABLES Performing Organization Address [facility] Co de Phone Number [facility] [place] [address] * LABOR RELATIONS WORKER Cytology Interpretation (03/31/2016 10:11 AM EDT) Underwriting Account Representative Cytology Interpretation [facility] Comment:Underwriting Account Representative Cytology Final R eport Endocervical Component Present [facility] AP Specimen 03/31/2016 10:1 1 AM EDT 04/05/2016 8:24 PM EDT Jessica Vinay Aretha CORDERON PATHOLOGY/CY TOLOGY ORDERABLES Performing Organization Address [facility] Co de Phone Number [facility] [place] [address] * GC/Chlam (03/31/2016 10:11 AM EDT) GC Gene Amp Negative Negative [facility] Comment: The only FDA approved specimen types for this assay are cervix, vagina, urethra and urine. GC Source Vaginal [facility] Chlamydia Gene Amp Negative Negative [facility] Comment: The only FDA approved specimen types for this assay are cervix, vagina, urethra and urine. Chlm Source Vaginal [facility] Vaginal 03/31/2016 10:1 1 AM EDT 03/31/2016 1:12 PM EDT Narrative Resulting Agency Comment Spec In Lab Kofi Galan MD MICROBIOLOGY - GENER AL ORDERABLES Performing Organization Address City/[facility]/ZIP Co de Phone Number [facility] [place] [address] * Cytopathology Gynecological (03/31/2016 10:11 AM EDT) AP Specimen 03/31/2016 10:1 1 AM EDT 03/31/2016 10:11 AM EDT Narrative [facility] - 03/31/2016 10:11 AM EDT Specimen requisition ordered. ??Separate Pathology report to follow Kofi Galan MD PATHOLOGY/CYTOLOGY O RDERABLES Performing Organization Address City/[facility]/ZIP Co de Phone Number [facility] [place] [address] * POCT urine (03/31/2016) POC Urine HCG Negative Negative - Negative POC Control Internal Controls Acceptable 03/31/2016 Kofi Galan MD POINT OF CARE TEST O RDERABLES documented in this encounter Visit Diagnoses Diagnosis Encounter for gynecological examination- Primary Chiari malformation type I Compression of brain Abnormal uterine bleeding (AUB) documented in this encounter Care Teams Heart Coordinator Relationship Specialty Start Date End Date Alexa Jensen APRN [address] [place] [address] PCP - General Family Medicine 03/31/16 documented as of this encounter
--- OUTSIDE RECORDS SUMMARY | 2024-06-16 16:43 | XMS_ITS | Encounter Summary ---
Author Organization [facility] [place] [place] [address] Care Team Providers Care Ehs Manager Name Role Phone Alexa Hairston APRN Primary Care Provider [phone] Encounter Details Date Type Department Care Team (Latest Contact Info) Description 08/24/2016 1:45 PM EDT Laboratory Appointment Lab [address] [place] [id number] Procreative management Social History Tobacco Use Types [...] Procedure Name Priority Date/Time Associated Diagnosis Comments BETA HCG, QUANTITATIVE Routine 08/24/2016 1:33 PM EDT Procreative management documented in this encounter Results * Beta HCG, quantitative (08/24/2016 1:33 PM EDT) Beta Human Chorionic Gonadotropin, Quantitative <1 mlU/ML [facility] Comment: REFERENCE RANGES NON- FEMALE: ??Less than 5 mIU/mL POSTMENOPAUSAL FEMALE: ??Less than 8 mIU/mL ? -- FEMALES -- Weeks of ? HCG range ??(mIU/mL) ? 3 weeks ? 5.8 - 71.2 ? 4 weeks ? 9.5 - 750 ? 5 weeks ? 217 - 7,138 ? 6 weeks ? 158 - 31,795 ? 7 weeks ? 3,697 - 163,563 ? 8 weeks ? 32,065 - 149,571 ? 9 weeks ? 63,803 - 151,410 ?10 weeks ? 46,509 - 186,977 ?12 weeks ? 27,832 - 210,612 ?14 weeks ? 13,950 - 62,530 ?15 weeks ? 12,039 - 70,971 ?16 weeks ? 9,040 - 56,451 ?17 weeks ? 8,175 - 55,868 ?18 weeks ? 8,099 - 58,176 Blood specimen (specimen) 08/24/2016 1:33 PM EDT 08/24/2016 1:36 PM EDT Narrative Resulting Agency Comment Spec In Lab Dominik Flanagan MD CHEMISTRY ORDERABLES Performing Organization Address City/State/[facility] Co de Phone Number [facility] [place] [address] documented in this encounter Visit Diagnoses Diagnosis Procreative management Unspecified procreative management documented in this encounter Care Teams Ehs Manager Relationship Specialty Start Date End Date Alexa Hairston APRN [address] [place] [address] PCP - General Family Medicine 03/31/16 documented as of this encounter
--- OUTSIDE RECORDS SUMMARY | 2024-06-16 16:43 | XMS_ITS | Encounter Summary ---
Author Organization [facility] Address [facility] [place] [address] Care Team Providers Care Gardener Name Role Phone YovannySabinaAlexa H YU Primary Care Provider [phone] Reason for Visit * Reason Comments Infertility Encounter Details Date Type Department Care Team (Latest Contact Info) Description 10/10/2016 3:30 PM EDT Procedure visit Obstetrics [place] [address] Shakira Cowart MD [facility] DR OBSTETRICS & [place] [address] Female infertility associated with male factors Social History Tobacco Use Types Packs/Day Years [...] * Patient Instructions* Shakira Cowart MD - 10/10/2016 3:30 PM EDT WHAT IS A HYCOSY PROCEDURE? A test for tubal patency (open). Kpmozbghadhxzde-wgxofmbb-tdbyazxhqo (usually shortened to HYCOSY) is a simple [...] induce a menses and shed a thickened flue lining dipper so that the procedure can be properly timed and that exccessive flue lining dipper does not prevent a clear view of [...] Progress Notes * Shakira Cowart MD - 10/10/2016 3:30 PM EDT REPRODUCTIVE MEDICINE AND INFERTILITY [facility] Hysterosalpingo-Contrast Sonography Procedure Note Shakira Vega MD IVF/ART Skip Tracer Tosha David MD SUBJECTIVE: The patient is 25 y.o. who presents for an ultrasound guided tubal patency study. OBJECTIVE: POINT OF CARE VISUAL URINE TEST: Negative Informed Consent Verbal consent: A formal time out procedure was performed after the patient was placed into the procedure room. Her name and date of were confirmed with her as was the procedure to be performed. The procedure to be performed and the possible common complications, including but not limited to, bleeding, hemorrhage, infection, sterility, injury to other organs, fainting, and pain,were discussed with the patient and she elected to proceed with the HyCoSy. SALINE INFUSION SONOGRAPHY A elba speculum placed without difficulty. The patients cervix and upper vagina was prepared with betadine prep. A pre-flushed cook catheter placed without difficulty under direct visualization. Under T/V US guidance saline was injected into the uterine cavity and the uterine cavity was thoroughly inspected in a three dimensional fashion with 2 D kearney ultrasound and a 3 D US rendering of theuterine cavity was obtained. The patient tolerated the procedure well. The estimated blood loss was minimal. Please see her US report in eDH for a formal complete US report- Normal uterine cavity Normal Uterine Cavity Tubal Patency Study Following the SHG, a HyCoSy procedure was performed. Sterile saline and micronized air was injectedinto the uterine cavity and the cavity evaluated. Saline and micronized air was injected into the uterine cavity. Both cornual areas, mid-tubal, and distal tube adjacent to the ovary were evaluated in transverse view under transvaginal ultrasound during a dynamic scan. Saline and micronized air DID traversed the proximal tube right and DID appear to move adjacent to the from the right ovary. Saline and micronized air DID traversed The proximal left tube and DID move adjacent from the left ovary. Additionally an increase in fluid was noted in the posterior cul-de-sac. Possible adhesions in the posterior cul-de-sac. The patient tolerated the procedure well. ASSESSMENT: Normal uterine cavity Bilateral tube patency with evidence for distal tube patency Possible adhesions in the posterior cul-de-sac RECOMMENDATIONS: I briefly discussed the findings with the patient. She was advised that the risk of infection is uncommon but may occur. She was instructed to call at any point with persistent or foul smelling vaginal discharge, increasing lower abdominal pain, unexplained fever, or generally feeling unwell. She was asked to follow up with her primary reproductive medicine person in follow up. documented in this encounter Plan of Treatment Not on file documented as of this encounter Visit Diagnoses Diagnosis Female infertility associated with male factors Female infertility of other specified origin documented in this encounter Care Teams Gardener Relationship Specialty Start Date End Date Alexa Hairston APRN [address] [place] [address] PCP - General Family Medicine 03/31/16 documented as of this encounter
--- OUTSIDE RECORDS SUMMARY | 2024-06-16 16:43 | XMS_ITS | Encounter Summary ---
Author Organization [facility] Address [facility] [place] [address] Care Team Providers Care Cooling Pipe Inspector Name Role Phone Alexa Hairston APRN Primary Care Provider [phone] Encounter Details Date Type Department Care Team (Latest Contact Info) Description 08/24/2016 12:22 PM EDT - 08/24/2016 11:59 PM EDT Hospital [place] [address] Shakira Cowart MD [facility] OBSTETRICS & [place] [address] Encounter for investigation and testing for procreative management Discharge Disposition: Home Social History Tobacco [...] Sig Dispensed Refills Start Date End Date vitamin with qshavtaw-Tp-Spwg-FA Tablet Take by mouth. CIS Free Text Med - Albuterol 04/13/2006 documented as of this encounter Plan of Treatment Not on file documented as of this encounter Procedures Procedure Name Priority Date/Time Associated Diagnosis Comments US TRANSVAGINAL NON OB Routine 08/24/2016 1:26 PM EDT Encounter for investigation and testing for procreative management documented in this encounter Results * US Transvaginal Non OB (08/24/2016 1:26 PM EDT) Anatomical Region Laterality Modality Ultrasound 08/24/2016 12:5 9 PM EDT Impressions 08/24/2016 1:54 PM EDT Transvaginal - Summary The uterus is retroverted and normal in size (see report above) and morphology. ??The adnexa are visualized and a right ovarian uniloccular cyst (see measurements as above) with increased internal echos most consistent in appearance with a functional cyst. ??The left ovarian volume is mildly enlarged consistent with a either a multifollicular ovary or PCOS morphology. The double layer endometrial echo measures 4.7 mm. There is a small amount of echogenic fluid in the deep posterior cul-de-sac. This study was performed transvaginally. ?Shakira M Dulce Vega MD Electronically Signed Final Report ?? 08/24/2016 01:54 pm Narrative 08/24/2016 1:54 PM EDT Gynecological Report ? (Signed Final 08/24/2016 01:54 pm) PATIENT INFO: ID #: ? [id number] ?: ??[birth year] (25 yrs) Name: ? EBONI FLYNN ?Visit Date: 08/24/2016 12:59 pm PERFORMED BY: Performed By: ? Laura Dominguez RDMS Attending: ?Dulce Vega MD, Shakira Referred By: ?YARELI ALVAREZ Location: ? [facility] SERVICE(S) PROVIDED: ??UTV - Transvaginal - [id number] ?[id number] INDICATIONS: ??infertility -------- HISTORY: -------- Age: ?? 25 LMP: ?? 08/15/16 ?Day Of Cycle: ?? 10 ------- UTERUS: ------- Uterus: ? Visualized Position: ?? Retroverted Size (cm) ?L: ??5.7 ? W: ?? 3.7 ?H: ??3.1 ENDOMETRIUM: Endometrium: ?Normal appearance Thickness(mm): ?4.7 ------- CERVIX: ------- Nabothian cyst seen CUL-DE-SAC: A moderate amount of complex fluid is noted. RIGHT OVARY: Status: ?? Visualized Size (cm) ?L: ??5.2 ? W: ?? 3.5 ?H: ??3.7 Vol (ml): ?35.3 Morphology: ?Septated Cyst Type: ?? Septated Cyst Size (cm) ?L: ??3.0 ? W: ?? 3.1 ?H: ??2.7 Vol (ml): ?13.1 Comment: ? Adnexa: Small amount of complex free fluid seen. LEFT OVARY: Status: ?? Visualized Size (cm) ?L: ??2.9 ? W: ?? 2.4 ?H: ??2.8 Vol (ml): ?10.2 Morphology: ?Normal appearance Comment: ? Adnexa: Small amount of complex free fluid seen. --------- COMMENTS: --------- Exam performed by Shakira Vega MD. Procedure Note Shakira Cowart MD - 08/24/2016 Gynecological Report (Signed Final 08/24/2016 01:54 pm) PATIENT INFO: ID #: [id number] : [birth year] (25 yrs) Name: EBONI FLYNN Visit Date: 08/24/2016 12:59 pm PERFORMED BY: Performed By: Laura Dominguez RDMS Attending: Shakira Cowart MD Referred By: YARELI ALVAREZ Location: [facility] SERVICE(S) PROVIDED: UTV - Transvaginal - [id number] INDICATIONS: infertility -------- HISTORY: -------- Age: 25 LMP: 08/15/16 Day Of Cycle: 10 ------- UTERUS: ------- Uterus: Visualized Position: Retroverted Size (cm) L: 5.7 W: 3.7 H: 3.1 ENDOMETRIUM: Endometrium: Normal appearance Thickness(mm): 4.7 ------- CERVIX: ------- Nabothian cyst seen CUL-DE-SAC: A moderate amount of complex fluid is noted. RIGHT OVARY: Status: Visualized Size (cm) L: 5.2 W: 3.5 H: 3.7 Vol (ml): 35.3 Morphology: Septated Cyst Type: Septated Cyst Size (cm) L: 3.0 W: 3.1 H: 2.7 Vol (ml): 13.1 Comment: Adnexa: Small amount of complex free fluid seen. LEFT OVARY: Status: Visualized Size (cm) L: 2.9 W: 2.4 H: 2.8 Vol (ml): 10.2 Morphology: Normal appearance Comment: Adnexa: Small amount of complex free fluid seen. --------- COMMENTS: --------- Exam performed by Shakira Vega MD. IMPRESSION Transvaginal - Summary The uterus is retroverted and normal in size (see report above) and morphology. The adnexa are visualized and a right ovarian uniloccular cyst (see measurements as above) with increased internal echos most consistent in appearance with a functional cyst. The left ovarian volume is mildly enlarged consistent with a either a multifollicular ovary or PCOS morphology. The double layer endometrial echo measures 4.7 mm. There is a small amount of echogenic fluid in the deep posterior cul-de-sac. This study was performed transvaginally. Shakira Vega MD Electronically Signed Final Report 08/24/2016 01:54 pm Shakira Vega MD IMG US PELV IC ORDERABLES documented in this encounter Visit Diagnoses Diagnosis Encounter for investigation and testing for procreative management documented in this encounter Care Teams Cooling Pipe Inspector Relationship Specialty Start Date End Date Alexa Hairston APRN [address] [place] [address] PCP - General Family Medicine 03/31/16 documented as of this encounter
--- OUTSIDE RECORDS SUMMARY | 2024-06-16 16:43 | XMS_ITS | Encounter Summary ---
Author Organization [facility] Address [address] [place] [address] Care Team Providers Care Brick Chimney Builder Name Role Phone Unknown, Provider Primary Care Provider Unava ilable Encounter Details Date Type Department Care Team (Latest Contact Info) Description 04/25/2016 9:30 EST - 04/25/2016 23:59 EST Hospital Encounter [address] [address] Unknown, Provider, Discharge Disposition: Home or Self Care Social [...] Code Departure Means Destination Home or Self Longterm documented in this encounter Plan of Treatment Not on file documented as of this encounter Visit Diagnoses Not on filedocumented in this encounter Care Teams Brick Chimney Builder Relationship Specialty Start Date End Date Unknown, Provider, PCP - General 07/10/14 10/25/16 documented as of this encounter
--- OUTSIDE RECORDS SUMMARY | 2024-06-16 16:43 | XMS_ITS | Encounter Summary ---
Author Organization [facility] Address [facility] [place] [address] Care Team Providers Care Superintendent Measurement Name Role Phone Alexa aHirston APRN Primary Care Provider [phone] Reason for Visit * Reason Comments Skin Lesion * Consultation (Urgent) - Closed Specialty Diagnoses / Procedures Referred By Contac t Referred To Contact Dermatology Diagnoses skin lesion - pigmented lesion Lissette Shahid APRN [address] [place] [address] [facility] [address] [place] [address] Referral ID Status Reason Start Date Expiration Date V isits Requested Visits Authorized [id number] Closed Consult, Test & [facility] 07/16/2017 07/16/2018 1 1 Encounter Details Date Type Department Care Team (Late st Contact Info) Description 07/20/2017 9:20 AM EST Office Visit Dermatology at [facility] [address] [place] [address] Joo Ritchie MD [facility] [address] [place] [address] Nevus; Neoplasm of uncertain behavior of skin Social History Tobacco Use Types Packs/Day Years Used Date Smoking Tobacco: Never Smokeless Tobacco: Never Alcohol Use Standard Drinks/Week Comments Yes 0 (1 standard drink = 0.6 oz pur e alcohol) socially Sex and Gender Information Value Date Recorded Sex Assigned at Not on file Gender Identity Not on file Sexual Orientation Not on file documented as of this encounter Progress Notes * Joo Ritchie - 07/20/2017 9:20 AM EST Images from the original note were not included. DERMATOLOGY - NEW PATIENT NOTE Date of service: 07/20/2017 Rita Tavares : 1990, 26 y.o. Chief Complaint: Chief Complaint Patient presents with ??? Skin Lesion HPI: Rita Tavares is a 26 y.o. female referred by Lissette Shahid with the following concerns: Left adventist small brown lesion that has changed over the past 2-3 months now with a darker spot in the center. Lesion on her right upper arm [id number] it sometimes has a white center. It sometimes changes from skin color to bright red. It is irritating, raised, and patient would like to have it removed. Relevant Skin History: - Okay to leave detailed message with results? 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 norgestimate-ethinyl estradiol (TRI SPRINTEC) 0.18/0.215/0.25 mg-35 mcg (28) Tablet Take 1 tablet by mouth daily. 84 tablet 0 ??? vitamin with [id number] Tablet Take by mouth. ??? CIS Free Text Med - Albuterol No current facility-administered medications for this visit. Allergies: Allergies Allergen Reactions ??? Amoxicillin-Pot Clavulanate CIS - Rash Review of Systems: - General: Feels well. - Skin: No other skin concerns. Examination: - Constitutional: Patient was alert, well-appearing and in no noticeable distress. - Skin: Skin examination of the face and right arm Diagnosis/Skin findings/Assessment/Plan: 1. Nevus- 3 mm medium-brown macule with focal hyperpignmented globule centrally - Lesion appears benign and relatively symmetric - Photo taken for documentation today - Will recheck at her next follow up in 3-4 months 2. Dermatofibroma (DF)- right upper arm: 5 mm firm papule with peripheral hyperpigmentation - Shared decision to biopsy for additional diagnostic information - Denies allergy to lidocaine or epinephrine. - Procedure: Skin biopsy by punch technique. Location: right upper arm Discussed indications for the procedure and expectations including risks and benefits. Verbal consent obtained. Skin prep with alcohol. Local anesthesia: 1% lidocaine. A 6 mm punch biopsy to the level of the subcutis was performed. Wound closed with monofilament suture. There were no complications;the patient tolerated the procedure well. The wound was dressed. Post-procedure expectations (including discomfort management), wound care and activity restrictions were reviewed. Follow-up based on pathology results. Suture removal: 14 days RTC: 3-4 months for recheck nevus The following photos were obtained with patient consent: Note initiated by Shantal Harrison LPN - I am documenting this encounter acting as the scribe for and in the presence of Joo Ritchie MD. I performed the above scribed service and agree with the accuracy of the documentation in this encounter. Reviewed and signed by Joo Ritchie MD Resident in Dermatology [facility] Staff appliance technician: Meena Barboza MD Section of Dermatology [facility] Level of Resident Supervision: Indirect Supervision (The supervising physician is not physically present, but is directly available for assistance in guiding the diagnosis and treatment plan). * Meena Barboza MD - 07/20/2017 9:20 AM EST I was the supervising physician working with dermatology resident Dr. Joo Ritchie in the dermatologyclinic during this patient visit. The level of Resident supervision for this patient visit was indirect supervision with direct supervision immediately available. (definition: [facility] GME Policy Statement on Graduate Medical Education, Supervision of Graduate Medical Trainees) I was immediately available to Dr. Ritchie for questions and discussion regarding this visit. I have reviewed her encounter note details and level of service. MEENA BARBOZA MD Staff Physician documented in this encounter Plan of Treatment Not on file documented as of this encounter Procedures Procedure Name Priority Date/Time Associated Diagnosis Comments SURGICAL PATHOLOGY REPORT Routine 07/20/2017 10:04 AM EST SPECIMEN TO PATHOLOGY Routine 07/20/2017 10:04 AM EST Neoplasm of uncertain behavior of skin documented in this encounter Results * Surgical Pathology Report (07/20/2017 10:04 AM EST) Final Diagnosis [id number] ? Location: [facility] The signing pathologist has (i) examined the relevant preparation(s) for the specimen(s) and (ii) rendered or confirmed the diagnosis(es). . ?Surgical Pathology DIAGNOSIS A. Skin, right upper arm, punch ?? biopsy: - Cutaneous fibrous histiocytoma (dermatofibroma). Electronically signed by: ??Azeb Krause MD Verified: ??07/25/2017 ?Dermatopathologist Performed at: ??-[facility] Dept. of Pathology, [place], [place] DISCUSSION Basaloid follicular induction is noted. This case was also reviewed by an additional intradepartmental dermatopathologist for consensus diagnosis. CLINICAL INFORMATION Specimen Submitted: A - Skin, Right upper arm, Punch (1) Clinical History: 4 mm firm papule with peripheral hyperpigmentation Clinical Diagnosis: Dermatofibroma SPECIMEN PROCESSING A - Labeled/Fixative: Right upper arm, formalin. Quantity/Size: Single, 0.6 cm. Tissue Description: Punch of [place] skin with a 0.4 cm firm pink papule. Sections/Processing: Inked and bisected. (T1) ??sns 07/25/2017 3:39 PM EST [facility] SPECIMEN FROM SKIN / Unknown 07/20/2017 10:04 AM EST 07/20/2017 10:04 AM EST Joo Ritchie MD PATHOLOGY/CYTOLOGY [facility] [place] Performing Organization Address City/[facility]/[place] [address] * Specimen to Pathology (07/20/2017 10:04 AM EST) AP Specimen 07/20/2017 10:0 4 AM EST 07/20/2017 12:55 PM EST Narrative [facility] - 07/20/2017 12:55 PM EST Specimen requisition ordered. ??Separate Pathology report to follow Resulting Agency Comment Spec In Lab Meena Barboza MD PATHOLOGY/CYTOLOGY [facility] [place] Performing Organization Address [facility] [place] [address] documented in this encounter Visit Diagnoses Diagnosis Nevus Benign neoplasm of skin, site unspecified Neoplasm of uncertain behavior of skin documented in this encounter Care Teams Superintendent Measurement Relationship Specialty Start Date End Date Alexa Hairston, TELEPHONE STATION INSTALLER [address] [place] [address] PCP - General Family Medicine 03/31/16 documented as of this encounter
--- OUTSIDE RECORDS SUMMARY | 2024-06-16 16:43 | XMS_ITS | Encounter Summary ---
Author Organization [facility] Address [address] [place] [address] Care Team Providers Care Lyric Writer Name Role Phone Alexa Hairston APRN Primary Care Provider [phone] Reason for Visit * Reason Onset Date Comments Results 11/27/2016 Encounter Details Date Type Department Care Team (Late st Contact Info) Description 11/27/[address] [facility] - [address] [address] Ariel Noe, RN Results Social History Tobacco Use [...] Refills Last Filled Start Date End Date clomiPHENE (CLOMID) 50 mg tablet Take 1 Tab by mouth daily. Take 1 tablet once a day for cycle days 5-9. 5 Tab 12/01/2016 04/07/2018 documented in this encounter Miscellaneous Notes * Telephone Encounter - Ariel Noe RN - 12/01/2016 1550 EDT Call to pt. Reviewed possible side effects of clomid. Also, can check CD 21 progesterone. Pt would have this drawn at [facility] in [facility]. * Addendum Note - Ariel Noe RN - 12/01/2016 1543 EDTAddended by: ARIEL NOE S on: 12/01/2016 15:43 Modules accepted: Orders * Telephone Encounter - Ariel Noe RN - 12/01/2016 1523 EDT Call from pt. Pt states started my period on Sunday (11/28). Pt checked a test today- negative. Pt is out of town, in [place], and can't go in for repeat blood work to take letrozole, which would be to start tomorrow. Pt would like to use clomid. This is an option as per note by Dr. Kaufman. Reviewed with pt to take clomid CD 5-9 and check OPK test . Plan intercourse every other day per ovulation. Can check CD 21 progesterone if no positive OPK. * Telephone Encounter - Ariel Noe RN - 11/27/2016 1649 EDT Call from pt for results of BHCG and progesterone level from 11/24/16. Progesterone was 8.4. BHCG was negative. Pt states she is having spotting today. Instructed pt that she needs to wait to see what happens over the next couple of days. She can check a home test in 1 week, or call if bleeding increases. We would need to check another progesterone and BHCG if pt is to take letrozole. Pt will call office as to follow up, ie when starts menses. documented in this encounter Plan of Treatment Not on file documented as of this encounter Visit Diagnoses Not on filedocumented in this encounter Care Teams Lyric Writer Relationship Specialty Start Date End Date Alexa Hairston APRN [address] [place] [address] PCP - General 10/26/16 07/11/20 documented as of this encounter
--- OUTSIDE RECORDS SUMMARY | 2024-06-16 16:43 | XMS_ITS | Encounter Summary ---
Author Organization [facility] [place] [address] Care Team Providers Care Document Management Analyst Name Role Phone Yovanny Alexachino Grullon APRN Primary Care Provider [phone] Reason for Visit * Reason Comments Establish Care discussion a Encounter Details Date Type Department Care Team (Late st Contact Info) Description 06/16/2016 10:30 AM EST Office Visit Obstetrics [place] [address] Dinora Jaime MOBILE MARKETING MANAGER [facility] [place] [address] Procreative investigation and testing; Infertility counseling; Irregular menses Social History Tobacco Use Types Packs/Day Years [...] Pulse 92 06/16/2016 10:33 AM EST Temperature - - Respiratory Rate 12 06/16/2016 10:33 AM EST Oxygen Saturation - - Inhaled Oxygen Concentration - - Weight 65.5 kg (144 lb 6.4 oz) 06/16/2016 10:33 AM EST Height 169.5 cm (5' 6.75) 06/16/2016 10:[address] Body Mass Index 22.79 06/16/2016 10:33 AM EST documented in this encounter Progress Notes * Addison Dinora Martinez, MOBILE MARKETING MANAGER - 06/16/2016 10:30 AM EST NEW INFERTILITY CONSULTATION REPRODUCTIVE MEDICINE AND INFERTILITY [place], [place] Shakira Vega MD IVF/ART Director [employer] Dominik Flanagan, MD Tom Pickering MD Elizabeth Todd, ARNP Donna Bedard, Program [place] CHIEF COMPLAINT: Infertility. Subjective: The patient is a 25 y.o. old G 0 and her partner is a 25 year old male. The couple present in consultation from self for a discussion with regards to primary infertility. Menarche 11 with irregular 30-55 day cycles. She reports 8-14+ days of flow with mild/mod/severe cramping. She had been on combined OCPs from age 14 until 2 years ago. She thinks her cycles were irregular and painful as a teen but maybe not as irregular as she currently notes. She does experience moliminal symptoms with cramping. She has had 0 prior pregnancies. She denies use, STD's, or exposure to WIL exposure. Her last pap was 2016 NILM. Has had Mirena IUD in past which she expelled. She has used OPKs and noted darkning of line but never as dark as control line, has also tried to use fertility rod. They have intercourse 3-4x week No erectile issues He has had a cyst in past in scrotum, he is unsure what it was called, he did have an u/s and was seen by a urologist a couple of years ago, records not available for review No acne, no oily skin, not hiruste, no acanthosis, no galactorhea Past Infertility Treatment: none Past Medical History Diagnosis Date ??? Anxiety in counseling years ago and no issues with this since ??? Asthma ??? Chiari malformation type I ??? Pneumonia age 4-5 Past Surgical History Procedure Laterality Date ??? Neck surgery 11/2000 for Chirari malformation Allergies Allergen Reactions ??? Amoxicillin-Pot Clavulanate CIS - Rash Ms. Tavares does not currently have medications on file. Male History: He has not fathered any children or pregnancies. He is otherwise healthy and has not yet had an S/A. Social History: they have been trying to conceive for 1+ years. 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 Review of Systems - No fevers/chills, dizziness, headache, vision change, chest pain, palpitations,cough, wheezing, shortness of breath, nausea/vomiting, constipation, dysuria, urinary frequency, change in vaginal discharge, pain with bowel movements, blood in bowel movements or urine. GENETICS SCREENING: The genetic history is negative for the patient and her through first cousins for mental retardation, Down syndrome, neural tube defects, defects, inherited disorders such as cystic fibrosis, hemophilia, muscular dystrophy, polycystic kidney disease, thrombophelia,inherited skin, bone, or other neurologic disease or two or more spontaneous abortions. The patient has not been screened for cystic fibrosis. The couple do not have Ashkenazi Latter Day heritage and have not been screened for the Ashkenazi panel. Other ethnic risk factors have been identified. Objective: Review of the patient in take history. BP 112/72 Pulse 92 Resp 12 Ht 169.5 cm (5' 6.75) Wt 65.5 kg (144 lb 6.4 oz) LMP 06/02/2016 (Exact Date) BMI 22.79 kg/m2 Assessment: 1. primary infertility. 2. Probable ovulatory dysfunction, possible male factor I had a 45 minute visit with this patient, with 40 minutes spent in face to face counseling this couple with regards to the standard infertility work up, and possible causes of infertility. We discussed the possibility that we may not be able to identify a cause. I discussed the infertility evaluation, including the usual tests such as documentation of ovulation, semen analysis, hysterosalpingogram, and laboratory hormonal assessment. I explained that one reason for infertility identified for them is ovulatory dysfunction, possible male factor due to scrotal cyst. I discussed how this would influence their evaluation and treatmentand success rates. I explained the rationale for unexplained infertility treatment such as clomiphene and intrauterineinsemination, historically moving on to gonadotropin and intrauterine insemination and then in vitro fertilization. I explained the success rates, multiple rates, and rationale for these treatments for women under 40 years of age. She was counseled of the of the option for genetic screening for cystic fibrosis carrier status andthey are going to meet with genetics to discuss Counsyl She was asked to continue on a multivitamin containing folic acid. Recommendations: 1. profile, varicella, TSH, Prolactin, Testosterone, Vit D, DHEAs, fasting glucose, AMH, day 3 FSH/E2 2. Genetics consult 3. Ultrasound guided tubal patency study 4. SA 5. Follow Up talk following completion of tests YU CORADO APRN documented in this encounter Miscellaneous Notes * Addendum Note - Berta Raya - 06/16/2016 12:00 PM ESTAddended by: BERTA RAYA on: 06/16/2016 12:00 PM Modules accepted: Orders documented in this encounter Plan of Treatment Not on file documented as of this encounter Procedures Procedure Name Priority Date/Time Associated Diagnosis Comments ANTI-MULLERIAN HORMONE Routine 06/16/2016 12:12 PM EST Procreative investigation and testing HEMOGRAM Routine 06/16/2016 12:12 PM EST Procreative investigation and testing SCREEN Routine 06/16/2016 12:12 PM EST Procreative investigation and testing DIFFERENTIAL, AUTOMATED Routine 06/16/2016 12:12 PM EST Procreative investigation and testing TESTOSTERONE, TOTAL AND FREE Routine 06/16/2016 12:12 PM EST Procreative investigation and testing HEPATITIS C ANTIBODY Routine 06/16/2016 12:12 PM EST Procreative investigation and testing SYPHILIS ANTIBODY SCREEN WITH REFLEX Routine 06/16/2016 12:12 PM EST Procreative investigation and testing ABO/RH TYPING Routine 06/16/2016 12:12 PM EST Procreative investigation and testing VITAMIN D, 25-HYDROXY Routine 06/16/2016 12:12 PM EST Procreative investigation and testing PROLACTIN Routine 06/16/2016 12:12 PM EST Procreative investigation and testing DHEA-SULFATE Routine 06/16/2016 12:12 PM EST Procreative investigation and testing RUBELLA ANTIBODY, IGG Routine 06/16/2016 12:12 PM EST Procreative investigation and testing HIV SCREEN, 4TH GENERATION ([facility] [place]APD/NLH) Routine 06/16/2016 12:12 PM EST Procreative investigation and testing HEPATITIS B SURFACE ANTIGEN Routine 06/16/2016 12:12 PM EST Procreative investigation and testing ANTIBODY SCREEN Routine 06/16/2016 12:12 PM EST Procreative investigation and testing VARICELLA ZOSTER ANTIBODY, IGG Routine 06/16/2016 12:12 PM EST TSH Routine 06/16/2016 12:12 PM EST Procreative investigation and testing documented in this encounter Results * Varicella zoster Antibody, IgG (06/16/2016 12:12 PM EST) Varicella Zoster Antibody IgG Pos [facility] Blood specimen (specimen) Venous Draw / Unknown 06/16/2016 12:12 PM EST 06/17/2016 10:21 AM EST Narrative Resulting Agency Comment Spec In Lab Shakira Vega MD IMMUNOLOGY ORDERABLES [facility] [place] [address] * Antibody screen (06/16/2016 12:12 PM EST) Ab Screen Interp Negative [facility] Expires at [id number] on: 06/19/2016 [facility] Blood specimen (specimen) 06/16/2016 12:12 PM EST 06/16/2016 12:18 PM EST Narrative Resulting Agency Comment Spec In Lab Shakira Vega MD BLOOD BANK LAB ORDERABLES Performing Organization Address [facility] Co de Phone Number [facility] [place] [address] * ABO/Rh Typing (06/16/2016 12:12 PM EST) ABORH Type O Pos [facility] Blood specimen (specimen) 06/16/2016 12:12 PM EST 06/16/2016 12:18 PM EST Narrative Resulting Agency Comment Spec In Lab Shakira Vega MD BLOOD BANK LAB ORDERABLES Performing Organization Address [facility] Co de Phone Number [facility] [place] [address] * Syphilis Antibody (06/16/2016 12:12 PM EST) Pathologist [facility] Syphilis IgG/IgM Negative Negative [facility] Blood specimen (specimen) 06/16/2016 12:12 PM EST 06/16/2016 12:25 PM EST Narrative Resulting Agency Comment Spec In Lab Shakira Vega MD CHEMISTRY O RDERABLES Performing Organization Address City/[facility] Co de Phone Number [facility] [place] [address] * Differential, Automated (06/16/2016 12:12 PM EST) Neutrophil % 59.1 % [facility] Neutrophil Absolute 4.12 1.70 - 6.10 x10(3)/[facility] Lymph % 28.7 % [facility] Lymphocytes Abs 2.0 0.9 - 3.2 x10(3)/[facility] Monocyte % 7.7 % [facility] Monocyte Abs 0.5 0.3 - 0.9 x10(3)/[facility] Eos % 3.6 % [facility] Eosinophils Abs 0.2 0.0 - 0.4 x10(3)/[facility] Basophil % 0.6 % [facility] Baso Absolute 0.0 0.0 - 0.1 x10(3)/[facility] Immature Gran % 0.30 % [facility] Comment: Immature granulocytes(IG's)percentage and absolute count will include metamyelocytes, myelocytes, and promyelocytes. Blood smears from CBCs yielding IG's will be scanned manually for concordance. If this scan disagrees with the automated IG or if promyelocytes are noted, a manual differential will be performed. Immature Gran Absolute 0.02 0.00 - 0.04 x10(3)/[facility] Blood specimen (specimen) 06/16/2016 12:12 PM EST 06/16/2016 12:25 PM EST Narrative Resulting Agency Comment Spec In Lab Shakira Vega MD HEMATOLOGY ORDERABLES [facility] [place] [address] * (ABNORMAL) Hemogram (06/16/2016 12:12 PM EST) White Blood Cell 7.0 4.0 - 9.5 x10(3)/mc L [facility] Red Blood Cell 4.21 4.00 - 5.21 x10(6)/mc L [facility] Hemoglobin 12.9 11.7 - 15.5 gm/dL [facility] Hematocrit 36.4 35.7 - 45.8 % [facility] Mean Cell Volume 86.5 82.6 - 94.[address] [facility] Mean Cell Hemoglobin 30.6 27.1 - 32.[address] [facility] Mean Cell Hemoglobin Concentration 35.4(H) 31.7 - 35.0 gm/dL [facility] Platelet 316 145 - 357 x10(3)/mc L [facility] RDW Standard Deviation 36.9(L) 37.0 - 46.[address] [facility] RDW coefficient of variation 11.7 11.5 - 14.1 % [facility] Mean Platelet Volume 9.2 7.6 - 12.[address] [facility] NRBC% auto 0.0 % [facility] NRBC Absolute 0.000 0.000 - 0.000 x10(3)/mc L [facility] Blood specimen (specimen) 06/16/2016 12:12 PM EST 06/16/2016 12:25 PM EST Narrative Resulting Agency Comment Spec In Lab Shakira Vega MD HEMATOLOGY ORDERABLES Performing Organization Address [facility] Co de Phone Number [facility] [place] [address] * Rubella Antibody, IgG (06/16/2016 12:12 PM EST) Rubella Antibody IgG Positive Positive [facility] Comment: Please note: ??A positive result for this assay indicates that antibody levels are >or= 10.0 IU/mL and is considered to be an indicator of positive immune status. Blood specimen (specimen) 06/16/2016 12:12 PM EST 06/16/2016 12:25 PM EST Narrative Resulting Agency Comment Spec In Lab Shakira Vega MD CHEMISTRY O RDERABLES Performing Organization Address [facility] Co de Phone Number [facility] [place] [address] * Hepatitis B Surface Antigen (06/16/2016 12:12 PM EST) Hepatitis B Surface Antigen Negative Negative [facility] Blood specimen (specimen) 06/16/2016 12:12 PM EST 06/16/2016 12:25 PM EST Narrative Resulting Agency Comment Spec In Lab Shakira Vega MD CHEMISTRY O RDERABLES [facility] [place] [address] * Anti-Mullerian Hormone (06/16/2016 12:12 PM EST) AMH-Eso 7.470 1.030 - 11.100 ng/mL [facility] Comment: See scan report Circulating AMH levels change during pubertal development: male levels decrease, female levels increase with sexual development. An AMH concentration of >=1.06 ng/mL is correlated with a better response to ovarian stimulation and produces more retrievable oocytes and higher odds of a live according to Janie et al. The current AMH test method correlates with the study method with a slope of 0.94. (Fertil Steril. 2010:94:2218-7129). Females at risk of ovarian hyperstimulation syndrome or polycystic ovarian syndrome (PCOS) may exhibit elevated serum AMH concentrations. AMH levels from PCOS patients may be 2-to 5-fold higher than age-appropriate reference interval values. Granulosa cell tumors of the ovary may secrete AMH along with other tumor markers. Elevated AMH is not specific for malignancy, and the assay should not be used exclusively to diagnose or exclude an AMH-secreting ovarian tumor. Test performed by [employer] [address] [place] [address] Blood specimen (specimen) 06/16/2016 12:12 PM EST 06/16/2016 1:18 PM EST Narrative Resulting Agency Comment Spec In Lab Shakira Vega MD CHEMISTRY O RDERABLES [facility] [place] [address] * Hepatitis C Antibody (06/16/2016 12:12 PM EST) Hepatitis C Antibody Negative Negative [facility] Blood specimen (specimen) 06/16/2016 12:12 PM EST 06/16/2016 12:25 PM EST Narrative Resulting Agency Comment Spec In Lab Shakira Vega MD CHEMISTRY O RDERABLES Performing Organization Address [facility] Co de Phone Number [facility] [place] [address] * HIV Screen, 4th Generation (06/16/2016 12:12 PM EST) HIV Ab/Ag Screen Negative Negative [facility] Comment: This 4th Generation HIV test [...] MD CHEMISTRY O RDERABLES Performing Organization Address [facility] Co de Phone Number [facility] [place] [address] * Vitamin D, 25-Hydroxy (06/16/2016 12:12 PM EST) Vitamin D Total 25 OH 34 30 - 100 ng/mL [facility] Comment: Deficient <10 ng/mL Insufficient 10 to 29 ng/mL Sufficient 30 to 100 ng/mL Potential Intoxication >100 ng/mL According to the [place] National Osteoporosis Foundation, Vitamin D concentrations >30 ng/mL are sufficient to protect bone health. ??The National Kidney Foundation has similarly stated that patients with Vitamin D concentrations <30ng/mL should be considered to be insufficient or deficient. http://[employer]/DHnatlkidneyfoundation http://[employer]/DHMCVitD The [employer] i[employer] Vitamin D Immunoassay detects both 25-OH Vitamin D2 and 25-OH Vitamin D3, but only a total Vitamin D concentration is reported. Blood specimen (specimen) 06/16/2016 12:12 PM EST 06/16/2016 1:24 PM EST Narrative Resulting Agency Comment Spec In Lab Shakira Vega MD CHEMISTRY O RDERABLES Performing Organization Address [facility]/ZIP Co de Phone Number [facility] [place] [address] * Testosterone, total and free (06/16/2016 12:12 PM EST) Testo Total 40 2 - 45 ng/dL [facility] Comment: For more information on this test, go to http://education.[employer]/faq/ TotalTestosteroneLCMSMS Testo Free (OCTOBER) 4.3 0.1 - 6.4 pg/mL [facility] Comment: Test Performed by [facility], [address] [place] [address] Dereje Estevez M.D., Ph.D., Director of Laboratories , [facility] [id number] Blood specimen (specimen) 06/16/2016 12:12 PM EST 06/16/2016 1:17 PM EST Narrative Resulting Agency Comment Spec In Lab Shakira Vega MD LAB SEND OU T ORDERABLES Performing Organization Address [facility]/ZIP Co de Phone Number [facility] [place] [address] * (ABNORMAL) DHEA-sulfate (06/16/2016 12:12 PM EST) Dehydroepiandrosterone Sulfate 372.2(H) 98.8 - 340.0 mcg/dL [facility] Blood specimen (specimen) 06/16/2016 12:12 PM EST 06/16/2016 12:24 PM EST Narrative Resulting Agency Comment Spec In Lab Shakira Vega MD CHEMISTRY O RDERABLES Performing Organization Address City/[facility]/ZIP Co de Phone Number [facility] [place] [address] * Prolactin (06/16/2016 12:12 PM EST) Prolactin 5.7 4.8 - 23.3 ng/mL [facility] Blood specimen (specimen) 06/16/2016 12:12 PM EST 06/16/2016 12:25 PM EST Narrative Resulting Agency Comment Spec In Lab Shakira Vega MD CHEMISTRY O RDERABLES Performing Organization Address [facility] Co de Phone Number [facility] [place] [address] * TSH (06/16/2016 12:12 PM EST) Thyroid Stimulating Hormone 1.51 0.27 - 4.20 mcIU/mL [facility] Blood specimen (specimen) 06/16/2016 12:12 PM EST 06/16/2016 12:25 PM EST Narrative Resulting Agency Comment Spec In Lab Shakira Vega MD CHEMISTRY O RDERABLES Performing Organization Address [facility] Co de Phone Number [facility] [place] [address] documented in this encounter Visit Diagnoses Diagnosis Procreative investigation and testing Other investigation and testing for procreative management Infertility counseling Irregular menses Irregular menstrual cycle documented in this encounter Care Teams Document Management Analyst Relationship Specialty Start Date End Date Alexa Hairston APRN [address] [place] [address] PCP - General Family Medicine 03/31/16 documented as of this encounter
--- OUTSIDE RECORDS SUMMARY | 2024-06-16 16:43 | XMS_ITS | Encounter Summary ---
Author Organization [facility] Address [address] [place] [address] Care Team Providers Care Retail Assistant Manager Name Role Phone Alexa Hairston APRN Primary Care Provider [phone] Reason for Visit * Reason Onset Date Comments Other 11/27/2016 Encounter Details Date Type Department Care Team (Late st Contact Info) Description 11/27/2016 Telephone [facility] [address] [place] [address] Olga Noe, RN Other Social History Tobacco Use Types [...] Telephone Encounter - Olga Noe RN - 11/27/2016 1325 EDT Call from pt. She left a message that she started a light period on Sunday and needed further instruction. I called pt back. I left a message for her to call office back. documented in this encounter Plan of Treatment Not on file documented as of this encounter Visit Diagnoses Not on filedocumented in this encounter Care Teams Retail Assistant Manager Relationship Specialty Start Date End Date Alexa Hairston APRN [address] [place] [address] PCP - General 10/26/16 07/11/20 documented as of this encounter
--- OUTSIDE RECORDS SUMMARY | 2024-06-16 16:43 | XMS_ITS | Patient Health Record ---
Author Organization [facility] Address [address] [place], [place] [id number] Care Team Providers Care Income Tax Adjuster Name Role Phone Aubree Tapia Unavailable [phone] Allergies Allergen (clinical drug ingredient) Drug/Non Drug Allergy documented on EMR Reaction Allergy Type Onset Date Status amoxicillin / clavulanate Augmentin Rash Drug Allergy Active Reason For Referral No Information Medications Medication SIG (Take, Route, Fr equency, Duration) Notes Start Date End Date Status PNV Active Albuterol Sulfate PRN Ac tive Magnesium Active Sertraline HCl 50 MG Orally Active Immunizations Vaccine Route Administration Date Status Comme nts Influenza Vaccine - Flucelvax IM Intramuscular 03/08/2018 Administered [facility] # [id number] Tdap (Adacel) IM Intramuscular 01/11/2018 Administered Problems Problem Type SNOMED Code ICD Code Onset Dates Problem Status W/U Status Risk Notes Problem History of gestational diabetes mellitus (096244599) History of gestational diabetes (Z86.32) Active confirmed Plan Of Treatment Pending Test Test Name Order Date GLUCOSE TOLERANCE, 1 HOUR SCREEN (GESTAT IONAL) 01/11/2018 Insurance Providers Payer Name Payer Address Payer Phone Subscriber Number Group Number Insured Name Patient Relationship to Insured Coverage Start Date Coverage End Date [place] [address] [place] [address] [phone] [id number] Rita Tavares Self - patient is the insured 2018 Medical (General) History Medical History History ICD Code Polycystic ovarian syndrome E28.2 Infertility, female N97.9 Irregular menses N92.6 SAB (spontaneous ) O03.9 Pilonidal cyst L05.91 Asthma J45.909 Surgical History Surgery Date(Month/Year) Pilonidal cyst removed 04/2016 Skin Biopsy (shoulder) Neck surgery-chiari malformation removed 2000 [place] teeth removed 2006 appendectomy 09/2018
--- NOTE | 2024-06-16 17:17 | DI.VRAD_ITS ---
PROCEDURE INFORMATION: Exam: XR Chest Exam date and time: 06/16/2024 4:39 PM Age: 33 years old Clinical indication: Cough TECHNIQUE: Imaging protocol: Radiologic exam of the chest. Views: 2 views. COMPARISON: CR XR PORTABLE CHEST AP 05/04/2022 10:02 AM FINDINGS: Lungs: Unremarkable. No consolidation. Pleural spaces: Unremarkable. No pleural effusion. No pneumothorax. Heart/Mediastinum: Unremarkable. No cardiomegaly. Bones/joints: Unremarkable. IMPRESSION: No acute findings. Dictated and Authenticated by: Sahara Walls MD. Ordering:NAYELI Soto MD
== END 2024-06-16 16:53 ==
LOC: DI 16:34
PROVIDERS: PCP Nurse Practitioner Family; Visit Provider Nurse Practitioner Family
DX: R05.9 Cough, unspecified (principal)
CPT/HCPCS: 71046

== ENCOUNTER 2024-08-25 01:07 | Outpatient (CLI) | payer OTHER, SELFPAY ==
--- NOTE | 2024-08-25 07:18 | DI.US_ITS ---
Exam(s) US BREAST RT LIMITED [facility]NO[facility] BI EXAM: [facility]MO DIAGNOSTIC BI CLINICAL HISTORY: right breast dimpling,z87.2. COMPARISON: US US BREAST RT LIMITED from 08/25/2024 TECHNIQUE: Craniocaudal and mediolateral oblique Full Field Digital Mammography views of both breast s with Computer Aided Diagnosis followed by Tomosynthesis and right breast ultrasound. FINDINGS: Mammography/Tomosynthesis: Masses: None seen. Architectural Distortion: None seen. Microcalcifications: No suspicious pleomorphic-type are seen. Skin Thickening/Nipple Retraction: None. Right breast US: Echotexture: Normal appearance of the glandular tissue. Shadowing: No suspicious foci. Cyst: None. Solid lesions: None seen. Ductal dilation: Mild ductal dilatation in the subareolar region and 11 o'clock position 1-2 cm from the nipple. IMPRESSION: 1. No evidence of malignancy is noted. 2. Unless there is more urgent need, follow-up screening mammography is recommended, as per [employer] guidelines. BI-RADS Category 2 - Benign Findings Breast Density - Category C - Heterogeneously dense Breast density category C or D implies that the patient has dense breast tissue. Dense breast tissue is very common and is not abnormal but dense breast tissue can make it harder to find cancer on a ma mmogram. Also, dense breast tissue may increase their breast cancer risk. This information about the result of the mammogram report was provided to the patient to raise their awareness. Use this report when you speak with the patient about their risks for breast cancer, which includes their family hist ory. At that time, you may recommend for more screening tests (Ultrasound or MRI) as they might be us eful based on their risk. A negative radiographic report should not delay biopsy if a dominant or clinically suspicious mass is present. Up to ten percent of cancers are not identified on mammography. A negative report may reinforce clinical impression. Adenosis and dense breasts may obscure an underlying neoplasm. False positive reports average 6 to 10%. Patient will receive a letter notifying them of these results.
== END 2024-08-25 01:27 ==
PROVIDERS: PCP Nurse Practitioner Family; Visit Provider Obstetrics & Gynecology Gynecology
DX: Z87.2 Personal history of diseases of the skin and subcutaneous tissue; Z12.31 Encounter for screening mammogram for malignant neoplasm of breast
CPT/HCPCS: 76642; 77062; 77066; G0279

== ENCOUNTER 2024-09-12 14:32 | Outpatient (REF) | payer OTHER, SELFPAY ==
[2024-09-12 21:25] LABS: HCT 41.9 % (36.0-46.0); HGB 13.8 g/dL (11.2-15.7); MCH 28.5 pg (27.0-33.0); MCHC 32.9 % (32.0-36.0); MCV 86 fL (80-95); MPV 9.7 fL (8.0-11.0); Platelet Count 287 10^3/uL (130-400); RBC 4.85 10^6/uL (3.93-5.22); RDW 12.6 % (11.7-14.6); RDW-SD 39.7 fL; WBC 7.04 10^3/uL (4.4-10.8)
[2024-09-12 21:44] LABS: ALT 34 U/L (14-59); AST 22 U/L (15-37); Albumin 4.5 g/dL (3.4-5.0); Alkaline Phosphatase 83 U/L (46-116); Anion Gap 9.2 mmol/L (3-11); BUN 17 mg/dL (7-18); Bilirubin, Total 0.3 mg/dL (0.2-1.0); CO2 28.8 mmol/L (21.0-32.0); CREATININE 0.7 mg/dL (0.55-1.02); Calcium 9.5 mg/dL (8.5-10.1); Calculated LDL 150 mg/dL (<100); Chloride 105 mmol/L (98-107); Cholesterol 238 mg/dL (<200); Estimated GFR 115.59 (mL/min/1.73m2); Glucose 80 mg/dL (74-106); HDL Cholesterol 74 mg/dL (>or=50); Potassium 4.2 mmol/L (3.5-5.1); Sodium 143 mmol/L (136-145); Total Protein 7.7 g/dL (6.4-8.2); Triglyceride 74 mg/dL (<150)
== END 2024-09-12 14:33 | disposition home or self-care (01) ==
LOC: NCHCN 14:32
PROVIDERS: PCP Nurse Practitioner Family; Visit Provider Nurse Practitioner Family
DX: Z00.00 Encounter for general adult medical examination without abnormal findings (principal)
CPT/HCPCS: 80053; 80061; 85027

== ENCOUNTER 2025-02-19 15:11 | Outpatient (REF) | payer OTHER, SELFPAY ==
[2025-02-19 17:32] LABS: Calculated LDL 111 mg/dL (<100); Cholesterol 197 mg/dL (<200); HDL Cholesterol 69 mg/dL (>or=50); Triglyceride 86 mg/dL (<150)
== END 2025-02-19 15:12 | disposition home or self-care (01) ==
LOC: NCHCN 15:11
PROVIDERS: PCP Nurse Practitioner Family; Visit Provider Nurse Practitioner Family
DX: E78.49 Other hyperlipidemia (principal)
CPT/HCPCS: 80061